=== PATIENT | male | born 1970 | race Caucasian/White ===

== ENCOUNTER 2020-02-25 | Outpatient (REF) | payer OTHER, MEDICAID, SELFPAY ==
[2020-03-02 14:41] LABS: FIT Int Ctl YES; FIT1 NEGATIVE (NEGATIVE); FIT2 NEGATIVE (NEGATIVE)
== END 2020-02-25 00:01 | disposition home or self-care (01) ==
LOC: HO.LNP
PROVIDERS: Visit Provider Internal Medicine Gastroenterology
DX: C18.9 Malignant neoplasm of colon, unspecified (principal)
CPT/HCPCS: 82274

== ENCOUNTER → 2020-06-09 14:16 | Outpatient (BNVA) | payer OTHER, MEDICAID, SELFPAY | PROVIDERS: Visit Provider Internal Medicine Gastroenterology ==

== ENCOUNTER → 2020-08-25 08:46 | Outpatient (BNVA) | payer OTHER, MEDICAID, SELFPAY | PROVIDERS: Visit Provider Internal Medicine Gastroenterology ==

== ENCOUNTER 2020-10-26 11:58 | Outpatient (REF) | payer OTHER, MEDICAID, SELFPAY ==
--- NOTE | ~2020-10-26 | PE_ITS ---
EXAMINATION: Fluorine-18 FDG PET/CT Scan CLINICAL INDICATION: Subsequent treatment management. Colon carcinoma metastatic to multiple sites. Patient states second dose vaccination one month ago left arm. PROCEDURE: 63 minutes following the intravenous administration of 6.4 mCi of fluorine 18 FDG, images from the base of the skull to the mid thighs were obtained using a combined PET/CT scanner with CT scan based attenuation correction. No oral contrast was administered. No intravenous contrast was administered. Transverse, coronal, sagittal, and volume reconstruction projections were obtained. The patient's blood glucose as determined by a finger stick, was 98 mg/dl immediately prior to injection. Total CT exam dose-length product 664.89 mGy-cm * These CT images were obtained using dose optimization techniques as appropriate, variously including the following: Automated exposure control * Adjustment of mA and/or kV according to patient size (this includes techniques or standardized protocols for targeted exams where dose is matched to indication/reason for exam; i.e. extremities or head) * Use of iterative reconstruction technique COMPARISON: The previous PET CT scans dated 07/08/2019 and 03/27/2019 are available for comparison. FINDINGS: (Slice numbers described in this report are numbered superiorly to inferiorly with slice #1 in the head) NECK AND VISUALIZED HEAD: No foci of abnormal FDG activity are noted. The distribution of FDG activity is physiological. There is no cervical lymphadenopathy. THORAX: Multiple FDG avid normal-sized a normal-appearing left axillary lymph nodes are present, the most intense showing SUVmax 7.1, slice 60/267. These are likely vaccination related. No other foci of abnormal FDG activity are present in the chest. Multiple pulmonary nodules are present and almost all of these are subcentimeter in size. The largest is in the superior segment of the right lower lobe, just posterior to the major interlobar fissure measuring 1.1 x 0.8 cm in largest transverse dimensions and showing no abnormal FDG activity, although this is at the lower limits of resolution on the FDG PET images. This nodule is not present on 07/08/2019. While some of the nodules present on the current study were present previously, both appear to have enlarged and multiple new nodules are present bilaterally, and all lung lobes appear to be involved. There is no mediastinal, supraclavicular or right axillary lymphadenopathy. There is no pleural or pericardial fluid, or pneumothorax. A right-sided chest port with internal jugular catheter terminating in the superior vena cava is present. ABDOMEN AND PELVIS: No foci of abnormal FDG activity are present in the abdomen or pelvis. There is some retained FDG activity in the mid and distal right ureter and diffusely increased FDG activity is present in the gastrointestinal tract of varying intensities, but most intense in the rectosigmoid colon and rectum without corresponding CT abnormalities. The suture line in the hepatic flexure is visualized and shows no abnormal FDG activity although mild FDG activity similar or less intense than most of the remainder the gastrointestinal tract is noted. The liver, gallbladder and spleen are unremarkable. The kidneys, adrenal glands, and pancreas are unremarkable. There is no retroperitoneal, mesenteric, pelvic or inguinal lymphadenopathy. A metallic clip or dense calcification suspected to be present in the rectum on the 07/08/2019 PET/CT scan is no longer present and this may have represented ingested material. MUSCULOSKELETAL: No foci of abnormal FDG activity are present in the osseous structures. There are mild degenerative changes in the spine but no suspicious sclerotic or lytic lesions are visualized. VASCULAR: No significant abnormalities are present. PET/PET CT fusion skull to thigh IMPRESSION: 1. Enlarging and multiple new pulmonary nodules, predominantly subcentimeter in size are most consistent with progressive metastatic disease. These nodules show no abnormal FDG activity, but all of them are likely too small to be resolved on these FDG PET images. 2. Multiple FDG avid left axillary lymph nodes are present and these are most consistent with known recent Covid vaccination in the left arm. 3. No additional abnormalities suspicious for other metastatic or malignant lesions are noted.
== END 2020-10-26 11:59 | disposition home or self-care (01) ==
LOC: HO.PET 11:58
PROVIDERS: PCP Internal Medicine; Visit Provider Internal Medicine
DX: Z13.89 Encounter for screening for other disorder (principal)

== ENCOUNTER → 2020-11-09 10:51 | Outpatient (REF) | payer OTHER, MEDICAID, SELFPAY ==
--- NOTE | ~2020-11-09 | NM_ITS ---
EXAMINATION: NM BONE SCAN OF THE WHOLE BODY CLINICAL INFORMATION: Acute left-sided back and hip pain, stage IV colon cancer 2019. On chemotherapy now since April 2019. Also patient states dental work in the last 2 months. COMPARISON: No previous bone scan or recent radiographs are available for comparison. FDG PET CT scan dated 10/26/2020 is available for comparison. TECHNIQUE: Multiple gamma scintillation camera images of the whole body were performed 3 hours following the intravenous administration of 34 mCi Tc-99m MDP. FINDINGS: In the head, there are foci of mildly increased activity present bilaterally in the alveolar ridge regions of the maxilla and the mandible, more prominently in the maxilla and best visualized on the anterior whole body image. In the thoracic cage and upper extremities, there is minimally increased activity in the sternoclavicular joints bilaterally. There is a small focus of residual radiopharmaceutical at the injection site in the right antecubital fossa. In the spine, no significant abnormalities are present. In the pelvis, no significant abnormalities are present. In the lower extremities, there is minimally increased activity in the left medial femoral condyle. No other definite bony abnormalities are noted. The urinary bladder and faint visualization of both kidneys are noted. NM/NM bone scan whole body IMPRESSION: A few mild nonspecific abnormalities are noted as described above and these are all likely arthritic or traumatic in etiology. None of these abnormalities is strongly suspicious for metastatic disease.
== END ==
LOC: HO.NUCMED 10:51
PROVIDERS: PCP Internal Medicine; Visit Provider Internal Medicine
DX: M54.5 Low back pain (principal)
CPT/HCPCS: 78306; A9503

== ENCOUNTER 2021-02-01 06:03 | Outpatient (REF) | payer OTHER, MEDICAID, SELFPAY ==
--- NOTE | ~2021-02-01 | CT_ITS ---
EXAMINATION: CT CHEST WITH CONTRAST CLINICAL INFORMATION: Cancer of the appendix COMPARISON: Previous chest CT most recent February 2019 and PET/CT scan October 2020 TECHNIQUE: Multidetector volumetric CT imaging of the chest was obtained after the administration of 85 mL of Omnipaque 350 intravenous contrast without immediate adverse reactions. Axial MIP volume rendering provided. Sagittal and coronal reformatted images were obtained. This CT examination was performed using dose optimization techniques as appropriate, variously including the following: *Automated exposure control *Adjustment of mA and/or kV according to patient size (this includes techniques or standardized protocols for targeted exams where dose is matched to indication/reason for exam; i.e. extremities or head) *Use of iterative reconstruction technique DLP: 184 mGy-cm FINDINGS: LUNGS: There are innumerable bilateral pulmonary nodules. Largest pulmonary nodules measure 1 cm. These appear increased in size and number compared to previous CT scan from 2018. These do not appear appreciably changed from previous PET/CT scan October 2020. Some nodules appear cavitary for example in the left lower lobe axial image 20 and axial image 24 series 6. MEDIASTINUM: There are small mediastinal lymph nodes. No enlarged mediastinal or hilar lymph nodes are seen. The heart does not appear enlarged. There is no pericardial effusion. The thoracic aorta is normal in caliber. There is a Port-A-Cath with tip projecting over the SVC. PLEURA: There is no pleural effusion. No pleural mass or thickening. AXILLA: There are no enlarged axillary lymph nodes. OSSEOUS STRUCTURES: Unremarkable. CT/CT chest w con IMPRESSION: Innumerable bilateral pulmonary nodules. Some nodules appear cavitary. Infectious, inflammatory and neoplastic processes should be considered.
--- NOTE | ~2021-02-01 | CT_ITS ---
EXAMINATION: CT ABDOMEN AND PELVIS WITH CONTRAST CLINICAL INFORMATION: Appendix cancer. COMPARISON: Previous CT of the abdomen and pelvis February 2019 and PET/CT scan October 2020 TECHNIQUE: Multidetector volumetric images were obtained from the superior aspect of the liver through the pubic symphysis following administration 85 mL of Omnipaque 350 intravenous contrast. Sagittal and coronal reformatted images were obtained on the technologist's workstation. Oral contrast: Yes. This CT examination was performed using dose optimization techniques as appropriate, variously including the following: *Automated exposure control *Adjustment of mA and/or kV according to patient size (this includes techniques or standardized protocols for targeted exams where dose is matched to indication/reason for exam; i.e. extremities or head) *Use of iterative reconstruction technique DLP: 558 mGy-cm FINDINGS: LIVER, GALLBLADDER, AND BILIARY TREE: The liver is normal in size, shape, and attenuation. No focal hepatic lesion or biliary ductal dilatation is present. The gallbladder is unremarkable with no evidence of radiopaque gallstones, gallbladder wall thickening, or obvious pericholecystic inflammatory changes. PANCREAS: Unremarkable. SPLEEN: Unremarkable. ADRENAL GLANDS: Unremarkable. KIDNEYS AND URETERS: The kidneys are normal in size, shape, and attenuation. No hydronephrosis, hydroureter, or calculi seen. No perinephric stranding. BLADDER: Unremarkable. GASTROINTESTINAL TRACT: There are postsurgical changes following right colectomy. There is question of mild wall thickening of the distal left proximal sigmoid colon and prominent vasa recta. Findings are questionable for mild colitis. Small and large bowel is otherwise unremarkable. ABDOMINAL WALL: There is a small umbilical hernia containing fat. LYMPH NODES: Normal. VASCULAR: Unremarkable. PELVIC VISCERA: Unremarkable. OSSEOUS STRUCTURES: Unremarkable. CT/CT abdomen pelvis w con IMPRESSION: Postsurgical changes following right colectomy. Question mild colitis of the distal colon.
[2021-02-01] MEDS: iohexoL 350 MG/ML 100 ML INFUS..BTL IV (09:15)
[2021-02-01] MEDS: Barium Sulfate Oral (Vanilla) 450 ML ORAL.SUSP 900 ML PO (09:16)
== END 2021-02-01 06:04 | disposition home or self-care (01) ==
LOC: HO.CT 06:03
PROVIDERS: PCP Internal Medicine; Visit Provider Internal Medicine
DX: C18.9 Malignant neoplasm of colon, unspecified (principal); Z90.49 Acquired absence of other specified parts of digestive tract
CPT/HCPCS: 71260; 74177; Q9967

== ENCOUNTER → 2021-02-08 15:27 | Outpatient (BNVA) | payer OTHER, MEDICAID, SELFPAY | PROVIDERS: PCP Internal Medicine; Referring Provider Internal Medicine; Visit Provider Internal Medicine Gastroenterology ==

== ENCOUNTER → 2021-04-05 12:06 | Outpatient (BNVA) | payer OTHER, SELFPAY | PROVIDERS: PCP Internal Medicine; Referring Provider Internal Medicine; Visit Provider Internal Medicine Gastroenterology | DX: R19.7 Diarrhea, unspecified (principal); C18.9 Malignant neoplasm of colon, unspecified | CPT/HCPCS: 99212 ==

== ENCOUNTER 2021-05-09 13:03 | Outpatient (REF) | payer OTHER, SELFPAY ==
--- NOTE | ~2021-05-09 | CT_ITS ---
EXAMINATION: CT CHEST, ABDOMEN AND PELVIS WITH CONTRAST CLINICAL INFORMATION: Treatment response COMPARISON: CT chest abdomen pelvis from 02/01/2021 TECHNIQUE: Multidetector volumetric CT imaging of the chest, abdomen, and pelvis was performed after the administration of 100 mL of Omnipaque 300 intravenous contrast without immediate adverse reactions. Axial MIP volume rendering provided. Sagittal and coronal reformatted images were obtained. This CT examination was performed using dose optimization techniques as appropriate, variously including the following: *Automated exposure control *Adjustment of mA and/or kV according to patient size (this includes techniques or standardized protocols for targeted exams where dose is matched to indication/reason for exam; i.e. extremities or head) *Use of iterative reconstruction technique DLP: 669 mGy-cm. FINDINGS: CHEST: LUNGS/PLEURA: Redemonstration of innumerable bilateral pulmonary nodules throughout the bilateral lung lombardi. The largest in the right upper lobe measures 1.5 cm (series 7, image 135) previously measuring 1.4 cm. The largest in the right lower lobe measures up to 2.0 cm (series 7, image 251) previously measuring up to 1.9 cm. The largest in the left upper lobe measures up to 1.4 cm (series 7, image 196) previously measuring 1.0 cm the largest in the left lower lobe is a conglomeration of nodules measuring approximately 3.0 cm (series 7, image 253) previously measuring 2.9 cm. Central airways are patent. No pneumothorax. No large pleural effusion. MEDIASTINUM: The heart is not enlarged. No pericardial effusion. The aorta is nonaneurysmal. The main pulmonary artery is not enlarged. No enlarged lymph nodes per size criteria. Visualized portions of the thyroid are unremarkable. Right single lumen chest port with its distal tip in the mid to distal SVC. AXILLA: No lymphadenopathy. ABDOMEN AND PELVIS: LIVER, GALLBLADDER, AND BILIARY TREE: The liver is normal in size and shape. Decreased hepatic attenuation suggesting hepatic steatosis. No focal hepatic lesion or biliary ductal dilatation is present. The gallbladder is unremarkable with no evidence of radiopaque gallstones, gallbladder wall thickening, or obvious pericholecystic inflammatory changes. PANCREAS: Unremarkable. SPLEEN: Unremarkable. ADRENAL GLANDS: Unremarkable. KIDNEYS AND URETERS: The kidneys are normal in size, shape, and attenuation. No hydronephrosis, hydroureter, or calculi seen. No perinephric stranding. BLADDER: Unremarkable. GASTROINTESTINAL TRACT: Postsurgical changes status post right colectomy. Question of mild mural thickening of the sigmoid colon versus underdistention without pericolonic inflammatory changes. Very slight colonic diverticulosis without acute diverticulitis. The small and large bowel are otherwise unremarkable. ABDOMINAL WALL: Fat filled umbilical hernia. Bilateral small fat filled inguinal hernias, left greater than right. LYMPH NODES: No enlarged lymph nodes per size criteria. VASCULAR: Abdominal aorta is nonaneurysmal. Atherosclerotic calcifications of the abdominal aorta and branches. Pelvic phleboliths are noted. PELVIC VISCERA: Prostate measures up to 4.6 cm in greatest dimension. OSSEOUS STRUCTURES: Stable sclerotic focus at the inferior endplate of T12. Mild multilevel degenerative changes of the thoracolumbar and lumbosacral spine. CT/CT abdomen pelvis w con IMPRESSION: 1. Redemonstration of innumerable bilateral pulmonary nodules some of which demonstrate increase in size. 2. Decreased hepatic attenuation suggesting hepatic steatosis. 3. Postsurgical changes status post right colectomy. 4. Question of mild mural thickening of the sigmoid colon versus underdistention without pericolonic inflammatory changes. 5. Very slight colonic diverticulosis without acute diverticulitis. 6. Prostate measures up to 4.6 cm in greatest dimension. 7. Stable sclerotic focus at the inferior endplate of T12.
[2021-05-09] MEDS: iohexoL 350 MG/ML 100 ML INFUS..BTL IV (15:51)
== END 2021-05-09 13:04 | disposition home or self-care (01) ==
LOC: HO.CT 13:03
PROVIDERS: PCP Internal Medicine; Visit Provider Internal Medicine
DX: C18.9 Malignant neoplasm of colon, unspecified (principal); R91.8 Other nonspecific abnormal finding of lung field
CPT/HCPCS: 71260; 74177; Q9967

== ENCOUNTER → 2021-07-08 10:58 | Outpatient (BNVA) | payer OTHER, SELFPAY | PROVIDERS: PCP Internal Medicine; Referring Provider Internal Medicine; Visit Provider Internal Medicine Gastroenterology | DX: C18.9 Malignant neoplasm of colon, unspecified (principal); R19.7 Diarrhea, unspecified | CPT/HCPCS: 99212 ==

== ENCOUNTER 2021-07-13 09:07 | Outpatient (REF) | payer OTHER, SELFPAY ==
[2021-07-13 10:47] LABS: CDiff Gene PCR NEGATIVE (Negative)
== END 2021-07-13 09:08 | disposition home or self-care (01) ==
LOC: HO.LNP 09:07
PROVIDERS: Visit Provider Internal Medicine Gastroenterology
DX: C18.9 Malignant neoplasm of colon, unspecified (principal); R19.7 Diarrhea, unspecified
CPT/HCPCS: 87493

== ENCOUNTER 2021-08-15 10:37 | Outpatient (REF) | payer OTHER, SELFPAY ==
--- NOTE | ~2021-08-15 | CT_ITS ---
EXAMINATION: CT CHEST WITH CONTRAST CLINICAL INFORMATION: Cancer of the appendix. COMPARISON: Previous chest CT most recent April 2021 TECHNIQUE: Multidetector volumetric CT imaging of the chest was obtained after the administration of 65 mL of Omnipaque 350 intravenous contrast without immediate adverse reactions. Axial MIP volume rendering provided. Sagittal and coronal reformatted images were obtained. This CT examination was performed using dose optimization techniques as appropriate, variously including the following: *Automated exposure control *Adjustment of mA and/or kV according to patient size (this includes techniques or standardized protocols for targeted exams where dose is matched to indication/reason for exam; i.e. extremities or head) *Use of iterative reconstruction technique DLP: 159 mGy-cm FINDINGS: LUNGS: There is interval increase in size and number of bilateral pulmonary nodules. Some nodules appear cavitary. Largest right pulmonary nodule measures 1.5 x 1.8 cm axial image 39 series 3 compared to 1.1 x 1.6 cm April 2021 exam. Largest left pulmonary nodule measures 1.5 x 2.4 cm axial image 37 series 3 compared to 1.2 x 2 cm April 2021 exam. MEDIASTINUM: The mediastinum is normal. PLEURA: There is no pleural effusion. No pleural mass or thickening. AXILLA: No lymphadenopathy. There is a right jugular port with tip projecting over the SVC. UPPER ABDOMEN: The liver is low in attenuation suggestive of fatty infiltration. OSSEOUS STRUCTURES: There are mild degenerative changes of the spine. CT/CT chest w con IMPRESSION: Interval increase in size and number of bilateral pulmonary nodules compared to April 2021 exam. Fleischner guidelines were followed.
== END 2021-08-15 10:38 | disposition home or self-care (01) ==
LOC: HO.CT 10:37
PROVIDERS: PCP Internal Medicine; Visit Provider Internal Medicine
DX: C18.9 Malignant neoplasm of colon, unspecified (principal)
CPT/HCPCS: 71260

== ENCOUNTER 2021-09-01 07:25 | Outpatient (REF) | payer OTHER, SELFPAY ==
--- NOTE | ~2021-09-01 | CT_ITS ---
EXAMINATION: CT ABDOMEN AND PELVIS WITH CONTRAST CLINICAL INFORMATION: Colon cancer. Increasing CEA. COMPARISON: Previous CT of the abdomen and pelvis most recent April 2021 TECHNIQUE: Multidetector volumetric images were obtained from the superior aspect of the liver through the pubic symphysis following administration 85 mL of Omnipaque 350 intravenous contrast. Sagittal and coronal reformatted images were obtained on the technologist's workstation. Oral contrast: Yes This CT examination was performed using dose optimization techniques as appropriate, variously including the following: *Automated exposure control *Adjustment of mA and/or kV according to patient size (this includes techniques or standardized protocols for targeted exams where dose is matched to indication/reason for exam; i.e. extremities or head) *Use of iterative reconstruction technique DLP: 523 mGy-cm FINDINGS: LUNG BASES: There is interval increase in size and number of bilateral pulmonary nodules. LIVER, GALLBLADDER, AND BILIARY TREE: There are several small low-attenuation lesion seen in the lateral segment of the left lobe of the liver for example coronal reconstructed image 33 and 39 series 7. Largest lesion measures 3 x 4 mm and is difficult to characterize. There is a 3 x 4 mm low-attenuation lesion in the right lobe coronal reconstructed image 59 that is difficult to characterize as well. These do not appear appreciably changed compared to older exams and may represent small cysts. The liver is low in attenuation suggestive of fatty infiltration. The gallbladder is normal. There is no biliary duct dilatation. PANCREAS: Unremarkable. SPLEEN: Unremarkable. ADRENAL GLANDS: Unremarkable. KIDNEYS AND URETERS: The kidneys are normal in size, shape, and attenuation. No hydronephrosis, hydroureter, or calculi seen. No perinephric stranding. BLADDER: Unremarkable. GASTROINTESTINAL TRACT: The right colon has been removed. The small and large bowel are otherwise unremarkable. ABDOMINAL WALL: There is an umbilical hernia containing fat. LYMPH NODES: Normal. VASCULAR: Unremarkable. PELVIC VISCERA: Unremarkable. OSSEOUS STRUCTURES: Unremarkable. CT/CT abdomen pelvis w con IMPRESSION: Interval increase in size and number of bilateral pulmonary nodules. Fatty liver. Several small low-attenuation liver lesions that are stable from prior exams and may represent tiny cysts. Fleischner guidelines were followed.
[2021-09-01] MEDS: iohexoL 350 MG/ML 100 ML INFUS..BTL 85 ML IV (10:35)
[2021-09-01] MEDS: Barium Sulfate Oral (Mocha) 450 ML ORAL.SUSP 900 ML PO (10:36)
== END 2021-09-01 07:26 | disposition home or self-care (01) ==
LOC: HO.CT 07:25
PROVIDERS: Visit Provider Internal Medicine
DX: C18.9 Malignant neoplasm of colon, unspecified (principal)
CPT/HCPCS: 74177; Q9967

== ENCOUNTER → 2021-09-26 10:00 | Outpatient (BNVA) | payer OTHER, MEDICARE, SELFPAY | PROVIDERS: PCP Internal Medicine; Visit Provider Internal Medicine Gastroenterology | DX: R19.7 Diarrhea, unspecified (principal) ==

== ENCOUNTER 2022-01-18 10:42 | Outpatient (REF) | payer MEDICARE, SELFPAY ==
--- NOTE | ~2022-01-18 | US_ITS ---
EXAMINATION: US ABDOMEN COMPLETE CLINICAL INFORMATION: Worsening liver function tests. History of colon cancer.. COMPARISON: Previous CT of the abdomen and pelvis most recent August 2021 TECHNIQUE: Real-time imaging of the abdominal viscera. FINDINGS: PANCREAS: Normal. ABDOMINAL AORTA: The proximal, mid, and distal segments are normal in caliber. INFERIOR VENA CAVA: Visualized portions are normal. LIVER: The liver echotexture is increased.. The liver is normal in size. The liver contour is normal. No focal hepatic lesion. There is no intrahepatic biliary duct dilatation seen. GALLBLADDER: Normal. The gallbladder is physiologically distended without evidence of stones, sludge, polyps, wall thickening or pericholecystic fluid. COMMON BILE DUCT: Normal in caliber measuring 0.3 cm in diameter. RIGHT KIDNEY: Normal. No hydronephrosis. No renal calculi or focal parenchymal lesions. The kidney measures 12 cm in maximum dimension. LEFT KIDNEY: Normal. No hydronephrosis. No renal calculi or focal parenchymal lesions. The kidney measures 13 cm in maximum dimension. SPLEEN: Normal. The spleen measures 10 cm in maximum dimension. FREE FLUID: None. US/US abdomen complete IMPRESSION: Echogenic liver probably representing fatty infiltration. No focal liver lesion seen. Normal-appearing gallbladder.
== END 2022-01-18 10:43 | disposition home or self-care (01) ==
LOC: HO.US 10:42
PROVIDERS: Visit Provider Internal Medicine
DX: R94.5 Abnormal results of liver function studies (principal)
CPT/HCPCS: 76700

== ENCOUNTER 2022-02-20 06:27 | Outpatient (REF) | payer MEDICARE, SELFPAY ==
--- NOTE | ~2022-02-20 | CT_ITS ---
EXAMINATION: CT CHEST WITHOUT CONTRAST CLINICAL INFORMATION: Colon cancer. Metastatic disease to the lungs. COMPARISON: Previous chest CT July 2021 TECHNIQUE: Multidetector volumetric CT imaging of the chest was done. Axial MIP volume rendering provided. Sagittal and coronal reformatted images were obtained. This CT examination was performed using dose optimization techniques as appropriate, variously including the following: *Automated exposure control *Adjustment of mA and/or kV according to patient size (this includes techniques or standardized protocols for targeted exams where dose is matched to indication/reason for exam; i.e. extremities or head) *Use of iterative reconstruction technique DLP: 146 mGy-cm FINDINGS: SKIRT CLIPPER: Bilateral pulmonary nodules. LUNGS: There is interval increase in size and number of bilateral pulmonary nodules. Largest right pulmonary nodule measures 3.3 x 2.3 cm in the right lower lobe axial image 33 series 4 compared to 2 cm July 2021. Largest left pulmonary nodule measures 2.1 x 3.3 cm in the left lower lobe axial image 29 series 4 compared to 1.8 x 1.3 cm July 2021. Some pulmonary nodules appear cavitary. MEDIASTINUM: There is interval increase in a right precarinal mediastinal lymph node. This measures 1.1 cm in short axis compared to 3 x 5 mm on prior exam. Heart size is normal. No pericardial effusion. Right jugular port with tip projecting over the SVC. CORONARY ARTERY CALCIFICATION: None visualized on this study. PLEURA: There is no pleural effusion. No pleural mass or thickening. AXILLA: No lymphadenopathy. UPPER ABDOMEN: Unremarkable. OSSEOUS STRUCTURES: Unremarkable. CT/CT chest wo IV con IMPRESSION: Interval increase in size and number of bilateral pulmonary nodules. Interval increase in right mediastinal lymphadenopathy. Fleischner guidelines were followed.
--- NOTE | ~2022-02-20 | CT_ITS ---
EXAMINATION: CT ABDOMEN AND PELVIS WITHOUT CONTRAST CLINICAL INFORMATION: Elevated liver function tests. History of colon cancer. COMPARISON: Previous CT of the abdomen and pelvis most recent August 2021. TECHNIQUE: Multidetector volumetric imaging was performed from the superior aspect of the liver through the pubic symphysis. Sagittal and coronal reformatted images were obtained on the technologist's workstation. This CT examination was performed using dose optimization techniques as appropriate, variously including the following: *Automated exposure control *Adjustment of mA and/or kV according to patient size (this includes techniques or standardized protocols for targeted exams where dose is matched to indication/reason for exam; i.e. extremities or head) *Use of iterative reconstruction technique DLP: 552 mGy-cm FINDINGS: LUNG BASES: See chest CT report from the same day. LIVER, GALLBLADDER, AND BILIARY TREE: The liver is normal in size, shape, and attenuation. No focal hepatic lesion or biliary ductal dilatation is present. The gallbladder is unremarkable with no evidence of radiopaque gallstones, gallbladder wall thickening, or obvious pericholecystic inflammatory changes. PANCREAS: Unremarkable. SPLEEN: There is a small 5 mm low-attenuation lesion in the spleen that is stable. ADRENAL GLANDS: Unremarkable. KIDNEYS AND URETERS: The kidneys are normal in size, shape, and attenuation. No hydronephrosis, hydroureter, or calculi seen. No perinephric stranding. BLADDER: Unremarkable. GASTROINTESTINAL TRACT: Postsurgical changes from right colectomy. Increasing peritoneal disease in the right lower quadrant. New soft tissue mass measures 1.9 x 3.1 cm in transverse and AP dimension axial image 68 series 3 and 3.7 cm in longitudinal dimension coronal reconstructed image 35. There are several smaller new peroneal soft tissue masses in the right pelvis adjacent to the psoas muscle measuring 1.5 cm axial image 73 series 3. ABDOMINAL WALL: Small umbilical and periumbilical hernias containing fat. Likely postoperative atrophy of the right rectus muscle compared to the left. LYMPH NODES: Normal. VASCULAR: Unremarkable. PELVIC VISCERA: Unremarkable. OSSEOUS STRUCTURES: Unremarkable. CT/CT abdomen pelvis wo IV con IMPRESSION: Increasing peritoneal disease. Normal-appearing noncontrast liver exam. Stable postsurgical changes from right colectomy. Fleischner guidelines were followed.
[2022-02-20] MEDS: Barium Sulfate Oral (Berry) 450 ML ORAL.SUSP 900 ML PO (08:46)
== END 2022-02-20 06:28 | disposition home or self-care (01) ==
LOC: HO.CT 06:27
PROVIDERS: Visit Provider Internal Medicine
DX: C18.9 Malignant neoplasm of colon, unspecified (principal)
CPT/HCPCS: 71250; 74176

== ENCOUNTER 2022-05-01 12:03 | Outpatient (REF) | payer MEDICARE, SELFPAY ==
--- NOTE | ~2022-05-01 | CT_ITS ---
EXAMINATION: CT ANGIOGRAM OF THE CHEST WITH AND WITHOUT CONTRAST (CT PULMONARY ANGIOGRAM FOR PE) CLINICAL INFORMATION: Reason for Exam pleuritic chest pain COMPARISON: Previous chest CT most recent February 2022 TECHNIQUE: Prior to contrast administration, noncontrast localization images were obtained. Subsequently, multidetector volumetric imaging was performed from the thoracic inlet to below the diaphragms following the administration of 85 mL Omnipaque 350 intravenous contrast. No contrast reaction reported Sagittal, coronal, and MIP oblique sagittal reformatted images were obtained on the CT workstation, uploaded to PACS, and reviewed. This CT examination was performed using dose optimization techniques as appropriate, variously including the following: *Automated exposure control *Adjustment of mA and/or kV according to patient size (this includes techniques or standardized protocols for targeted exams where dose is matched to indication/reason for exam; i.e. extremities or head) *Use of iterative reconstruction technique Total exam dose-length product 129 mGy-cm FINDINGS: QUALITY OF STUDY/CONTRAST BOLUS: Satisfactory. PULMONARY ARTERIES: No central or segmental pulmonary emboli. THORACIC AORTA: No aneurysm or dissection. LUNG: There are innumerable bilateral pulmonary nodules. There may be slight interval decrease in size in some of the larger pulmonary nodules compared to February 2022 exam. Right upper lobe nodule measuring 2.2 x 2.6 cm axial image 219 series 7 compared to 2.4 x 3.1 cm February 2022 exam and right upper lobe nodule measuring 2.4 x 3 cm axial image 143 series 7 compared to 2.6 x 3.2 cm February 2022. Left pulmonary nodule measuring 2.1 x 4.4 cm in the left lower lobe axial image 269 series 7 compared to 2.2 x 4.7 cm February 2022. No new pulmonary nodules. PLEURA: No pleural effusion or pneumothorax. MEDIASTINUM: Normal heart size. No pericardial effusion. Small mediastinal lymph nodes. No enlarged lymph nodes. Right jugular port with tip projecting over the SVC.. No evidence of septal bowing or right heart strain. CHEST WALL/AXILLA: No axillary or internal mammary lymphadenopathy. OSSEOUS STRUCTURES: Degenerative changes of the spine. No fracture or bone lesion. UPPER ABDOMEN: No reflux of contrast into the hepatic veins to suggest elevated right heart pressures. CT/CT angio chest PE protocol IMPRESSION: No evidence of pulmonary embolism. Innumerable bilateral pulmonary nodules. There may be slight interval decrease in size in some of the larger pulmonary nodules compared to February 2022 exam no evidence of pulmonary embolism. Question slight interval decrease in size in some of the larger pulmonary nodules compared to February 2022 exam. VTE: negative
--- NOTE | ~2022-05-01 | CT_ITS ---
EXAMINATION: CT ABDOMEN AND PELVIS WITH CONTRAST CLINICAL INFORMATION: Right-sided abdominal pain COMPARISON: Previous CT of the abdomen and pelvis February 2022 TECHNIQUE: Multidetector volumetric images were obtained from the superior aspect of the liver through the pubic symphysis following administration 85 mL of Omnipaque 350 intravenous contrast. Sagittal and coronal reformatted images were obtained on the technologist's workstation. Oral contrast: Yes This CT examination was performed using dose optimization techniques as appropriate, variously including the following: *Automated exposure control *Adjustment of mA and/or kV according to patient size (this includes techniques or standardized protocols for targeted exams where dose is matched to indication/reason for exam; i.e. extremities or head) *Use of iterative reconstruction technique DLP: 433 mGy-cm FINDINGS: LIVER, GALLBLADDER, AND BILIARY TREE: The liver is normal in size, shape and attenuation. There are 2 small low-attenuation liver lesions measuring 5 mm in the lateral segment of the left lobe axial image 24 series 3 and 4 mm in the posterior segment of the right lobe axial image 23 series 3. These are difficult to characterize due to small size but appear unchanged. No new liver lesion. The gallbladder is normal. No gallstones are seen by CT. There is no intrahepatic or extrahepatic biliary duct dilatation. PANCREAS: Unremarkable. SPLEEN: Unremarkable. ADRENAL GLANDS: Unremarkable. KIDNEYS AND URETERS: The kidneys are normal in size, shape, and attenuation. No hydronephrosis, hydroureter, or calculi seen. No perinephric stranding. BLADDER: Not optimally distended. GASTROINTESTINAL TRACT: There are postsurgical changes following right colectomy. Small and large bowel is otherwise normal. Peritoneal soft tissue masses in the right lower quadrant appear decreased in size for example measuring 1.3 x 1.8 cm axial image 73 series 3 compared to 1.7 x 3.3 cm February 2022 and 0.8 x 1.5 cm axial image 77 series 3. 2 1.4 cm February 2022. No evidence of new peritoneal disease. No ascites. ABDOMINAL WALL: Small umbilical hernia containing fat. Atrophy and abdominal wall bulge of the right rectus muscle. Left inguinal bulge. LYMPH NODES: Small small bowel mesentery and retroperitoneal lymph nodes. No enlarged lymph nodes. VASCULAR: Unremarkable. PELVIC VISCERA: Unremarkable. OSSEOUS STRUCTURES: Unremarkable. CT/CT abdomen pelvis w IV con IMPRESSION: Interval decrease in peritoneal disease. Stable postsurgical changes following right colectomy. Fleischner guidelines were followed.
[2022-05-01] MEDS: iohexoL 350 MG/ML 100 ML INFUS..BTL IV (13:14)
== END 2022-05-01 12:04 | disposition home or self-care (01) ==
LOC: HO.CT 12:03
PROVIDERS: PCP Internal Medicine; Visit Provider Internal Medicine
DX: C18.9 Malignant neoplasm of colon, unspecified (principal); R07.9 Chest pain, unspecified
CPT/HCPCS: 71275; 74177; Q9967

== ENCOUNTER 2022-06-13 16:07 | Outpatient (REF) | payer MEDICARE, SELFPAY ==
--- NOTE | ~2022-06-13 | XR_ITS ---
EXAMINATION: XR RIBS, BILATERAL CLINICAL INFORMATION: Pleurodynia. COMPARISON: CTA of the chest 05/01/2022 and 02/20/2022. TECHNIQUE: 3 views of the bilateral ribs were obtained. FINDINGS: Again noted innumerable pulmonary nodules and masses, difficult to accurately compare with recent prior studies from 05/01/2022 and 02/20/2022 in view of differences in modality. Largest nodule versus conglomerate of nodules in the right lung measured 4.6 cm and in the left lung 3.5 cm. No significant cardiomediastinal contour abnormality. Right-sided chest port terminates at the level of the cavoatrial junction. No pleural effusion or pneumothorax. No acute osseous abnormalities. XR/XR ribs BI min 4V w CXR1V IMPRESSION: 1. Innumerable pulmonary nodules and masses, difficult to accurately compare with recent prior studies from 05/01/2022 and 02/20/2022 in view of differences in modality, although some of which appear increased in size. Recommend correlation with a chest CT. 2. No evidence of pleural effusion or pneumothorax.
== END 2022-06-13 16:08 | disposition home or self-care (01) ==
LOC: HO.XRAY 16:07
PROVIDERS: PCP Internal Medicine; Visit Provider Internal Medicine
DX: R07.81 Pleurodynia (principal)
CPT/HCPCS: 71111

== ENCOUNTER 2022-06-28 12:33 | Outpatient (REF) | payer MEDICARE, SELFPAY ==
--- NOTE | ~2022-06-28 | CT_ITS ---
EXAMINATION: CT ABDOMEN AND PELVIS WITHOUT CONTRAST CLINICAL INFORMATION: Right flank pain. History of stage IV colon carcinoma. COMPARISON: 05/01/2022 TECHNIQUE: Multidetector volumetric imaging was performed from the superior aspect of the liver through the pubic symphysis. Sagittal and coronal reformatted images were obtained on the technologist's workstation. This CT examination was performed using dose optimization techniques as appropriate, variously including the following: *Automated exposure control *Adjustment of mA and/or kV according to patient size (this includes techniques or standardized protocols for targeted exams where dose is matched to indication/reason for exam; i.e. extremities or head) *Use of iterative reconstruction technique DLP: 560 mGy-cm FINDINGS: LUNG BASES: Again noted are multiple lobulated nodules in the visualized lung bases and some of these have air bronchograms. The nodules have not significantly changed in size since 05/01/2022. For example, a nodule in the lateral left lower lobe that measures 2 cm AP was 1.9 cm on 05/01/2021 (image 1, series 4) and a more inferior left lower lobe nodule that measures 2.1 cm AP was 2.1 cm on the prior exam (image 66, series 4). No pulmonary consolidation or pleural effusion. LIVER: The liver has normal size, shape, and attenuation. No evidence of liver mass on these noncontrast images. GALLBLADDER AND BILIARY TREE: Gallbladder is without radiopaque stones, wall thickening or pericholecystic fluid. No dilated bile ducts. PANCREAS: Normal. No edema, pancreatic ductal dilatation or mass. SPLEEN: Normal. ADRENAL GLANDS: Normal. KIDNEYS AND URETERS: The kidneys have normal size and cortical thickness. No perinephric edema or fluid collection. No urolithiasis or hydroureteronephrosis. BLADDER: Normal. No calculi or wall thickening. BOWEL AND PERITONEUM: No dilated loops of bowel. Prior right hemicolectomy and no evidence of wall thickening at the bowel anastomosis. No abdominal free fluid or free air. There are stable nodular metastatic deposits in the right omentum and in the region of the right paracolic gutter (images 60 and 68, series 3). The irregular lymph node or metastatic deposit anterior to the right psoas muscle in the right lower quadrant measures 1.9 cm transverse and also remains stable compared to 05/01/2022 (image 70, series 3). ABDOMINAL WALL: Chronic protrusion of extraperitoneal fat into each inguinal canal (left more so than right). VASCULATURE: Abdominal aorta is normal in caliber. LYMPH NODES: No retroperitoneal, iliac or inguinal lymphadenopathy. PELVIC VISCERA: Prostate gland is unremarkable. MUSCULOSKELETAL: No suspicious bone lesions. The visualized lower thoracic and lumbar vertebra have normal height and alignment. Mild spondylosis. CT/CT abdomen pelvis wo IV con IMPRESSION: * No acute imaging abnormalities in the abdomen or pelvis compared to 05/01/2022. * No nephrolithiasis or hydronephrosis. No specific source of right flank pain is identified. * The metastatic deposits within the right omentum, right paracolic gutter and mesentery are stable compared to 05/01/2022. * The visualized metastatic nodules in lung bases have not significantly changed in size.
== END 2022-06-28 12:34 | disposition home or self-care (01) ==
LOC: HO.CT 12:33
PROVIDERS: Visit Provider Internal Medicine
DX: C18.9 Malignant neoplasm of colon, unspecified (principal); R10.9 Unspecified abdominal pain
CPT/HCPCS: 74176

== ENCOUNTER 2022-07-28 13:08 | Outpatient (REF) | payer MEDICARE, SELFPAY ==
--- NOTE | ~2022-07-28 | CT_ITS ---
EXAMINATION: CT CHEST WITHOUT CONTRAST CLINICAL INFORMATION: Lung metastasis. COMPARISON: 05/01/2022 and 02/20/2022. TECHNIQUE: Multidetector volumetric CT imaging of the chest was done. Axial MIP volume rendering provided. Sagittal and coronal reformatted images were obtained. This CT examination was performed using dose optimization techniques as appropriate, variously including the following: *Automated exposure control *Adjustment of mA and/or kV according to patient size (this includes techniques or standardized protocols for targeted exams where dose is matched to indication/reason for exam; i.e. extremities or head) *Use of iterative reconstruction technique DLP: 161 mGy-cm FINDINGS: LUNGS: The central airways are patent. There is bronchial wall thickening present leading to numerous soft tissue densities and may represent some degree of lymphatic spread of tumor. No bronchiectasis is appreciated. There is no significant change in size of the diffuse bilateral soft tissue masses consistent with metastatic disease to the chest compared to 05/01/2022. No significant changes of emphysema are appreciated. MEDIASTINUM: The heart is normal size. No pericardial effusion. No thoracic aortic aneurysm. No significant calcified plaque is seen within the thoracic aorta. There is a right internal jugular port catheter seen in place. Visualized thyroid gland unremarkable. There is a 1.2 cm right precarinal lymph node. This was present on study of 05/01/2022. No definite hilar lymphadenopathy is identified however without IV contrast there is limited evaluation for this. CORONARY ARTERY CALCIFICATION: None visualized on this study. PLEURA: There is no pleural effusion. No pleural mass or thickening. AXILLA: No lymphadenopathy. UPPER ABDOMEN: Unremarkable. OSSEOUS STRUCTURES: There is a fracture of the left 7th rib anterolaterally which may be traumatic or pathologic. This was not evident on previous study of 05/01/2022. Clinical correlation suggested. There is also a region of stippled higher density within the lateral aspect of the right 7th rib without definite bony destruction and may represent metastatic disease. CT/CT chest wo IV con IMPRESSION: Numerous diffuse lung lesions consistent with metastatic disease without significant change from study of 05/01/2022. New left 7th rib fracture which may be pathologic in nature. There is a region of stippled increased density within the marrow of the right 7th rib laterally which may be related to metastatic disease. This too was not evident on previous study of 05/01/2022.
== END 2022-07-28 13:09 | disposition home or self-care (01) ==
LOC: HO.CT 13:08
PROVIDERS: PCP Internal Medicine; Visit Provider Internal Medicine
DX: C18.9 Malignant neoplasm of colon, unspecified (principal)
CPT/HCPCS: 71250

== ENCOUNTER → 2022-08-11 10:57 | Outpatient (REF) | payer MEDICARE, SELFPAY ==
--- NOTE | ~2022-08-11 | NM_ITS ---
EXAMINATION: NM BONE SCAN OF THE WHOLE BODY CLINICAL INFORMATION: Malignant neoplasm of colon. COMPARISON: Whole-body bone scan done on 11/09/2020. TECHNIQUE: Multiple gamma scintillation camera images of the whole body were performed 2.25 hours following the intravenous administration of 31 mCi Tc-99m MDP. The radiotracer was injected through left antecubital superficial vein, without complications. FINDINGS: In the head, asymmetric new focal abnormal activity is identified along the superolateral aspect of the right frontal bone/ORBIT. In the thoracic cage and upper extremities, multifocal abnormal increased radiotracer activities are present within the thoracic cage bilaterally including involvement of medial end of the left clavicle near the sternoclavicular joint as well as the sternum. All these findings are new since the prior study. In the spine, focal increased radiotracer activity is present at lower thoracic spine to the right of the midline, new since prior study. In the pelvis, abnormal focal increased radiotracer activity is present to the left posterior pelvis overlying the region of the sacrum, new since prior study. In the lower extremities, subtle focal increased radiotracer activities are present at mid and distal part of the left femur, new since the prior study. No other definite bony abnormalities are noted. The urinary bladder and faint visualization of both kidneys are noted. NM/NM bone scan whole body IMPRESSION: Multifocal new osseous disease throughout the entire visualized skeleton as described above, highly suspicious for metastatic disease, new since the prior study dated 11/09/2020. Given the involvement of the left femur (weightbearing bone), follow-up radiographic correlation is recommended.
== END ==
LOC: HO.NUCMED 10:57
PROVIDERS: PCP Internal Medicine; Visit Provider Internal Medicine
DX: C18.9 Malignant neoplasm of colon, unspecified (principal)
CPT/HCPCS: 78306; A9503

== ENCOUNTER 2022-09-12 12:24 | Outpatient (REF) | payer MEDICARE, SELFPAY ==
--- NOTE | ~2022-09-12 | PE_ITS ---
EXAMINATION: Fluorine-18 FDG PET/CT Scan CLINICAL INDICATION: Subsequent treatment management. Colon cancer, restaging. PROCEDURE: 60 minutes following the intravenous administration of 16.5 mCi of fluorine 18 FDG, images from the base of the skull to the mid thighs were obtained using a combined PET/CT scanner with CT scan based attenuation correction. No oral contrast was administered. No intravenous contrast was administered. Transverse, coronal, sagittal, and volume reconstruction projections were obtained. The patient's blood glucose as determined by a finger stick, was 117 mg/dl immediately prior to injection. Total CT exam dose-length product 619.03 mGy-cm * These CT images were obtained using dose optimization techniques as appropriate, variously including the following: Automated exposure control * Adjustment of mA and/or kV according to patient size (this includes techniques or standardized protocols for targeted exams where dose is matched to indication/reason for exam; i.e. extremities or head) * Use of iterative reconstruction technique COMPARISON: Several prior PET/CT scans are available for comparison, the most recent dated 10/26/2020 and the least recent dated 03/27/2019. CT scans of the chest dated 07/28/2022 and of the abdomen and pelvis dated 06/28/2022 are also available for comparison. FINDINGS: NECK AND VISUALIZED HEAD: No foci of abnormal FDG activity are noted. The distribution of FDG activity is physiological. There is no cervical lymphadenopathy. THORAX: Multiple FDG avid nodular opacities are present throughout all lung lombardi. The most intense of these is in the posterior aspect of the superior segment of the left lower lobe showing SUVmax 6.9, slice 99/311 corresponding to a solid nodule on the CT images that measures 2.7 x 2.0 cm in largest transverse dimensions and approximately 2.8 cm cephalocaudad. In the right lung the most intense focus shows SUVmax 5.9, slice 105/311 and an irregular nodular opacity in the right lower lower lobe. Multiple subcentimeter mediastinal lymph nodes are present, but none of these are enlarged by size criteria. Some of these are FDG avid, such as a right paratracheal lymph node that shows SUVmax 4.0, slice 83/311. Although multiple subcentimeter pulmonary nodules were present on the prior 10/26/2020, these did not show abnormal FDG activity although almost all of them are too small to be resolved on the FDG PET images. The FDG avid mediastinal paratracheal lymph node is new. Multiple FDG avid left axillary lymph nodes present on 10/26/2020 are no longer present, and there is now no axillary or supraclavicular lymphadenopathy. There is no pleural or pericardial fluid or pneumothorax. A right-sided chest port with internal jugular catheter terminating in the superior vena cava is noted. ABDOMEN AND PELVIS: There is mild FDG activity present throughout the gastrointestinal tract without a suspicious focal component. The patient is status post right hemicolectomy and an an anastomotic suture line visualized in the right midabdomen just inferior to the lower pole of the right kidney shows no abnormal FDG activity. There is an FDG avid soft tissue density posterior to the lower pole of the right kidney abutting the peritoneum, SUVmax 4.9, slice 165/311 in this measures approximately 2.3 x 0.[address] images. It abuts the posterolateral aspect of the right 12th rib. Additional soft tissue densities in the right paracolic gutter visualized on the 06/28/[address] scan are again visualized but none of these shows abnormal FDG activity. There is a focus of increased FDG activity in the medial aspect of the left rectus muscle, several centimeters inferior to the umbilicus and just lateral to the midline, with no definite corresponding CT abnormality, showing SUVmax 3.0, slice 207/311. The right rectus muscle is atrophic in this region. No additional foci of abnormal FDG activity are present in the abdomen. The pelvic organs are unremarkable. There is no retroperitoneal, mesenteric, pelvic or inguinal lymphadenopathy. MUSCULOSKELETAL: Multiple FDG avid osseous lesions are present. The most prominent of these are in the mid and lower thoracic spine and upper lumbar spine, the most intense in the L1 vertebral body showing SUVmax 9.2, slice 161/311. Although there is a well-circumscribed FDG avid focus posterior to this in the L1 vertebral body, the previously described most intense focus does not show definite corresponding CT abnormality. There are multiple FDG avid foci in the pelvis, the most prominent in the midline upper sacrum showing SUVmax 9.1, slice 215/311. Additional FDG avid osseous foci are present in the proximal humeri bilaterally and in multiple foci in the proximal left femur and in at least one focus in the proximal right femur. A few FDG avid rib lesions are also present. VASCULAR: No significant abnormalities are present. PET/PET CT fusion skull to thigh IMPRESSION: 1. Multiple FDG avid bilateral pulmonary metastases are present, involving all lung lobes. 2. Several subcentimeter mediastinal lymph nodes are present, and one of these is FDG avid, and the latter is likely a metastasis. 3. Multiple FDG avid osseous metastases are present. Although multiple bones involved, the most prominent abnormalities are in the mid and lower thoracic and upper lumbar spine, and pelvis. 4. A posterior FDG avid soft tissue focus adjacent to the posterior aspect of the left 12th rib likely represents a peritoneal metastasis. 5. An additional FDG avid metastasis is probably present in the medial aspect of the left abdominal rectus muscle. 6. The above findings represent a significant progression in metastatic malignant disease since the prior 10/26/[address] scan. 7. FDG avid left axillary lymphadenopathy present on the 10/26/2020 PET/CT scan has resolved.
== END 2022-09-12 12:25 | disposition home or self-care (01) ==
LOC: HO.PET 12:24
PROVIDERS: PCP Internal Medicine; Visit Provider Internal Medicine
DX: Z13.89 Encounter for screening for other disorder (principal)

== ENCOUNTER 2022-10-11 13:58 | Outpatient (REF) | payer MEDICARE, SELFPAY ==
--- NOTE | ~2022-10-11 | XR_ITS ---
EXAMINATION: XR SHOULDER, LEFT CLINICAL INFORMATION: Question metastatic disease to the bones COMPARISON: None available. TECHNIQUE: AP external rotation, Grashey, scapular Y, and axillary views of the left shoulder. FINDINGS: Bone alignment is normal. No fracture or dislocation. The joint spaces are normal. No bone lesion. Normal soft tissues. Innumerable pulmonary nodules XR/XR shoulder LT min 2V IMPRESSION: Normal left shoulder. Left pulmonary nodules.
== END 2022-10-11 13:59 | disposition home or self-care (01) ==
LOC: HO.XRAY 13:58
PROVIDERS: PCP Internal Medicine; Visit Provider Internal Medicine
DX: M25.512 Pain in left shoulder (principal)
CPT/HCPCS: 73030

== ENCOUNTER 2022-10-20 15:52 | Emergency (ER) | payer MEDICARE, SELFPAY ==
--- NOTE | ~2022-10-20 | CT_ITS ---
EXAMINATION: CT ANGIOGRAM OF THE CHEST WITH AND WITHOUT CONTRAST (CT PULMONARY ANGIOGRAM FOR PE) CLINICAL INFORMATION: Reason for Exam on chemo, SOB, tachycardic COMPARISON: CT chest 07/28/2022. PET/CT study 09/12/2022. Chest x-ray 10/20/2022 TECHNIQUE: Prior to contrast administration, noncontrast localization images were obtained. Subsequently, multidetector volumetric imaging was performed from the thoracic inlet to below the diaphragms following the administration of 65 mL Omnipaque 350 intravenous contrast. No contrast reaction reported Sagittal, coronal, and MIP oblique sagittal reformatted images were obtained on the CT workstation, uploaded to PACS, and reviewed. This CT examination was performed using dose optimization techniques as appropriate, variously including the following: *Automated exposure control *Adjustment of mA and/or kV according to patient size (this includes techniques or standardized protocols for targeted exams where dose is matched to indication/reason for exam; i.e. extremities or head) *Use of iterative reconstruction technique Total exam dose-length product 243 mGy-cm FINDINGS: QUALITY OF STUDY/CONTRAST BOLUS: Satisfactory. PULMONARY ARTERIES: No pulmonary emboli. THORACIC AORTA: No aneurysm. LUNG: Innumerable mass lesions again demonstrated throughout the lungs with metastatic disease. This can impression as prior study. For example a lesion in the posterior left lower lobe previously measuring 3.8 cm in diameter now measures 4.5 cm transverse. PLEURA: No pleural effusion or pneumothorax. MEDIASTINUM: Mediastinal lymphadenopathy. Enlarged lymph node pretracheal retrovascular space level has short axis diameter of 1.3 cm. This remains unchanged since PET/CT study of 09/12/2022. Heart size is normal. No pericardial effusion. No evidence of septal bowing or right heart strain. Central port catheter tip in superior vena cava. CORONARY ARTERY CALCIFICATION: None visualized on this study. CHEST WALL/AXILLA: No axillary or internal mammary lymphadenopathy. OSSEOUS STRUCTURES: No acute or suspicious osseous abnormality. UPPER ABDOMEN: Unremarkable. No reflux of contrast into the hepatic veins to suggest elevated right heart pressures. CT/CT angio chest PE protocol IMPRESSION: 1. No evidence of pulmonary embolism. 2. Redemonstration of innumerable lung masses consistent with metastatic disease. This is similar to prior PET/CT study of 09/12/2022. VTE: negative.
--- NOTE | ~2022-10-20 | XR_ITS ---
EXAMINATION: XR CHEST CLINICAL INFORMATION: Chest pain and shortness of breath COMPARISON: Multiple prior, including most recently the PET/CT from 09/12/2022. TECHNIQUE: 2 views of the chest were obtained. FINDINGS: CT compatible right chest wall port in place. The lungs are well expanded. Numerous nodules and masses are seen throughout the lungs. Comparison across modalities is limited, but there is similar distribution to prior. Cannot accurately assess for progression. No new consolidation seen. No pleural effusion or pneumothorax. The cardiomediastinal silhouette is unchanged. XR/XR chest 2V IMPRESSION: Numerous nodules and masses throughout the lungs. Similar distribution to prior. Cannot accurately assess for progression. No new consolidation.
--- NOTE | 2022-10-20 15:52 | ED_ITS ---
HPI - General Adult General Chief complaint: Chest Pain Stated complaint: chest pain Time Seen by Provider: 10/20/22 20:13 Source: patient Mode of arrival: ambulatory Limitations: no limitations History of Present Illness HPI narrative: Patient comes to emergency room complaining of left-sided chest pain and mild s hortness of breath for about a week. Patient states the pain is sharp on the left side of the chest, and it is a mild constant shortness of breath, states he feels like he cannot get enough oxygen. Patient does not use O2 at home. Patient states that he is currently undergoing chemo and radiation for colon cancer which was diagnosed in 2019. Patient states that he was recently started on a fentanyl patch, since then he has been having the above-mentioned symptoms. Also, patient complaining of feeling nauseous all the time and vomiting for several weeks now. Patient takes Zofran at home but it is not helping much. Also, patient complained of a sore throat. Related Data Home Medications Medication Instructions Recorded Confirmed multivitamin 1 tab PO DAILY 01/10/22 10/11/22 Advil PM 200 mg PO TID 09/15/22 10/11/22 Senna Lax 09/15/22 09/15/22 Previous Rx's Medication Instructions Recorded lidocaine HCl 2 % mucosal jelly 1 appl topical BID PRN Pain #100 mL 03/18/21 ferrous sulfate 325 mg (65 mg 325 mg PO DAILY #90 tabs 03/17/22 iron) tablet albuterol sulfate 90 mcg/actuation 2 puff inhalation Q6H PRN 06/13/22 aerosol inhaler (Ventolin HFA) shortness of breath or wheezing #8.5 grams cyanocobalamin (vitamin B-12) 1,000 mcg PO DAILY #90 tabs 08/15/22 1,000 mcg tablet ondansetron 8 mg disintegrating 8 mg PO Q8H PRN Nausea And 08/22/22 tablet Vomiting #60 tabs loperamide 2 mg capsule 2 mg PO Q4H PRN Diarrhea #60 caps 08/31/22 cyclobenzaprine 10 mg tablet 10 mg PO TID PRN Pain #30 tabs 09/05/22 polyethylene glycol 3350 17 gram 17 g PO DAILY #30 ea 09/15/22 oral powder packet (Miralax) dronabinol 2.5 mg capsule (Marinol) 5 mg PO BID #60 caps 10/05/22 fentanyl 50 mcg/hr transdermal 1 patch transdermal Q72H #6 ea 10/11/22 patch omeprazole 20 mg capsule,delayed 20 mg PO DAILY #30 caps 10/11/22 release regorafenib 40 mg tablet 80 mg PO DAILY #42 tabs 10/11/22 oxycodone 5 mg tablet 10 mg PO Q4H PRN Pain #100 tabs 10/13/22 calcium carbonate 600 mg calcium 600 mg PO BID #90 tabs 10/17/22 (1,500 mg) tablet (Calcium) lorazepam 0.5 mg tablet 0.5 mg PO TID PRN Anxiety #60 tabs 10/17/22 oxycodone 30 mg tablet,crush 30 mg PO TID #10 tabs 10/20/22 resistant,extended release 12 hr (OxyContin) Allergies Allergy/AdvReac Type Severity Reaction Status Date / Time seafood Allergy Severe Angioedema Verified 09/15/22 11:22 shrimp [SHRIMP] Allergy Severe ANGIOEDEMA Verified 09/15/22 11:22 sucralfate [From Carafate] AdvReac Intermediate rectal Verified 09/15/22 11:22 bleeding Review of Systems Review of Systems: Constitutional : No Weight loss, No Fever, No Chills, No Night Sweats, No Fatigue, No Malaise ENT/Mouth : No Hearing loss, No Ear Pain, No Nasal Congestion, No Sinus Pain, No Hoarseness, complaining of sore throat, No Rhinorrhea, No Swallowing Difficulty Eyes: No Eye Pain, No Swelling, No Redness, No Foreign Body, No Discharge, No Vision Changes Cardiovascular : No Chest Pain, No SOB, No Dyspnea on Exertion, No Orthopnea, No Edema, No Palpitations Respiratory : No Cough, No Sputum, No Wheezing, No Smoke Exposure, No Dyspnea Gastrointestinal : No Nausea, No Vomiting, No Diarrhea, No Constipation, No abdominal Pain, No Hematochezia, No Melena Genitourinary : no irregular bleeding, No Dysuria, No Urinary Frequency, No Hematuria, No Urinary Incontinence, No Urgency, No Flank Pain, No Urinary Flow Changes, No Hesitancy Musculoskeletal : No joint pain, No Myalgias, No Joint Swelling Skin : No Skin Lesions, No rash Neuro : No Weakness, No Numbness, No Paresthesias, No Loss of Consciousness, No Dizziness, No Headache Psych : No Anxiety/Panic, No Depression, No SI/HI/AH/VH, No Social Issues, Heme/Lymph: No Bruising, No Bleeding,No Lymphadenopathy Endocrine : No Polyuria, No Polydipsia, No Temperature Intolerance [facility] Past Medical History Medical History Acute appendicitis Asthma Colon adenocarcinoma Diarrhea Hypercholesteremia Surgical History History of lung biopsy Hx of appendectomy Hx of colonoscopy Hx of right hemicolectomy Family History Family History Father History of cancer of unknown primary site Family history of high blood pressure Mother Hx of arteriosclerotic cardiovascular disease Maternal Grandfather Hx of arteriosclerotic cardiovascular disease Aortic aneurysm Brother No problems noted. Sister No problems noted. Brother No problems noted. Brother No problems noted. Brother No problems noted. Sister No problems noted. Social History Social History Household Members: Family Housing: Apartment Alcohol intake: never Patient Tobacco Use Status: Never used Tobacco e-Cigarette/Vaping Use: Never Used Second Hand Smoke Exposure: No Advance Directives: No Advance Directives Information Provided: No service: No Current occupational status: disabled Cognitive needs: No Hearing needs: No Vision needs: No Physical Exam ED Vital Signs: Vital Signs - 24 hr 10/20/22 15:53 10/20/22 21:29 Temperature 98.1 F Pulse Rate 110 H 103 H Respiratory Rate 18 17 Blood Pressure 120/89 113/81 Pulse Oximetry 96 96 Oxygen Delivery Method Room Air Room Air BMI result Body Mass Index 24.7 Const Other: Appearance: Alert. Oriented X3. No acute distress. Eyes: Pupils equal, round and reactive to light. ENT: Pharynx normal. Dry oral mucosa Neck: Normal inspection. Neck supple. No lymph nodes noted. No crepitus CVS: Tachycardic 110 approximately, regular rhythm Pulses normal. Normal S1 and S2 Respiratory: No respiratory distress. Breath sounds normal. No Wheezing. No rales Abdomen: Soft and nontender. No rigidity. No distention. Skin: Skin warm and dry. Normal skin color. Normal skin turgor. Extremities: No lower extremity edema. No Lacerations. No Rash Neuro: Oriented X 3. No motor deficit. No sensory deficit. Moving all extremities. No slurred speech. CN 2 through 12 grossly intact Psych: calm, cooperative, normal affect Course Course Course Narrative: RME performed by Donna Valero PA-C. Patient is a 52 year old assigned male at presenting to the emergency department with chest pain. Labs ordered. Patient placed back in the waiting room pending room availability and results. Medications Administered Discontinued Medications Generic Name Dose Route Start Last Admin Trade Name Freq PRN Reason Stop Dose Admin Sodium Chloride 1,000 mls @ 999 mls/hr 10/20/22 20:34 10/20/22 21:54 Ns IVCONT 10/20/22 21:34 999 mls/hr .Q1H1M ONE Administration Iohexol 100 ml 10/20/22 21:53 10/20/22 21:53 Iohexol 350 Mg/Ml 100 Ml Infus..Btl IV 10/20/22 21:54 65 ml ONCE ONE Administration Prochlorperazine Edisylate 10 mg 10/20/22 20:34 10/20/22 21:54 Prochlorperazine Edisylate 10 Mg/2 Ml Vial IVPUSH 10/20/22 20:35 Not Given ONCE ONE Medical Decision Making Medical Decision Making [facility] Narrative: -patient is at high risk of a pulmonary embolism given his history of cancer in his symptoms. We will go ahead and do a CTA to rule out pulmonary embolism My interpretation of CTA: 1st numerous bilateral pulmonary nodules, no pulmonary embolism seen -CT scan was negative for pulmonary embolism. -patient states that he does not like the fentanyl patch, he prefers to go back to p.o. morphine 30 mg extended release 3 times a day. -after checking the fentanyl dosage with pharmacy, patient instructed to take his fentanyl patch off today, and he may resume taking extended-release morphine in 3 days. In the meantime, patient instructed to take oxycodone p.r.n. every 4 hours. Patient already has a prescription for oxycodone. Lab Data [facility] Lab Attestation statement: I reviewed the patient's lab results. 10/20/22 16:12 10/20/22 16:12 Labs: Lab Results 10/20/22 10/20/22 10/20/22 Range/Units 13:08 16:12 16:12 WBC 8.4 (4.8-10.8) X10*3/uL RBC 3.68 L (4.60-5.80) X10*6/uL Hgb 11.6 L (14.0-18.0) g/dl Hct 35.4 L (42.0-52.0) % MCV 96.2 (80.0-98.0) fL MCH 31.5 (27.0-33.0) pg MCHC 32.8 (31.0-36.0) g/dl RDW 16.4 H (11.0-16.0) % Plt Count 201 (160-400) X10*3/uL MPV 10.4 (9.4-12.4) fL Immature Gran % (Auto) 0.2 (0.0-0.4) % Neut % (Auto) 69.1 (45-73) % Lymph % (Auto) 9.9 L (20-40) % [place] % (Auto) 11.3 H (2-11) % Eos % (Auto) 9.0 H (0-4) % Baso % (Auto) 0.5 (0-2) % Lymph # (Auto) 0.8 L (1.2-4.9) X10*3/uL [place] # (Auto) 0.9 (0.1-1.2) X10*3/uL Eos # (Auto) 0.8 H (0.0-0.4) X10*3/uL Baso # (Auto) 0.0 (0.0-0.2) X10*3/uL Abs Immat Gran (auto) 0.02 (0.00-0.03) X10*3/uL Absolute Neuts (auto) 5.8 (2.0-8.3) x10*3/uL Absolute Nucleated RBC 0.000 (0.0-0.012) X10*3/uL Nucleated RBC % (auto) 0.0 (0.0-0.2) /100WBC PT (10.0-13.1) SEC INR (0.9-1.1) APTT (26.0-36.4) SEC D-Dimer High Sensitivty NG/ML Sodium 135 (135-145) mmol/L Potassium 4.3 (3.3-5.1) mmol/L Chloride 100 (96-108) mmol/L Carbon Dioxide 25 (22-29) mmol/L Anion Gap 14 (12-20) BUN 18 H (9-16) mg/dL Creatinine 1.25 (0.5-1.4) mg/dL Estim Creat Clear Calc 68.3 Estimated GFR > 60 Random Glucose 89 (60-115) mg/dL Calcium 9.9 D (8.4-10.2) mg/dL Magnesium 1.9 (1.6-2.6) mg/dL Total Bilirubin 0.6 (0.0-1.0) mg/dL AST 30 (5-37) U/L ALT 13 (0-40) U/L Alkaline Phosphatase 143 H (39-117) U/L Troponin I High Sens (<3.5-35.0) ng/L Total Protein 7.8 (6.5-8.0) g/dL Albumin 4.0 (3.5-5.0) g/dL COVID-19 (MARSHA) Negative (Negative) COVID-19 Clin Com See Note S. pyogenes GrpA HUNTER (Negative) 10/20/22 10/20/22 10/20/22 Range/Units 16:12 20:35 21:40 WBC (4.8-10.8) X10*3/uL RBC (4.60-5.80) X10*6/uL Hgb (14.0-18.0) g/dl Hct (42.0-52.0) % MCV (80.0-98.0) fL MCH (27.0-33.0) pg MCHC (31.0-36.0) g/dl RDW (11.0-16.0) % Plt Count (160-400) X10*3/uL MPV (9.4-12.4) fL Immature Gran % (Auto) (0.0-0.4) % Neut % (Auto) (45-73) % Lymph % (Auto) (20-40) % [place] % (Auto) (2-11) % Eos % (Auto) (0-4) % Baso % (Auto) (0-2) % Lymph # (Auto) (1.2-4.9) X10*3/uL [place] # (Auto) (0.1-1.2) X10*3/uL Eos # (Auto) (0.0-0.4) X10*3/uL Baso # (Auto) (0.0-0.2) X10*3/uL Abs Immat Gran (auto) (0.00-0.03) X10*3/uL Absolute Neuts (auto) (2.0-8.3) x10*3/uL Absolute Nucleated RBC (0.0-0.012) X10*3/uL Nucleated RBC % (auto) (0.0-0.2) /100WBC PT 13.6 H (10.0-13.1) SEC INR 1.2 H (0.9-1.1) APTT 28.5 (26.0-36.4) SEC D-Dimer High Sensitivty 451 NG/ML Sodium (135-145) mmol/L Potassium (3.3-5.1) mmol/L Chloride (96-108) mmol/L Carbon Dioxide (22-29) mmol/L Anion Gap (12-20) BUN (9-16) mg/dL Creatinine (0.5-1.4) mg/dL Estim Creat Clear Calc Estimated GFR Random Glucose (60-115) mg/dL Calcium (8.4-10.2) mg/dL Magnesium (1.6-2.6) mg/dL Total Bilirubin (0.0-1.0) mg/dL AST (5-37) U/L ALT (0-40) U/L Alkaline Phosphatase (39-117) U/L Troponin I High Sens < 2.7 (<3.5-35.0) ng/L Total Protein (6.5-8.0) g/dL Albumin (3.5-5.0) g/dL COVID-19 (MARSHA) (Negative) COVID-19 Clin Com S. pyogenes GrpA HUNTER Negative (Negative) Radiology Impression Discussion of test interpretation with radiology: I have reviewed the radiologist's reading. Radiologist Impression: FINDINGS: QUALITY OF STUDY/CONTRAST BOLUS: Satisfactory. PULMONARY ARTERIES: No pulmonary emboli.? THORACIC AORTA: No aneurysm. LUNG: Innumerable mass lesions again demonstrated throughout the lungs with metastatic disease. This can impression as prior study. For example a lesion in the posterior left lower lobe previously measuring 3.8 cm in diameter now measures 4.5 cm transverse. PLEURA: No pleural effusion or pneumothorax. MEDIASTINUM: Mediastinal lymphadenopathy. Enlarged lymph node pretracheal retrovascular space level has short axis diameter of 1.3 cm. This remains unchanged since PET/CT study of 09/12/2022. Heart size is normal. No pericardial effusion. No evidence of septal bowing or right heart strain. Central port catheter tip in superior vena cava. CORONARY ARTERY CALCIFICATION: None visualized on this study. CHEST WALL/AXILLA: No axillary or internal mammary lymphadenopathy. OSSEOUS STRUCTURES: No acute or suspicious osseous abnormality.? UPPER ABDOMEN: Unremarkable.? No reflux of contrast into the hepatic veins to suggest elevated right heart pressures. CT/CT angio chest PE protocol IMPRESSION: 1.? No evidence of pulmonary embolism. 2.? Redemonstration of innumerable lung masses consistent with metastatic disease. This is similar to prior PET/CT study of 09/12/2022. ? VTE: negative. ? Discharge Plan Discharge Clinical Impression: Atypical chest pain, Acute dyspnea Patient Disposition: Home, Self-Care Instructions: Chest Pain (ED), Dyspnea (ED) Additional Instructions: Tonight, discontinue using the fentanyl patch. Discontinue taking fentanyl patches altogether. You may use oxycodone 10 mg every 4 hours for next 3 days, then on October 23, you may resume using her previous dose of extended release morphine 30 mg t.i.d. do not mix fentanyl patch with OxyContin as this may cause an accidental overdose. Please follow-up with your primary care physician tomorrow. If you have any worsening or new symptoms, please return to the emergency room or call 911 Prescriptions: New oxycodone [OxyContin] 30 mg tablet,oral only,ext.rel.12 hr 30 mg PO TID Qty: 10 0RF Rx Instructions: Partial Fill upon patient request. Stop using the fentanyl patch today, 10/20/2022. You may start using OxyContin on October 23 No Action lidocaine HCl 2 % Jelly 1 appl TOPICAL BID PRN (Reason: Pain) Qty: 100 0RF multivitamin Tablet 1 tab PO DAILY ferrous sulfate 325 mg (65 mg iron) Tablet 325 mg PO DAILY Qty: 90 4RF cyanocobalamin (vitamin B-12) 1,000 mcg Tablet 1,000 mcg PO DAILY Qty: 90 1RF ondansetron 8 mg Tablet,Disintegrating 8 mg PO Q8H PRN (Reason: Nausea And Vomiting) Qty: 60 5RF loperamide 2 mg capsule 2 mg PO Q4H PRN (Reason: Diarrhea) Qty: 60 0RF cyclobenzaprine 10 mg Tablet 10 mg PO TID PRN (Reason: Pain) Qty: 30 3RF Advil PM 200 mg gel 200 mg PO TID Senna Lax dronabinol [Marinol] 2.5 mg Capsule 5 mg PO BID Qty: 60 0RF Rx Instructions: administer before lunch and evening meal/dinner regorafenib 40 mg Tablet 80 mg PO DAILY Qty: 42 0RF fentanyl 50 mcg/hr Patch 72 Hour 1 patch TRANSDERMAL Q72H Qty: 6 0RF Rx Instructions: Partial Fill upon patient request. omeprazole 20 mg Capsule,Delayed Release(Dr/Ec) 20 mg PO DAILY Qty: 30 3RF oxycodone 5 mg Tablet 10 mg PO Q4H PRN (Reason: Pain) Qty: 100 0RF Rx Instructions: Partial Fill upon patient request. lorazepam 0.5 mg Tablet 0.5 mg PO TID PRN (Reason: Anxiety) Qty: 60 0RF calcium carbonate [Calcium 600] 600 mg calcium (1,500 mg) Tablet 600 mg PO BID Qty: 90 3RF albuterol sulfate [Ventolin HFA] 90 mcg/actuation HFA aerosol inhaler 2 puff inhalation Q6H PRN (Reason: shortness of breath or wheezing) Qty: 8.5 0RF polyethylene glycol 3350 [Miralax] 17 gram powder in packet 17 g PO DAILY Qty: 30 0RF
[2022-10-20 15:53] VITALS: BP 120/89; PULSE 110; RESP 18; TEMP 36.7; O2SAT 96; BMI 24.7
--- NOTE | 2022-10-20 15:53 | ECG_ITS ---
Test Reason : chest pain Blood Pressure : / mmHG Vent. Rate : 112 BPM Atrial Rate : 112 BPM P-R Int : 150 ms QRS Dur : 086 ms QT Int : 318 ms P-R-T Axes : 054 058 002 degrees QTc Int : 434 ms Sinus tachycardia Possible Left atrial enlargement Nonspecific ST and T wave abnormality Abnormal ECG When compared with ECG of 01-DEC-2020 13:58, Inverted T waves have replaced nonspecific T wave abnormality in Inferior leads Nonspecific T wave abnormality now evident in Anterior leads Referred By: Donna Valero Electronically Signed By:VAN SUNSHINE MD
[2022-10-20 16:20] LABS: MANUAL DIFF FLAG NO
--- NOTE | 2022-10-20 16:22 | MHC.EDTECH ---
pt ekg done and was read by provider ,blood drawn and sent to lab .
[2022-10-20 16:26] LABS: Basophils Percent Auto 0.5 % (0-2); Eosinophils Absolute Auto 0.8 X10*3/uL (0.0-0.4); Hematocrit 35.4 % (42.0-52.0); Hemoglobin 11.6 g/dl (14.0-18.0); Imm Gran Abs Auto 0.02 X10*3/uL (0.00-0.03); Imm Gran Pct Auto 0.2 % (0.0-0.4); Lymphocytes Absolute Auto 0.8 X10*3/uL (1.2-4.9); Lymphocytes Percent Auto 9.9 % (20-40); Mean Corpuscular HGB Conc 32.8 g/dl (31.0-36.0); Mean Corpuscular Hemoglobin 31.5 pg (27.0-33.0); Mean Corpuscular Volume 96.2 fL (80.0-98.0); Mean Platelet Volume 10.4 fL (9.4-12.4); Monocytes Absolute Auto 0.9 X10*3/uL (0.1-1.2); Monocytes Percent Auto 11.3 % (2-11); Neutrophils Absolute Auto 5.8 x10*3/uL (2.0-8.3); Neutrophils Percent Auto 69.1 % (45-73); Platelet Count 201 X10*3/uL (160-400); Red Blood Count 3.68 X10*6/uL (4.60-5.80); Red Cell Distribution Width 16.4 % (11.0-16.0); White Blood Count 8.4 X10*3/uL (4.8-10.8)
[2022-10-20 16:36] LABS: COVID-19 Test Negative (Negative); IDNOW Serial# 08D9AD1C
[2022-10-20 16:37] LABS: Alanine Aminotransferase 13 U/L (0-40); Alkaline Phosphatase 143 U/L (39-117); Anion Gap 14 (12-20); Aspartate Amino Transferase 30 U/L (5-37); Bilirubin Total 0.6 mg/dL (0.0-1.0); Blood Urea Nitrogen 18 mg/dL (9-16); Calcium 9.9 mg/dL (8.4-10.2); Carbon Dioxide 25 mmol/L (22-29); Chloride 100 mmol/L (96-108); Creatinine Clr Calc Pharmacy 68.3; Estimated Glomerular Filt Rate > 60; Glucose Random 89 mg/dL (60-115); Magnesium 1.9 mg/dL (1.6-2.6); Potassium 4.3 mmol/L (3.3-5.1); Sodium 135 mmol/L (135-145); Total Protein 7.8 g/dL (6.5-8.0)
[2022-10-20 16:47] LABS: Troponin-I High Sensitivity < 2.7 ng/L (<3.5-35.0)
[2022-10-20 20:49] LABS: INTERNATIONAL NORM RATIO 1.2 (0.9-1.1); Prothrombin Time 13.6 SEC (10.0-13.1)
[2022-10-20 20:51] LABS: D Dimer High Sensitivity 451 NG/ML; Partial Thromboplastin Time 28.5 SEC (26.0-36.4)
[2022-10-20 21:29] VITALS: BP 113/81; PULSE 103; RESP 17; O2SAT 96
[2022-10-20] MEDS: iohexoL 350 MG/ML 100 ML INFUS..BTL IV (21:53)
[2022-10-20] MEDS: 0.9 % Sodium Chloride 1,000 ML 999 ML IVCONT (21:54)
[2022-10-20 22:37] LABS: IDNOW Serial# 08D9AD1C; Strep A Nucleic Acid Negative (Negative)
== END 2022-10-20 23:55 | disposition home or self-care (01) ==
PROVIDERS: Physician Assistant Medical; Emergency Provider Emergency Medicine; PCP Internal Medicine
DX: R07.89 Other chest pain (principal); R06.00 Dyspnea, unspecified; Z20.822 Contact with and (suspected) exposure to COVID-19; R06.02 Shortness of breath; R11.2 Nausea with vomiting, unspecified; J02.9 Acute pharyngitis, unspecified; C18.9 Malignant neoplasm of colon, unspecified; Z92.21 Personal history of antineoplastic chemotherapy; Z92.3 Personal history of irradiation; Z79.899 Other long term (current) drug therapy
CPT/HCPCS: 36415; 71046; 71275; 80053; 83735; 84484; 85025; 85379; 85610; 85730; 87635; 87651; 93005; 99284; J1642; Q9967

== ENCOUNTER 2022-11-03 12:45 | Outpatient (RCR) | payer MEDICAID, OTHER, SELFPAY ==
[2020-03-03 10:05] VITALS: BP 138/93; PULSE 99; RESP 18; TEMP 36.8; O2SAT 96; BMI 27.7
[2020-03-03 10:44] LABS: Glucose Urine UA NEG (NEG); Leukocyte Esterase Urine NEG (NEG); Nitrite Urine NEG (NEG); Urine Blood NEG (NEG); Urine Ketones NEG (NEG); Urine Protein NEG (NEG-TRACE)
[2020-03-03 10:46] LABS: Appearance Urine CLEAR; Color Urine YELLOW
[2020-03-03 10:56] LABS: Basophils Percent Auto 0.6 % (0-2); Eosinophils Absolute Auto 0.1 X10*3/uL (0.0-0.4); Eosinophils Percent Auto 2.3 % (0-4); Hematocrit 35.2 % (42-52); Hemoglobin 12.2 g/dl (14.0-18.0); Imm Gran Abs Auto 0.01 X10*3/uL (0.00-0.03); Imm Gran Pct Auto 0.2 % (0.0-0.4); Lymphocytes Absolute Auto 1.6 X10*3/uL (1.2-4.9); Lymphocytes Percent Auto 33.3 % (20-40); MANUAL DIFF FLAG NO; Mean Corpuscular HGB Conc 34.7 g/dl (31.0-36.0); Mean Corpuscular Hemoglobin 36.4 pg (27.0-33.0); Mean Corpuscular Volume 105.1 fL (80-98); Mean Platelet Volume 9.7 fL (9.4-12.4); Monocytes Absolute Auto 0.7 X10*3/uL (0.1-1.2); Monocytes Percent Auto 13.8 % (2-11); Neutrophils Absolute Auto 2.4 X10*3/uL (2.0-8.3); Neutrophils Percent Auto 49.8 % (45-73); Platelet Count 199 X10*3/uL (160-400); Red Blood Count 3.35 X10*6/uL (4.60-5.80); Red Cell Distribution Width 18.6 % (11.0-16.0); White Blood Count 4.8 X10*3/uL (4.8-10.8)
[2020-03-03 11:32] LABS: Alanine Aminotransferase 22 U/L (0-40); Albumin Level 4.1 g/dL (3.5-5.0); Alkaline Phosphatase 69 U/L (39-117); Anion Gap 13 (12-20); Aspartate Amino Transferase 26 U/L (5-37); Blood Urea Nitrogen 7 mg/dL (9-16); Calcium 8.8 mg/dL (8.4-10.2); Carbon Dioxide 30 mmol/L (22-29); Chloride 100 mmol/L (96-108); Creatinine Clr Calc Pharmacy 99.1; Estimated Glomerular Filt Rate > 60; Glucose Random 124 mg/dL (60-115); Magnesium 1.5 mg/dL (1.6-2.6); Potassium 3.4 mmol/l (3.3-5.1); Sodium 140 mmol/L (135-145); Total Protein 6.6 g/dL (6.5-8.0)
[2020-03-03] MEDS: ondansetron HCL/NS 16 MG/50 ML PIGGYBACK 200 MG IV (12:00)
[2020-03-03] MEDS: dexAMETHasone sod phosphate/NS 12 MG/50 ML PIGGYBACK 100 MG IV (12:33)
[2020-03-03] MEDS: Fosaprepitant Dimeglumine 150 MG in 0.9 % Sodium Chloride 145 ML 300 MG IV (12:58)
--- NOTE | 2020-03-03 14:45 | MHC.HEMONCSW ---
PT REMAINS INDEPENDENT, TREATMENT CONTINUES. VERY GOOD SPIRITS TODAY. RECEIVING [employer] SSDI AND MEDICAL BENEFITS. DISCUSSED EFFECTIVE COPING TECHNIQUES HE USES, I.E...JOZEF, DIET AND EXERCISE. EDUCATION AND SUPPORT PROVIDED. PT IS AWARE OF MY AVAILABILITY.
[2020-03-03] MEDS: Heparin Sodium,Porcine Flush 500 UNIT/5 ML SYRINGE IVFLUSH (16:31)
[2020-03-24 10:14] VITALS: BMI 27.2
[2020-03-24 10:15] VITALS: BP 138/94; PULSE 98; RESP 18; TEMP 36.8; O2SAT 96
[2020-03-24 10:53] LABS: MANUAL DIFF FLAG NO
[2020-03-24 10:59] LABS: Basophils Percent Auto 0.6 % (0-2); Eosinophils Absolute Auto 0.2 X10*3/uL (0.0-0.4); Eosinophils Percent Auto 3.2 % (0-4); Hematocrit 35.8 % (42-52); Hemoglobin 12.3 g/dl (14.0-18.0); Imm Gran Abs Auto 0.02 X10*3/uL (0.00-0.03); Imm Gran Pct Auto 0.4 % (0.0-0.4); Lymphocytes Absolute Auto 1.8 X10*3/uL (1.2-4.9); Lymphocytes Percent Auto 33.3 % (20-40); Mean Corpuscular HGB Conc 34.4 g/dl (31.0-36.0); Mean Corpuscular Hemoglobin 36.6 pg (27.0-33.0); Mean Corpuscular Volume 106.5 fL (80-98); Mean Platelet Volume 9.6 fL (9.4-12.4); Monocytes Percent Auto 17.9 % (2-11); Neutrophils Absolute Auto 2.4 X10*3/uL (2.0-8.3); Neutrophils Percent Auto 44.6 % (45-73); Platelet Count 221 X10*3/uL (160-400); Red Blood Count 3.36 X10*6/uL (4.60-5.80); Red Cell Distribution Width 17.7 % (11.0-16.0); White Blood Count 5.3 X10*3/uL (4.8-10.8)
[2020-03-24 11:30] LABS: Alanine Aminotransferase 24 U/L (0-40); Albumin Level 4.2 g/dL (3.5-5.0); Alkaline Phosphatase 74 U/L (39-117); Anion Gap 13 (12-20); Aspartate Amino Transferase 32 U/L (5-37); Bilirubin Total 1.1 mg/dL (0.0-1.0); Blood Urea Nitrogen 10 mg/dL (9-16); Calcium 8.9 mg/dL (8.4-10.2); Carbon Dioxide 28 mmol/L (22-29); Chloride 99 mmol/L (96-108); Estimated Glomerular Filt Rate > 60; Glucose Random 93 mg/dL (60-115); Magnesium 1.8 mg/dL (1.6-2.6); Potassium 3.7 mmol/l (3.3-5.1); Sodium 136 mmol/L (135-145); Total Protein 6.8 g/dL (6.5-8.0)
[2020-03-24] MEDS: ondansetron HCL/NS 16 MG/50 ML PIGGYBACK 200 MG IV (11:44)
[2020-03-24 11:55] LABS: Glucose Urine UA NEG (NEG); Leukocyte Esterase Urine NEG (NEG); Nitrite Urine NEG (NEG); PH 5.5 (5.0-8.0); Specific Gravity - Urine >= 1.030 (1.005-1.025); Urine Blood NEG (NEG); Urine Ketones NEG (NEG); Urine Protein NEG (NEG-TRACE)
[2020-03-24 11:59] LABS: Appearance Urine HAZY; Color Urine YELLOW
[2020-03-24 12:00] LABS: Creatinine Urine 232.03 mg/dL
--- NOTE | 2020-03-24 12:03 | PM.HEMONCPN ---
Medical Summary - Medical Summary Chief complaint: Worsening skin rash Medical Summary: Diagnosis: Metastatic colon cancer diagnosed February 2019 Presented with worsening abdominal pain, right lower quadrant ongoing for almost a year. CT imaging showed inflamed appendix, periappendiceal inflammation involving cecum and small bowel. Abscess identified in the pelvis which was drained. Appendectomy performed 02/22/2019, invasive adenocarcinoma, moderately differentiated, tumor present at the resection margin. Acute appendicitis and Suzy appendicitis with perforation. IHC showed CK 7-, CK 20 positive and CDX2 positive. MMR proficient. On 03/11/2019 patient underwent colonoscopy which showed adenomatous looking degenerative mass with an ulcerated center in the cecum. Two polyps were also removed. CTA performed 02/21/2019 showed multiple lung nodules bilaterally. Largest in the left lower lobe measuring 1.[address] abdomen performed 02/21/2019 showed dilated and inflamed appendix with surrounding inflammatory changes. Normal liver and spleen. Prominent mesenteric lymph nodes measuring up to 1.4 cm. CEA elevated at 14.6. FNA of the left lower lobe lung nodule performed 03/13/2019 showed adenocarcinoma consistent with known cecal primary. PET scan showed intense uptake around cecum, SUV 14.2, terminal ileum, foci in mesentery in the pelvis and right lower quadrant suspicious for metastatic deposits. No uptake in the lung nodules but malignancy not excluded. Right hemicolectomy performed 04/03/2019, adenocarcinoma moderately differentiated. Tumor invades through visceral peritoneum with macroscopic tumor perforation and direct invasion into adjacent loop of small bowel. Eight of 12 pericolonic lymph nodes positive for adenocarcinoma. Tumor involves mesenteric resection margins. Lymphovascular invasion present. Tumor size 6 x 2.8 cm. Stage [id number]. MMR proficient. BRAF mutation not detected, K-renata mutation detected, NRAS mutation not detected, IHC for verdugo TRK negative. Started chemotherapy modified FOLFOX 6 with Avastin from 04/23/2019. PET scan performed June 2019 showed complete metabolic response. Because of side effects of neuropathy his chemotherapy changed to maintenance treatment with Xeloda 1000 milligram/meter squared b.i.d. day 1-14 along with Avastin Q 3 weeks in June 2019.He has had elevation of CEA, PET-CT performed at [facility] on 11/04/2019 showed increased FDG activity in right lower quadrant of abdomen/pelvis, SUV 6.4, nodular infiltration measuring 1.3 x 0.9 cm. Right upper lobe subpleural nodule with minimal FDG uptake of 2.6, metastatic nodule probable. Interval History Interval history: Patient is here for scheduled treatment but he reports worsening rash of his hands and feet. He has pictures today to show how much peeling and redness as well as dryness of the skin he is experiencing. He is unable to walk because of this. There are no open areas or swelling. He has also nail changes. He does not have any other complaints such as diarrhea, nausea or emesis. He gets occasional right shoulder pain which appears to be muscular. Review of Systems - Cardiovascular Reports no additional cardiovascular complaints - Respiratory Reports no additional respiratory complaints [facility] Medical History: Medical History (Last Updated 03/24/20 @ 12:43 by Nuria Mims MD) Acute appendicitis Asthma Colon adenocarcinoma Hypercholesteremia Smoking status: Never smoker Alcohol intake frequency: does not drink Oncology Screenings - ECOG Performance Status ECOG Performance Status: 1 Home Medications and Allergies Current Medications: Current Medications Generic Name Dose Route Start Last Admin Trade Name Freq PRN Reason Stop Dose Admin Heparin Sodium (Porcine) 500 unit 03/24/20 00:00 Heparin Sodium,Porcine Flush 500 Unit/5 Ml Syringe IVFLUSH 03/24/20 23:59 ONCE LOLLY Ondansetron HCl 16 mg in 50 mls @ 200 mls/hr 03/24/20 00:00 03/24/20 11:44 Zofran IV 03/24/20 23:59 200 mls/hr ONCE LOLLY Administration Dexamethasone Sodium Phosphate 12 mg in 50 mls @ 100 mls/hr 03/24/20 00:00 Decadron IV 03/24/20 23:59 ONCE LOLLY Fosaprepitant 150 mg/ Sodium 150 mls @ 300 mls/hr 03/24/20 00:00 Chloride IV 03/24/20 23:59 ONCE LOLLY Home Medications Medication Instructions Recorded Confirmed Type albuterol sulfate 2 puff INHALATION QID PRN 03/03/20 03/03/20 History capecitabine 2,000 mg PO BID 03/03/20 03/03/20 History cyanocobalamin (vitamin B-12) 1,000 mcg PO DAILY 03/03/20 03/03/20 History dexamethasone 4 mg PO BID 03/03/20 03/05/20 History multivitamin 1 cap PO DAILY 03/03/20 03/03/20 History Allergies Allergy/AdvReac Type Severity Reaction Status Date / Time shrimp [SHRIMP] Allergy Severe ANGIOEDEMA Verified 03/24/20 11:48 milk [MILK] Allergy Mild DIARRHEA Verified 03/24/20 11:48 SEAFOOD Allergy Severe ANGIOEDEMA Uncoded 02/05/20 15:56 Seafood/Shrimp Allergy Unknown angioedema Uncoded 09/29/19 00:00 Exam Vital signs: Vital Signs Temp 98.2 F 03/24/20 10:15 Pulse 98 03/24/20 10:15 Resp 18 03/24/20 10:15 BP 138/94 H 03/24/20 10:15 Pulse Ox 96 03/24/20 10:15 Intake & Output 03/23/20 03/24/20 03/24/20 18:59 06:59 18:59 Other: Weight 87.6 kg 86.2 kg Weight 86.2 kg Body Mass Index 27.2 - Constitutional Present: no acute distress - Routine HEENT Exam Head: Present: normal inspection Eye: Present: EOMI - Routine Neck Exam Present: full ROM. Absent: lymphadenopathy - Routine Chest/Breast/Axilla Exam Chest wall: Absent: tenderness, mass - Routine Respiratory Exam Present: CTAB - Routine Cardiovascular Exam Cardiovascular: Present: RRR, S1, S2 - Routine Skin Exam Present: dry, rash, cracked Data - Labs CBC & Chem 7: 03/24/20 10:40 03/24/20 10:40 Labs: Laboratory Results - last 24 hr 03/24/20 03/24/20 03/24/20 10:40 10:40 11:00 WBC 5.3 RBC 3.36 L Hgb 12.3 L Hct 35.8 L MCV 106.5 H MCH 36.6 H MCHC 34.4 RDW 17.7 H Plt Count 221 MPV 9.6 Immature Gran % (Auto) 0.4 Neut % (Auto) 44.6 L Lymph % (Auto) 33.3 [place] % (Auto) 17.9 H Eos % (Auto) 3.2 Baso % (Auto) 0.6 Lymph # (Auto) 1.8 [place] # (Auto) 1.0 Eos # (Auto) 0.2 Baso # (Auto) 0.0 Abs Immat Gran (auto) 0.02 Absolute Neuts (auto) 2.4 Absolute Nucleated RBC 0.000 Nucleated RBC % (auto) 0.0 Sodium 136 Potassium 3.7 Chloride 99 Carbon Dioxide 28 Anion Gap 13 BUN 10 Creatinine 0.97 Estim Creat Clear Calc 94.0 Estimated GFR > 60 Random Glucose 93 Calcium 8.9 Magnesium 1.8 Total Bilirubin 1.1 H AST 32 ALT 24 Alkaline Phosphatase 74 Total Protein 6.8 Albumin 4.2 Urine Creatinine 232.03 Progress Note: A/P (1) Colon carcinoma metastatic to multiple sites Status: Acute Assessment and plan: 1. This is a 49-year-old man with metastatic colon cancer, arising from cecum. FNA of lung nodule is consistent with adenocarcinoma. Right hemicolectomy performed 04/03/2019, adenocarcinoma moderately differentiated. Stage [id number]. MMR proficient. BRAF mutation not detected, K-renata mutation detected, NRAS mutation not detected, IHC for verdugo TRK negative. HER2 level and tumor mutational burden to be performed. Started chemotherapy modified FOLFOX 6 with Avastin from 04/23/2019. He had a good response based on PET scan in June but because of side effects of neuropathy he was switched to maintenance Xeloda with Avastin. CEA level is gradually coming down. Patient is experiencing significant hand-foot syndrome related to Xeloda. He is very good about using topical moisturizers and taking care of his skin. I have asked him to discontinue Xeloda at this time. He also has developing neuropathy, I would like to switch him to irinotecan plus bevacizumab at this time. 2. Chronic diarrhea. He he was advised to take Imodium as prescribed. 3. Genetic testing. Patient?s genetic test result indicated that he was negative for a hereditary cancer gene mutation. 4. 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 Start vitamin B12 supplementation, folate levels are normal. Follow-up in 2 weeks. - Time Spent With Patient Total time spent is greater than 50% in coordination of care (as documented) at patient's floor/unit and/or counseling patient: 15 - 24 minutes
[2020-03-24 12:20] VITALS: BP 130/84
[2020-03-24] MEDS: dexAMETHasone sod phosphate/NS 12 MG/50 ML PIGGYBACK 200 MG IV (12:21)
[2020-03-24] MEDS: Fosaprepitant Dimeglumine 150 MG in 0.9 % Sodium Chloride 145 ML 300 MG IV (13:30)
[2020-03-24] MEDS: Heparin Sodium,Porcine Flush 500 UNIT/5 ML SYRINGE IVFLUSH (17:00)
--- NOTE | 2020-03-24 17:07 | MHC.HEMONC ---
Pt here for chemo and Avastin. His labs and urine WNL. Dr Mims assessed his c/o skin peeling hands and feet and progressing neuropathy of feet. NO MORE XELODA per Dr Mims. He will be treated today but plan to change per Dr Mims. He will f/u with her in 2 weeks.
[2020-03-24 17:23] LABS: Lactate Dehydrogenase 188 U/L (118-273)
[2020-04-07 11:13] VITALS: BMI 28.5
[2020-04-07 11:15] VITALS: BP 166/93; PULSE 96; RESP 18; TEMP 37.6; O2SAT 100
--- NOTE | 2020-04-07 11:33 | PM.HEMONCPN ---
Medical Summary - Medical Summary Chief complaint: Follow-up Medical Summary: Diagnosis: Metastatic colon cancer diagnosed February 2019 Presented with worsening abdominal pain, right lower quadrant ongoing for almost a year. CT imaging showed inflamed appendix, periappendiceal inflammation involving cecum and small bowel. Abscess identified in the pelvis which was drained. Appendectomy performed 02/22/2019, invasive adenocarcinoma, moderately differentiated, tumor present at the resection margin. Acute appendicitis and Suzy appendicitis with perforation. IHC showed CK 7-, CK 20 positive and CDX2 positive. MMR proficient. On 03/11/2019 patient underwent colonoscopy which showed adenomatous looking degenerative mass with an ulcerated center in the cecum. Two polyps were also removed. CTA performed 02/21/2019 showed multiple lung nodules bilaterally. Largest in the left lower lobe measuring 1.[address] abdomen performed 02/21/2019 showed dilated and inflamed appendix with surrounding inflammatory changes. Normal liver and spleen. Prominent mesenteric lymph nodes measuring up to 1.4 cm. CEA elevated at 14.6. FNA of the left lower lobe lung nodule performed 03/13/2019 showed adenocarcinoma consistent with known cecal primary. PET scan showed intense uptake around cecum, SUV 14.2, terminal ileum, foci in mesentery in the pelvis and right lower quadrant suspicious for metastatic deposits. No uptake in the lung nodules but malignancy not excluded. Right hemicolectomy performed 04/03/2019, adenocarcinoma moderately differentiated. Tumor invades through visceral peritoneum with macroscopic tumor perforation and direct invasion into adjacent loop of small bowel. Eight of 12 pericolonic lymph nodes positive for adenocarcinoma. Tumor involves mesenteric resection margins. Lymphovascular invasion present. Tumor size 6 x 2.8 cm. Stage [id number]. MMR proficient. BRAF mutation not detected, K-renata mutation detected, NRAS mutation not detected, IHC for verdugo TRK negative. Started chemotherapy modified FOLFOX 6 with Avastin from 04/23/2019. PET scan performed June 2019 showed complete metabolic response. Because of side effects of neuropathy his chemotherapy changed to maintenance treatment with Xeloda 1000 milligram/meter squared b.i.d. day 1-14 along with Avastin Q 3 weeks in June 2019.He has had elevation of CEA, PET[facility]CT performed at [facility] on 11/04/2019 showed increased FDG activity in right lower quadrant of abdomen/pelvis, SUV 6.4, nodular infiltration measuring 1.3 x 0.9 cm. Right upper lobe subpleural nodule with minimal FDG uptake of 2.6, metastatic nodule probable. Xeloda discontinued in February 2020 because of worsening hand/foot syndrome. Interval History Interval history: Patient is here for follow-up. He is feeling a lot better now that he has been off Xeloda for several weeks. His skin of hands and feet have improved. He is able to walk better. There is no more drying of skin. He does not have any other complaints such as diarrhea, nausea or emesis. He gets occasional right shoulder pain which appears to be muscular. Review of Systems - Constitutional Reports no additional constitutional complaints - Cardiovascular Reports no additional cardiovascular complaints - Respiratory Reports no additional respiratory complaints [facility] Medical History: Medical History (Last Updated 03/24/20 @ 12:43 by Nuria Mims MD) Acute appendicitis Asthma Colon adenocarcinoma Hypercholesteremia Smoking status: Never smoker Oncology Screenings - ECOG Performance Status ECOG Performance Status: 1 Home Medications and Allergies Home Medications Medication Instructions Recorded Confirmed Type albuterol sulfate 2 puff INHALATION QID PRN 03/03/20 03/03/20 History capecitabine 2,000 mg PO BID 03/03/20 03/03/20 History cyanocobalamin (vitamin B-12) 1,000 mcg PO DAILY 03/03/20 03/03/20 History dexamethasone 4 mg PO BID 03/03/20 03/05/20 History multivitamin 1 cap PO DAILY 03/03/20 03/03/20 History Allergies Allergy/AdvReac Type Severity Reaction Status Date / Time shrimp [SHRIMP] Allergy Severe ANGIOEDEMA Verified 03/24/20 11:48 milk [MILK] Allergy Mild DIARRHEA Verified 03/24/20 11:48 SEAFOOD Allergy Severe ANGIOEDEMA Uncoded 02/05/20 15:56 Seafood/Shrimp Allergy Unknown angioedema Uncoded 09/29/19 00:00 Exam Vital signs: Vital Signs Temp 98.2 F 03/24/20 10:15 Pulse 98 03/24/20 10:15 Resp 18 03/24/20 10:15 BP 138/94 H 03/24/20 10:15 Pulse Ox 96 03/24/20 10:15 Intake & Output 03/23/20 03/24/20 03/24/20 18:59 06:59 18:59 Other: Weight 87.6 kg 86.2 kg Weight 86.2 kg Body Mass Index 27.2 - Constitutional Present: no acute distress - Routine HEENT Exam Head: Present: normal inspection - Routine Neck Exam Present: full ROM. Absent: lymphadenopathy - Routine Chest/Breast/Axilla Exam Chest wall: Absent: tenderness, mass - Routine Respiratory Exam Present: CTAB - Routine Cardiovascular Exam Cardiovascular: Present: RRR, S1, S2 - Routine Skin Exam Present: dry, rash, cracked Data - Labs CBC & Chem 7: 03/24/20 10:40 03/24/20 10:40 Labs: 03/03/20 00:00 Bevacizumab-awwb [Mvasi] 400 mg Bevacizumab-awwb [Mvasi] 250 mg 0.9 % Sodium Chloride [Ns] 74 ml IV ONCE Fosaprepitant Dimeglumine [Emend] 150 mg 0.9 % Sodium Chloride [Ns] 145 ml IV ONCE Heparin Sodium,Porcine Flush 500 unit IVFLUSH ONCE Heparin Sodium,Porcine Flush 500 unit IVFLUSH ONCE Oxaliplatin 270 mg Dextrose 5 % [D5w] 500 ml IV ONCE dexAMETHasone sod phosphate/NS [Decadron] 12 mg in 50 ml IV ONCE dexAMETHasone sod phosphate/NS [Decadron] 12 mg in 50 ml IV ONCE ondansetron HCL/NS [Zofran] 16 mg in 50 ml IV ONCE ondansetron HCL/NS [Zofran] 16 mg in 50 ml IV ONCE 03/03/20 09:49 Comprehensive Met. Panel Routine Magnesium Routine 03/03/20 10:25 UA and rflx microscopic Routine 03/03/20 10:45 Complete Blood Count Auto Diff Routine 03/24/20 00:00 Bevacizumab-awwb [Mvasi] 400 mg Bevacizumab-awwb [Mvasi] 250 mg 0.9 % Sodium Chloride [Ns] 74 ml IV ONCE Fosaprepitant Dimeglumine [Emend] 150 mg 0.9 % Sodium Chloride [Ns] 145 ml IV ONCE Heparin Sodium,Porcine Flush 500 unit IVFLUSH ONCE Oxaliplatin 270 mg Dextrose 5 % [D5w] 500 ml IV ONCE dexAMETHasone sod phosphate/NS [Decadron] 12 mg in 50 ml IV ONCE ondansetron HCL/NS [Zofran] 16 mg in 50 ml IV ONCE 03/24/20 10:40 Carcinoembryonic Antigen Routine Complete Blood Count Auto Diff Routine Comprehensive Met. Panel Routine Lactate Dehydrogenase Routine Magnesium Routine 03/24/20 11:00 Creatinine Urine Routine UA and rflx microscopic Routine 03/24/20 17:13 Add Laboratory Test Routine Laboratory Last Values WBC 5.3 X10*3/uL (4.8-10.8) 03/24/20 10:40 RBC 3.36 X10*6/uL (4.60-5.80) L 03/24/20 10:40 Hgb 12.3 g/dl (14.0-18.0) L 03/24/20 10:40 Hct 35.8 % (42-52) L 03/24/20 10:40 MCV 106.5 fL (80-98) H 03/24/20 10:40 MCH 36.6 pg (27.0-33.0) H 03/24/20 10:40 MCHC 34.4 g/dl (31.0-36.0) 03/24/20 10:40 RDW 17.7 % (11.0-16.0) H 03/24/20 10:40 Plt Count 221 X10*3/uL (160-400) 03/24/20 10:40 MPV 9.6 fL (9.4-12.4) 03/24/20 10:40 Immature Gran % (Auto) 0.4 % (0.0-0.4) 03/24/20 10:40 Neut % (Auto) 44.6 % (45-73) L 03/24/20 10:40 Lymph % (Auto) 33.3 % (20-40) 03/24/20 10:40 [place] % (Auto) 17.9 % (2-11) H 03/24/20 10:40 Eos % (Auto) 3.2 % (0-4) 03/24/20 10:40 Baso % (Auto) 0.6 % (0-2) 03/24/20 10:40 Lymph # (Auto) 1.8 X10*3/uL (1.2-4.9) 03/24/20 10:40 [place] # (Auto) 1.0 X10*3/uL (0.1-1.2) 03/24/20 10:40 Eos # (Auto) 0.2 X10*3/uL (0.0-0.4) 03/24/20 10:40 Baso # (Auto) 0.0 X10*3/uL (0.0-0.2) 03/24/20 10:40 Abs Immat Gran (auto) 0.02 X10*3/uL (0.00-0.03) 03/24/20 10:40 Absolute Neuts (auto) 2.4 X10*3/uL (2.0-8.3) 03/24/20 10:40 Absolute Nucleated RBC 0.000 X10*3/uL (0.0-0.012) 03/24/20 10:40 Nucleated RBC % (auto) 0.0 /100WBC (0.0-0.2) 03/24/20 10:40 Sodium 136 mmol/L (135-145) 03/24/20 10:40 Potassium 3.7 mmol/l (3.3-5.1) 03/24/20 10:40 Chloride 99 mmol/L (96-108) 03/24/20 10:40 Carbon Dioxide 28 mmol/L (22-29) 03/24/20 10:40 Anion Gap 13 (12-20) 03/24/20 10:40 BUN 10 mg/dL (9-16) 03/24/20 10:40 Creatinine 0.97 mg/dL (0.5-1.4) 03/24/20 10:40 Estim Creat Clear Calc 94.0 03/24/20 10:40 Estimated GFR > 60 03/24/20 10:40 Random Glucose 93 mg/dL (60-115) 03/24/20 10:40 Calcium 8.9 mg/dL (8.4-10.2) 03/24/20 10:40 Magnesium 1.8 mg/dL (1.6-2.6) 03/24/20 10:40 Total Bilirubin 1.1 mg/dL (0.0-1.0) H 03/24/20 10:40 AST 32 U/L (5-37) 03/24/20 10:40 ALT 24 U/L (0-40) 03/24/20 10:40 Alkaline Phosphatase 74 U/L (39-117) 03/24/20 10:40 Lactate Dehydrogenase 188 U/L (118-273) 03/24/20 10:40 Total Protein 6.8 g/dL (6.5-8.0) 03/24/20 10:40 Albumin 4.2 g/dL (3.5-5.0) 03/24/20 10:40 Carcinoembryonic Ag 11.30 mg/mL 03/24/20 10:40 Urine Color YELLOW 03/24/20 11:00 Urine Appearance HAZY 03/24/20 11:00 Urine pH 5.5 (5.0-8.0) 03/24/20 11:00 Ur Specific [place] >= 1.030 (1.005-1.025) H 03/24/20 11:00 Urine Protein NEG MG/DL (NEG-TRACE) 03/24/20 11:00 Urine Glucose (UA) NEG MG/DL (NEG) 03/24/20 11:00 Urine Ketones NEG MG/DL (NEG) 03/24/20 11:00 Urine Blood NEG (NEG) 03/24/20 11:00 Urine Nitrite NEG (NEG) 03/24/20 11:00 Ur Leukocyte Esterase NEG (NEG) 03/24/20 11:00 Urine Creatinine 232.03 mg/dL 03/24/20 11:00 Progress Note: A/P (1) Colon carcinoma metastatic to multiple sites Status: Chronic Assessment and plan: 1. This is a 49-year-old man with metastatic colon cancer, arising from cecum. FNA of lung nodule is consistent with adenocarcinoma. Right hemicolectomy performed 04/03/2019, adenocarcinoma moderately differentiated. Stage [id number]. MMR proficient. BRAF mutation not detected, K-renata mutation detected, NRAS mutation not detected, IHC for verdugo TRK negative. HER2 non reactive and tumor mutational burden pending. Started chemotherapy modified FOLFOX 6 with Avastin from 04/23/2019. He had a good response based on PET scan in June but because of side effects of neuropathy he was switched to maintenance Xeloda with Avastin. Patient is experiencing significant hand-foot syndrome related to Xeloda. Xeloda has been discontinued. irinotecan 350 milligram/meter squared plus bevacizumab 7.5mg/kg every 3 weeks will be started. Possible side effects such as diarrhea, cytopenia and GI side effects were discussed. Patient is willing to proceed. 2. Chronic diarrhea. He he was advised to take Imodium as prescribed. 3. Genetic testing. Patient?s genetic test result indicated that he was negative for a hereditary cancer gene mutation. 4. 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 On vitamin B12 supplementation, folate levels are normal. Follow-up in 3 weeks. - Time Spent With Patient Total time spent is greater than 50% in coordination of care (as documented) at patient's floor/unit and/or counseling patient: 15 - 24 minutes
[2020-04-07 11:50] VITALS: BP 120/80; BP 128/82
--- NOTE | 2020-04-07 17:00 | MHC.HEMONC ---
Per Sally - Both Irinotecan (J9206) and bevacizumab(Q5107) were approved. Authorization#[id number] DOS is 04/07/2020-04/07/2021.
[2020-04-13 09:29] LABS: MANUAL DIFF FLAG NO
[2020-04-13 11:08] VITALS: BMI 28.3
[2020-04-13 11:09] VITALS: BP 131/93; PULSE 105; RESP 18; TEMP 36.7; O2SAT 95
[2020-04-13 12:15] LABS: Basophils Percent Auto 0.5 % (0-2); Eosinophils Absolute Auto 0.1 X10*3/uL (0.0-0.4); Eosinophils Percent Auto 2.1 % (0-4); Hematocrit 36.4 % (42-52); Hemoglobin 12.5 g/dl (14.0-18.0); Imm Gran Abs Auto 0.01 X10*3/uL (0.00-0.03); Imm Gran Pct Auto 0.2 % (0.0-0.4); Lymphocytes Absolute Auto 1.6 X10*3/uL (1.2-4.9); Lymphocytes Percent Auto 28.2 % (20-40); Mean Corpuscular HGB Conc 34.3 g/dl (31.0-36.0); Mean Corpuscular Hemoglobin 36.7 pg (27.0-33.0); Mean Corpuscular Volume 106.7 fL (80-98); Mean Platelet Volume 10.1 fL (9.4-12.4); Monocytes Percent Auto 17.6 % (2-11); Neutrophils Absolute Auto 2.9 X10*3/uL (2.0-8.3); Neutrophils Percent Auto 51.4 % (45-73); Platelet Count 221 X10*3/uL (160-400); Red Blood Count 3.41 X10*6/uL (4.60-5.80); Red Cell Distribution Width 16.2 % (11.0-16.0); White Blood Count 5.7 X10*3/uL (4.8-10.8)
[2020-04-13 12:45] LABS: Alanine Aminotransferase 40 U/L (0-40); Alkaline Phosphatase 103 U/L (39-117); Anion Gap 13 (12-20); Aspartate Amino Transferase 36 U/L (5-37); Bilirubin Total 0.5 mg/dL (0.0-1.0); Blood Urea Nitrogen 11 mg/dL (9-16); Calcium 9.1 mg/dL (8.4-10.2); Carbon Dioxide 27 mmol/L (22-29); Chloride 103 mmol/L (96-108); Creatinine Clr Calc Pharmacy 103.6; Estimated Glomerular Filt Rate > 60; Glucose Random 110 mg/dL (60-115); Magnesium 1.9 mg/dL (1.6-2.6); Potassium 3.9 mmol/l (3.3-5.1); Sodium 139 mmol/L (135-145); Total Protein 6.9 g/dL (6.5-8.0)
[2020-04-13 13:11] LABS: Appearance Urine CLEAR; Color Urine YELLOW; Glucose Urine UA NEG (NEG); Leukocyte Esterase Urine NEG (NEG); Nitrite Urine NEG (NEG); PH 5.5 (5.0-8.0); Specific Gravity - Urine >= 1.030 (1.005-1.025); Urine Blood NEG (NEG); Urine Ketones NEG (NEG); Urine Protein NEG (NEG-TRACE)
[2020-04-13 13:37] LABS: Creatinine Urine 147.45 mg/dL
[2020-04-13] MEDS: Acetaminophen 325 MG TABLET 650 MG PO (13:41)
[2020-04-13] MEDS: dexAMETHasone sod phosphate/NS 12 MG/50 ML PIGGYBACK 200 MG IV (13:46)
[2020-04-13] MEDS: ondansetron HCL/NS 16 MG/50 ML PIGGYBACK 200 MG IV (14:23)
[2020-04-13] MEDS: Fosaprepitant Dimeglumine 150 MG in 0.9 % Sodium Chloride 145 ML 300 MG IV (14:24)
[2020-04-13] MEDS: Famotidine 20 MG TABLET PO (14:27)
[2020-04-13] MEDS: Atropine Sulfate 1 MG/ML VIAL 0.5 MG SUBCUT (15:19)
[2020-04-13 17:25] VITALS: BP 118/73
[2020-04-13] MEDS: Heparin Sodium,Porcine Flush 500 UNIT/5 ML SYRINGE IVFLUSH (17:27)
--- NOTE | 2020-04-13 17:35 | MHC.HEMONC ---
Patient tolerated C1 Day 1 Mvasi and Ironetcan. Atropine given per Dr. Mims prior to infusion . No complaints or signs of transfusion reaction. Chemotherapy teaching completed, patient verbalizes understanding. Imodium prescription renewed.
[2020-04-28 10:25] VITALS: BMI 28.2
[2020-04-28 10:26] VITALS: PULSE 108; RESP 20; TEMP 37.3; O2SAT 94
[2020-04-28 10:43] LABS: MANUAL DIFF FLAG NO
[2020-04-28 10:48] LABS: Basophils Percent Auto 0.3 % (0-2); Eosinophils Absolute Auto 0.1 X10*3/uL (0.0-0.4); Eosinophils Percent Auto 1.7 % (0-4); Hematocrit 38.6 % (42-52); Hemoglobin 12.8 g/dl (14.0-18.0); Imm Gran Abs Auto 0.02 X10*3/uL (0.00-0.03); Imm Gran Pct Auto 0.3 % (0.0-0.4); Lymphocytes Absolute Auto 1.8 X10*3/uL (1.2-4.9); Lymphocytes Percent Auto 27.6 % (20-40); Mean Corpuscular HGB Conc 33.2 g/dl (31.0-36.0); Mean Corpuscular Hemoglobin 34.3 pg (27.0-33.0); Mean Corpuscular Volume 103.5 fL (80-98); Mean Platelet Volume 9.5 fL (9.4-12.4); Monocytes Absolute Auto 0.9 X10*3/uL (0.1-1.2); Monocytes Percent Auto 14.2 % (2-11); Neutrophils Absolute Auto 3.7 X10*3/uL (2.0-8.3); Neutrophils Percent Auto 55.9 % (45-73); Platelet Count 227 X10*3/uL (160-400); Red Blood Count 3.73 X10*6/uL (4.60-5.80); Red Cell Distribution Width 15.1 % (11.0-16.0); White Blood Count 6.6 X10*3/uL (4.8-10.8)
[2020-04-28 11:18] LABS: Alanine Aminotransferase 41 U/L (0-40); Albumin Level 4.1 g/dL (3.5-5.0); Alkaline Phosphatase 94 U/L (39-117); Anion Gap 14 (12-20); Aspartate Amino Transferase 37 U/L (5-37); Bilirubin Total 0.5 mg/dL (0.0-1.0); Blood Urea Nitrogen 10 mg/dL (9-16); Calcium 8.7 mg/dL (8.4-10.2); Carbon Dioxide 26 mmol/L (22-29); Chloride 103 mmol/L (96-108); Cholesterol 244 mg/dL; Creatinine Clr Calc Pharmacy 104.5; Estimated Glomerular Filt Rate > 60; Glucose Random 92 mg/dL (60-115); HDL Cholesterol 66 mg/dL; LDL Cholesterol Calculated 129 mg/dl; Magnesium 1.7 mg/dL (1.6-2.6); Potassium 3.7 mmol/l (3.3-5.1); Sodium 139 mmol/L (135-145); Total Protein 6.9 g/dL (6.5-8.0); Triglycerides 246 mg/dL
[2020-04-28] MEDS: Acetaminophen 325 MG TABLET 650 MG PO (11:24)
[2020-04-28] MEDS: ondansetron HCL/NS 16 MG/50 ML PIGGYBACK 200 MG IV (11:25)
[2020-04-28 11:28] LABS: Glucose Urine UA NEG (NEG); Leukocyte Esterase Urine NEG (NEG); Nitrite Urine NEG (NEG); PH 5.5 (5.0-8.0); Specific Gravity - Urine >= 1.030 (1.005-1.025); Urine Blood NEG (NEG); Urine Ketones NEG (NEG); Urine Protein NEG (NEG-TRACE)
[2020-04-28 11:30] LABS: Appearance Urine CLEAR; Color Urine YELLOW
[2020-04-28] MEDS: dexAMETHasone sod phosphate/NS 12 MG/50 ML PIGGYBACK 200 MG IV (11:49)
[2020-04-28] MEDS: Famotidine/PF 20 MG/2 ML VIAL IVPUSH (12:15)
[2020-04-28] MEDS: Fosaprepitant Dimeglumine 150 MG in 0.9 % Sodium Chloride 145 ML 300 MG IV (12:21)
[2020-04-28 12:25] LABS: Creatinine Urine 219.77 mg/dL
[2020-04-28 12:28] LABS: Reflex LDLD? No
--- NOTE | 2020-04-28 13:15 | MHC.HEMONCSW ---
PT RECEIVING CHEMOTHERAPY. REPORTS COPING WELL, STILL WATCHING WHAT HE EATS, LIMITED EXERCISE DUE TO NEUROPATHY AND THE COLD WEATHER. JANELLE LAURIE BY LEANING ON HIS JOZEF AND HIS CLOSE FAMILY. WE DISCUSSED SEVERAL INSURANCE ISSUES HE HAD, ANSWERED ALL QUESTIONS AND ADVISED HE CALL DEENA/FINANCIAL COUNSELOR. EDUCATION AND SUPPORT PROVIDED. PATIENT IS AWARE OF MY AVAILABILITY.
[2020-04-28] MEDS: Atropine Sulfate 1 MG/ML VIAL 0.5 MG SUBCUT (13:34)
[2020-04-28] MEDS: Heparin Sodium,Porcine Flush 500 UNIT/5 ML SYRINGE IVFLUSH (15:51)
--- NOTE | 2020-04-28 16:00 | MHC.HEMONC ---
Pt here for 2nd cycle M-Vasi with Irinotecan. He tolerated 1st cycle very well without c/o diarrhea. He feels stronger. Neuropathy is about the same from previous therapy and his hand foot peeling is improving slowly. Labs WNL. Pt michelle chemo well and is aware of post chemo antiemetic plan.
[2020-05-12 10:40] VITALS: BP 121/89; PULSE 85; RESP 18; TEMP 36.7; O2SAT 95; BMI 28.7
[2020-05-12 11:07] LABS: Basophils Percent Auto 0.5 % (0-2); Eosinophils Absolute Auto 0.1 X10*3/uL (0.0-0.4); Hematocrit 36.2 % (42-52); Hemoglobin 12.3 g/dl (14.0-18.0); Imm Gran Abs Auto 0.01 X10*3/uL (0.00-0.03); Imm Gran Pct Auto 0.2 % (0.0-0.4); Lymphocytes Absolute Auto 1.5 X10*3/uL (1.2-4.9); Lymphocytes Percent Auto 28.1 % (20-40); Mean Corpuscular Hemoglobin 34.6 pg (27.0-33.0); Mean Corpuscular Volume 101.7 fL (80-98); Mean Platelet Volume 9.6 fL (9.4-12.4); Monocytes Absolute Auto 0.8 X10*3/uL (0.1-1.2); Monocytes Percent Auto 14.2 % (2-11); Platelet Count 257 X10*3/uL (160-400); Red Blood Count 3.56 X10*6/uL (4.60-5.80); White Blood Count 5.5 X10*3/uL (4.8-10.8)
[2020-05-12 11:08] LABS: MANUAL DIFF FLAG NO
[2020-05-12] MEDS: Acetaminophen 325 MG TABLET 650 MG PO (11:26)
[2020-05-12] MEDS: Famotidine 20 MG TABLET PO (11:26)
[2020-05-12] MEDS: ondansetron HCL/NS 16 MG/50 ML PIGGYBACK 200 MG IV (11:27)
[2020-05-12 11:38] LABS: Alanine Aminotransferase 43 U/L (0-40); Albumin Level 3.9 g/dL (3.5-5.0); Alkaline Phosphatase 86 U/L (39-117); Anion Gap 10 (12-20); Aspartate Amino Transferase 38 U/L (5-37); Bilirubin Total 0.6 mg/dL (0.0-1.0); Blood Urea Nitrogen 10 mg/dL (9-16); Calcium 8.9 mg/dL (8.4-10.2); Carbon Dioxide 28 mmol/L (22-29); Chloride 104 mmol/L (96-108); Creatinine Clr Calc Pharmacy 103.2; Estimated Glomerular Filt Rate > 60; Glucose Random 94 mg/dL (60-115); Magnesium 1.8 mg/dL (1.6-2.6); Potassium 3.8 mmol/l (3.3-5.1); Sodium 138 mmol/L (135-145); Total Protein 6.5 g/dL (6.5-8.0)
[2020-05-12] MEDS: dexAMETHasone sod phosphate/NS 12 MG/50 ML PIGGYBACK 200 MG IV (11:50)
[2020-05-12] MEDS: Atropine Sulfate 1 MG/ML VIAL 0.5 MG SUBCUT (12:25)
[2020-05-12] MEDS: Heparin Sodium,Porcine Flush 500 UNIT/5 ML SYRINGE IVFLUSH (14:27)
--- NOTE | 2020-05-12 14:36 | PM.HEMONCPN ---
Medical Summary - Medical Summary Date of Service: 05/12/20 Chief complaint: Scheduled follow-up and treatment Medical Summary: Diagnosis: Metastatic colon cancer diagnosed February 2019 Presented with worsening abdominal pain, right lower quadrant ongoing for almost a year. CT imaging showed inflamed appendix, periappendiceal inflammation involving cecum and small bowel. Abscess identified in the pelvis which was drained. Appendectomy performed 02/22/2019, invasive adenocarcinoma, moderately differentiated, tumor present at the resection margin. Acute appendicitis and Suzy appendicitis with perforation. IHC showed CK 7-, CK 20 positive and CDX2 positive. MMR proficient. On 03/11/2019 patient underwent colonoscopy which showed adenomatous looking degenerative mass with an ulcerated center in the cecum. Two polyps were also removed. CTA performed 02/21/2019 showed multiple lung nodules bilaterally. Largest in the left lower lobe measuring 1.[address] abdomen performed 02/21/2019 showed dilated and inflamed appendix with surrounding inflammatory changes. Normal liver and spleen. Prominent mesenteric lymph nodes measuring up to 1.4 cm. CEA elevated at 14.6. FNA of the left lower lobe lung nodule performed 03/13/2019 showed adenocarcinoma consistent with known cecal primary. PET scan showed intense uptake around cecum, SUV 14.2, terminal ileum, foci in mesentery in the pelvis and right lower quadrant suspicious for metastatic deposits. No uptake in the lung nodules but malignancy not excluded. Right hemicolectomy performed 04/03/2019, adenocarcinoma moderately differentiated. Tumor invades through visceral peritoneum with macroscopic tumor perforation and direct invasion into adjacent loop of small bowel. Eight of 12 pericolonic lymph nodes positive for adenocarcinoma. Tumor involves mesenteric resection margins. Lymphovascular invasion present. Tumor size 6 x 2.8 cm. Stage [id number]. MMR proficient. BRAF mutation not detected, K-renata mutation detected, NRAS mutation not detected, IHC for verdugo TRK negative. Genetic testing. Patient?s genetic test result indicated that he was negative for a hereditary cancer gene mutation. Started chemotherapy modified FOLFOX 6 with Avastin from 04/23/2019. PET scan performed June 2019 showed complete metabolic response. Because of side effects of neuropathy his chemotherapy changed to maintenance treatment with Xeloda 1000 milligram/meter squared b.i.d. day 1-14 along with Avastin Q 3 weeks in June 2019.He has had elevation of CEA, PET-CT performed at [facility] on 11/04/2019 showed increased FDG activity in right lower quadrant of abdomen/pelvis, SUV 6.4, nodular infiltration measuring 1.3 x 0.9 cm. Right upper lobe subpleural nodule with minimal FDG uptake of 2.6, metastatic nodule probable. Xeloda discontinued in February 2020 because of worsening hand/foot syndrome. Interval History Interval history: Patient is here in follow-up and scheduled treatment. He is doing a lot better in terms of rashes of his hands and feet. He reports less neuropathy as well. He has dental work coming up, teeth extractions week may. We discussed stopping Avastin briefly until extractions are done. We also discussed getting flu shot on his week off from chemotherapy. He had a lot of questions about his CEA numbers. He denies any physical complaints such as chest pain, shortness of breath, diarrhea, nausea or emesis. No fever or chills. Review of Systems - Constitutional Reports no additional constitutional complaints - Respiratory Reports no additional respiratory complaints - Gastrointestinal Reports no additional gastrointestinal complaints PMFSH Medical History: Medical History (Last Updated 03/24/20 @ 12:43 by Nuria Mims MD) Acute appendicitis Asthma Colon adenocarcinoma Hypercholesteremia Smoking status: Never smoker Oncology Screenings - ECOG Performance Status ECOG Performance Status: 1 Home Medications and Allergies Current Medications: Current Medications Generic Name Dose Route Start Last Admin Trade Name Freq PRN Reason Stop Dose Admin Acetaminophen 650 mg 05/12/20 00:00 05/12/20 11:26 Acetaminophen 325 Mg Tablet PO 05/12/20 23:59 650 mg ONCE LOLLY Administration Atropine Sulfate 0.5 mg 05/12/20 00:00 05/12/20 12:25 Atropine Sulfate 1 Mg/Ml Vial SUBCUT 05/12/20 23:59 0.5 mg ONCE LOLLY Administration Famotidine 20 mg 05/12/20 00:00 05/12/20 11:26 Famotidine 20 Mg Tablet PO 05/12/20 23:59 20 mg ONCE LOLLY Administration Heparin Sodium (Porcine) 500 unit 05/12/20 00:00 05/12/20 14:27 Heparin Sodium,Porcine Flush 500 Unit/5 Ml Syringe IVFLUSH 05/12/20 23:59 500 unit ONCE LOLLY Administration Dexamethasone Sodium Phosphate 12 mg in 50 mls @ 100 mls/hr 05/12/20 00:00 05/12/20 12:05 Decadron IV 05/12/20 23:59 Infused ONCE LOLLY Infusion Irinotecan HCl 300 mg/ 517.5 mls @ 345 mls/hr 05/12/20 00:00 05/12/20 14:25 Irinotecan HCl 50 mg/ Dextrose IV 05/12/20 23:59 Infused ONCE LOLLY Infusion Home Medications Medication Instructions Recorded Confirmed Type albuterol sulfate 2 puff INHALATION QID PRN 03/03/20 03/03/20 History cyanocobalamin (vitamin B-12) 1,000 mcg PO DAILY 03/03/20 03/03/20 History dexamethasone 4 mg PO BID 03/03/20 03/05/20 History multivitamin 1 cap PO DAILY 03/03/20 03/03/20 History Allergies Allergy/AdvReac Type Severity Reaction Status Date / Time shrimp [SHRIMP] Allergy Severe ANGIOEDEMA Verified 03/24/20 11:48 milk [MILK] Allergy Mild DIARRHEA Verified 03/24/20 11:48 SEAFOOD Allergy Severe ANGIOEDEMA Uncoded 02/05/20 15:56 Seafood/Shrimp Allergy Unknown angioedema Uncoded 09/29/19 00:00 Exam Vital signs: Vital Signs Temp 98.1 F 05/12/20 10:40 Pulse 85 05/12/20 10:40 Resp 18 05/12/20 10:40 BP 121/89 05/12/20 10:40 Pulse Ox 95 05/12/20 10:40 Intake & Output 05/11/20 05/12/20 05/12/20 18:59 06:59 18:59 Intake Total 617.5 / 617.5 Balance 617.5 / 617.5 Intake: Intake, IV Amount 617.5 / 617.5 Irinotecan HCl 300 mg 517.5 / 517.5 Irinotecan HCl 50 mg In Dextrose 5 % 500 ml @ 345 mls/ hr IV ONCE LOLLY Rx#:[id number] dexAMETHasone sod phosphate/NS 50 / 50 12 mg In 50 ml @ 100 mls/hr IV ONCE LOLLY Rx#:[id number] ondansetron HCL/NS 16 mg In 50 50 / 50 ml @ 200 mls/hr IV ONCE LOLLY Rx# :[id number] Other: Weight 89.2 kg 90.9 kg Weight 90.9 kg Body Mass Index 28.7 - Constitutional Present: no acute distress - Routine HEENT Exam Head: Present: normal inspection - Routine Neck Exam Present: full ROM. Absent: lymphadenopathy - Routine Chest/Breast/Axilla Exam Chest wall: Absent: tenderness, mass - Routine Respiratory Exam Present: CTAB - Routine Cardiovascular Exam Cardiovascular: Present: RRR, S1, S2 - Routine Skin Exam Present: dry, rash, cracked Data - Labs CBC & Chem 7: 05/12/20 10:50 05/12/20 10:50 Labs: 03/03/20 00:00 Bevacizumab-awwb [Mvasi] 400 mg Bevacizumab-awwb [Mvasi] 250 mg 0.9 % Sodium Chloride [Ns] 74 ml IV ONCE Fosaprepitant Dimeglumine [Emend] 150 mg 0.9 % Sodium Chloride [Ns] 145 ml IV ONCE Heparin Sodium,Porcine Flush 500 unit IVFLUSH ONCE Heparin Sodium,Porcine Flush 500 unit IVFLUSH ONCE Oxaliplatin 270 mg Dextrose 5 % [D5w] 500 ml IV ONCE dexAMETHasone sod phosphate/NS [Decadron] 12 mg in 50 ml IV ONCE dexAMETHasone sod phosphate/NS [Decadron] 12 mg in 50 ml IV ONCE ondansetron HCL/NS [Zofran] 16 mg in 50 ml IV ONCE ondansetron HCL/NS [Zofran] 16 mg in 50 ml IV ONCE 03/03/20 09:49 Comprehensive Met. Panel Routine Magnesium Routine 03/03/20 10:25 UA and rflx microscopic Routine 03/03/20 10:45 Complete Blood Count Auto Diff Routine 03/24/20 00:00 Bevacizumab-awwb [Mvasi] 400 mg Bevacizumab-awwb [Mvasi] 250 mg 0.9 % Sodium Chloride [Ns] 74 ml IV ONCE Fosaprepitant Dimeglumine [Emend] 150 mg 0.9 % Sodium Chloride [Ns] 145 ml IV ONCE Heparin Sodium,Porcine Flush 500 unit IVFLUSH ONCE Oxaliplatin 270 mg Dextrose 5 % [D5w] 500 ml IV ONCE dexAMETHasone sod phosphate/NS [Decadron] 12 mg in 50 ml IV ONCE ondansetron HCL/NS [Zofran] 16 mg in 50 ml IV ONCE 03/24/20 10:40 Carcinoembryonic Antigen Routine Complete Blood Count Auto Diff Routine Comprehensive Met. Panel Routine Lactate Dehydrogenase Routine Magnesium Routine 03/24/20 11:00 Creatinine Urine Routine UA and rflx microscopic Routine 03/24/20 17:13 Add Laboratory Test Routine 04/13/20 00:00 Acetaminophen [Tylenol] 650 mg PO ONCE Acetaminophen [Tylenol] 650 mg PO ONCE Acetaminophen [Tylenol] 650 mg PO ONCE Atropine Sulfate 0.5 mg IVPUSH ONCE Atropine Sulfate 0.5 mg IVPUSH ONCE Atropine Sulfate 0.5 mg SUBCUT ONCE Bevacizumab-awwb [Mvasi] 400 mg Bevacizumab-awwb [Mvasi] 50 mg 0.9 % Sodium Chloride [Ns] 82 ml IV ONCE Famotidine [Pepcid] 20 mg PO ONCE Famotidine [Pepcid] 20 mg PO ONCE Famotidine/PF [Pepcid/PF] 20 mg IVPUSH ONCE Fosaprepitant Dimeglumine [Emend] 150 mg 0.9 % Sodium Chloride [Ns] 145 ml IV ONCE Fosaprepitant Dimeglumine [Emend] 150 mg 0.9 % Sodium Chloride [Ns] 145 ml IV ONCE Fosaprepitant Dimeglumine [Emend] 150 mg 0.9 % Sodium Chloride [Ns] 145 ml IV ONCE Heparin Sodium,Porcine Flush 500 unit IVFLUSH ONCE Irinotecan HCl [Camptosar] 300 mg Irinotecan HCl [Camptosar] 50 mg Dextrose 5 % [D5w] 500 ml IV ONCE Irinotecan HCl [Camptosar] 300 mg Irinotecan HCl [Camptosar] 50 mg Dextrose 5 % [D5w] 500 ml IV ONCE Irinotecan HCl [Camptosar] 300 mg Irinotecan HCl [Camptosar] 50 mg Dextrose 5 % [D5w] 500 ml IV ONCE dexAMETHasone sod phosphate/NS [Decadron] 12 mg in 50 ml IV ONCE dexAMETHasone sod phosphate/NS [Decadron] 12 mg in 50 ml IV ONCE dexAMETHasone sod phosphate/NS [Decadron] 12 mg in 50 ml IV ONCE ondansetron HCL/NS [Zofran] 16 mg in 50 ml IV ONCE ondansetron HCL/NS [Zofran] 16 mg in 50 ml IV ONCE 04/13/20 09:20 Carcinoembryonic Antigen Routine Comprehensive Met. Panel Routine Magnesium Routine 04/13/20 11:40 Complete Blood Count Auto Diff Routine 04/13/20 12:46 Creatinine Urine Routine UA and rflx microscopic Routine 04/13/20 13:45 dexAMETHasone sod phosphate/NS [Decadron] 12 mg in 50 ml IV ONCE ondansetron HCL/NS [Zofran] 16 mg in 50 ml IV ONCE 04/28/20 00:00 Acetaminophen [Tylenol] 650 mg PO ONCE Atropine Sulfate 0.5 mg IVPUSH ONCE Atropine Sulfate 0.5 mg SUBCUT ONCE Bevacizumab-awwb [Mvasi] 400 mg Bevacizumab-awwb [Mvasi] 50 mg 0.9 % Sodium Chloride [Ns] 82 ml IV ONCE Famotidine [Pepcid] 20 mg PO ONCE Fosaprepitant Dimeglumine [Emend] 150 mg 0.9 % Sodium Chloride [Ns] 145 ml IV ONCE Heparin Sodium,Porcine Flush 500 unit IVFLUSH ONCE Irinotecan HCl [Camptosar] 300 mg Irinotecan HCl [Camptosar] 50 mg Dextrose 5 % [D5w] 500 ml IV ONCE dexAMETHasone sod phosphate/NS [Decadron] 12 mg in 50 ml IV ONCE ondansetron HCL/NS [Zofran] 16 mg in 50 ml IV ONCE 04/28/20 10:30 Carcinoembryonic Antigen Routine Complete Blood Count Auto Diff Routine Comprehensive Met. Panel Routine Lipid Panel with Reflex Routine Magnesium Routine 04/28/20 11:10 Creatinine Urine Routine UA and rflx microscopic Routine 04/28/20 11:35 Famotidine/PF [Pepcid/PF] 20 mg IVPUSH ONCE ONE 05/12/20 00:00 ondansetron HCL/NS [Zofran] 16 mg in 50 ml IV ONCE 05/12/20 10:50 Carcinoembryonic Antigen Routine Complete Blood Count Auto Diff Routine Comprehensive Met. Panel Routine Magnesium Routine Laboratory Last Values WBC 5.5 X10*3/uL (4.8-10.8) 05/12/20 10:50 RBC 3.56 X10*6/uL (4.60-5.80) L 05/12/20 10:50 Hgb 12.3 g/dl (14.0-18.0) L 05/12/20 10:50 Hct 36.2 % (42-52) L 05/12/20 10:50 MCV 101.7 fL (80-98) H 05/12/20 10:50 MCH 34.6 pg (27.0-33.0) H 05/12/20 10:50 MCHC 34.0 g/dl (31.0-36.0) 05/12/20 10:50 RDW 15.0 % (11.0-16.0) 05/12/20 10:50 Plt Count 257 X10*3/uL (160-400) 05/12/20 10:50 MPV 9.6 fL (9.4-12.4) 05/12/20 10:50 Immature Gran % (Auto) 0.2 % (0.0-0.4) 05/12/20 10:50 Neut % (Auto) 55.0 % (45-73) 05/12/20 10:50 Lymph % (Auto) 28.1 % (20-40) 05/12/20 10:50 Green % (Auto) 14.2 % (2-11) H 05/12/20 10:50 Eos % (Auto) 2.0 % (0-4) 05/12/20 10:50 Baso % (Auto) 0.5 % (0-2) 05/12/20 10:50 Lymph # (Auto) 1.5 X10*3/uL (1.2-4.9) 05/12/20 10:50 Green # (Auto) 0.8 X10*3/uL (0.1-1.2) 05/12/20 10:50 Eos # (Auto) 0.1 X10*3/uL (0.0-0.4) 05/12/20 10:50 Baso # (Auto) 0.0 X10*3/uL (0.0-0.2) 05/12/20 10:50 Abs Immat Gran (auto) 0.01 X10*3/uL (0.00-0.03) 05/12/20 10:50 Absolute Neuts (auto) 3.0 X10*3/uL (2.0-8.3) 05/12/20 10:50 Absolute Nucleated RBC 0.000 X10*3/uL (0.0-0.012) 05/12/20 10:50 Nucleated RBC % (auto) 0.0 /100WBC (0.0-0.2) 05/12/20 10:50 Sodium 138 mmol/L (135-145) 05/12/20 10:50 Potassium 3.8 mmol/l (3.3-5.1) 05/12/20 10:50 Chloride 104 mmol/L (96-108) 05/12/20 10:50 Carbon Dioxide 28 mmol/L (22-29) 05/12/20 10:50 Anion Gap 10 (12-20) L 05/12/20 10:50 BUN 10 mg/dL (9-16) 05/12/20 10:50 Creatinine 0.97 mg/dL (0.5-1.4) 05/12/20 10:50 Estim Creat Clear Calc 103.2 05/12/20 10:50 Estimated GFR > 60 05/12/20 10:50 Random Glucose 94 mg/dL (60-115) 05/12/20 10:50 Calcium 8.9 mg/dL (8.4-10.2) 05/12/20 10:50 Magnesium 1.8 mg/dL (1.6-2.6) 05/12/20 10:50 Total Bilirubin 0.6 mg/dL (0.0-1.0) 05/12/20 10:50 AST 38 U/L (5-37) H 05/12/20 10:50 ALT 43 U/L (0-40) H 05/12/20 10:50 Alkaline Phosphatase 86 U/L (39-117) 05/12/20 10:50 Lactate Dehydrogenase 188 U/L (118-273) 03/24/20 10:40 Total Protein 6.5 g/dL (6.5-8.0) 05/12/20 10:50 Albumin 3.9 g/dL (3.5-5.0) 05/12/20 10:50 Triglycerides 246 mg/dL 04/28/20 10:30 Cholesterol 244 mg/dL 04/28/20 10:30 LDL Cholesterol, Calc 129 mg/dl 04/28/20 10:30 HDL Cholesterol 66 mg/dL 04/28/20 10:30 Carcinoembryonic Ag 15.40 mg/mL 05/12/20 10:50 Urine Color YELLOW 04/28/20 11:10 Urine Appearance CLEAR 04/28/20 11:10 Urine pH 5.5 (5.0-8.0) 04/28/20 11:10 Ur Specific [place] >= 1.030 (1.005-1.025) H 04/28/20 11:10 Urine Protein NEG MG/DL (NEG-TRACE) 04/28/20 11:10 Urine Glucose (UA) NEG MG/DL (NEG) 04/28/20 11:10 Urine Ketones NEG MG/DL (NEG) 04/28/20 11:10 Urine Blood NEG (NEG) 04/28/20 11:10 Urine Nitrite NEG (NEG) 04/28/20 11:10 Ur Leukocyte Esterase NEG (NEG) 04/28/20 11:10 Urine Creatinine 219.77 mg/dL 04/28/20 11:10 Progress Note: A/P (1) Colon carcinoma metastatic to multiple sites Status: Chronic Assessment and plan: 1. This is a 49-year-old man with metastatic colon cancer, arising from cecum. FNA of lung nodule is consistent with adenocarcinoma. Right hemicolectomy performed 04/03/2019, adenocarcinoma moderately differentiated. Stage [id number]. MMR proficient. BRAF mutation not detected, K-renata mutation detected, NRAS mutation not detected, IHC for verdugo TRK negative. HER2 non reactive and tumor mutational burden pending. Started chemotherapy modified FOLFOX 6 with Avastin from 04/23/2019. He had a good response based on PET scan in June but because of side effects of neuropathy he was switched to maintenance Xeloda with Avastin. Xeloda was discontinued in February 2020 because of hand-foot syndrome. He is now on irinotecan plus bevacizumab every 2 weeks. He is tolerating this well. Bevacizumab is being held this week in anticipation of teeth extraction in the 1st week of May. He was advised to receive influenza vaccination next week. Follow-up in 6 weeks. - Time Spent With Patient Total time spent is greater than 50% in coordination of care (as documented) at patient's floor/unit and/or counseling patient: 15 - 24 minutes
--- NOTE | 2020-05-12 15:54 | MHC.HEMONC ---
Pt here for Irinotecan. Avastin held due to having wisdom tooth out early May. Labs WNL. Seen by Dr Mims. He seems to be michelel this chemo well. Dr Mims seeing how he does without EMEND so I told him he does not need Dexamethasone following chemo.
[2020-05-26 10:11] VITALS: BP 120/87; PULSE 102; RESP 18; TEMP 37.1; O2SAT 96; BMI 29.0
[2020-05-26 10:57] LABS: Basophils Percent Auto 0.5 % (0-2); Eosinophils Absolute Auto 0.2 X10*3/uL (0.0-0.4); Eosinophils Percent Auto 3.1 % (0-4); Hematocrit 38.3 % (42-52); Hemoglobin 12.9 g/dl (14.0-18.0); Imm Gran Abs Auto 0.01 X10*3/uL (0.00-0.03); Imm Gran Pct Auto 0.2 % (0.0-0.4); Lymphocytes Absolute Auto 2.2 X10*3/uL (1.2-4.9); Lymphocytes Percent Auto 40.5 % (20-40); MANUAL DIFF FLAG NO; Mean Corpuscular HGB Conc 33.7 g/dl (31.0-36.0); Mean Corpuscular Hemoglobin 33.4 pg (27.0-33.0); Mean Corpuscular Volume 99.2 fL (80-98); Mean Platelet Volume 9.7 fL (9.4-12.4); Monocytes Absolute Auto 0.8 X10*3/uL (0.1-1.2); Monocytes Percent Auto 14.5 % (2-11); Neutrophils Absolute Auto 2.3 X10*3/uL (2.0-8.3); Neutrophils Percent Auto 41.2 % (45-73); Platelet Count 232 X10*3/uL (160-400); Red Blood Count 3.86 X10*6/uL (4.60-5.80); Red Cell Distribution Width 14.4 % (11.0-16.0); White Blood Count 5.5 X10*3/uL (4.8-10.8)
[2020-05-26 11:23] LABS: Alanine Aminotransferase 19 U/L (0-40); Albumin Level 4.1 g/dL (3.5-5.0); Alkaline Phosphatase 64 U/L (39-117); Anion Gap 15 (12-20); Aspartate Amino Transferase 23 U/L (5-37); Bilirubin Total 0.6 mg/dL (0.0-1.0); Blood Urea Nitrogen 8 mg/dL (9-16); Calcium 8.9 mg/dL (8.4-10.2); Carbon Dioxide 26 mmol/L (22-29); Chloride 104 mmol/L (96-108); Creatinine Clr Calc Pharmacy 96.6; Estimated Glomerular Filt Rate > 60; Glucose Random 114 mg/dL (60-115); Magnesium 1.8 mg/dL (1.6-2.6); Potassium 3.6 mmol/l (3.3-5.1); Sodium 141 mmol/L (135-145); Total Protein 6.7 g/dL (6.5-8.0)
[2020-05-26] MEDS: ondansetron HCL/NS 16 MG/50 ML PIGGYBACK 200 MG IV (12:07)
[2020-05-26] MEDS: Acetaminophen 325 MG TABLET 650 MG PO (12:08)
[2020-05-26] MEDS: Famotidine 20 MG TABLET PO (12:08)
[2020-05-26] MEDS: Atropine Sulfate 1 MG/ML VIAL 0.5 MG SUBCUT (12:10)
[2020-05-26] MEDS: dexAMETHasone sod phosphate/NS 12 MG/50 ML PIGGYBACK 200 MG IV (12:28)
[2020-05-26] MEDS: DEXTROSE 5% IV (13:08)
[2020-05-26] MEDS: IRINOTECAN HCL IV (13:08)
[2020-05-26] MEDS: Heparin Sodium,Porcine Flush 500 UNIT/5 ML SYRINGE IVFLUSH (14:47)
--- NOTE | 2020-05-26 14:51 | HE.ONCSEC ---
MET WITH PATIENT WHILE HE WAS RECEIVING TREATMENT. REMAINS INDEPENDENT, COMPLAINS ON RECENT MUSCLE ACHES WHICH HE WILL DISCUSS WITH MD. SUCCESSFUL MOLAT TOOTH EXTRACTION. CONTINUES TO BE IN TOUCH WITH FINANCIAL COUNSELOR JOSE. REPORTS NO NEED FOR THERAPY, ENJOYS DISCUSSING ISSUES WITH OUR STAFF. DISCUSSED VARIOUS OTHER TOPICS RELATED TO CANCER, REPORTS COPING WELL. DENIES ANY SOCIAL COMPLAINTS AT THIS TIME. HE IS AWARE OF MY AVAILABILITY.
--- NOTE | 2020-05-26 15:03 | MHC.HEMONC ---
Pt here for chemo infusion. Recently had tooth extraction, so he is receiving Irinotecan only today. States he is feeling well since last treatment, just states has diarrhea. Port accessed and labs drawn. Labs reviewed. Chemo infused and pt tolerated well. Pt stated prior to leaving that he has had sore muscles in shoulders, more on left. Also stated that he had 2 nose bleeds in last couple of weeks. Dr Mims aware, and pt instructed to call if he gets another nose bleed. Scheduled for next treatment in 2 weeks.
[2020-06-09 10:01] VITALS: BP 139/87; PULSE 98; RESP 18; TEMP 37.2; O2SAT 95; BMI 29.4
[2020-06-09 10:24] LABS: MANUAL DIFF FLAG NO
[2020-06-09 10:26] LABS: Basophils Percent Auto 0.6 % (0-2); Eosinophils Absolute Auto 0.1 X10*3/uL (0.0-0.4); Eosinophils Percent Auto 2.7 % (0-4); Hematocrit 36.4 % (42-52); Hemoglobin 12.1 g/dl (14.0-18.0); Imm Gran Abs Auto 0.01 X10*3/uL (0.00-0.03); Imm Gran Pct Auto 0.2 % (0.0-0.4); Lymphocytes Absolute Auto 1.9 X10*3/uL (1.2-4.9); Lymphocytes Percent Auto 36.5 % (20-40); Mean Corpuscular HGB Conc 33.2 g/dl (31.0-36.0); Mean Corpuscular Volume 99.2 fL (80-98); Mean Platelet Volume 9.4 fL (9.4-12.4); Monocytes Absolute Auto 0.7 X10*3/uL (0.1-1.2); Monocytes Percent Auto 13.8 % (2-11); Neutrophils Absolute Auto 2.4 X10*3/uL (2.0-8.3); Neutrophils Percent Auto 46.2 % (45-73); Platelet Count 216 X10*3/uL (160-400); Red Blood Count 3.67 X10*6/uL (4.60-5.80); Red Cell Distribution Width 14.1 % (11.0-16.0); White Blood Count 5.2 X10*3/uL (4.8-10.8)
[2020-06-09 10:55] LABS: Alanine Aminotransferase 22 U/L (0-40); Albumin Level 3.9 g/dL (3.5-5.0); Alkaline Phosphatase 53 U/L (39-117); Anion Gap 12 (12-20); Aspartate Amino Transferase 26 U/L (5-37); Bilirubin Total 0.4 mg/dL (0.0-1.0); Blood Urea Nitrogen 8 mg/dL (9-16); Calcium 8.6 mg/dL (8.4-10.2); Carbon Dioxide 28 mmol/L (22-29); Chloride 106 mmol/L (96-108); Creatinine Clr Calc Pharmacy 105.4; Estimated Glomerular Filt Rate > 60; Glucose Random 93 mg/dL (60-115); Magnesium 1.7 mg/dL (1.6-2.6); Potassium 3.5 mmol/l (3.3-5.1); Sodium 142 mmol/L (135-145); Total Protein 6.3 g/dL (6.5-8.0)
[2020-06-09] MEDS: Famotidine 20 MG TABLET PO (11:44)
[2020-06-09] MEDS: Acetaminophen 325 MG TABLET 650 MG PO (11:44)
[2020-06-09] MEDS: ondansetron HCL/NS 16 MG/50 ML PIGGYBACK 200 MG IV (11:44)
[2020-06-09] MEDS: dexAMETHasone sod phosphate/NS 12 MG/50 ML PIGGYBACK 100 MG IV (11:44)
[2020-06-09] MEDS: Heparin Sodium,Porcine Flush 500 UNIT/5 ML SYRINGE IVFLUSH (11:45)
[2020-06-09] MEDS: Atropine Sulfate 1 MG/ML VIAL 0.5 MG SUBCUT (11:45)
[2020-06-09] MEDS: IRINOTECAN HCL IV (12:49)
[2020-06-09] MEDS: DEXTROSE 5% IV (12:49)
[2020-06-22 08:29] LABS: MANUAL DIFF FLAG NO
[2020-06-22 08:32] VITALS: BMI 28.9
[2020-06-22 08:42] LABS: Basophils Percent Auto 0.6 % (0-2); Eosinophils Absolute Auto 0.2 X10*3/uL (0.0-0.4); Hematocrit 39.6 % (42-52); Hemoglobin 13.2 g/dl (14.0-18.0); Imm Gran Abs Auto 0.01 X10*3/uL (0.00-0.03); Imm Gran Pct Auto 0.2 % (0.0-0.4); Lymphocytes Absolute Auto 2.2 X10*3/uL (1.2-4.9); Lymphocytes Percent Auto 42.4 % (20-40); Mean Corpuscular HGB Conc 33.3 g/dl (31.0-36.0); Mean Corpuscular Hemoglobin 32.7 pg (27.0-33.0); Mean Platelet Volume 9.4 fL (9.4-12.4); Monocytes Absolute Auto 0.7 X10*3/uL (0.1-1.2); Monocytes Percent Auto 13.8 % (2-11); Platelet Count 268 X10*3/uL (160-400); Red Blood Count 4.04 X10*6/uL (4.60-5.80); Red Cell Distribution Width 14.6 % (11.0-16.0); White Blood Count 5.2 X10*3/uL (4.8-10.8)
[2020-06-22 08:53] LABS: Glucose Urine UA NEG (NEG); Leukocyte Esterase Urine NEG (NEG); Nitrite Urine NEG (NEG); PH 5.5 (5.0-8.0); Specific Gravity - Urine >= 1.030 (1.005-1.025); Urine Blood NEG (NEG); Urine Ketones NEG (NEG); Urine Protein NEG (NEG-TRACE)
--- NOTE | 2020-06-22 09:00 | MHC.HEMONC ---
Patient here for lab draw. Labs drawn. Patient will return tomorrow for treatment.
[2020-06-22 09:02] LABS: Appearance Urine CLEAR; Color Urine YELLOW
[2020-06-22 09:04] LABS: RBC Urine 0-2 /HPF (0); WBC Urine 0-2 /HPF (0-4)
[2020-06-22 09:09] LABS: Alanine Aminotransferase 37 U/L (0-40); Albumin Level 4.1 g/dL (3.5-5.0); Alkaline Phosphatase 72 U/L (39-117); Anion Gap 15 (12-20); Aspartate Amino Transferase 30 U/L (5-37); Bilirubin Total 0.5 mg/dL (0.0-1.0); Blood Urea Nitrogen 7 mg/dL (9-16); Calcium 8.8 mg/dL (8.4-10.2); Carbon Dioxide 26 mmol/L (22-29); Chloride 104 mmol/L (96-108); Creatinine Clr Calc Pharmacy 92.8; Estimated Glomerular Filt Rate > 60; Glucose Random 100 mg/dL (60-115); Magnesium 1.9 mg/dL (1.6-2.6); Potassium 3.7 mmol/L (3.3-5.1); Sodium 141 mmol/L (135-145); Total Protein 6.8 g/dL (6.5-8.0)
[2020-06-23 10:14] VITALS: BP 137/100; PULSE 101; RESP 18; TEMP 37.2; O2SAT 95; BMI 29.8
[2020-06-23] MEDS: Acetaminophen 325 MG TABLET 650 MG PO (10:47)
[2020-06-23] MEDS: ondansetron HCL/NS 16 MG/50 ML PIGGYBACK 200 MG IV (10:47)
[2020-06-23] MEDS: Famotidine 20 MG TABLET PO (10:47)
[2020-06-23] MEDS: dexAMETHasone sod phosphate/NS 12 MG/50 ML PIGGYBACK 200 MG IV (11:04)
[2020-06-23] MEDS: Atropine Sulfate 1 MG/ML VIAL 0.5 MG SUBCUT (11:49)
[2020-06-23] MEDS: DEXTROSE 5% IV (12:16)
[2020-06-23] MEDS: IRINOTECAN HCL IV (12:16)
--- NOTE | 2020-06-23 13:08 | PM.HEMONCPN ---
Medical Summary - Medical Summary Date of Service: 06/23/20 Chief complaint: None reported Medical Summary: Diagnosis: Metastatic colon cancer diagnosed February 2019 Presented with worsening abdominal pain, right lower quadrant ongoing for almost a year. CT imaging showed inflamed appendix, periappendiceal inflammation involving cecum and small bowel. Abscess identified in the pelvis which was drained. Appendectomy performed 02/22/2019, invasive adenocarcinoma, moderately differentiated, tumor present at the resection margin. Acute appendicitis and Suzy appendicitis with perforation. IHC showed CK 7-, CK 20 positive and CDX2 positive. MMR proficient. On 03/11/2019 patient underwent colonoscopy which showed adenomatous looking degenerative mass with an ulcerated center in the cecum. Two polyps were also removed. CTA performed 02/21/2019 showed multiple lung nodules bilaterally. Largest in the left lower lobe measuring 1.[address] abdomen performed 02/21/2019 showed dilated and inflamed appendix with surrounding inflammatory changes. Normal liver and spleen. Prominent mesenteric lymph nodes measuring up to 1.4 cm. CEA elevated at 14.6. FNA of the left lower lobe lung nodule performed 03/13/2019 showed adenocarcinoma consistent with known cecal primary. PET scan showed intense uptake around cecum, SUV 14.2, terminal ileum, foci in mesentery in the pelvis and right lower quadrant suspicious for metastatic deposits. No uptake in the lung nodules but malignancy not excluded. Right hemicolectomy performed 04/03/2019, adenocarcinoma moderately differentiated. Tumor invades through visceral peritoneum with macroscopic tumor perforation and direct invasion into adjacent loop of small bowel. Eight of 12 pericolonic lymph nodes positive for adenocarcinoma. Tumor involves mesenteric resection margins. Lymphovascular invasion present. Tumor size 6 x 2.8 cm. Stage [id number]. MMR proficient. BRAF mutation not detected, K-renata mutation detected, NRAS mutation not detected, IHC for verdugo TRK negative. Genetic testing. Patient?s genetic test result indicated that he was negative for a hereditary cancer gene mutation. Started chemotherapy modified FOLFOX 6 with Avastin from 04/23/2019. PET scan performed June 2019 showed complete metabolic response. Because of side effects of neuropathy his chemotherapy changed to maintenance treatment with Xeloda 1000 milligram/meter squared b.i.d. day 1-14 along with Avastin Q 3 weeks in June 2019.He has had elevation of CEA, PET-CT performed at [facility] on 11/04/2019 showed increased FDG activity in right lower quadrant of abdomen/pelvis, SUV 6.4, nodular infiltration measuring 1.3 x 0.9 cm. Right upper lobe subpleural nodule with minimal FDG uptake of 2.6, metastatic nodule probable. Xeloda discontinued in February 2020 because of worsening hand/foot syndrome. Interval History Interval history: Patient is here in follow-up and scheduled treatment. He is doing well, underwent dental procedure without any bleeding problems. Just today he noticed a little blood in his sputum. He is not coughing up blood. He gets occasional hematochezia when his stools are hard. He has an appointment with Dr. Street next week. He denies any physical complaints such as chest pain, shortness of breath, diarrhea, nausea or emesis. No fever or chills. Review of Systems - Constitutional Reports as per HPI, Reports no additional constitutional complaints, Denies fever(s), Denies lack of energy, Denies malaise, Denies night sweats - Cardiovascular Reports no additional cardiovascular complaints - Respiratory Reports no additional respiratory complaints [facility] Medical History: Medical History (Last Updated 03/24/20 @ 12:43 by Nuria Mims MD) Acute appendicitis Asthma Colon adenocarcinoma Hypercholesteremia Social History: Social History Alcohol History Details: Alcohol intake frequency: does not drink Tobacco History: Smoking Status: Never smoker Advance Directives: Advance Directives: No Advance Directives Information Provided: No Smoking status: Never smoker Oncology Screenings - ECOG Performance Status ECOG Performance Status: 1 Home Medications and Allergies Current Medications: Current Medications Generic Name Dose Route Start Last Admin Trade Name Freq PRN Reason Stop Dose Admin Acetaminophen 650 mg 06/23/20 00:00 06/23/20 10:47 Acetaminophen 325 Mg Tablet PO 06/23/20 23:59 650 mg ONCE LOLLY Administration Atropine Sulfate 0.5 mg 06/23/20 00:00 06/23/20 11:49 Atropine Sulfate 1 Mg/Ml Vial SUBCUT 06/23/20 23:59 0.5 mg ONCE LOLLY Administration Famotidine 20 mg 06/23/20 00:00 06/23/20 10:47 Famotidine 20 Mg Tablet PO 06/23/20 23:59 20 mg ONCE LOLLY Administration Heparin Sodium (Porcine) 500 unit 06/23/20 00:00 Heparin Sodium,Porcine Flush 500 Unit/5 Ml Syringe IVFLUSH 06/23/20 23:59 ONCE LOLLY Irinotecan HCl 350 mg/ 517.5 mls @ 345 mls/hr 05/26/20 00:00 05/26/20 14:43 Dextrose IV Infused ONCE LOLLY Infusion Irinotecan HCl 350 mg/ 517.5 mls @ 345 mls/hr 06/09/20 00:00 06/09/20 14:18 Dextrose IV Infused ONCE LOLLY Infusion Ondansetron HCl 16 mg in 50 mls @ 200 mls/hr 06/23/20 00:00 06/23/20 11:03 Zofran IV 06/23/20 23:59 Infused ONCE LOLLY Infusion Dexamethasone Sodium Phosphate 12 mg in 50 mls @ 100 mls/hr 06/23/20 00:00 06/23/20 11:28 Decadron IV 06/23/20 23:59 Infused ONCE LOLLY Infusion Bevacizumab-awwb 400 mg/ 100 mls @ 200 mls/hr 06/23/20 00:00 06/23/20 12:06 Bevacizumab-awwb 50 mg/ Sodium IV 06/23/20 23:59 Infused Chloride ONCE LOLLY Infusion Irinotecan HCl 350 mg/ 517.5 mls @ 345 mls/hr 06/23/20 00:00 06/23/20 12:16 Dextrose IV 345 mls/hr ONCE LOLLY Administration Home Medications Medication Instructions Recorded Confirmed Type albuterol sulfate 2 puff INHALATION QID PRN 03/03/20 06/09/20 History cyanocobalamin (vitamin B-12) 1,000 mcg PO DAILY 03/03/20 06/09/20 History multivitamin 1 cap PO DAILY 03/03/20 06/09/20 History Allergies Allergy/AdvReac Type Severity Reaction Status Date / Time shrimp [SHRIMP] Allergy Severe ANGIOEDEMA Verified 03/24/20 11:48 milk [MILK] Allergy Mild DIARRHEA Verified 03/24/20 11:48 SEAFOOD Allergy Severe ANGIOEDEMA Uncoded 02/05/20 15:56 Seafood/Shrimp Allergy Unknown angioedema Uncoded 09/29/19 00:00 Exam Vital signs: Vital Signs Temp 98.9 F 06/23/20 10:14 Pulse 101 H 06/23/20 10:14 Resp 18 06/23/20 10:14 BP 137/100 H 06/23/20 10:14 Pulse Ox 95 06/23/20 10:14 Intake & Output 06/22/20 06/23/2021 18:59 06:59 18:59 Intake Total 200 / 200 Balance 200 / 200 Intake: Intake, IV Amount 200 / 200 Bevacizumab-awwb 400 mg 100 / 100 Bevacizumab-awwb 50 mg In 0.9 % Sodium Chloride 82 ml @ 200 mls/hr IV ONCE LOLLY Rx#: [id number] dexAMETHasone sod phosphate/NS 50 / 50 12 mg In 50 ml @ 100 mls/hr IV ONCE LOLLY Rx#:[id number] ondansetron HCL/NS 16 mg In 50 50 / 50 ml @ 200 mls/hr IV ONCE LOLLY Rx# :[id number] Other: Weight 91.4 kg 94.4 kg Weight 94.4 kg Body Mass Index 29.8 - Constitutional Present: no acute distress - Routine HEENT Exam Head: Present: normal inspection - Routine Neck Exam Present: full ROM. Absent: lymphadenopathy - Routine Chest/Breast/Axilla Exam Chest wall: Absent: tenderness, mass - Routine Respiratory Exam Present: CTAB - Routine Cardiovascular Exam Cardiovascular: Present: RRR, S1, S2 - Routine Skin Exam Present: dry, rash, cracked Data - Labs CBC & Chem 7: 06/22/20 08:28 06/22/20 08:28 Labs: 03/03/20 00:00 Bevacizumab-awwb [Mvasi] 400 mg Bevacizumab-awwb [Mvasi] 250 mg 0.9 % Sodium Chloride [Ns] 74 ml IV ONCE Fosaprepitant Dimeglumine [Emend] 150 mg 0.9 % Sodium Chloride [Ns] 145 ml IV ONCE Heparin Sodium,Porcine Flush 500 unit IVFLUSH ONCE Heparin Sodium,Porcine Flush 500 unit IVFLUSH ONCE Oxaliplatin 270 mg Dextrose 5 % [D5w] 500 ml IV ONCE dexAMETHasone sod phosphate/NS [Decadron] 12 mg in 50 ml IV ONCE dexAMETHasone sod phosphate/NS [Decadron] 12 mg in 50 ml IV ONCE ondansetron HCL/NS [Zofran] 16 mg in 50 ml IV ONCE ondansetron HCL/NS [Zofran] 16 mg in 50 ml IV ONCE 03/03/20 09:49 Comprehensive Met. Panel Routine Magnesium Routine 03/03/20 10:25 UA and rflx microscopic Routine 03/03/20 10:45 Complete Blood Count Auto Diff Routine 03/24/20 00:00 Bevacizumab-awwb [Mvasi] 400 mg Bevacizumab-awwb [Mvasi] 250 mg 0.9 % Sodium Chloride [Ns] 74 ml IV ONCE Fosaprepitant Dimeglumine [Emend] 150 mg 0.9 % Sodium Chloride [Ns] 145 ml IV ONCE Heparin Sodium,Porcine Flush 500 unit IVFLUSH ONCE Oxaliplatin 270 mg Dextrose 5 % [D5w] 500 ml IV ONCE dexAMETHasone sod phosphate/NS [Decadron] 12 mg in 50 ml IV ONCE ondansetron HCL/NS [Zofran] 16 mg in 50 ml IV ONCE 03/24/20 10:40 Carcinoembryonic Antigen Routine Complete Blood Count Auto Diff Routine Comprehensive Met. Panel Routine Lactate Dehydrogenase Routine Magnesium Routine 03/24/20 11:00 Creatinine Urine Routine UA and rflx microscopic Routine 03/24/20 17:13 Add Laboratory Test Routine 04/13/20 00:00 Acetaminophen [Tylenol] 650 mg PO ONCE Acetaminophen [Tylenol] 650 mg PO ONCE Acetaminophen [Tylenol] 650 mg PO ONCE Atropine Sulfate 0.5 mg IVPUSH ONCE Atropine Sulfate 0.5 mg IVPUSH ONCE Atropine Sulfate 0.5 mg SUBCUT ONCE Bevacizumab-awwb [Mvasi] 400 mg Bevacizumab-awwb [Mvasi] 50 mg 0.9 % Sodium Chloride [Ns] 82 ml IV ONCE Famotidine [Pepcid] 20 mg PO ONCE Famotidine [Pepcid] 20 mg PO ONCE Famotidine/PF [Pepcid/PF] 20 mg IVPUSH ONCE Fosaprepitant Dimeglumine [Emend] 150 mg 0.9 % Sodium Chloride [Ns] 145 ml IV ONCE Fosaprepitant Dimeglumine [Emend] 150 mg 0.9 % Sodium Chloride [Ns] 145 ml IV ONCE Fosaprepitant Dimeglumine [Emend] 150 mg 0.9 % Sodium Chloride [Ns] 145 ml IV ONCE Heparin Sodium,Porcine Flush 500 unit IVFLUSH ONCE Irinotecan HCl [Camptosar] 300 mg Irinotecan HCl [Camptosar] 50 mg Dextrose 5 % [D5w] 500 ml IV ONCE Irinotecan HCl [Camptosar] 300 mg Irinotecan HCl [Camptosar] 50 mg Dextrose 5 % [D5w] 500 ml IV ONCE Irinotecan HCl [Camptosar] 300 mg Irinotecan HCl [Camptosar] 50 mg Dextrose 5 % [D5w] 500 ml IV ONCE dexAMETHasone sod phosphate/NS [Decadron] 12 mg in 50 ml IV ONCE dexAMETHasone sod phosphate/NS [Decadron] 12 mg in 50 ml IV ONCE dexAMETHasone sod phosphate/NS [Decadron] 12 mg in 50 ml IV ONCE ondansetron HCL/NS [Zofran] 16 mg in 50 ml IV ONCE ondansetron HCL/NS [Zofran] 16 mg in 50 ml IV ONCE 04/13/20 09:20 Carcinoembryonic Antigen Routine Comprehensive Met. Panel Routine Magnesium Routine 04/13/20 11:40 Complete Blood Count Auto Diff Routine 04/13/20 12:46 Creatinine Urine Routine UA and rflx microscopic Routine 04/13/20 13:45 dexAMETHasone sod phosphate/NS [Decadron] 12 mg in 50 ml IV ONCE ondansetron HCL/NS [Zofran] 16 mg in 50 ml IV ONCE 04/28/20 00:00 Acetaminophen [Tylenol] 650 mg PO ONCE Atropine Sulfate 0.5 mg IVPUSH ONCE Atropine Sulfate 0.5 mg SUBCUT ONCE Bevacizumab-awwb [Mvasi] 400 mg Bevacizumab-awwb [Mvasi] 50 mg 0.9 % Sodium Chloride [Ns] 82 ml IV ONCE Famotidine [Pepcid] 20 mg PO ONCE Fosaprepitant Dimeglumine [Emend] 150 mg 0.9 % Sodium Chloride [Ns] 145 ml IV ONCE Heparin Sodium,Porcine Flush 500 unit IVFLUSH ONCE Irinotecan HCl [Camptosar] 300 mg Irinotecan HCl [Camptosar] 50 mg Dextrose 5 % [D5w] 500 ml IV ONCE dexAMETHasone sod phosphate/NS [Decadron] 12 mg in 50 ml IV ONCE ondansetron HCL/NS [Zofran] 16 mg in 50 ml IV ONCE 04/28/20 10:30 Carcinoembryonic Antigen Routine Complete Blood Count Auto Diff Routine Comprehensive Met. Panel Routine Lipid Panel with Reflex Routine Magnesium Routine 04/28/20 11:10 Creatinine Urine Routine UA and rflx microscopic Routine 04/28/20 11:35 Famotidine/PF [Pepcid/PF] 20 mg IVPUSH ONCE ONE 05/12/20 00:00 Acetaminophen [Tylenol] 650 mg PO ONCE Atropine Sulfate 0.5 mg SUBCUT ONCE Famotidine [Pepcid] 20 mg PO ONCE Heparin Sodium,Porcine Flush 500 unit IVFLUSH ONCE Irinotecan HCl [Camptosar] 300 mg Irinotecan HCl [Camptosar] 50 mg Dextrose 5 % [D5w] 500 ml IV ONCE dexAMETHasone sod phosphate/NS [Decadron] 12 mg in 50 ml IV ONCE ondansetron HCL/NS [Zofran] 16 mg in 50 ml IV ONCE 05/12/20 10:50 Carcinoembryonic Antigen Routine Complete Blood Count Auto Diff Routine Comprehensive Met. Panel Routine Magnesium Routine 05/26/20 00:00 Acetaminophen [Tylenol] 650 mg PO ONCE Atropine Sulfate 0.5 mg SUBCUT ONCE Famotidine [Pepcid] 20 mg PO ONCE Heparin Sodium,Porcine Flush 500 unit IVFLUSH ONCE dexAMETHasone sod phosphate/NS [Decadron] 12 mg in 50 ml IV ONCE dexAMETHasone sod phosphate/NS [Decadron] 12 mg in 50 ml IV ONCE dexAMETHasone sod phosphate/NS [Decadron] 12 mg in 50 ml IV ONCE ondansetron HCL/NS [Zofran] 16 mg in 50 ml IV ONCE 05/26/20 10:45 Carcinoembryonic Antigen Routine Complete Blood Count Auto Diff Routine Comprehensive Met. Panel Routine Magnesium Routine 06/09/20 00:00 Acetaminophen [Tylenol] 650 mg PO ONCE Atropine Sulfate 0.5 mg SUBCUT ONCE Famotidine [Pepcid] 20 mg PO ONCE Heparin Sodium,Porcine Flush 500 unit IVFLUSH ONCE dexAMETHasone sod phosphate/NS [Decadron] 12 mg in 50 ml IV ONCE ondansetron HCL/NS [Zofran] 16 mg in 50 ml IV ONCE 06/09/20 10:17 Carcinoembryonic Antigen Routine Complete Blood Count Auto Diff Routine Comprehensive Met. Panel Routine Magnesium Routine 06/22/20 08:28 Magnesium Routine 06/22/20 08:28 Complete Blood Count Auto Diff Routine Comprehensive Met. Panel Routine 06/22/20 08:40 UA w Microscopic Routine 06/23/20 00:00 Acetaminophen [Tylenol] 650 mg PO ONCE Acetaminophen [Tylenol] 650 mg PO ONCE Atropine Sulfate 0.5 mg SUBCUT ONCE Atropine Sulfate 0.5 mg SUBCUT ONCE Famotidine [Pepcid] 20 mg PO ONCE Famotidine [Pepcid] 20 mg PO ONCE Heparin Sodium,Porcine Flush 500 unit IVFLUSH ONCE Heparin Sodium,Porcine Flush 500 unit IVFLUSH ONCE dexAMETHasone sod phosphate/NS [Decadron] 12 mg in 50 ml IV ONCE dexAMETHasone sod phosphate/NS [Decadron] 12 mg in 50 ml IV ONCE ondansetron HCL/NS [Zofran] 16 mg in 50 ml IV ONCE ondansetron HCL/NS [Zofran] 16 mg in 50 ml IV ONCE Laboratory Last Values WBC 5.2 X10*3/uL (4.8-10.8) 06/22/20 08:28 RBC 4.04 X10*6/uL (4.60-5.80) L 06/22/20 08:28 Hgb 13.2 g/dl (14.0-18.0) L 06/22/20 08:28 Hct 39.6 % (42-52) L 06/22/20 08:28 MCV 98.0 fL (80-98) 06/22/20 08:28 MCH 32.7 pg (27.0-33.0) 06/22/20 08:28 MCHC 33.3 g/dl (31.0-36.0) 06/22/20 08:28 RDW 14.6 % (11.0-16.0) 06/22/20 08:28 Plt Count 268 X10*3/uL (160-400) 06/22/20 08:28 MPV 9.4 fL (9.4-12.4) 06/22/20 08:28 Immature Gran % (Auto) 0.2 % (0.0-0.4) 06/22/20 08:28 Neut % (Auto) 39.0 % (45-73) L 06/22/20 08:28 Lymph % (Auto) 42.4 % (20-40) H 06/22/20 08:28 [place] % (Auto) 13.8 % (2-11) H 06/22/20 08:28 Eos % (Auto) 4.0 % (0-4) 06/22/20 08:28 Baso % (Auto) 0.6 % (0-2) 06/22/20 08:28 Lymph # (Auto) 2.2 X10*3/uL (1.2-4.9) 06/22/20 08:28 [place] # (Auto) 0.7 X10*3/uL (0.1-1.2) 06/22/20 08:28 Eos # (Auto) 0.2 X10*3/uL (0.0-0.4) 06/22/20 08:28 Baso # (Auto) 0.0 X10*3/uL (0.0-0.2) 06/22/20 08:28 Abs Immat Gran (auto) 0.01 X10*3/uL (0.00-0.03) 06/22/20 08:28 Absolute Neuts (auto) 2.0 X10*3/uL (2.0-8.3) 06/22/20 08:28 Absolute Nucleated RBC 0.000 X10*3/uL (0.0-0.012) 06/22/20 08:28 Nucleated RBC % (auto) 0.0 /100WBC (0.0-0.2) 06/22/20 08:28 Sodium 141 mmol/L (135-145) 06/22/20 08:28 Potassium 3.7 mmol/L (3.3-5.1) 06/22/20 08:28 Chloride 104 mmol/L (96-108) 06/22/20 08:28 Carbon Dioxide 26 mmol/L (22-29) 06/22/20 08:28 Anion Gap 15 (12-20) 06/22/20 08:28 BUN 7 mg/dL (9-16) L 06/22/20 08:28 Creatinine 1.07 mg/dL (0.5-1.4) 06/22/20 08:28 Estim Creat Clear Calc 92.8 06/22/20 08:28 Estimated GFR > 60 06/22/20 08:28 Random Glucose 100 mg/dL (60-115) 06/22/20 08:28 Calcium 8.8 mg/dL (8.4-10.2) 06/22/20 08:28 Magnesium 1.9 mg/dL (1.6-2.6) 06/22/20 08:28 Total Bilirubin 0.5 mg/dL (0.0-1.0) 06/22/20 08:28 AST 30 U/L (5-37) 06/22/20 08:28 ALT 37 U/L (0-40) 06/22/20 08:28 Alkaline Phosphatase 72 U/L (39-117) D 06/22/20 08:28 Lactate Dehydrogenase 188 U/L (118-273) 03/24/20 10:40 Total Protein 6.8 g/dL (6.5-8.0) 06/22/20 08:28 Albumin 4.1 g/dL (3.5-5.0) 06/22/20 08:28 Triglycerides 246 mg/dL 04/28/20 10:30 Cholesterol 244 mg/dL 04/28/20 10:30 LDL Cholesterol, Calc 129 mg/dl 04/28/20 10:30 HDL Cholesterol 66 mg/dL 04/28/20 10:30 Carcinoembryonic Ag 10.60 mg/mL 06/09/20 10:17 Urine Color YELLOW 06/22/20 08:40 Urine Appearance CLEAR 06/22/20 08:40 Urine pH 5.5 (5.0-8.0) 06/22/20 08:40 Ur Specific Jber >= 1.030 (1.005-1.025) H 06/22/20 08:40 Urine Protein NEG MG/DL (NEG-TRACE) 06/22/20 08:40 Urine Glucose (UA) NEG MG/DL (NEG) 06/22/20 08:40 Urine Ketones NEG MG/DL (NEG) 06/22/20 08:40 Urine Blood NEG (NEG) 06/22/20 08:40 Urine Nitrite NEG (NEG) 06/22/20 08:40 Ur Leukocyte Esterase NEG (NEG) 06/22/20 08:40 Urine RBC 0-2 /HPF (0) 06/22/20 08:40 Urine WBC 0-2 /HPF (0-4) 06/22/20 08:40 Ur Squamous Epith Cells NONE /LPF 06/22/20 08:40 Urine Bacteria NONE /LPF 06/22/20 08:40 Urine Creatinine 219.77 mg/dL 04/28/20 11:10 Progress Note: A/P (1) Colon carcinoma metastatic to multiple sites Status: Chronic Assessment and plan: 1. This is a 50-year-old man with metastatic colon cancer, arising from cecum. FNA of lung nodule is consistent with adenocarcinoma. Right hemicolectomy performed 04/03/2019, adenocarcinoma moderately differentiated. Stage [id number]. MMR proficient. BRAF mutation not detected, K-renata mutation detected, NRAS mutation not detected, IHC for verdugo TRK negative. HER2 non reactive and tumor mutational burden 4 Muts/Mb. Started chemotherapy modified FOLFOX 6 with Avastin from 04/23/2019. He had a good response based on PET scan in June but because of side effects of neuropathy he was switched to maintenance Xeloda with Avastin. Xeloda was discontinued in February 2020 because of hand-foot syndrome. He is now on irinotecan plus bevacizumab every 2 weeks. He is tolerating this well. He was advised to monitor himself for any signs of recurrent bleeding. - Time Spent With Patient Total time spent is greater than 50% in coordination of care (as documented) at patient's floor/unit and/or counseling patient: 15 - 24 minutes
[2020-06-23] MEDS: Heparin Sodium,Porcine Flush 500 UNIT/5 ML SYRINGE IVFLUSH (13:47)
--- NOTE | 2020-06-23 14:29 | MHC.HEMONC ---
Pt seen by Dr Mims. Labs and urine from yesterday reviewed and WNL. No major c/o today. M-Vasi added back in due to pt recovered from tooth extractions. Appetite is good. Occasional blood in bowel movements. No pain. Discussed with Dr Mims.
--- NOTE | 2020-06-30 10:15 | MHC.HEMONCSW ---
MET WITH PATIENT WHILE HE RECEIVED TREATMENT. DENIES STRESSES OR COMPLAINTS AT THIS TIME. 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 DISCUSSED MANY QUESTIONS HE HAD ABOUT FILING TAXES, I REFERRED HIM TO SPEAK WITH HIS INVESTMENT OFFICER. EDUCATION AND SUPPORT PROVIDED.
[2020-07-06 11:35] LABS: MANUAL DIFF FLAG NO
[2020-07-06 11:39] VITALS: BMI 30.5
[2020-07-06 11:54] LABS: Basophils Percent Auto 0.5 % (0-2); Eosinophils Absolute Auto 0.2 X10*3/uL (0.0-0.4); Eosinophils Percent Auto 2.4 % (0-4); Hematocrit 39.3 % (42-52); Imm Gran Abs Auto 0.02 X10*3/uL (0.00-0.03); Imm Gran Pct Auto 0.3 % (0.0-0.4); Lymphocytes Absolute Auto 2.3 X10*3/uL (1.2-4.9); Lymphocytes Percent Auto 36.8 % (20-40); Mean Corpuscular HGB Conc 33.1 g/dl (31.0-36.0); Mean Corpuscular Hemoglobin 31.9 pg (27.0-33.0); Mean Corpuscular Volume 96.6 fL (80-98); Mean Platelet Volume 9.4 fL (9.4-12.4); Monocytes Absolute Auto 0.9 X10*3/uL (0.1-1.2); Monocytes Percent Auto 14.4 % (2-11); Neutrophils Absolute Auto 2.8 X10*3/uL (2.0-8.3); Neutrophils Percent Auto 45.6 % (45-73); Platelet Count 249 X10*3/uL (160-400); Red Blood Count 4.07 X10*6/uL (4.60-5.80); White Blood Count 6.2 X10*3/uL (4.8-10.8)
[2020-07-06 12:04] LABS: Glucose Urine UA NEG (NEG); Leukocyte Esterase Urine NEG (NEG); Nitrite Urine NEG (NEG); PH 5.5 (5.0-8.0); Specific Gravity - Urine >= 1.030 (1.005-1.025); Urine Blood NEG (NEG); Urine Ketones NEG (NEG); Urine Protein NEG (NEG-TRACE)
[2020-07-06 12:05] LABS: Appearance Urine CLEAR; Color Urine YELLOW
[2020-07-06 12:12] LABS: RBC Urine 0 /HPF (0); WBC Urine 0 /HPF (0-4)
[2020-07-06 12:20] LABS: Alanine Aminotransferase 26 U/L (0-40); Albumin Level 4.2 g/dL (3.5-5.0); Alkaline Phosphatase 66 U/L (39-117); Anion Gap 13 (12-20); Aspartate Amino Transferase 28 U/L (5-37); Bilirubin Total 0.6 mg/dL (0.0-1.0); Blood Urea Nitrogen 9 mg/dL (9-16); Carbon Dioxide 27 mmol/L (22-29); Chloride 105 mmol/L (96-108); Creatinine Clr Calc Pharmacy 100.8; Estimated Glomerular Filt Rate > 60; Glucose Random 100 mg/dL (60-115); Magnesium 1.8 mg/dL (1.6-2.6); Potassium 3.9 mmol/L (3.3-5.1); Sodium 141 mmol/L (135-145); Total Protein 6.7 g/dL (6.5-8.0)
--- NOTE | 2020-07-06 15:29 | MHC.HEMONC ---
pre-chemo labs and urine done for appt tomorrow. All WNL.
[2020-07-07 10:43] VITALS: BP 137/96; PULSE 98; RESP 18; TEMP 36.4; O2SAT 95
[2020-07-07] MEDS: Famotidine 20 MG TABLET PO (11:36)
[2020-07-07] MEDS: ondansetron HCL/NS 16 MG/50 ML PIGGYBACK 200 MG IV (11:36)
[2020-07-07] MEDS: Acetaminophen 325 MG TABLET 650 MG PO (11:36)
[2020-07-07 11:41] VITALS: BP 124/87; PULSE 89; RESP 16
[2020-07-07] MEDS: dexAMETHasone sod phosphate/NS 12 MG/50 ML PIGGYBACK 100 MG IV (12:08)
[2020-07-07] MEDS: Atropine Sulfate 1 MG/ML VIAL 0.5 MG SUBCUT (13:01)
[2020-07-07] MEDS: IRINOTECAN HCL IV (13:41)
[2020-07-07] MEDS: DEXTROSE 5% IV (13:41)
[2020-07-07] MEDS: Heparin Sodium,Porcine Flush 500 UNIT/5 ML SYRINGE IVFLUSH (15:30)
--- NOTE | 2020-07-07 15:54 | MHC.HEMONC ---
Pt here for M-VASI and Irinotecan. He has been doing well and has no new concerns. Labs were drawn yesterday with urine spec and all were WNL.
[2020-07-20 11:28] LABS: MANUAL DIFF FLAG NO
[2020-07-20 11:38] LABS: Basophils Percent Auto 0.5 % (0-2); Eosinophils Absolute Auto 0.2 X10*3/uL (0.0-0.4); Eosinophils Percent Auto 2.8 % (0-4); Hematocrit 38.9 % (42-52); Hemoglobin 12.8 g/dl (14.0-18.0); Imm Gran Abs Auto 0.01 X10*3/uL (0.00-0.03); Imm Gran Pct Auto 0.2 % (0.0-0.4); Lymphocytes Absolute Auto 2.1 X10*3/uL (1.2-4.9); Lymphocytes Percent Auto 36.9 % (20-40); Mean Corpuscular HGB Conc 32.9 g/dl (31.0-36.0); Mean Corpuscular Hemoglobin 31.1 pg (27.0-33.0); Mean Corpuscular Volume 94.4 fL (80-98); Mean Platelet Volume 9.3 fL (9.4-12.4); Monocytes Absolute Auto 0.9 X10*3/uL (0.1-1.2); Monocytes Percent Auto 15.3 % (2-11); Neutrophils Absolute Auto 2.6 X10*3/uL (2.0-8.3); Neutrophils Percent Auto 44.3 % (45-73); Platelet Count 231 X10*3/uL (160-400); Red Blood Count 4.12 X10*6/uL (4.60-5.80); White Blood Count 5.8 X10*3/uL (4.8-10.8)
[2020-07-20 12:04] LABS: Alanine Aminotransferase 25 U/L (0-40); Albumin Level 4.2 g/dL (3.5-5.0); Alkaline Phosphatase 51 U/L (39-117); Anion Gap 11 (12-20); Aspartate Amino Transferase 26 U/L (5-37); Bilirubin Total 0.9 mg/dL (0.0-1.0); Blood Urea Nitrogen 10 mg/dL (9-16); Calcium 8.8 mg/dL (8.4-10.2); Carbon Dioxide 31 mmol/L (22-29); Chloride 103 mmol/L (96-108); Creatinine Clr Calc Pharmacy 92.8; Estimated Glomerular Filt Rate > 60; Glucose Random 105 mg/dL (60-115); Magnesium 2.1 mg/dL (1.6-2.6); Potassium 4.2 mmol/L (3.3-5.1); Sodium 141 mmol/L (135-145); Total Protein 6.5 g/dL (6.5-8.0)
[2020-07-20 13:03] LABS: Glucose Urine UA NEG (NEG); Leukocyte Esterase Urine NEG (NEG); Nitrite Urine NEG (NEG); PH 5.5 (5.0-8.0); Specific Gravity - Urine 1.025 (1.005-1.025); Urine Blood NEG (NEG); Urine Ketones NEG (NEG); Urine Protein NEG (NEG-TRACE)
[2020-07-20 13:04] LABS: Appearance Urine HAZY; Color Urine YELLOW
--- NOTE | 2020-07-20 13:05 | MHC.HEMONC ---
pre-chemo labs and urine WNL. Pt has no new concerns today.
[2020-07-20 13:10] LABS: RBC Urine 0 /HPF (0); Squamous Epithelial Cell Urine TRACE /LPF; WBC Urine 0-2 /HPF (0-4)
[2020-07-21 11:14] VITALS: BP 128/84; PULSE 99; RESP 18; TEMP 36.4; O2SAT 95; BMI 30.7
[2020-07-21] MEDS: Acetaminophen 325 MG TABLET 650 MG PO (11:20)
[2020-07-21] MEDS: ondansetron HCL/NS 16 MG/50 ML PIGGYBACK 200 MG IV (11:21)
[2020-07-21] MEDS: Heparin Sodium,Porcine Flush 500 UNIT/5 ML SYRINGE IVFLUSH (11:21)
[2020-07-21] MEDS: dexAMETHasone sod phosphate/NS 12 MG/50 ML PIGGYBACK 100 MG IV (11:21)
[2020-07-21] MEDS: Famotidine 20 MG TABLET PO (11:21)
[2020-07-21] MEDS: Atropine Sulfate 1 MG/ML VIAL 0.5 MG SUBCUT (12:00)
[2020-07-21] MEDS: DEXTROSE 5% IV (13:02)
[2020-07-21] MEDS: IRINOTECAN HCL IV (13:02)
--- NOTE | 2020-07-21 14:11 | MHC.HEMONCSW ---
HEALTH CARE PROXY COMPLETED AND SCANNED. HE NAMED HIS MOTHER.
--- NOTE | 2020-07-22 10:15 | MHC.HEMONCSW ---
$100.00 DOLLAR CO-PAY FOR PET SCAN. VERIFIED WITH STEWARDS TERRENCE THAT [facility] PAID ALL BUT THAT AMOUNT AND PATIENTS [place] WAS NOT IN EFFECT ON DATE OF SCAN. PHONED AND EXPLAINED THIS TO PATIENT WHO VERBALIZES UNDERSTANDING.
[2020-08-03 10:59] LABS: MANUAL DIFF FLAG NO
[2020-08-03 11:13] LABS: Basophils Percent Auto 0.4 % (0-2); Eosinophils Absolute Auto 0.2 X10*3/uL (0.0-0.4); Eosinophils Percent Auto 2.7 % (0-4); Hematocrit 38.9 % (42-52); Hemoglobin 12.9 g/dl (14.0-18.0); Imm Gran Abs Auto 0.01 X10*3/uL (0.00-0.03); Imm Gran Pct Auto 0.2 % (0.0-0.4); Lymphocytes Absolute Auto 2.2 X10*3/uL (1.2-4.9); Mean Corpuscular HGB Conc 33.2 g/dl (31.0-36.0); Mean Corpuscular Hemoglobin 31.2 pg (27.0-33.0); Mean Platelet Volume 9.2 fL (9.4-12.4); Monocytes Absolute Auto 0.8 X10*3/uL (0.1-1.2); Monocytes Percent Auto 14.5 % (2-11); Neutrophils Absolute Auto 2.4 X10*3/uL (2.0-8.3); Neutrophils Percent Auto 43.2 % (45-73); Platelet Count 237 X10*3/uL (160-400); Red Blood Count 4.14 X10*6/uL (4.60-5.80); Red Cell Distribution Width 15.3 % (11.0-16.0); White Blood Count 5.6 X10*3/uL (4.8-10.8)
[2020-08-03 11:29] LABS: Glucose Urine UA NEG (NEG); Leukocyte Esterase Urine NEG (NEG); Nitrite Urine NEG (NEG); PH 5.5 (5.0-8.0); Specific Gravity - Urine >= 1.030 (1.005-1.025); Urine Blood NEG (NEG); Urine Ketones NEG (NEG); Urine Protein NEG (NEG-TRACE)
[2020-08-03 11:32] LABS: Appearance Urine CLEAR; Color Urine YELLOW
[2020-08-03 11:40] LABS: Alanine Aminotransferase 25 U/L (0-40); Albumin Level 4.2 g/dL (3.5-5.0); Alkaline Phosphatase 53 U/L (39-117); Anion Gap 12 (12-20); Aspartate Amino Transferase 27 U/L (5-37); Bilirubin Total 0.9 mg/dL (0.0-1.0); Blood Urea Nitrogen 9 mg/dL (9-16); Calcium 9.2 mg/dL (8.4-10.2); Carbon Dioxide 28 mmol/L (22-29); Chloride 105 mmol/L (96-108); Creatinine Clr Calc Pharmacy 100.1; Estimated Glomerular Filt Rate > 60; Glucose Random 103 mg/dL (60-115); Sodium 141 mmol/L (135-145); Total Protein 6.7 g/dL (6.5-8.0)
--- NOTE | 2020-08-03 15:48 | MHC.HEMONC ---
pre-chemo labs and urine WNL.
[2020-08-04 10:45] VITALS: BP 151/86; PULSE 103; RESP 18; TEMP 36.2; O2SAT 93; BMI 31.0
[2020-08-04] MEDS: Famotidine 20 MG TABLET PO (11:08)
[2020-08-04] MEDS: Acetaminophen 325 MG TABLET 650 MG PO (11:08)
[2020-08-04] MEDS: ondansetron HCL/NS 16 MG/50 ML PIGGYBACK 200 MG IV (11:11)
[2020-08-04] MEDS: dexAMETHasone sod phosphate/NS 12 MG/50 ML PIGGYBACK 200 MG IV (11:40)
[2020-08-04] MEDS: Atropine Sulfate 1 MG/ML VIAL 0.5 MG SUBCUT (12:04)
--- NOTE | 2020-08-04 12:46 | P.PNHO_ITS ---
Medical Summary - Medical Summary Date of Service: 08/04/20 Chief complaint: Scheduled follow-up and treatment Medical Summary: Diagnosis: Metastatic colon cancer diagnosed February 2019 Presented with worsening abdominal pain, right lower quadrant ongoing for almost a year. CT imaging showed inflamed appendix, periappendiceal inflammation involving cecum and small bowel. Abscess identified in the pelvis which was drained. Appendectomy performed 02/22/2019, invasive adenocarcinoma, moderately differentiated, tumor present at the resection margin. Acute appendicitis and Suzy appendicitis with perforation. IHC showed CK 7-, CK 20 positive and CDX2 positive. MMR proficient. On 03/11/2019 patient underwent colonoscopy which showed adenomatous looking degenerative mass with an ulcerated center in the cecum. Two polyps were also removed. CTA performed 02/21/2019 showed multiple lung nodules bilaterally. Largest in the left lower lobe measuring 1.[address] abdomen performed 02/21/2019 showed dilated and inflamed appendix with surrounding inflammatory changes. Normal liver and spleen. Prominent mesenteric lymph nodes measuring up to 1.4 cm. CEA elevated at 14.6. FNA of the left lower lobe lung nodule performed 03/13/2019 showed adenocarcinoma consistent with known cecal primary. PET scan showed intense uptake around cecum, SUV 14.2, terminal ileum, foci in mesentery in the pelvis and right lower quadrant suspicious for metastatic deposits. No uptake in the lung nodules but malignancy not excluded. Right hemicolectomy performed 04/03/2019, adenocarcinoma moderately differentiated. Tumor invades through visceral peritoneum with macroscopic tumor perforation and direct invasion into adjacent loop of small bowel. Eight of 12 pericolonic lymph nodes positive for adenocarcinoma. Tumor involves mesenteric resection margins. Lymphovascular invasion present. Tumor size 6 x 2.8 cm. Stage [id number]. MMR proficient. BRAF mutation not detected, K-renata mutation detected, NRAS mutation not detected, IHC for verdugo TRK negative. Genetic testing. Patient?s genetic test result indicated that he was negative for a hereditary cancer gene mutation. Started chemotherapy modified FOLFOX 6 with Avastin from 04/23/2019. PET scan performed June 2019 showed complete metabolic response. Because of side effects of neuropathy his chemotherapy changed to maintenance treatment with Xeloda 1000 milligram/meter squared b.i.d. day 1-14 along with Avastin Q 3 weeks in June 2019.He has had elevation of CEA, PET-CT performed at [facility] on 11/04/2019 showed increased FDG activity in right lower quadrant of abdomen/pelvis, SUV 6.4, nodular infiltration measuring 1.3 x 0.9 cm. Right upper lobe subpleural nodule with minimal FDG uptake of 2.6, metastatic nodule probable. Xeloda discontinued in February 2020 because of worsening hand/foot syndrome. Interval History Interval history: Patient is here for scheduled treatment in. He is doing much better, his rash has improved and he no longer has numbness/tingling of his hands and feet. He continues to have occasional hematochezia. He does have frequent stools and occasional diarrhea. Sometimes he may have 4-5 bowel movements a day. He feels he has allergy to milk, he is interested in meeting with a lip of shank cutter. He denies any fever, chills, night sweats or unexplained weight loss. He wants to know if he can get the COVID-19 vaccine. Review of Systems - Constitutional Reports as per HPI, Reports no additional constitutional complaints - Cardiovascular Reports no additional cardiovascular complaints - Respiratory Reports no additional respiratory complaints - Gastrointestinal Reports no additional gastrointestinal complaints [facility] Medical History: Medical History (Last Updated 03/24/20 @ 12:43 by Nuria Mims MD) Acute appendicitis Asthma Colon adenocarcinoma Hypercholesteremia Social History: Social History Alcohol History Details: Alcohol intake frequency: does not drink Tobacco History: Smoking Status: Never smoker Advance Directives: Advance Directives: No Advance Directives Information Provided: No Smoking status: Never smoker Oncology Screenings - ECOG Performance Status ECOG Performance Status: 1 Home Medications and Allergies Current Medications: Current Medications Generic Name Dose Route Start Last Admin Trade Name Alonsoq PRN Reason Stop Dose Admin Acetaminophen 650 mg 08/04/20 00:00 08/04/20 11:08 Acetaminophen 325 Mg Tablet PO 08/04/20 23:59 650 mg ONCE LOLLY Administration Atropine Sulfate 0.5 mg 08/04/20 00:00 08/04/20 12:04 Atropine Sulfate 1 Mg/Ml Vial SUBCUT 08/04/20 23:59 0.5 mg ONCE LOLLY Administration Famotidine 20 mg 08/04/20 00:00 08/04/20 11:08 Famotidine 20 Mg Tablet PO 08/04/20 23:59 20 mg ONCE LOLLY Administration Heparin Sodium (Porcine) 500 unit 08/04/20 00:00 Heparin Sodium,Porcine Flush 500 Unit/5 Ml Syringe IVFLUSH 08/04/20 23:59 ONCE LOLLY Irinotecan HCl 350 mg/ 517.5 mls @ 345 mls/hr 05/26/20 00:00 05/26/20 14:43 Dextrose IV Infused ONCE LOLLY Infusion Irinotecan HCl 350 mg/ 517.5 mls @ 345 mls/hr 06/09/20 00:00 06/09/20 14:18 Dextrose IV Infused ONCE LOLLY Infusion Irinotecan HCl 350 mg/ 517.5 mls @ 345 mls/hr 06/23/20 00:00 06/23/20 13:40 Dextrose IV Infused ONCE LOLLY Infusion Irinotecan HCl 350 mg/ 517.5 mls @ 345 mls/hr 07/07/20 00:00 07/07/20 13:41 Dextrose IV 345 mls/hr ONCE LOLLY Administration Irinotecan HCl 350 mg/ 517.5 mls @ 345 mls/hr 07/21/20 00:00 07/21/20 14:32 Dextrose IV Infused ONCE LOLLY Infusion Ondansetron HCl 16 mg in 50 mls @ 200 mls/hr 08/04/20 00:00 08/04/20 11:31 Zofran IV 08/04/20 23:59 Infused ONCE LOLLY Infusion Dexamethasone Sodium Phosphate 12 mg in 50 mls @ 100 mls/hr 08/04/20 00:00 08/04/20 11:57 Decadron IV 08/04/20 23:59 Infused ONCE LOLLY Infusion Bevacizumab-awwb 400 mg/ 100 mls @ 200 mls/hr 08/04/20 00:00 08/04/20 12:35 Bevacizumab-awwb 90 mg/ Sodium IV 08/04/20 23:59 Infused Chloride ONCE LOLLY Infusion Irinotecan HCl 390 mg/ 519.5 mls @ 346.333 mls/hr 08/04/20 00:00 08/04/20 12:43 Dextrose IV 08/04/20 23:59 346.33 mls/hr ONCE LOLLY Administration Home Medications Medication Instructions Recorded Confirmed Type albuterol sulfate 2 puff INHALATION QID PRN 03/03/20 06/09/20 History multivitamin 1 cap PO DAILY 03/03/20 06/09/20 History Allergies Allergy/AdvReac Type Severity Reaction Status Date / Time shrimp [SHRIMP] Allergy Severe ANGIOEDEMA Verified 03/24/20 11:48 milk [MILK] Allergy Mild DIARRHEA Verified 11/04/20 11:48 SEAFOOD Allergy Severe ANGIOEDEMA Uncoded 02/05/20 15:56 Seafood/Shrimp Allergy Unknown angioedema Uncoded 09/29/19 00:00 Exam Vital signs: Vital Signs Temp 97.1 F 08/04/20 10:45 Pulse 103 H 08/04/20 10:45 Resp 18 08/04/20 10:45 BP 151/86 H 08/04/20 10:45 Pulse Ox 93 08/04/20 10:45 Intake & Output 08/03/20 08/04/20 08/04/20 18:59 06:59 18:59 Intake Total 200 / 200 Balance 200 / 200 Intake: Intake, IV Amount 200 / 200 Bevacizumab-awwb 400 mg 100 / 100 Bevacizumab-awwb 90 mg In 0.9 % Sodium Chloride 80.4 ml @ 200 mls/hr IV ONCE LOLLY Rx#: [id number] dexAMETHasone sod phosphate/NS 50 / 50 12 mg In 50 ml @ 100 mls/hr IV ONCE LOLLY Rx#:[id number] ondansetron HCL/NS 16 mg In 50 50 / 50 ml @ 200 mls/hr IV ONCE LOLLY Rx# :[id number] Other: Weight 98.1 kg Weight in Grams 96253 Weight 98.1 kg Body Mass Index 31.0 - Constitutional Present: no acute distress - Routine HEENT Exam Head: Present: normal inspection - Routine Neck Exam Present: full ROM. Absent: lymphadenopathy - Routine Chest/Breast/Axilla Exam Chest wall: Absent: tenderness, mass - Routine Respiratory Exam Present: CTAB - Routine Cardiovascular Exam Cardiovascular: Present: RRR, S1, S2 - Routine Skin Exam Present: dry, rash, cracked Data - Labs CBC & Chem 7: 08/03/20 10:55 08/03/20 10:55 Labs: 03/03/20 00:00 Bevacizumab-awwb [Mvasi] 400 mg Bevacizumab-awwb [Mvasi] 250 mg 0.9 % Sodium Chloride [Ns] 74 ml IV ONCE Fosaprepitant Dimeglumine [Emend] 150 mg 0.9 % Sodium Chloride [Ns] 145 ml IV ONCE Heparin Sodium,Porcine Flush 500 unit IVFLUSH ONCE Heparin Sodium,Porcine Flush 500 unit IVFLUSH ONCE Oxaliplatin 270 mg Dextrose 5 % [D5w] 500 ml IV ONCE dexAMETHasone sod phosphate/NS [Decadron] 12 mg in 50 ml IV ONCE dexAMETHasone sod phosphate/NS [Decadron] 12 mg in 50 ml IV ONCE ondansetron HCL/NS [Zofran] 16 mg in 50 ml IV ONCE ondansetron HCL/NS [Zofran] 16 mg in 50 ml IV ONCE 03/03/20 09:49 Comprehensive Met. Panel Routine Magnesium Routine 03/03/20 10:25 UA and rflx microscopic Routine 03/03/20 10:45 Complete Blood Count Auto Diff Routine 03/24/20 00:00 Bevacizumab-awwb [Mvasi] 400 mg Bevacizumab-awwb [Mvasi] 250 mg 0.9 % Sodium Chloride [Ns] 74 ml IV ONCE Fosaprepitant Dimeglumine [Emend] 150 mg 0.9 % Sodium Chloride [Ns] 145 ml IV ONCE Heparin Sodium,Porcine Flush 500 unit IVFLUSH ONCE Oxaliplatin 270 mg Dextrose 5 % [D5w] 500 ml IV ONCE dexAMETHasone sod phosphate/NS [Decadron] 12 mg in 50 ml IV ONCE ondansetron HCL/NS [Zofran] 16 mg in 50 ml IV ONCE 03/24/20 10:40 Carcinoembryonic Antigen Routine Complete Blood Count Auto Diff Routine Comprehensive Met. Panel Routine Lactate Dehydrogenase Routine Magnesium Routine 03/24/20 11:00 Creatinine Urine Routine UA and rflx microscopic Routine 03/24/20 17:13 Add Laboratory Test Routine 04/13/20 00:00 Acetaminophen [Tylenol] 650 mg PO ONCE Acetaminophen [Tylenol] 650 mg PO ONCE Acetaminophen [Tylenol] 650 mg PO ONCE Atropine Sulfate 0.5 mg IVPUSH ONCE Atropine Sulfate 0.5 mg IVPUSH ONCE Atropine Sulfate 0.5 mg SUBCUT ONCE Bevacizumab-awwb [Mvasi] 400 mg Bevacizumab-awwb [Mvasi] 50 mg 0.9 % Sodium Chloride [Ns] 82 ml IV ONCE Famotidine [Pepcid] 20 mg PO ONCE Famotidine [Pepcid] 20 mg PO ONCE Famotidine/PF [Pepcid/PF] 20 mg IVPUSH ONCE Fosaprepitant Dimeglumine [Emend] 150 mg 0.9 % Sodium Chloride [Ns] 145 ml IV ONCE Fosaprepitant Dimeglumine [Emend] 150 mg 0.9 % Sodium Chloride [Ns] 145 ml IV ONCE Fosaprepitant Dimeglumine [Emend] 150 mg 0.9 % Sodium Chloride [Ns] 145 ml IV ONCE Heparin Sodium,Porcine Flush 500 unit IVFLUSH ONCE Irinotecan HCl [Camptosar] 300 mg Irinotecan HCl [Camptosar] 50 mg Dextrose 5 % [D5w] 500 ml IV ONCE Irinotecan HCl [Camptosar] 300 mg Irinotecan HCl [Camptosar] 50 mg Dextrose 5 % [D5w] 500 ml IV ONCE Irinotecan HCl [Camptosar] 300 mg Irinotecan HCl [Camptosar] 50 mg Dextrose 5 % [D5w] 500 ml IV ONCE dexAMETHasone sod phosphate/NS [Decadron] 12 mg in 50 ml IV ONCE dexAMETHasone sod phosphate/NS [Decadron] 12 mg in 50 ml IV ONCE dexAMETHasone sod phosphate/NS [Decadron] 12 mg in 50 ml IV ONCE ondansetron HCL/NS [Zofran] 16 mg in 50 ml IV ONCE ondansetron HCL/NS [Zofran] 16 mg in 50 ml IV ONCE 04/13/20 09:20 Carcinoembryonic Antigen Routine Comprehensive Met. Panel Routine Magnesium Routine 04/13/20 11:40 Complete Blood Count Auto Diff Routine 04/13/20 12:46 Creatinine Urine Routine UA and rflx microscopic Routine 04/13/20 13:45 dexAMETHasone sod phosphate/NS [Decadron] 12 mg in 50 ml IV ONCE ondansetron HCL/NS [Zofran] 16 mg in 50 ml IV ONCE 04/28/20 00:00 Acetaminophen [Tylenol] 650 mg PO ONCE Atropine Sulfate 0.5 mg IVPUSH ONCE Atropine Sulfate 0.5 mg SUBCUT ONCE Bevacizumab-awwb [Mvasi] 400 mg Bevacizumab-awwb [Mvasi] 50 mg 0.9 % Sodium Chloride [Ns] 82 ml IV ONCE Famotidine [Pepcid] 20 mg PO ONCE Fosaprepitant Dimeglumine [Emend] 150 mg 0.9 % Sodium Chloride [Ns] 145 ml IV ONCE Heparin Sodium,Porcine Flush 500 unit IVFLUSH ONCE Irinotecan HCl [Camptosar] 300 mg Irinotecan HCl [Camptosar] 50 mg Dextrose 5 % [D5w] 500 ml IV ONCE dexAMETHasone sod phosphate/NS [Decadron] 12 mg in 50 ml IV ONCE ondansetron HCL/NS [Zofran] 16 mg in 50 ml IV ONCE 04/28/20 10:30 Carcinoembryonic Antigen Routine Complete Blood Count Auto Diff Routine Comprehensive Met. Panel Routine Lipid Panel with Reflex Routine Magnesium Routine 04/28/20 11:10 Creatinine Urine Routine UA and rflx microscopic Routine 04/28/20 11:35 Famotidine/PF [Pepcid/PF] 20 mg IVPUSH ONCE ONE 05/12/20 00:00 Acetaminophen [Tylenol] 650 mg PO ONCE Atropine Sulfate 0.5 mg SUBCUT ONCE Famotidine [Pepcid] 20 mg PO ONCE Heparin Sodium,Porcine Flush 500 unit IVFLUSH ONCE Irinotecan HCl [Camptosar] 300 mg Irinotecan HCl [Camptosar] 50 mg Dextrose 5 % [D5w] 500 ml IV ONCE dexAMETHasone sod phosphate/NS [Decadron] 12 mg in 50 ml IV ONCE ondansetron HCL/NS [Zofran] 16 mg in 50 ml IV ONCE 05/12/20 10:50 Carcinoembryonic Antigen Routine Complete Blood Count Auto Diff Routine Comprehensive Met. Panel Routine Magnesium Routine 05/26/20 00:00 Acetaminophen [Tylenol] 650 mg PO ONCE Atropine Sulfate 0.5 mg SUBCUT ONCE Famotidine [Pepcid] 20 mg PO ONCE Heparin Sodium,Porcine Flush 500 unit IVFLUSH ONCE dexAMETHasone sod phosphate/NS [Decadron] 12 mg in 50 ml IV ONCE dexAMETHasone sod phosphate/NS [Decadron] 12 mg in 50 ml IV ONCE dexAMETHasone sod phosphate/NS [Decadron] 12 mg in 50 ml IV ONCE ondansetron HCL/NS [Zofran] 16 mg in 50 ml IV ONCE 05/26/20 10:45 Carcinoembryonic Antigen Routine Complete Blood Count Auto Diff Routine Comprehensive Met. Panel Routine Magnesium Routine 06/09/20 00:00 Acetaminophen [Tylenol] 650 mg PO ONCE Atropine Sulfate 0.5 mg SUBCUT ONCE Famotidine [Pepcid] 20 mg PO ONCE Heparin Sodium,Porcine Flush 500 unit IVFLUSH ONCE dexAMETHasone sod phosphate/NS [Decadron] 12 mg in 50 ml IV ONCE ondansetron HCL/NS [Zofran] 16 mg in 50 ml IV ONCE 06/09/20 10:17 Carcinoembryonic Antigen Routine Complete Blood Count Auto Diff Routine Comprehensive Met. Panel Routine Magnesium Routine 06/22/20 08:28 Magnesium Routine 06/22/20 08:28 Complete Blood Count Auto Diff Routine Comprehensive Met. Panel Routine 06/22/20 08:40 UA w Microscopic Routine 06/23/20 00:00 Acetaminophen [Tylenol] 650 mg PO ONCE Acetaminophen [Tylenol] 650 mg PO ONCE Atropine Sulfate 0.5 mg SUBCUT ONCE Atropine Sulfate 0.5 mg SUBCUT ONCE Famotidine [Pepcid] 20 mg PO ONCE Famotidine [Pepcid] 20 mg PO ONCE Heparin Sodium,Porcine Flush 500 unit IVFLUSH ONCE Heparin Sodium,Porcine Flush 500 unit IVFLUSH ONCE dexAMETHasone sod phosphate/NS [Decadron] 12 mg in 50 ml IV ONCE dexAMETHasone sod phosphate/NS [Decadron] 12 mg in 50 ml IV ONCE ondansetron HCL/NS [Zofran] 16 mg in 50 ml IV ONCE ondansetron HCL/NS [Zofran] 16 mg in 50 ml IV ONCE Laboratory Last Values WBC 5.2 X10*3/uL (4.8-10.8) 06/22/20 08:28 RBC 4.04 X10*6/uL (4.60-5.80) L 06/22/20 08:28 Hgb 13.2 g/dl (14.0-18.0) L 06/22/20 08:28 Hct 39.6 % (42-52) L 06/22/20 08:28 MCV 98.0 fL (80-98) 06/22/20 08:28 MCH 32.7 pg (27.0-33.0) 06/22/20 08:28 MCHC 33.3 g/dl (31.0-36.0) 06/22/20 08:28 RDW 14.6 % (11.0-16.0) 06/22/20 08:28 Plt Count 268 X10*3/uL (160-400) 06/22/20 08:28 MPV 9.4 fL (9.4-12.4) 06/22/20 08:28 Immature Gran % (Auto) 0.2 % (0.0-0.4) 06/22/20 08:28 Neut % (Auto) 39.0 % (45-73) L 06/22/20 08:28 Lymph % (Auto) 42.4 % (20-40) H 06/22/20 08:28 [place] % (Auto) 13.8 % (2-11) H 06/22/20 08:28 Eos % (Auto) 4.0 % (0-4) 06/22/20 08:28 Baso % (Auto) 0.6 % (0-2) 06/22/20 08:28 Lymph # (Auto) 2.2 X10*3/uL (1.2-4.9) 06/22/20 08:28 [place] # (Auto) 0.7 X10*3/uL (0.1-1.2) 06/22/20 08:28 Eos # (Auto) 0.2 X10*3/uL (0.0-0.4) 06/22/20 08:28 Baso # (Auto) 0.0 X10*3/uL (0.0-0.2) 06/22/20 08:28 Abs Immat Gran (auto) 0.01 X10*3/uL (0.00-0.03) 06/22/20 08:28 Absolute Neuts (auto) 2.0 X10*3/uL (2.0-8.3) 06/22/20 08:28 Absolute Nucleated RBC 0.000 X10*3/uL (0.0-0.012) 06/22/20 08:28 Nucleated RBC % (auto) 0.0 /100WBC (0.0-0.2) 06/22/20 08:28 Sodium 141 mmol/L (135-145) 06/22/20 08:28 Potassium 3.7 mmol/L (3.3-5.1) 06/22/20 08:28 Chloride 104 mmol/L (96-108) 06/22/20 08:28 Carbon Dioxide 26 mmol/L (22-29) 06/22/20 08:28 Anion Gap 15 (12-20) 06/22/20 08:28 BUN 7 mg/dL (9-16) L 06/22/20 08:28 Creatinine 1.07 mg/dL (0.5-1.4) 06/22/20 08:28 Estim Creat Clear Calc 92.8 06/22/20 08:28 Estimated GFR > 60 06/22/20 08:28 Random Glucose 100 mg/dL (60-115) 06/22/20 08:28 Calcium 8.8 mg/dL (8.4-10.2) 06/22/20 08:28 Magnesium 1.9 mg/dL (1.6-2.6) 06/22/20 08:28 Total Bilirubin 0.5 mg/dL (0.0-1.0) 06/22/20 08:28 AST 30 U/L (5-37) 06/22/20 08:28 ALT 37 U/L (0-40) 06/22/20 08:28 Alkaline Phosphatase 72 U/L (39-117) D 06/22/20 08:28 Lactate Dehydrogenase 188 U/L (118-273) 03/24/20 10:40 Total Protein 6.8 g/dL (6.5-8.0) 06/22/20 08:28 Albumin 4.1 g/dL (3.5-5.0) 06/22/20 08:28 Triglycerides 246 mg/dL 04/28/20 10:30 Cholesterol 244 mg/dL 04/28/20 10:30 LDL Cholesterol, Calc 129 mg/dl 04/28/20 10:30 HDL Cholesterol 66 mg/dL 04/28/20 10:30 Carcinoembryonic Ag 10.60 mg/mL 06/09/20 10:17 Urine Color YELLOW 06/22/20 08:40 Urine Appearance CLEAR 06/22/20 08:40 Urine pH 5.5 (5.0-8.0) 06/22/20 08:40 Ur Specific [place] >= 1.030 (1.005-1.025) H 06/22/20 08:40 Urine Protein NEG MG/DL (NEG-TRACE) 06/22/20 08:40 Urine Glucose (UA) NEG MG/DL (NEG) 06/22/20 08:40 Urine Ketones NEG MG/DL (NEG) 06/22/20 08:40 Urine Blood NEG (NEG) 06/22/20 08:40 Urine Nitrite NEG (NEG) 06/22/20 08:40 Ur Leukocyte Esterase NEG (NEG) 06/22/20 08:40 Urine RBC 0-2 /HPF (0) 06/22/20 08:40 Urine WBC 0-2 /HPF (0-4) 06/22/20 08:40 Ur Squamous Epith Cells NONE /LPF 06/22/20 08:40 Urine Bacteria NONE /LPF 06/22/20 08:40 Urine Creatinine 219.77 mg/dL 04/28/20 11:10 Progress Note: A/P (1) Colon carcinoma metastatic to multiple sites Status: Chronic Assessment and plan: 1. This is a 50-year-old man with metastatic colon cancer, arising from cecum. FNA of lung nodule is consistent with adenocarcinoma. Right hemicolectomy performed 04/03/2019, adenocarcinoma moderately differentiated. Stage [id number]. MMR proficient. BRAF mutation not detected, K-renata mutation detected, NRAS mutation not detected, IHC for verdugo TRK negative. HER2 non reactive and tumor mutational burden 4 Muts/Mb. Started chemotherapy modified FOLFOX 6 with Avastin from 04/23/2019. He had a good response based on PET scan in June but because of side effects of neuropathy he was switched to maintenance Xeloda with Avastin. Xeloda was discontinued in February 2020 because of hand-foot syndrome. He is now on irinotecan plus bevacizumab every 2 weeks. He is tolerating this well. CEA level around 10. 2. GI symptoms diarrhea, occasional hematochezia. He probably has internal hemorrhoids. Diarrhea is related to chemotherapy. He is taking Imodium as needed. Referral to lip of shank cutter will be made. Follow-up in 6 weeks. - Time Spent With Patient Total time spent is greater than 50% in coordination of care (as documented) at patient's floor/unit and/or counseling patient: 25 - 35 minutes
[2020-08-04] MEDS: Heparin Sodium,Porcine Flush 500 UNIT/5 ML SYRINGE IVFLUSH (14:22)
--- NOTE | 2020-08-04 16:19 | MHC.HEMONC ---
pt here for MVASI and Irinotecan. Labs and urine from yesterday reviewed and WNL. He is tolerating chemo well. Still has loose stools with urgency. Taking Immodium daily. Has telehealth visit with Dr Street next week. We will try to set up Nutrition consult with Provider here at [facility] [place] per Dr Mims to help with his bowels.
--- NOTE | 2020-08-04 16:31 | MHC.HEMONCSW ---
MET WITH PATIENT WHO IS EXPERIENCING SADNESS, ANXIETY AND DEPRESSION. DISCUSSED LIVING WITH TERMINAL ILLNESS, KEEPING THE JOZEF AND DEALING WITH CHANGING EMOTIONS. DISCUSSED/TAUGHT MINDFULNESS ETC. REASSURANCE, GUIDANCE, EDUCATION AND SUPPORT PROVIDED. HE REFUSES COUNSELING REFERRAL
[2020-08-17 11:18] LABS: MANUAL DIFF FLAG NO
[2020-08-17 11:20] LABS: Basophils Percent Auto 0.5 % (0-2); Eosinophils Absolute Auto 0.1 X10*3/uL (0.0-0.4); Eosinophils Percent Auto 1.8 % (0-4); Hemoglobin 12.6 g/dl (14.0-18.0); Imm Gran Abs Auto 0.02 X10*3/uL (0.00-0.03); Imm Gran Pct Auto 0.4 % (0.0-0.4); Lymphocytes Absolute Auto 2.1 X10*3/uL (1.2-4.9); Lymphocytes Percent Auto 38.3 % (20-40); Mean Corpuscular HGB Conc 32.3 g/dl (31.0-36.0); Mean Corpuscular Hemoglobin 30.5 pg (27.0-33.0); Mean Corpuscular Volume 94.4 fL (80-98); Mean Platelet Volume 9.3 fL (9.4-12.4); Monocytes Absolute Auto 0.9 X10*3/uL (0.1-1.2); Monocytes Percent Auto 15.6 % (2-11); Neutrophils Absolute Auto 2.4 X10*3/uL (2.0-8.3); Neutrophils Percent Auto 43.4 % (45-73); Platelet Count 242 X10*3/uL (160-400); Red Blood Count 4.13 X10*6/uL (4.60-5.80); Red Cell Distribution Width 15.7 % (11.0-16.0); White Blood Count 5.5 X10*3/uL (4.8-10.8)
[2020-08-17 11:20] LABS: Glucose Urine UA NEG (NEG); Leukocyte Esterase Urine NEG (NEG); Nitrite Urine NEG (NEG); PH 5.5 (5.0-8.0); Specific Gravity - Urine >= 1.030 (1.005-1.025); Urine Blood NEG (NEG); Urine Ketones NEG (NEG); Urine Protein NEG (NEG-TRACE)
[2020-08-17 11:21] LABS: Appearance Urine CLEAR; Color Urine YELLOW
--- NOTE | 2020-08-17 11:24 | MHC.HEMONC ---
Labs and urine to be reviewed prior to chemo tomorrow. He had no c/o when in office.
[2020-08-17 11:43] LABS: Alanine Aminotransferase 35 U/L (0-40); Albumin Level 4.1 g/dL (3.5-5.0); Alkaline Phosphatase 57 U/L (39-117); Anion Gap 14 (12-20); Aspartate Amino Transferase 30 U/L (5-37); Bilirubin Total 0.6 mg/dL (0.0-1.0); Blood Urea Nitrogen 9 mg/dL (9-16); Calcium 8.9 mg/dL (8.4-10.2); Carbon Dioxide 25 mmol/L (22-29); Chloride 106 mmol/L (96-108); Creatinine Clr Calc Pharmacy 102.6; Estimated Glomerular Filt Rate > 60; Glucose Random 103 mg/dL (60-115); Potassium 4.1 mmol/L (3.3-5.1); Sodium 141 mmol/L (135-145); Total Protein 6.6 g/dL (6.5-8.0)
[2020-08-17 13:49] LABS: Amorphous Sediment Urine 1+ /LPF; RBC Urine 0 /HPF (0); Squamous Epithelial Cell Urine TRACE /LPF; WBC Urine 0 /HPF (0-4)
[2020-08-18 10:44] VITALS: BMI 30.3
[2020-08-18 10:45] VITALS: BP 149/81; PULSE 97; RESP 18; TEMP 36.8; O2SAT 96
[2020-08-18] MEDS: Famotidine 20 MG TABLET PO (11:15)
[2020-08-18] MEDS: Acetaminophen 325 MG TABLET 650 MG PO (11:15)
[2020-08-18] MEDS: ondansetron HCL/NS 16 MG/50 ML PIGGYBACK 200 MG IV (11:15)
[2020-08-18] MEDS: dexAMETHasone sod phosphate/NS 12 MG/50 ML PIGGYBACK 200 MG IV (11:38)
[2020-08-18] MEDS: Atropine Sulfate 1 MG/ML VIAL 0.5 MG SUBCUT (12:08)
[2020-08-18] MEDS: Heparin Sodium,Porcine Flush 500 UNIT/5 ML SYRINGE IVFLUSH (14:25)
--- NOTE | 2020-08-18 14:35 | MHC.HEMONC ---
Chemotherapy with Irinotecan/MVASI well tolerated. Positive blood return with port. No complaints at this time. VSS. Labs and urine wnl. Chemotherapy scheduled in 2 weeks, patient will come in day prior for labs.
[2020-08-31 11:18] LABS: MANUAL DIFF FLAG NO
[2020-08-31 11:30] LABS: Glucose Urine UA NEG (NEG); Leukocyte Esterase Urine NEG (NEG); Nitrite Urine NEG (NEG); Specific Gravity - Urine >= 1.030 (1.005-1.025); Urine Blood NEG (NEG); Urine Ketones NEG (NEG); Urine Protein NEG (NEG-TRACE)
[2020-08-31 11:32] LABS: Appearance Urine CLEAR; Color Urine YELLOW
[2020-08-31 11:39] LABS: Basophils Percent Auto 0.6 % (0-2); Eosinophils Absolute Auto 0.1 X10*3/uL (0.0-0.4); Eosinophils Percent Auto 2.4 % (0-4); Hematocrit 38.7 % (42-52); Hemoglobin 12.9 g/dl (14.0-18.0); Imm Gran Abs Auto 0.01 X10*3/uL (0.00-0.03); Imm Gran Pct Auto 0.2 % (0.0-0.4); Lymphocytes Absolute Auto 2.1 X10*3/uL (1.2-4.9); Lymphocytes Percent Auto 38.7 % (20-40); Mean Corpuscular HGB Conc 33.3 g/dl (31.0-36.0); Mean Corpuscular Hemoglobin 31.3 pg (27.0-33.0); Mean Corpuscular Volume 93.9 fL (80-98); Mean Platelet Volume 9.9 fL (9.4-12.4); Monocytes Absolute Auto 0.8 X10*3/uL (0.1-1.2); Monocytes Percent Auto 14.6 % (2-11); Neutrophils Absolute Auto 2.3 X10*3/uL (2.0-8.3); Neutrophils Percent Auto 43.5 % (45-73); Platelet Count 268 X10*3/uL (160-400); Red Blood Count 4.12 X10*6/uL (4.60-5.80); Red Cell Distribution Width 15.8 % (11.0-16.0); White Blood Count 5.4 X10*3/uL (4.8-10.8)
[2020-08-31 11:50] LABS: Alanine Aminotransferase 25 U/L (0-40); Albumin Level 4.2 g/dL (3.5-5.0); Alkaline Phosphatase 63 U/L (39-117); Anion Gap 12 (12-20); Aspartate Amino Transferase 24 U/L (5-37); Bilirubin Total 0.7 mg/dL (0.0-1.0); Blood Urea Nitrogen 8 mg/dL (9-16); Calcium 9.1 mg/dL (8.4-10.2); Carbon Dioxide 27 mmol/L (22-29); Chloride 106 mmol/L (96-108); Creatinine Clr Calc Pharmacy 96.7; Estimated Glomerular Filt Rate > 60; Glucose Random 117 mg/dL (60-115); Potassium 3.7 mmol/L (3.3-5.1); Sodium 141 mmol/L (135-145); Total Protein 6.8 g/dL (6.5-8.0)
--- NOTE | 2020-08-31 16:25 | MHC.HEMONC ---
Pt here for labs prior to chemo tomorrow.
[2020-08-31 19:40] LABS: Creatinine Urine 354.28 mg/dL
[2020-09-01 10:43] VITALS: BP 141/90; PULSE 102; RESP 18; TEMP 37.1; O2SAT 95; BMI 30.7
[2020-09-01] MEDS: Acetaminophen 325 MG TABLET 650 MG PO (11:23)
[2020-09-01] MEDS: Famotidine 20 MG TABLET PO (11:24)
[2020-09-01] MEDS: ondansetron HCL/NS 16 MG/50 ML PIGGYBACK 200 MG IV (11:26)
[2020-09-01] MEDS: dexAMETHasone sod phosphate/NS 12 MG/50 ML PIGGYBACK 100 MG IV (12:18)
[2020-09-01] MEDS: Atropine Sulfate 1 MG/ML VIAL 0.5 MG SUBCUT (12:38)
--- NOTE | 2020-09-01 14:10 | MHC.HEMONC ---
Pt here for Cycle 11 day 1 Irinotecan/Bevacizumab IV. Port accessed without difficulty, flushed with NS, blood return noted. Labs drawn 08/31/20 reviewed. Pre medicated with 650mg tylenol, decadron 12mg IV, Pepcid 20mg IV, zofran 16mg IV, atropine 0.5mg SC. Bevacizumab and Irinotecan IV given as ordered. Dr Mims into see pt. Pt states his back is sore-states he pulled it this am-states tylenol helped with discomfort. Port flushed with heparin and de accessed. Discharge instructions and post chemo care education given. Follow up appointment made. Discharged home
[2020-09-01] MEDS: Heparin Sodium,Porcine Flush 500 UNIT/5 ML SYRINGE IVFLUSH (15:06)
[2020-09-14 11:38] LABS: MANUAL DIFF FLAG NO
[2020-09-14 11:41] LABS: Glucose Urine UA NEG (NEG); Leukocyte Esterase Urine NEG (NEG); Nitrite Urine NEG (NEG); PH 5.5 (5.0-8.0); Specific Gravity - Urine >= 1.030 (1.005-1.025); Urine Blood NEG (NEG); Urine Ketones NEG (NEG); Urine Protein NEG (NEG-TRACE)
[2020-09-14 11:42] LABS: Appearance Urine CLEAR; Color Urine YELLOW
[2020-09-14 11:48] LABS: Basophils Percent Auto 0.4 % (0-2); Eosinophils Absolute Auto 0.2 X10*3/uL (0.0-0.4); Hematocrit 38.8 % (42-52); Hemoglobin 12.8 g/dl (14.0-18.0); Imm Gran Abs Auto 0.01 X10*3/uL (0.00-0.03); Imm Gran Pct Auto 0.2 % (0.0-0.4); Lymphocytes Absolute Auto 2.2 X10*3/uL (1.2-4.9); Lymphocytes Percent Auto 42.7 % (20-40); Mean Corpuscular Hemoglobin 31.1 pg (27.0-33.0); Mean Corpuscular Volume 94.4 fL (80-98); Mean Platelet Volume 9.4 fL (9.4-12.4); Monocytes Absolute Auto 0.7 X10*3/uL (0.1-1.2); Monocytes Percent Auto 13.7 % (2-11); Platelet Count 247 X10*3/uL (160-400); Red Blood Count 4.11 X10*6/uL (4.60-5.80); Red Cell Distribution Width 15.8 % (11.0-16.0)
[2020-09-14 12:01] LABS: Mucus Urine 2+ /LPF; RBC Urine 0-2 /HPF (0); Squamous Epithelial Cell Urine TRACE /LPF; WBC Urine 0-2 /HPF (0-4)
[2020-09-14 12:11] LABS: Alanine Aminotransferase 47 U/L (0-40); Albumin Level 4.2 g/dL (3.5-5.0); Alkaline Phosphatase 70 U/L (39-117); Anion Gap 14 (12-20); Aspartate Amino Transferase 39 U/L (5-37); Bilirubin Total 0.5 mg/dL (0.0-1.0); Blood Urea Nitrogen 10 mg/dL (9-16); Carbon Dioxide 26 mmol/L (22-29); Chloride 106 mmol/L (96-108); Creatinine Clr Calc Pharmacy 95.5; Estimated Glomerular Filt Rate > 60; Glucose Random 108 mg/dL (60-115); Magnesium 2.1 mg/dL (1.6-2.6); Potassium 3.9 mmol/L (3.3-5.1); Sodium 142 mmol/L (135-145); Total Protein 6.6 g/dL (6.5-8.0)
[2020-09-15 10:48] VITALS: BP 131/94; PULSE 99; RESP 18; TEMP 36.8; O2SAT 98; BMI 30.9
[2020-09-15] MEDS: ondansetron HCL/NS 16 MG/50 ML PIGGYBACK 200 MG IV (11:37)
[2020-09-15] MEDS: Acetaminophen 325 MG TABLET 650 MG PO (11:39)
[2020-09-15] MEDS: Famotidine 20 MG TABLET PO (11:40)
[2020-09-15] MEDS: Atropine Sulfate 1 MG/ML VIAL 0.5 MG SUBCUT (11:44)
[2020-09-15] MEDS: dexAMETHasone sod phosphate/NS 12 MG/50 ML PIGGYBACK 200 MG IV (11:53)
[2020-09-15] MEDS: Heparin Sodium,Porcine Flush 500 UNIT/5 ML SYRINGE IVFLUSH (13:41)
--- NOTE | 2020-09-15 15:28 | MHC.HEMONC ---
Pt here for C12 D1 of treatment. Labs done 09/14 and reviewed. Port accessed, good blood return. States feeling well since last treatment. Premeds given as ordered. Electric Power Superintendent in to see pt at pt request. Treatment done and pt tolerated well. Scheduled to return in 2 weeks for next treatment.
--- NOTE | 2020-09-15 15:45 | MHC.HEMONCSW ---
MET WITH PATIENT WHO WAS HERE FOR CHEMOTHERAPY. REPORTS FEELING AND COPING WELL. DENIES ANY DISTRESS OR CONCERNS.
[2020-09-28 10:21] LABS: MANUAL DIFF FLAG NO
[2020-09-28 10:27] LABS: Basophils Percent Auto 0.5 % (0-2); Eosinophils Absolute Auto 0.2 X10*3/uL (0.0-0.4); Hematocrit 38.2 % (42-52); Hemoglobin 12.6 g/dl (14.0-18.0); Imm Gran Abs Auto 0.02 X10*3/uL (0.00-0.03); Imm Gran Pct Auto 0.3 % (0.0-0.4); Lymphocytes Absolute Auto 1.7 X10*3/uL (1.2-4.9); Lymphocytes Percent Auto 27.4 % (20-40); Mean Corpuscular Hemoglobin 30.8 pg (27.0-33.0); Mean Corpuscular Volume 93.4 fL (80-98); Mean Platelet Volume 9.5 fL (9.4-12.4); Monocytes Absolute Auto 0.9 X10*3/uL (0.1-1.2); Monocytes Percent Auto 14.9 % (2-11); Neutrophils Absolute Auto 3.4 X10*3/uL (2.0-8.3); Neutrophils Percent Auto 53.9 % (45-73); Platelet Count 238 X10*3/uL (160-400); Red Blood Count 4.09 X10*6/uL (4.60-5.80); Red Cell Distribution Width 15.6 % (11.0-16.0); White Blood Count 6.3 X10*3/uL (4.8-10.8)
[2020-09-28 10:59] LABS: Alanine Aminotransferase 47 U/L (0-40); Albumin Level 3.9 g/dL (3.5-5.0); Alkaline Phosphatase 76 U/L (39-117); Anion Gap 14 (12-20); Aspartate Amino Transferase 39 U/L (5-37); Bilirubin Total 0.5 mg/dL (0.0-1.0); Blood Urea Nitrogen 7 mg/dL (9-16); Calcium 9.1 mg/dL (8.4-10.2); Carbon Dioxide 26 mmol/L (22-29); Chloride 105 mmol/L (96-108); Creatinine Clr Calc Pharmacy 99.4; Estimated Glomerular Filt Rate > 60; Glucose Random 110 mg/dL (60-115); Potassium 3.9 mmol/L (3.3-5.1); Sodium 141 mmol/L (135-145); Total Protein 6.7 g/dL (6.5-8.0)
[2020-09-28 11:09] LABS: Glucose Urine UA NEG (NEG); Leukocyte Esterase Urine NEG (NEG); Nitrite Urine NEG (NEG); Specific Gravity - Urine >= 1.030 (1.005-1.025); Urine Blood NEG (NEG); Urine Ketones NEG (NEG); Urine Protein NEG (NEG-TRACE)
[2020-09-28 11:11] LABS: Appearance Urine CLEAR; Color Urine YELLOW
[2020-09-28 11:25] LABS: RBC Urine 0 /HPF (0); WBC Urine 0 /HPF (0-4)
--- NOTE | 2020-09-28 12:47 | MHC.HEMONC ---
pre-chemo labs/urine WNL. Pt had no c/o.
[2020-09-29 10:32] VITALS: BP 126/84; PULSE 106; RESP 18; TEMP 36.7; O2SAT 96; BMI 31.1
[2020-09-29] MEDS: Acetaminophen 325 MG TABLET 650 MG PO (11:26)
[2020-09-29] MEDS: diphenhydrAMINE HCL 50 MG/ML VIAL 12.5 MG IVPUSH (11:27)
[2020-09-29] MEDS: Famotidine/PF 20 MG/2 ML VIAL IVPUSH (11:27)
[2020-09-29] MEDS: ondansetron HCL/NS 16 MG/50 ML PIGGYBACK 200 MG IV (11:59)
[2020-09-29] MEDS: dexAMETHasone sod phosphate/NS 12 MG/50 ML PIGGYBACK 200 MG IV (12:23)
[2020-09-29] MEDS: Atropine Sulfate 1 MG/ML VIAL 0.5 MG SUBCUT (13:06)
--- NOTE | 2020-09-29 14:33 | PM.HEMONCPN ---
Medical Summary - Medical Summary Date of Service: 09/29/20 Chief complaint: Left arm rash after COVID-19 vaccine Medical Summary: Diagnosis: Metastatic colon cancer diagnosed February 2019 Presented with worsening abdominal pain, right lower quadrant ongoing for almost a year. CT imaging showed inflamed appendix, periappendiceal inflammation involving cecum and small bowel. Abscess identified in the pelvis which was drained. Appendectomy performed 02/22/2019, invasive adenocarcinoma, moderately differentiated, tumor present at the resection margin. Acute appendicitis and Suzy appendicitis with perforation. IHC showed CK 7-, CK 20 positive and CDX2 positive. MMR proficient. On 03/11/2019 patient underwent colonoscopy which showed adenomatous looking degenerative mass with an ulcerated center in the cecum. Two polyps were also removed. CTA performed 02/21/2019 showed multiple lung nodules bilaterally. Largest in the left lower lobe measuring 1.[address] abdomen performed 02/21/2019 showed dilated and inflamed appendix with surrounding inflammatory changes. Normal liver and spleen. Prominent mesenteric lymph nodes measuring up to 1.4 cm. CEA elevated at 14.6. FNA of the left lower lobe lung nodule performed 03/13/2019 showed adenocarcinoma consistent with known cecal primary. PET scan showed intense uptake around cecum, SUV 14.2, terminal ileum, foci in mesentery in the pelvis and right lower quadrant suspicious for metastatic deposits. No uptake in the lung nodules but malignancy not excluded. Right hemicolectomy performed 04/03/2019, adenocarcinoma moderately differentiated. Tumor invades through visceral peritoneum with macroscopic tumor perforation and direct invasion into adjacent loop of small bowel. Eight of 12 pericolonic lymph nodes positive for adenocarcinoma. Tumor involves mesenteric resection margins. Lymphovascular invasion present. Tumor size 6 x 2.8 cm. Stage [id number]. MMR proficient. BRAF mutation not detected, K-renata mutation detected, NRAS mutation not detected, IHC for verdugo TRK negative. Genetic testing. Patient?s genetic test result indicated that he was negative for a hereditary cancer gene mutation. Started chemotherapy modified FOLFOX 6 with Avastin from 04/23/2019. PET scan performed June 2019 showed complete metabolic response. Because of side effects of neuropathy his chemotherapy changed to maintenance treatment with Xeloda 1000 milligram/meter squared b.i.d. day 1-14 along with Avastin Q 3 weeks in June 2019.He has had elevation of CEA, PET-CT performed at [facility] on 11/04/2019 showed increased FDG activity in right lower quadrant of abdomen/pelvis, SUV 6.4, nodular infiltration measuring 1.3 x 0.9 cm. Right upper lobe subpleural nodule with minimal FDG uptake of 2.6, metastatic nodule probable. Xeloda discontinued in February 2020 because of worsening hand/foot syndrome. Interval History Interval history: Patient is here for scheduled treatment and follow-up. He has several complaints today. He got 2nd dose of [employer] COVID-19 vaccine a week ago. He developed an itchy erythematous rash at the injection site over his left deltoid. It is not painful or tender to palpation. He has not had any fever or chills. He reports intermittent diarrhea with his chemotherapy and is concerned about hair loss. He also has questions about his CEA level going up slightly. He wants to know when he can switch treatment to maintenance therapy. He wants to be able to work once again. He reports left hip pain. He is trying to exercise and walk more. He does not think he developed a muscle ache. He has not taken any pain medication like Tylenol or Motrin. Pain is not severe. Review of Systems - Constitutional Denies anorexia, Denies weight gain, Denies weight loss - Cardiovascular Denies chest pain - Respiratory Denies cough PMFSH Medical History: Medical History (Last Updated 08/25/20 @ 09:[address] MD) Acute appendicitis Asthma Colon adenocarcinoma Diarrhea Hypercholesteremia Family History: Family History (Last Reviewed 08/25/20 @ 12:[address] MD) Father History of cancer of unknown primary site Family history of high blood pressure Mother No problems noted. Maternal Grandfather Hx of arteriosclerotic cardiovascular disease Brother No problems noted. Sister No problems noted. Surgical History: Surgical History (Last Updated 08/25/20 @ 12:[address] MD) History of lung biopsy Hx of appendectomy Hx of colonoscopy Hx of right hemicolectomy Social History: Social History (Last Reviewed 08/25/20 @ 12:[address] MD) Living Situation History: Household Members: Family Alcohol History: Alcohol intake: current Alcohol History Details: Alcohol intake frequency: does not drink Tobacco History: Smoking Status: Never smoker Advance Directives: Advance Directives: No Advance Directives Information Provided: No Occupation Assessmet: Current occupational status: disabled Smoking status: Never smoker Home Medications and Allergies Current Medications: Current Medications Generic Name Dose Route Start Last Admin Trade Name Frances PRN Reason Stop Dose Admin Ondansetron HCl 16 mg in 50 mls @ 200 mls/hr 09/29/20 11:15 09/29/20 12:14 Zofran IV Infused ONCE LOLLY Infusion Bevacizumab-awwb 400 mg/ 100 mls @ 66.667 mls/hr 09/29/20 00:00 09/29/20 13:19 Bevacizumab-awwb 88 mg/ Sodium IV 09/29/20 23:59 Infused Chloride ONCE LOLLY Infusion Irinotecan HCl 396 mg/ 519.8 mls @ 346.533 mls/hr 09/29/20 00:00 09/29/20 13:29 Dextrose IV 09/29/20 23:59 346.53 mls/hr ONCE LOLLY Administration Home Medications Medication Instructions Recorded Confirmed Type multivitamin 1 cap PO DAILY 03/03/20 09/29/20 History acetaminophen 325 mg tablet 650 mg PO Q6H PRN 08/25/20 09/29/20 History Allergies Allergy/AdvReac Type Severity Reaction Status Date / Time shrimp [SHRIMP] Allergy Severe ANGIOEDEMA Verified 03/24/20 11:48 milk [MILK] Allergy Mild DIARRHEA Verified 03/24/20 11:48 SEAFOOD Allergy Severe ANGIOEDEMA Uncoded 02/05/20 15:56 Seafood/Shrimp Allergy Unknown angioedema Uncoded 09/29/19 00:00 Exam Vital signs: Vital Signs Temp 98.1 F 09/29/20 10:32 Pulse 106 H 09/29/20 10:32 Resp 18 09/29/20 10:32 BP 126/84 09/29/20 10:32 Pulse Ox 96 09/29/20 10:32 Intake & Output 09/28/20 09/29/20 09/29/20 18:59 06:59 18:59 Intake Total 200 / 200 Balance 200 / 200 Intake: Intake, IV Amount 200 / 200 Bevacizumab-awwb 400 mg 100 / 100 Bevacizumab-awwb 88 mg In 0.9 % Sodium Chloride 80.48 ml @ 66. 667 mls/hr IV ONCE LOLLY Rx#: [id number] dexAMETHasone sod phosphate/NS 50 / 50 12 mg In 50 ml @ 200 mls/hr IV ONCE LOLLY Rx#:[id number] ondansetron HCL/NS 16 mg In 50 50 / 50 ml @ 200 mls/hr IV ONCE [facility] Rx# :[id number] Other: Weight 98.4 kg Imperial Weight in Grams 48396 Weight 98.4 kg Body Mass Index 31.1 - Constitutional Present: no acute distress - Routine HEENT Exam Head: Present: normal inspection - Routine Neck Exam Present: full ROM. Absent: lymphadenopathy - Routine Chest/Breast/Axilla Exam Chest wall: Absent: tenderness, mass - Routine Respiratory Exam Present: CTAB - Routine Cardiovascular Exam Cardiovascular: Present: RRR, S1, S2 - Routine Extremities Exam Comments: Left upper extremity, over deltoid area erythematous area, nontender. Swelling noted over deltoid region. - Routine Skin Exam Present: dry, rash, cracked Data - Labs CBC & Chem 7: 09/28/20 10:16 09/28/20 10:16 Labs: 03/03/20 00:00 Bevacizumab-awwb [Mvasi] 400 mg Bevacizumab-awwb [Mvasi] 250 mg 0.9 % Sodium Chloride [Ns] 74 ml IV ONCE Fosaprepitant Dimeglumine [Emend] 150 mg 0.9 % Sodium Chloride [Ns] 145 ml IV ONCE Heparin Sodium,Porcine Flush 500 unit IVFLUSH ONCE Heparin Sodium,Porcine Flush 500 unit IVFLUSH ONCE Oxaliplatin 270 mg Dextrose 5 % [D5w] 500 ml IV ONCE dexAMETHasone sod phosphate/NS [Decadron] 12 mg in 50 ml IV ONCE dexAMETHasone sod phosphate/NS [Decadron] 12 mg in 50 ml IV ONCE ondansetron HCL/NS [Zofran] 16 mg in 50 ml IV ONCE ondansetron HCL/NS [Zofran] 16 mg in 50 ml IV ONCE 03/03/20 09:49 Comprehensive Met. Panel Routine Magnesium Routine 03/03/20 10:25 UA and rflx microscopic Routine 03/03/20 10:45 Complete Blood Count Auto Diff Routine 03/24/20 00:00 Bevacizumab-awwb [Mvasi] 400 mg Bevacizumab-awwb [Mvasi] 250 mg 0.9 % Sodium Chloride [Ns] 74 ml IV ONCE Fosaprepitant Dimeglumine [Emend] 150 mg 0.9 % Sodium Chloride [Ns] 145 ml IV ONCE Heparin Sodium,Porcine Flush 500 unit IVFLUSH ONCE Oxaliplatin 270 mg Dextrose 5 % [D5w] 500 ml IV ONCE dexAMETHasone sod phosphate/NS [Decadron] 12 mg in 50 ml IV ONCE ondansetron HCL/NS [Zofran] 16 mg in 50 ml IV ONCE 03/24/20 10:40 Carcinoembryonic Antigen Routine Complete Blood Count Auto Diff Routine Comprehensive Met. Panel Routine Lactate Dehydrogenase Routine Magnesium Routine 03/24/20 11:00 Creatinine Urine Routine UA and rflx microscopic Routine 03/24/20 17:13 Add Laboratory Test Routine 04/13/20 00:00 Acetaminophen [Tylenol] 650 mg PO ONCE Acetaminophen [Tylenol] 650 mg PO ONCE Acetaminophen [Tylenol] 650 mg PO ONCE Atropine Sulfate 0.5 mg IVPUSH ONCE Atropine Sulfate 0.5 mg IVPUSH ONCE Atropine Sulfate 0.5 mg SUBCUT ONCE Bevacizumab-awwb [Mvasi] 400 mg Bevacizumab-awwb [Mvasi] 50 mg 0.9 % Sodium Chloride [Ns] 82 ml IV ONCE Famotidine [Pepcid] 20 mg PO ONCE Famotidine [Pepcid] 20 mg PO ONCE Famotidine/PF [Pepcid/PF] 20 mg IVPUSH ONCE Fosaprepitant Dimeglumine [Emend] 150 mg 0.9 % Sodium Chloride [Ns] 145 ml IV ONCE Fosaprepitant Dimeglumine [Emend] 150 mg 0.9 % Sodium Chloride [Ns] 145 ml IV ONCE Fosaprepitant Dimeglumine [Emend] 150 mg 0.9 % Sodium Chloride [Ns] 145 ml IV ONCE Heparin Sodium,Porcine Flush 500 unit IVFLUSH ONCE Irinotecan HCl [Camptosar] 300 mg Irinotecan HCl [Camptosar] 50 mg Dextrose 5 % [D5w] 500 ml IV ONCE Irinotecan HCl [Camptosar] 300 mg Irinotecan HCl [Camptosar] 50 mg Dextrose 5 % [D5w] 500 ml IV ONCE Irinotecan HCl [Camptosar] 300 mg Irinotecan HCl [Camptosar] 50 mg Dextrose 5 % [D5w] 500 ml IV ONCE dexAMETHasone sod phosphate/NS [Decadron] 12 mg in 50 ml IV ONCE dexAMETHasone sod phosphate/NS [Decadron] 12 mg in 50 ml IV ONCE dexAMETHasone sod phosphate/NS [Decadron] 12 mg in 50 ml IV ONCE ondansetron HCL/NS [Zofran] 16 mg in 50 ml IV ONCE ondansetron HCL/NS [Zofran] 16 mg in 50 ml IV ONCE 04/13/20 09:20 Carcinoembryonic Antigen Routine Comprehensive Met. Panel Routine Magnesium Routine 04/13/20 11:40 Complete Blood Count Auto Diff Routine 04/13/20 12:46 Creatinine Urine Routine UA and rflx microscopic Routine 04/13/20 13:45 dexAMETHasone sod phosphate/NS [Decadron] 12 mg in 50 ml IV ONCE ondansetron HCL/NS [Zofran] 16 mg in 50 ml IV ONCE 04/28/20 00:00 Acetaminophen [Tylenol] 650 mg PO ONCE Atropine Sulfate 0.5 mg IVPUSH ONCE Atropine Sulfate 0.5 mg SUBCUT ONCE Bevacizumab-awwb [Mvasi] 400 mg Bevacizumab-awwb [Mvasi] 50 mg 0.9 % Sodium Chloride [Ns] 82 ml IV ONCE Famotidine [Pepcid] 20 mg PO ONCE Fosaprepitant Dimeglumine [Emend] 150 mg 0.9 % Sodium Chloride [Ns] 145 ml IV ONCE Heparin Sodium,Porcine Flush 500 unit IVFLUSH ONCE Irinotecan HCl [Camptosar] 300 mg Irinotecan HCl [Camptosar] 50 mg Dextrose 5 % [D5w] 500 ml IV ONCE dexAMETHasone sod phosphate/NS [Decadron] 12 mg in 50 ml IV ONCE ondansetron HCL/NS [Zofran] 16 mg in 50 ml IV ONCE 04/28/20 10:30 Carcinoembryonic Antigen Routine Complete Blood Count Auto Diff Routine Comprehensive Met. Panel Routine Lipid Panel with Reflex Routine Magnesium Routine 04/28/20 11:10 Creatinine Urine Routine UA and rflx microscopic Routine 04/28/20 11:35 Famotidine/PF [Pepcid/PF] 20 mg IVPUSH ONCE ONE 05/12/20 00:00 Acetaminophen [Tylenol] 650 mg PO ONCE Atropine Sulfate 0.5 mg SUBCUT ONCE Famotidine [Pepcid] 20 mg PO ONCE Heparin Sodium,Porcine Flush 500 unit IVFLUSH ONCE Irinotecan HCl [Camptosar] 300 mg Irinotecan HCl [Camptosar] 50 mg Dextrose 5 % [D5w] 500 ml IV ONCE dexAMETHasone sod phosphate/NS [Decadron] 12 mg in 50 ml IV ONCE ondansetron HCL/NS [Zofran] 16 mg in 50 ml IV ONCE 05/12/20 10:50 Carcinoembryonic Antigen Routine Complete Blood Count Auto Diff Routine Comprehensive Met. Panel Routine Magnesium Routine 05/26/20 00:00 Acetaminophen [Tylenol] 650 mg PO ONCE Atropine Sulfate 0.5 mg SUBCUT ONCE Famotidine [Pepcid] 20 mg PO ONCE Heparin Sodium,Porcine Flush 500 unit IVFLUSH ONCE dexAMETHasone sod phosphate/NS [Decadron] 12 mg in 50 ml IV ONCE dexAMETHasone sod phosphate/NS [Decadron] 12 mg in 50 ml IV ONCE dexAMETHasone sod phosphate/NS [Decadron] 12 mg in 50 ml IV ONCE ondansetron HCL/NS [Zofran] 16 mg in 50 ml IV ONCE 05/26/20 10:45 Carcinoembryonic Antigen Routine Complete Blood Count Auto Diff Routine Comprehensive Met. Panel Routine Magnesium Routine 06/09/20 00:00 Acetaminophen [Tylenol] 650 mg PO ONCE Atropine Sulfate 0.5 mg SUBCUT ONCE Famotidine [Pepcid] 20 mg PO ONCE Heparin Sodium,Porcine Flush 500 unit IVFLUSH ONCE dexAMETHasone sod phosphate/NS [Decadron] 12 mg in 50 ml IV ONCE ondansetron HCL/NS [Zofran] 16 mg in 50 ml IV ONCE 06/09/20 10:17 Carcinoembryonic Antigen Routine Complete Blood Count Auto Diff Routine Comprehensive Met. Panel Routine Magnesium Routine 06/22/20 08:28 Magnesium Routine 06/22/20 08:28 Complete Blood Count Auto Diff Routine Comprehensive Met. Panel Routine 06/22/20 08:40 UA w Microscopic Routine 06/23/20 00:00 Acetaminophen [Tylenol] 650 mg PO ONCE Acetaminophen [Tylenol] 650 mg PO ONCE Atropine Sulfate 0.5 mg SUBCUT ONCE Atropine Sulfate 0.5 mg SUBCUT ONCE Famotidine [Pepcid] 20 mg PO ONCE Famotidine [Pepcid] 20 mg PO ONCE Heparin Sodium,Porcine Flush 500 unit IVFLUSH ONCE Heparin Sodium,Porcine Flush 500 unit IVFLUSH ONCE dexAMETHasone sod phosphate/NS [Decadron] 12 mg in 50 ml IV ONCE dexAMETHasone sod phosphate/NS [Decadron] 12 mg in 50 ml IV ONCE ondansetron HCL/NS [Zofran] 16 mg in 50 ml IV ONCE ondansetron HCL/NS [Zofran] 16 mg in 50 ml IV ONCE Laboratory Last Values WBC 5.2 X10*3/uL (4.8-10.8) 06/22/20 08: RBC 4.04 X10*6/uL (4.60-5.80) L 06/22/20 08:28 Hgb 13.2 g/dl (14.0-18.0) L 06/22/20 08:28 Hct 39.6 % (42-52) L 06/22/20 08: MCV 98.0 fL (80-98) 06/22/20 08:28 MCH 32.7 pg (27.0-33.0) 06/22/20 08: MCHC 33.3 g/dl (31.0-36.0) 06/22/20 08: RDW 14.6 % (11.0-16.0) 06/22/20 08: Plt Count 268 X10*3/uL (160-400) 06/22/20 08:28 MPV 9.4 fL (9.4-12.4) 06/22/20 08:28 Immature Gran % (Auto) 0.2 % (0.0-0.4) 06/22/20 08: Neut % (Auto) 39.0 % (45-73) L 06/22/20 08: Lymph % (Auto) 42.4 % (20-40) H 06/22/20 08:28 Young % (Auto) 13.8 % (2-11) H 06/22/20 08:28 Eos % (Auto) 4.0 % (0-4) 06/22/20 08: Baso % (Auto) 0.6 % (0-2) 06/22/20 08:28 Lymph # (Auto) 2.2 X10*3/uL (1.2-4.9) 06/22/20 08:28 Young # (Auto) 0.7 X10*3/uL (0.1-1.2) 06/22/20 08: Eos # (Auto) 0.2 X10*3/uL (0.0-0.4) 06/22/20 08:28 Baso # (Auto) 0.0 X10*3/uL (0.0-0.2) 06/22/20 08:28 Abs Immat Gran (auto) 0.01 X10*3/uL (0.00-0.03) 06/22/20 08:28 Absolute Neuts (auto) 2.0 X10*3/uL (2.0-8.3) 06/22/20 08:28 Absolute Nucleated RBC 0.000 X10*3/uL (0.0-0.012) 06/22/20 08:28 Nucleated RBC % (auto) 0.0 /100WBC (0.0-0.2) 06/22/20 08:28 Sodium 141 mmol/L (135-145) 06/22/20 08:28 Potassium 3.7 mmol/L (3.3-5.1) 06/22/20 08:28 Chloride 104 mmol/L (96-108) 06/22/20 08:28 Carbon Dioxide 26 mmol/L (22-29) 06/22/20 08:28 Anion Gap 15 (12-20) 06/22/20 08:28 BUN 7 mg/dL (9-16) L 06/22/20 08:28 Creatinine 1.07 mg/dL (0.5-1.4) 06/22/20 08:28 Estim Creat Clear Calc 92.8 06/22/20 08:28 Estimated GFR > 60 06/22/20 08:28 Random Glucose 100 mg/dL (60-115) 06/22/20 08:28 Calcium 8.8 mg/dL (8.4-10.2) 06/22/20 08:28 Magnesium 1.9 mg/dL (1.6-2.6) 06/22/20 08:28 Total Bilirubin 0.5 mg/dL (0.0-1.0) 06/22/20 08:28 AST 30 U/L (5-37) 06/22/20 08:28 ALT 37 U/L (0-40) 06/22/20 08:28 Alkaline Phosphatase 72 U/L (39-117) D 06/22/20 08:28 Lactate Dehydrogenase 188 U/L (118-273) 03/24/20 10:40 Total Protein 6.8 g/dL (6.5-8.0) 06/22/20 08:28 Albumin 4.1 g/dL (3.5-5.0) 06/22/20 08:28 Triglycerides 246 mg/dL 12/09/20 10:30 Cholesterol 244 mg/dL 04/28/20 10:30 LDL Cholesterol, Calc 129 mg/dl 04/28/20 10:30 HDL Cholesterol 66 mg/dL 04/28/20 10:30 Carcinoembryonic Ag 10.60 mg/mL 06/09/20 10:17 Urine Color YELLOW 06/22/20 08:40 Urine Appearance CLEAR 06/22/20 08:40 Urine pH 5.5 (5.0-8.0) 06/22/20 08:40 Ur Specific [place] >= 1.030 (1.005-1.025) H 06/22/20 08:40 Urine Protein NEG MG/DL (NEG-TRACE) 06/22/20 08:40 Urine Glucose (UA) NEG MG/DL (NEG) 06/22/20 08:40 Urine Ketones NEG MG/DL (NEG) 06/22/20 08:40 Urine Blood NEG (NEG) 06/22/20 08:40 Urine Nitrite NEG (NEG) 06/22/20 08:40 Ur Leukocyte Esterase NEG (NEG) 06/22/20 08:40 Urine RBC 0-2 /HPF (0) 06/22/20 08:40 Urine WBC 0-2 /HPF (0-4) 06/22/20 08:40 Ur Squamous Epith Cells NONE /LPF 06/22/20 08:40 Urine Bacteria NONE /LPF 06/22/20 08:40 Urine Creatinine 219.77 mg/dL 04/28/20 11:10 Progress Note: A/P (1) Colon carcinoma metastatic to multiple sites Status: Chronic Assessment and plan: 1. This is a 50-year-old man with metastatic colon cancer, arising from cecum. FNA of lung nodule is consistent with adenocarcinoma. Right hemicolectomy performed 04/03/2019, adenocarcinoma moderately differentiated. Stage [id number]. MMR proficient. BRAF mutation not detected, K-renata mutation detected, NRAS mutation not detected, IHC for verdugo TRK negative. HER2 non reactive and tumor mutational burden 4 Muts/Mb. Started chemotherapy modified FOLFOX 6 with Avastin from 04/23/2019. He had a good response based on PET scan in June but because of side effects of neuropathy he was switched to maintenance Xeloda with Avastin. Xeloda was discontinued in February 2020 because of hand-foot syndrome. He is now on irinotecan plus bevacizumab every 2 weeks. He is tolerating this well. CEA level around 10. His last PET-CT was in October 2019 at [facility]. There was disease progression on that scan. Repeat PET-CT will be ordered now. 2. GI symptoms diarrhea, occasional hematochezia. He probably has internal hemorrhoids. Diarrhea is related to chemotherapy. He is taking Imodium as needed. Referral to electrician third will be made. 3. Allergic rash on left deltoid after COVID-19 vaccination. He received IV Benadryl and dexamethasone with chemotherapy which decreased the redness. Patient was reassured. Follow-up in 6 weeks. - Time Spent With Patient Total time spent is greater than 50% in coordination of care (as documented) at patient's floor/unit and/or counseling patient: 25 - 35 minutes
--- NOTE | 2020-09-29 15:51 | MHC.HEMONC ---
CYCLE 13: MVASI/IRINOTECAN well tolerated. VSS. Labs obtained day prior and reviewed. Port accessed with positive blood return. Patient complaining of redness/swelling/tightness to left upper arm where second COVID vaccine was administered [address] Mims aware, and in to assess patient. MD recommends cool compresses and Benadryl as needed. Ok to continue treatment. Patient pre-medicated with zofran/benadryl/pepcid/dex and tylenol. Patient tolerated treatment and states left arm pain and itch has subsided. Port de-accessed. Patient to return in 2 weeks for chemotherapy.
[2020-10-12 10:53] LABS: Glucose Urine UA NEG (NEG); Leukocyte Esterase Urine NEG (NEG); Nitrite Urine NEG (NEG); Specific Gravity - Urine >= 1.030 (1.005-1.025); Urine Blood NEG (NEG); Urine Ketones NEG (NEG); Urine Protein NEG (NEG-TRACE)
[2020-10-12 10:53] LABS: MANUAL DIFF FLAG NO
[2020-10-12 10:54] LABS: Appearance Urine CLEAR; Color Urine YELLOW
[2020-10-12 11:10] LABS: Basophils Percent Auto 0.6 % (0-2); Eosinophils Absolute Auto 0.2 X10*3/uL (0.0-0.4); Eosinophils Percent Auto 3.7 % (0-4); Hematocrit 38.6 % (42-52); Hemoglobin 12.5 g/dl (14.0-18.0); Imm Gran Abs Auto 0.01 X10*3/uL (0.00-0.03); Imm Gran Pct Auto 0.2 % (0.0-0.4); Lymphocytes Absolute Auto 1.9 X10*3/uL (1.2-4.9); Lymphocytes Percent Auto 37.7 % (20-40); Mean Corpuscular HGB Conc 32.4 g/dl (31.0-36.0); Mean Corpuscular Hemoglobin 30.1 pg (27.0-33.0); Mean Platelet Volume 9.5 fL (9.4-12.4); Monocytes Absolute Auto 0.6 X10*3/uL (0.1-1.2); Monocytes Percent Auto 11.4 % (2-11); Neutrophils Absolute Auto 2.3 X10*3/uL (2.0-8.3); Neutrophils Percent Auto 46.4 % (45-73); Platelet Count 271 X10*3/uL (160-400); Red Blood Count 4.15 X10*6/uL (4.60-5.80); Red Cell Distribution Width 15.3 % (11.0-16.0); White Blood Count 4.9 X10*3/uL (4.8-10.8)
[2020-10-12 11:15] LABS: RBC Urine 0 /HPF (0); Squamous Epithelial Cell Urine TRACE /LPF; WBC Urine 0-2 /HPF (0-4)
[2020-10-12 11:22] LABS: Alanine Aminotransferase 24 U/L (0-40); Albumin Level 4.1 g/dL (3.5-5.0); Alkaline Phosphatase 67 U/L (39-117); Anion Gap 13 (12-20); Aspartate Amino Transferase 26 U/L (5-37); Bilirubin Total 0.8 mg/dL (0.0-1.0); Blood Urea Nitrogen 8 mg/dL (9-16); Calcium 9.3 mg/dL (8.4-10.2); Carbon Dioxide 26 mmol/L (22-29); Chloride 105 mmol/L (96-108); Creatinine Clr Calc Pharmacy 104.8; Estimated Glomerular Filt Rate > 60; Glucose Random 100 mg/dL (60-115); Magnesium 2.1 mg/dL (1.6-2.6); Potassium 3.7 mmol/L (3.3-5.1); Sodium 140 mmol/L (135-145); Total Protein 6.7 g/dL (6.5-8.0)
--- NOTE | 2020-10-12 11:31 | MHC.HEMONC ---
Pt here for labs. Labs drawn. Pt has follow-up.
[2020-10-13 10:49] VITALS: BP 133/84; PULSE 94; RESP 18; TEMP 36.8; O2SAT 97; BMI 31.4
[2020-10-13] MEDS: ondansetron HCL/NS 16 MG/50 ML PIGGYBACK 200 MG IV (11:42)
[2020-10-13] MEDS: dexAMETHasone sod phosphate/NS 12 MG/50 ML PIGGYBACK 100 MG IV (11:42)
[2020-10-13] MEDS: Acetaminophen 325 MG TABLET 650 MG PO (11:43)
[2020-10-13] MEDS: Famotidine 20 MG TABLET PO (11:43)
[2020-10-13] MEDS: Atropine Sulfate 1 MG/ML VIAL 0.5 MG SUBCUT (11:43)
[2020-10-13] MEDS: Heparin Sodium,Porcine Flush 500 UNIT/5 ML SYRINGE IVFLUSH (11:44)
--- NOTE | 2020-10-19 12:11 | MHC.HEMONC ---
pt informed that MVASI must be heldprior to his tooth extraction. Next week we will hold it so he can make appt with dentist.
--- NOTE | 2020-10-22 16:56 | HO.HEMONCPA ---
NEGAR REQUEST FOR PET SCAN APPROVED. APPROVAL #[id number]. EFF: 10/19/20 to 12/03/20
[2020-10-26 11:00] LABS: MANUAL DIFF FLAG NO
[2020-10-26 11:05] LABS: Basophils Percent Auto 0.5 % (0-2); Eosinophils Absolute Auto 0.1 X10*3/uL (0.0-0.4); Eosinophils Percent Auto 1.6 % (0-4); Hematocrit 39.4 % (42-52); Hemoglobin 12.6 g/dl (14.0-18.0); Imm Gran Abs Auto 0.01 X10*3/uL (0.00-0.03); Imm Gran Pct Auto 0.2 % (0.0-0.4); Lymphocytes Absolute Auto 2.2 X10*3/uL (1.2-4.9); Lymphocytes Percent Auto 35.5 % (20-40); Mean Corpuscular Hemoglobin 29.6 pg (27.0-33.0); Mean Corpuscular Volume 92.7 fL (80-98); Mean Platelet Volume 10.1 fL (9.4-12.4); Monocytes Absolute Auto 0.8 X10*3/uL (0.1-1.2); Monocytes Percent Auto 11.9 % (2-11); Neutrophils Absolute Auto 3.2 X10*3/uL (2.0-8.3); Neutrophils Percent Auto 50.3 % (45-73); Platelet Count 238 X10*3/uL (160-400); Red Blood Count 4.25 X10*6/uL (4.60-5.80); White Blood Count 6.3 X10*3/uL (4.8-10.8)
--- NOTE | 2020-10-26 11:40 | MHC.HEMONC ---
Labs WNL for chemo tomorrow. Holding MVASI due to need for tooth extraction and implant. Pt having PET today.
[2020-10-26 11:44] LABS: Alanine Aminotransferase 34 U/L (0-40); Albumin Level 4.2 g/dL (3.5-5.0); Alkaline Phosphatase 67 U/L (39-117); Anion Gap 13 (12-20); Aspartate Amino Transferase 30 U/L (5-37); Blood Urea Nitrogen 7 mg/dL (9-16); Calcium 9.1 mg/dL (8.4-10.2); Carbon Dioxide 26 mmol/L (22-29); Chloride 106 mmol/L (96-108); Creatinine Clr Calc Pharmacy 96.4; Estimated Glomerular Filt Rate > 60; Glucose Random 93 mg/dL (60-115); Potassium 3.6 mmol/L (3.3-5.1); Sodium 141 mmol/L (135-145); Total Protein 6.7 g/dL (6.5-8.0)
[2020-10-27 10:01] VITALS: BP 136/86; PULSE 94; RESP 18; TEMP 36.6; O2SAT 96; BMI 31.2
[2020-10-27] MEDS: ondansetron HCL/NS 16 MG/50 ML PIGGYBACK 200 MG IV (10:13)
[2020-10-27] MEDS: Atropine Sulfate 1 MG/ML VIAL 0.5 MG SUBCUT (10:14)
[2020-10-27] MEDS: dexAMETHasone sod phosphate/NS 12 MG/50 ML PIGGYBACK 100 MG IV (10:14)
[2020-10-27] MEDS: Acetaminophen 325 MG TABLET 650 MG PO (10:14)
[2020-10-27] MEDS: Famotidine 20 MG TABLET PO (10:15)
[2020-10-27] MEDS: Heparin Sodium,Porcine Flush 500 UNIT/5 ML SYRINGE IVFLUSH (10:15)
--- NOTE | 2020-10-27 11:06 | MHC.HEMONC ---
no avastin today or til pt has dental work done which should be any time after november 22. note faxed to [facility] ([phone]) per Dr Mims pt can restart avastin 2 weeks after extraction.
[2020-11-09 10:38] LABS: MANUAL DIFF FLAG NO
[2020-11-09 10:47] LABS: Basophils Percent Auto 0.6 % (0-2); Eosinophils Absolute Auto 0.2 X10*3/uL (0.0-0.4); Hematocrit 36.6 % (42-52); Imm Gran Abs Auto 0.01 X10*3/uL (0.00-0.03); Imm Gran Pct Auto 0.2 % (0.0-0.4); Mean Corpuscular HGB Conc 32.8 g/dl (31.0-36.0); Mean Corpuscular Hemoglobin 30.2 pg (27.0-33.0); Mean Platelet Volume 9.8 fL (9.4-12.4); Monocytes Absolute Auto 0.9 X10*3/uL (0.1-1.2); Monocytes Percent Auto 16.9 % (2-11); Neutrophils Absolute Auto 1.9 X10*3/uL (2.0-8.3); Neutrophils Percent Auto 38.3 % (45-73); Platelet Count 241 X10*3/uL (160-400); Red Blood Count 3.98 X10*6/uL (4.60-5.80); Red Cell Distribution Width 16.2 % (11.0-16.0)
[2020-11-09 11:21] LABS: Alanine Aminotransferase 38 U/L (0-40); Albumin Level 4.1 g/dL (3.5-5.0); Alkaline Phosphatase 64 U/L (39-117); Anion Gap 13 (12-20); Aspartate Amino Transferase 38 U/L (5-37); Bilirubin Total 0.6 mg/dL (0.0-1.0); Blood Urea Nitrogen 9 mg/dL (9-16); Calcium 9.1 mg/dL (8.4-10.2); Carbon Dioxide 26 mmol/L (22-29); Chloride 106 mmol/L (96-108); Creatinine Clr Calc Pharmacy 97.2; Estimated Glomerular Filt Rate > 60; Glucose Random 106 mg/dL (60-115); Potassium 4.2 mmol/L (3.3-5.1); Sodium 141 mmol/L (135-145); Total Protein 6.7 g/dL (6.5-8.0)
[2020-11-10 10:46] VITALS: BP 132/93; PULSE 102; RESP 18; TEMP 36.9; O2SAT 97; BMI 31.1
--- NOTE | 2020-11-10 10:54 | P.PNHO_ITS ---
Medical Summary - Medical Summary Date of Service: 11/10/20 Chief complaint: Follow-up and scheduled treatment Medical Summary: Diagnosis: Metastatic colon cancer diagnosed February 2019 Presented with worsening abdominal pain, right lower quadrant ongoing for almost a year. CT imaging showed inflamed appendix, periappendiceal inflammation involving cecum and small bowel. Abscess identified in the pelvis which was drained. Appendectomy performed 02/22/2019, invasive adenocarcinoma, moderately differentiated, tumor present at the resection margin. Acute appendicitis and Suzy appendicitis with perforation. IHC showed CK 7-, CK 20 positive and CDX2 positive. MMR proficient. On 03/11/2019 patient underwent colonoscopy which showed adenomatous looking degenerative mass with an ulcerated center in the cecum. Two polyps were also removed. CTA performed 02/21/2019 showed multiple lung nodules bilaterally. Largest in the left lower lobe measuring 1.[address] abdomen performed 02/21/2019 showed dilated and inflamed appendix with surrounding inflammatory changes. Normal liver and spleen. Prominent mesenteric lymph nodes measuring up to 1.4 cm. CEA elevated at 14.6. FNA of the left lower lobe lung nodule performed 03/13/2019 showed adenocarcinoma consistent with known cecal primary. PET scan showed intense uptake around cecum, SUV 14.2, terminal ileum, foci in mesentery in the pelvis and right lower quadrant suspicious for metastatic deposits. No uptake in the lung nodules but malignancy not excluded. Right hemicolectomy performed 04/03/2019, adenocarcinoma moderately differentiated. Tumor invades through visceral peritoneum with macroscopic tumor perforation and direct invasion into adjacent loop of small bowel. Eight of 12 pericolonic lymph nodes positive for adenocarcinoma. Tumor involves mesenteric resection margins. Lymphovascular invasion present. Tumor size 6 x 2.8 cm. Stage [id number]. MMR proficient. BRAF mutation not detected, K-renata mutation detected, NRAS mutation not detected, IHC for verdugo TRK negative. Genetic testing. Patient?s genetic test result indicated that he was negative for a hereditary cancer gene mutation. Started chemotherapy modified FOLFOX 6 with Avastin from 04/23/2019. PET scan performed June 2019 showed complete metabolic response. Because of side effects of neuropathy his chemotherapy changed to maintenance treatment with Xeloda 1000 milligram/meter squared b.i.d. day 1-14 along with Avastin Q 3 weeks in June 2019.He has had elevation of CEA, PET-CT performed at [facility] on 11/04/2019 showed increased FDG activity in right lower quadrant of abdomen/pelvis, SUV 6.4, nodular infiltration measuring 1.3 x 0.9 cm. Right upper lobe subpleural nodule with minimal FDG uptake of 2.6, metastatic nodule probable. Xeloda discontinued in February 2020 because of worsening hand/foot syndrome. Interval History Interval history: patient is here to discuss results of recent imaging with PET-CT. He has several questions pertaining to this. He has persistent left hip pain. He had a bone scan, this was ordered by his PCP. As expected it did not show any activity worrisome for recurrent malignancy. His recent PET CT was also negative for bone metastasis. He needs additional dental work. He has another extraction of his tooth scheduled for next week. He has not received Avastin in the last treatment and is not scheduled to receive it this week either. Review of Systems - Constitutional Reports as per HPI, Reports no additional constitutional complaints [facility] Medical History: Medical History (Last Updated 08/25/20 @ 09:[address] MD) Acute appendicitis Asthma Colon adenocarcinoma Diarrhea Hypercholesteremia Family History: Family History (Last Reviewed 08/25/20 @ 12:[address] MD) Father History of cancer of unknown primary site Family history of high blood pressure Mother No problems noted. Maternal Grandfather Hx of arteriosclerotic cardiovascular disease Brother No problems noted. Sister No problems noted. Surgical History: Surgical History (Last Updated 08/25/20 @ 12:[address] MD) History of lung biopsy Hx of appendectomy Hx of colonoscopy Hx of right hemicolectomy Social History: Social History (Last Reviewed 08/25/20 @ 12:[address] MD) Living Situation History: Household Members: Family Alcohol History: Alcohol intake: current Alcohol History Details: Alcohol intake frequency: does not drink Advance Directives: Advance Directives: No Advance Directives Information Provided: No Occupation Assessmet: Current occupational status: disabled Home Medications and Allergies Current Medications: Current Medications Generic Name Dose Route Start Last Admin Trade Name Freq PRN Reason Stop Dose Admin Acetaminophen 650 mg 11/10/20 00:00 Acetaminophen 325 Mg Tablet PO 11/10/20 23:59 ONCE LOLLY Atropine Sulfate 0.5 mg 11/10/20 00:00 Atropine Sulfate 1 Mg/Ml Vial SUBCUT 11/10/20 23:59 ONCE LOLLY Famotidine 20 mg 11/10/20 00:00 Famotidine 20 Mg Tablet PO 11/10/20 23:59 ONCE [facility] Heparin Sodium (Porcine) 500 unit 11/10/20 00:00 Heparin Sodium,Porcine Flush 500 Unit/5 Ml Syringe IVFLUSH 11/10/20 23:59 ONCE LOLLY Ondansetron HCl 16 mg in 50 mls @ 200 mls/hr 09/29/20 11:15 09/29/20 12:14 Zofran IV Infused ONCE LOLLY Infusion Ondansetron HCl 16 mg in 50 mls @ 200 mls/hr 11/10/20 00:00 Zofran IV 11/10/20 23:59 ONCE [facility] Dexamethasone Sodium Phosphate 12 mg in 50 mls @ 100 mls/hr 11/10/20 00:00 Decadron IV 11/10/20 23:59 ONCE [facility] Home Medications Medication Instructions Recorded Confirmed Type multivitamin 1 cap PO DAILY 03/03/20 10/27/20 History acetaminophen 325 mg tablet 650 mg PO Q6H PRN 08/25/20 10/27/20 History Allergies Allergy/AdvReac Type Severity Reaction Status Date / Time shrimp [SHRIMP] Allergy Severe ANGIOEDEMA Verified 03/24/20 11:48 milk [MILK] Allergy Mild DIARRHEA Verified 03/24/20 11:48 SEAFOOD Allergy Severe ANGIOEDEMA Uncoded 02/05/20 15:56 Seafood/Shrimp Allergy Unknown angioedema Uncoded 09/29/19 00:00 Exam Vital signs: Vital Signs Temp 98.5 F 11/10/20 10:46 Pulse 102 H 11/10/20 10:46 Resp 18 11/10/20 10:46 BP 132/93 H 11/10/20 10:46 Pulse Ox 97 11/10/20 10:46 Intake & Output 11/09/20 11/10/20 11/10/20 18:59 06:59 18:59 Other: Weight 98.3 kg Weight in Grams [id number] Weight 98.3 kg Body Mass Index 31.1 - Constitutional Present: no acute distress - Routine HEENT Exam Head: Present: normal inspection - Routine Neck Exam Present: full ROM. Absent: lymphadenopathy - Routine Chest/Breast/Axilla Exam Chest wall: Absent: tenderness, mass - Routine Respiratory Exam Present: CTAB - Routine Cardiovascular Exam Cardiovascular: Present: RRR, S1, S2 - Routine Skin Exam Present: dry, rash, cracked Data - Labs CBC & Chem 7: 11/09/20 10:35 11/09/20 10:35 Labs: 03/03/20 00:00 Bevacizumab-awwb [Mvasi] 400 mg Bevacizumab-awwb [Mvasi] 250 mg 0.9 % Sodium Chloride [Ns] 74 ml IV ONCE Fosaprepitant Dimeglumine [Emend] 150 mg 0.9 % Sodium Chloride [Ns] 145 ml IV ONCE Heparin Sodium,Porcine Flush 500 unit IVFLUSH ONCE Heparin Sodium,Porcine Flush 500 unit IVFLUSH ONCE Oxaliplatin 270 mg Dextrose 5 % [D5w] 500 ml IV ONCE dexAMETHasone sod phosphate/NS [Decadron] 12 mg in 50 ml IV ONCE dexAMETHasone sod phosphate/NS [Decadron] 12 mg in 50 ml IV ONCE ondansetron HCL/NS [Zofran] 16 mg in 50 ml IV ONCE ondansetron HCL/NS [Zofran] 16 mg in 50 ml IV ONCE 03/03/20 09:49 Comprehensive Met. Panel Routine Magnesium Routine 03/03/20 10:25 UA and rflx microscopic Routine 03/03/20 10:45 Complete Blood Count Auto Diff Routine 03/24/20 00:00 Bevacizumab-awwb [Mvasi] 400 mg Bevacizumab-awwb [Mvasi] 250 mg 0.9 % Sodium Chloride [Ns] 74 ml IV ONCE Fosaprepitant Dimeglumine [Emend] 150 mg 0.9 % Sodium Chloride [Ns] 145 ml IV ONCE Heparin Sodium,Porcine Flush 500 unit IVFLUSH ONCE Oxaliplatin 270 mg Dextrose 5 % [D5w] 500 ml IV ONCE dexAMETHasone sod phosphate/NS [Decadron] 12 mg in 50 ml IV ONCE ondansetron HCL/NS [Zofran] 16 mg in 50 ml IV ONCE 03/24/20 10:40 Carcinoembryonic Antigen Routine Complete Blood Count Auto Diff Routine Comprehensive Met. Panel Routine Lactate Dehydrogenase Routine Magnesium Routine 03/24/20 11:00 Creatinine Urine Routine UA and rflx microscopic Routine 03/24/20 17:13 Add Laboratory Test Routine 04/13/20 00:00 Acetaminophen [Tylenol] 650 mg PO ONCE Acetaminophen [Tylenol] 650 mg PO ONCE Acetaminophen [Tylenol] 650 mg PO ONCE Atropine Sulfate 0.5 mg IVPUSH ONCE Atropine Sulfate 0.5 mg IVPUSH ONCE Atropine Sulfate 0.5 mg SUBCUT ONCE Bevacizumab-awwb [Mvasi] 400 mg Bevacizumab-awwb [Mvasi] 50 mg 0.9 % Sodium Chloride [Ns] 82 ml IV ONCE Famotidine [Pepcid] 20 mg PO ONCE Famotidine [Pepcid] 20 mg PO ONCE Famotidine/PF [Pepcid/PF] 20 mg IVPUSH ONCE Fosaprepitant Dimeglumine [Emend] 150 mg 0.9 % Sodium Chloride [Ns] 145 ml IV ONCE Fosaprepitant Dimeglumine [Emend] 150 mg 0.9 % Sodium Chloride [Ns] 145 ml IV ONCE Fosaprepitant Dimeglumine [Emend] 150 mg 0.9 % Sodium Chloride [Ns] 145 ml IV ONCE Heparin Sodium,Porcine Flush 500 unit IVFLUSH ONCE Irinotecan HCl [Camptosar] 300 mg Irinotecan HCl [Camptosar] 50 mg Dextrose 5 % [D5w] 500 ml IV ONCE Irinotecan HCl [Camptosar] 300 mg Irinotecan HCl [Camptosar] 50 mg Dextrose 5 % [D5w] 500 ml IV ONCE Irinotecan HCl [Camptosar] 300 mg Irinotecan HCl [Camptosar] 50 mg Dextrose 5 % [D5w] 500 ml IV ONCE dexAMETHasone sod phosphate/NS [Decadron] 12 mg in 50 ml IV ONCE dexAMETHasone sod phosphate/NS [Decadron] 12 mg in 50 ml IV ONCE dexAMETHasone sod phosphate/NS [Decadron] 12 mg in 50 ml IV ONCE ondansetron HCL/NS [Zofran] 16 mg in 50 ml IV ONCE ondansetron HCL/NS [Zofran] 16 mg in 50 ml IV ONCE 04/13/20 09:20 Carcinoembryonic Antigen Routine Comprehensive Met. Panel Routine Magnesium Routine 04/13/20 11:40 Complete Blood Count Auto Diff Routine 04/13/20 12:46 Creatinine Urine Routine UA and rflx microscopic Routine 04/13/20 13:45 dexAMETHasone sod phosphate/NS [Decadron] 12 mg in 50 ml IV ONCE ondansetron HCL/NS [Zofran] 16 mg in 50 ml IV ONCE 04/28/20 00:00 Acetaminophen [Tylenol] 650 mg PO ONCE Atropine Sulfate 0.5 mg IVPUSH ONCE Atropine Sulfate 0.5 mg SUBCUT ONCE Bevacizumab-awwb [Mvasi] 400 mg Bevacizumab-awwb [Mvasi] 50 mg 0.9 % Sodium Chloride [Ns] 82 ml IV ONCE Famotidine [Pepcid] 20 mg PO ONCE Fosaprepitant Dimeglumine [Emend] 150 mg 0.9 % Sodium Chloride [Ns] 145 ml IV ONCE Heparin Sodium,Porcine Flush 500 unit IVFLUSH ONCE Irinotecan HCl [Camptosar] 300 mg Irinotecan HCl [Camptosar] 50 mg Dextrose 5 % [D5w] 500 ml IV ONCE dexAMETHasone sod phosphate/NS [Decadron] 12 mg in 50 ml IV ONCE ondansetron HCL/NS [Zofran] 16 mg in 50 ml IV ONCE 04/28/20 10:30 Carcinoembryonic Antigen Routine Complete Blood Count Auto Diff Routine Comprehensive Met. Panel Routine Lipid Panel with Reflex Routine Magnesium Routine 04/28/20 11:10 Creatinine Urine Routine UA and rflx microscopic Routine 04/28/20 11:35 Famotidine/PF [Pepcid/PF] 20 mg IVPUSH ONCE ONE 05/12/20 00:00 Acetaminophen [Tylenol] 650 mg PO ONCE Atropine Sulfate 0.5 mg SUBCUT ONCE Famotidine [Pepcid] 20 mg PO ONCE Heparin Sodium,Porcine Flush 500 unit IVFLUSH ONCE Irinotecan HCl [Camptosar] 300 mg Irinotecan HCl [Camptosar] 50 mg Dextrose 5 % [D5w] 500 ml IV ONCE dexAMETHasone sod phosphate/NS [Decadron] 12 mg in 50 ml IV ONCE ondansetron HCL/NS [Zofran] 16 mg in 50 ml IV ONCE 05/12/20 10:50 Carcinoembryonic Antigen Routine Complete Blood Count Auto Diff Routine Comprehensive Met. Panel Routine Magnesium Routine 05/26/20 00:00 Acetaminophen [Tylenol] 650 mg PO ONCE Atropine Sulfate 0.5 mg SUBCUT ONCE Famotidine [Pepcid] 20 mg PO ONCE Heparin Sodium,Porcine Flush 500 unit IVFLUSH ONCE dexAMETHasone sod phosphate/NS [Decadron] 12 mg in 50 ml IV ONCE dexAMETHasone sod phosphate/NS [Decadron] 12 mg in 50 ml IV ONCE dexAMETHasone sod phosphate/NS [Decadron] 12 mg in 50 ml IV ONCE ondansetron HCL/NS [Zofran] 16 mg in 50 ml IV ONCE 05/26/20 10:45 Carcinoembryonic Antigen Routine Complete Blood Count Auto Diff Routine Comprehensive Met. Panel Routine Magnesium Routine 06/09/20 00:00 Acetaminophen [Tylenol] 650 mg PO ONCE Atropine Sulfate 0.5 mg SUBCUT ONCE Famotidine [Pepcid] 20 mg PO ONCE Heparin Sodium,Porcine Flush 500 unit IVFLUSH ONCE dexAMETHasone sod phosphate/NS [Decadron] 12 mg in 50 ml IV ONCE ondansetron HCL/NS [Zofran] 16 mg in 50 ml IV ONCE 06/09/20 10:17 Carcinoembryonic Antigen Routine Complete Blood Count Auto Diff Routine Comprehensive Met. Panel Routine Magnesium Routine 06/22/20 08:28 Magnesium Routine 06/22/20 08:28 Complete Blood Count Auto Diff Routine Comprehensive Met. Panel Routine 06/22/20 08:40 UA w Microscopic Routine 06/23/20 00:00 Acetaminophen [Tylenol] 650 mg PO ONCE Acetaminophen [Tylenol] 650 mg PO ONCE Atropine Sulfate 0.5 mg SUBCUT ONCE Atropine Sulfate 0.5 mg SUBCUT ONCE Famotidine [Pepcid] 20 mg PO ONCE Famotidine [Pepcid] 20 mg PO ONCE Heparin Sodium,Porcine Flush 500 unit IVFLUSH ONCE Heparin Sodium,Porcine Flush 500 unit IVFLUSH ONCE dexAMETHasone sod phosphate/NS [Decadron] 12 mg in 50 ml IV ONCE dexAMETHasone sod phosphate/NS [Decadron] 12 mg in 50 ml IV ONCE ondansetron HCL/NS [Zofran] 16 mg in 50 ml IV ONCE ondansetron HCL/NS [Zofran] 16 mg in 50 ml IV ONCE Laboratory Last Values WBC 5.2 X10*3/uL (4.8-10.8) 06/22/20 08:28 RBC 4.04 X10*6/uL (4.60-5.80) L 06/22/20 08:28 Hgb 13.2 g/dl (14.0-18.0) L 06/22/20 08:28 Hct 39.6 % (42-52) L 06/22/20 08:28 MCV 98.0 fL (80-98) 06/22/20 08:28 MCH 32.7 pg (27.0-33.0) 06/22/20 08:28 MCHC 33.3 g/dl (31.0-36.0) 06/22/20 08: RDW 14.6 % (11.0-16.0) 06/22/20 08: Plt Count 268 X10*3/uL (160-400) 06/22/20 08: MPV 9.4 fL (9.4-12.4) 06/22/20 08: Immature Gran % (Auto) 0.2 % (0.0-0.4) 06/22/20 08: Neut % (Auto) 39.0 % (45-73) L 06/22/20 08: Lymph % (Auto) 42.4 % (20-40) H 06/22/20 08: [place] % (Auto) 13.8 % (2-11) H 06/22/20 08: Eos % (Auto) 4.0 % (0-4) 06/22/20 08: Baso % (Auto) 0.6 % (0-2) 06/22/20 08: Lymph # (Auto) 2.2 X10*3/uL (1.2-4.9) 06/22/20 08: [place] # (Auto) 0.7 X10*3/uL (0.1-1.2) 06/22/20 08: Eos # (Auto) 0.2 X10*3/uL (0.0-0.4) 06/22/20 08: Baso # (Auto) 0.0 X10*3/uL (0.0-0.2) 06/22/20 08:28 Abs Immat Gran (auto) 0.01 X10*3/uL (0.00-0.03) 06/22/20 08: Absolute Neuts (auto) 2.0 X10*3/uL (2.0-8.3) 06/22/20 08: Absolute Nucleated RBC 0.000 X10*3/uL (0.0-0.012) 06/22/20 08: Nucleated RBC % (auto) 0.0 /100WBC (0.0-0.2) 06/22/20 08: Sodium 141 mmol/L (135-145) 06/22/20 08:28 Potassium 3.7 mmol/L (3.3-5.1) 06/22/20 08:28 Chloride 104 mmol/L (96-108) 06/22/20 08:28 Carbon Dioxide 26 mmol/L (22-29) 06/22/20 08:28 Anion Gap 15 (12-20) 06/22/20 08:28 BUN 7 mg/dL (9-16) L 06/22/20 08:28 Creatinine 1.07 mg/dL (0.5-1.4) 06/22/20 08:28 Estim Creat Clear Calc 92.8 06/22/20 08:28 Estimated GFR > 60 06/22/20 08:28 Random Glucose 100 mg/dL (60-115) 06/22/20 08:28 Calcium 8.8 mg/dL (8.4-10.2) 06/22/20 08:28 Magnesium 1.9 mg/dL (1.6-2.6) 06/22/20 08:28 Total Bilirubin 0.5 mg/dL (0.0-1.0) 06/22/20 08:28 AST 30 U/L (5-37) 06/22/20 08:28 ALT 37 U/L (0-40) 06/22/20 08:28 Alkaline Phosphatase 72 U/L (39-117) D 06/22/20 08:28 Lactate Dehydrogenase 188 U/L (118-273) 03/24/20 10:40 Total Protein 6.8 g/dL (6.5-8.0) 06/22/20 08:28 Albumin 4.1 g/dL (3.5-5.0) 06/22/20 08:28 Triglycerides 246 mg/dL 04/28/20 10:30 Cholesterol 244 mg/dL 04/28/20 10:30 LDL Cholesterol, Calc 129 mg/dl 04/28/20 10:30 HDL Cholesterol 66 mg/dL 04/28/20 10:30 Carcinoembryonic Ag 10.60 mg/mL 06/09/20 10:17 Urine Color YELLOW 06/22/20 08:40 Urine Appearance CLEAR 06/22/20 08:40 Urine pH 5.5 (5.0-8.0) 06/22/20 08:40 Ur Specific [place] >= 1.030 (1.005-1.025) H 06/22/20 08:40 Urine Protein NEG MG/DL (NEG-TRACE) 06/22/20 08:40 Urine Glucose (UA) NEG MG/DL (NEG) 06/22/20 08:40 Urine Ketones NEG MG/DL (NEG) 06/22/20 08:40 Urine Blood NEG (NEG) 06/22/20 08:40 Urine Nitrite NEG (NEG) 06/22/20 08:40 Ur Leukocyte Esterase NEG (NEG) 06/22/20 08:40 Urine RBC 0-2 /HPF (0) 06/22/20 08:40 Urine WBC 0-2 /HPF (0-4) 06/22/20 08:40 Ur Squamous Epith Cells NONE /LPF 06/22/20 08:40 Urine Bacteria NONE /LPF 06/22/20 08:40 Urine Creatinine 219.77 mg/dL 04/28/20 11:10 Progress Note: A/P (1) Colon carcinoma metastatic to multiple sites Status: Chronic Assessment and plan: 1. This is a 50-year-old man with metastatic colon cancer, arising from cecum. FNA of lung nodule is consistent with adenocarcinoma. Right hemicolectomy performed 04/03/2019, adenocarcinoma moderately differentiated. Stage [id number]. MMR proficient. BRAF mutation not detected, K-renata mutation detected, NRAS mutation not detected, IHC for verdugo TRK negative. HER2 non reactive and tumor mutational burden 4 Muts/Mb. Started chemotherapy modified FOLFOX 6 with Avastin from 04/23/2019. He had a good response based on PET scan in June but because of side effects of neuropathy he was switched to maintenance Xeloda with Avastin. Xeloda was discontinued in February 2020 because of hand-foot syndrome. He is now on irinotecan plus bevacizumab every 2 weeks. He is tolerating this well. CEA level around 10. His last PET-CT was in October 2019 at [facility]. There was disease progression on that scan. Repeat PET-CT at [facility] in October 2020 showed multiple subcentimeter pulmonary nodules none of which had FDG avidity. No other sites of metastatic disease. Because of ongoing dental work, Avastin is being held on this treatment cycle as well. 2. left hip pain. Probable osteoarthritis. Bone scan is not a useful test as his recent PET-CT was also negative for bone metastasis and this is not the cause of his pain. Proceed with treatment as scheduled today. Follow-up in 6 weeks. - Time Spent With Patient 25 - 35 minutes
[2020-11-10] MEDS: Alteplase Cath Clear 2 MG VIAL INTRACATH (12:42)
[2020-11-10] MEDS: ondansetron HCL/NS 16 MG/50 ML PIGGYBACK 200 MG IV (13:22)
[2020-11-10] MEDS: Famotidine 20 MG TABLET PO (13:23)
[2020-11-10] MEDS: Acetaminophen 325 MG TABLET 650 MG PO (13:23)
[2020-11-10] MEDS: dexAMETHasone sod phosphate/NS 12 MG/50 ML PIGGYBACK 200 MG IV (13:41)
[2020-11-10] MEDS: Heparin Sodium,Porcine Flush 500 UNIT/5 ML SYRINGE IVFLUSH (15:45)
--- NOTE | 2020-11-10 16:17 | MHC.HEMONC ---
Pt here for C16 D1 of treatment. Labs done 11/09 reviewed. Port accessed, no blood return noted. Dr Mims notified, cathflo ordered. Good blood return 30 minutes after cathflo. Treatment done and pt tolerated well. Dr Mims in to see pt in follow up. Next treatment scheduled in 2 weeks
[2020-11-23 11:26] LABS: MANUAL DIFF FLAG NO
[2020-11-23 11:34] LABS: Basophils Percent Auto 0.6 % (0-2); Eosinophils Absolute Auto 0.2 X10*3/uL (0.0-0.4); Eosinophils Percent Auto 2.8 % (0-4); Hematocrit 39.3 % (42-52); Lymphocytes Absolute Auto 2.4 X10*3/uL (1.2-4.9); Lymphocytes Percent Auto 44.5 % (20-40); Mean Corpuscular HGB Conc 33.1 g/dl (31.0-36.0); Mean Corpuscular Hemoglobin 30.4 pg (27.0-33.0); Mean Corpuscular Volume 91.8 fL (80-98); Mean Platelet Volume 9.7 fL (9.4-12.4); Monocytes Absolute Auto 0.8 X10*3/uL (0.1-1.2); Monocytes Percent Auto 14.4 % (2-11); Neutrophils Percent Auto 37.7 % (45-73); Platelet Count 281 X10*3/uL (160-400); Red Blood Count 4.28 X10*6/uL (4.60-5.80); Red Cell Distribution Width 16.2 % (11.0-16.0); White Blood Count 5.4 X10*3/uL (4.8-10.8)
[2020-11-23 12:14] LABS: Alanine Aminotransferase 22 U/L (0-40); Albumin Level 4.3 g/dL (3.5-5.0); Alkaline Phosphatase 63 U/L (39-117); Anion Gap 13 (12-20); Aspartate Amino Transferase 24 U/L (5-37); Bilirubin Total 0.5 mg/dL (0.0-1.0); Blood Urea Nitrogen 8 mg/dL (9-16); Calcium 9.5 mg/dL (8.4-10.2); Carbon Dioxide 27 mmol/L (22-29); Chloride 106 mmol/L (96-108); Creatinine Clr Calc Pharmacy 96.9; Estimated Glomerular Filt Rate > 60; Glucose Random 103 mg/dL (60-115); Potassium 3.8 mmol/L (3.3-5.1); Sodium 142 mmol/L (135-145)
--- NOTE | 2020-11-23 16:30 | MHC.HEMONC ---
Note faxed to [facility] requested by dental office. Patient does not require antibiotics prior to dental procedure.
--- NOTE | 2020-11-24 09:05 | MHC.HEMONC ---
dental work to be done tomorrow, per dr aguirre reschedule todays chemo for next week.pharm aware. pt will come in the day before for labs, no avastin. This maybe restarted 12/15.
[2020-11-30 10:30] LABS: MANUAL DIFF FLAG NO
[2020-11-30 10:44] LABS: Basophils Percent Auto 0.6 % (0-2); Eosinophils Absolute Auto 0.2 X10*3/uL (0.0-0.4); Eosinophils Percent Auto 3.5 % (0-4); Hematocrit 39.3 % (42-52); Hemoglobin 12.9 g/dl (14.0-18.0); Imm Gran Abs Auto 0.01 X10*3/uL (0.00-0.03); Imm Gran Pct Auto 0.2 % (0.0-0.4); Lymphocytes Percent Auto 39.5 % (20-40); Mean Corpuscular HGB Conc 32.8 g/dl (31.0-36.0); Mean Corpuscular Hemoglobin 30.3 pg (27.0-33.0); Mean Corpuscular Volume 92.3 fL (80-98); Mean Platelet Volume 9.7 fL (9.4-12.4); Monocytes Absolute Auto 0.9 X10*3/uL (0.1-1.2); Monocytes Percent Auto 17.2 % (2-11); Platelet Count 273 X10*3/uL (160-400); Red Blood Count 4.26 X10*6/uL (4.60-5.80); Red Cell Distribution Width 16.7 % (11.0-16.0); White Blood Count 5.1 X10*3/uL (4.8-10.8)
[2020-11-30 11:17] LABS: Alanine Aminotransferase 30 U/L (0-40); Albumin Level 4.3 g/dL (3.5-5.0); Alkaline Phosphatase 69 U/L (39-117); Anion Gap 14 (12-20); Aspartate Amino Transferase 32 U/L (5-37); Bilirubin Total 0.4 mg/dL (0.0-1.0); Blood Urea Nitrogen 7 mg/dL (9-16); Calcium 9.6 mg/dL (8.4-10.2); Carbon Dioxide 26 mmol/L (22-29); Chloride 106 mmol/L (96-108); Creatinine Clr Calc Pharmacy 103.7; Estimated Glomerular Filt Rate > 60; Glucose Random 106 mg/dL (60-115); Potassium 3.9 mmol/L (3.3-5.1); Sodium 142 mmol/L (135-145); Total Protein 6.9 g/dL (6.5-8.0)
--- NOTE | 2020-12-01 | ECG_ITS ---
Test Reason : chest pain Blood Pressure : / mmHG Vent. Rate : 081 BPM Atrial Rate : 081 BPM P-R Int : 156 ms QRS Dur : 096 ms QT Int : 366 ms P-R-T Axes : 061 070 057 degrees QTc Int : 425 ms Normal sinus rhythm Normal ECG When compared with ECG of 21-FEB-2019 19:51, No significant change was found Referred By: Nuria Mims Electronically Signed By:Stuart Interiano
[2020-12-01 10:22] VITALS: BP 134/87; PULSE 94; RESP 18; TEMP 36.9; O2SAT 96; BMI 31.2
[2020-12-01] MEDS: ondansetron HCL/NS 16 MG/50 ML PIGGYBACK 200 MG IV (10:52)
[2020-12-01] MEDS: Acetaminophen 325 MG TABLET 650 MG PO (10:53)
[2020-12-01] MEDS: Famotidine 20 MG TABLET PO (10:55)
[2020-12-01] MEDS: dexAMETHasone sod phosphate/NS 12 MG/50 ML PIGGYBACK 200 MG IV (11:19)
[2020-12-01] MEDS: Heparin Sodium,Porcine Flush 500 UNIT/5 ML SYRINGE IVFLUSH (13:41)
--- NOTE | 2020-12-01 16:10 | MHC.HEMONC ---
Pt here for C17 D1 of treatment. Labs done 11/30 reviewed. Port accessed, good blood return noted. States feels good after last treatment. Does c/o dull pain in left side of chest. Denies SOB, sharp pain, radiating pain. EKG done prior to discharge. Premeds given as ordered. Pt refuses atropine sc. Treatment done and tolerated well. Scheduled to return for next treatment in 2 weeks.
[2020-12-15 10:08] VITALS: BP 147/116; PULSE 100; RESP 18; TEMP 36.3; O2SAT 95; BMI 31.1
[2020-12-15 10:34] LABS: MANUAL DIFF FLAG NO
[2020-12-15 10:36] LABS: Basophils Percent Auto 0.3 % (0-2); Eosinophils Absolute Auto 0.2 X10*3/uL (0.0-0.4); Eosinophils Percent Auto 2.6 % (0-4); Hematocrit 38.4 % (42-52); Hemoglobin 12.5 g/dl (14.0-18.0); Imm Gran Abs Auto 0.01 X10*3/uL (0.00-0.03); Imm Gran Pct Auto 0.2 % (0.0-0.4); Lymphocytes Absolute Auto 2.1 X10*3/uL (1.2-4.9); Mean Corpuscular HGB Conc 32.6 g/dl (31.0-36.0); Mean Corpuscular Hemoglobin 30.2 pg (27.0-33.0); Mean Corpuscular Volume 92.8 fL (80-98); Mean Platelet Volume 9.8 fL (9.4-12.4); Monocytes Absolute Auto 0.7 X10*3/uL (0.1-1.2); Monocytes Percent Auto 12.5 % (2-11); Neutrophils Absolute Auto 2.7 X10*3/uL (2.0-8.3); Neutrophils Percent Auto 47.4 % (45-73); Platelet Count 280 X10*3/uL (160-400); Red Blood Count 4.14 X10*6/uL (4.60-5.80); Red Cell Distribution Width 17.1 % (11.0-16.0); White Blood Count 5.8 X10*3/uL (4.8-10.8)
[2020-12-15 10:37] LABS: Appearance Urine CLEAR; Color Urine YELLOW; Glucose Urine UA NEG (NEG); Leukocyte Esterase Urine NEG (NEG); Nitrite Urine NEG (NEG); Specific Gravity - Urine >= 1.030 (1.005-1.025); Urine Blood NEG (NEG); Urine Ketones NEG (NEG); Urine Protein TRACE MG/DL (NEG-TRACE)
[2020-12-15 11:01] LABS: Alanine Aminotransferase 63 U/L (0-40); Albumin Level 4.1 g/dL (3.5-5.0); Alkaline Phosphatase 84 U/L (39-117); Anion Gap 12 (12-20); Aspartate Amino Transferase 45 U/L (5-37); Bilirubin Total 0.7 mg/dL (0.0-1.0); Blood Urea Nitrogen 9 mg/dL (9-16); Calcium 8.8 mg/dL (8.4-10.2); Carbon Dioxide 24 mmol/L (22-29); Chloride 104 mmol/L (96-108); Creatinine Clr Calc Pharmacy 104.9; Estimated Glomerular Filt Rate > 60; Glucose Random 102 mg/dL (60-115); Magnesium 1.9 mg/dL (1.6-2.6); Potassium 3.8 mmol/L (3.3-5.1); Sodium 136 mmol/L (135-145); Total Protein 6.7 g/dL (6.5-8.0)
[2020-12-15] MEDS: dexAMETHasone sod phosphate/NS 12 MG/50 ML PIGGYBACK 100 MG IV (11:13)
[2020-12-15] MEDS: Acetaminophen 325 MG TABLET 650 MG PO (11:13)
[2020-12-15] MEDS: Famotidine 20 MG TABLET PO (11:14)
[2020-12-15] MEDS: Heparin Sodium,Porcine Flush 500 UNIT/5 ML SYRINGE IVFLUSH (11:14)
[2020-12-15 17:26] LABS: Creatinine Urine 401.15 mg/dL
[2020-12-28 10:32] LABS: MANUAL DIFF FLAG NO
[2020-12-28 10:36] LABS: Basophils Percent Auto 0.3 % (0-2); Eosinophils Absolute Auto 0.2 X10*3/uL (0.0-0.4); Eosinophils Percent Auto 3.2 % (0-4); Glucose Urine UA NEG (NEG); Hematocrit 40.7 % (42-52); Hemoglobin 12.9 g/dl (14.0-18.0); Imm Gran Abs Auto 0.01 X10*3/uL (0.00-0.03); Imm Gran Pct Auto 0.2 % (0.0-0.4); Leukocyte Esterase Urine NEG (NEG); Lymphocytes Absolute Auto 2.4 X10*3/uL (1.2-4.9); Lymphocytes Percent Auto 40.8 % (20-40); Mean Corpuscular HGB Conc 31.7 g/dl (31.0-36.0); Mean Corpuscular Hemoglobin 29.5 pg (27.0-33.0); Mean Corpuscular Volume 92.9 fL (80-98); Mean Platelet Volume 10.1 fL (9.4-12.4); Monocytes Absolute Auto 0.8 X10*3/uL (0.1-1.2); Monocytes Percent Auto 12.8 % (2-11); Neutrophils Absolute Auto 2.5 X10*3/uL (2.0-8.3); Neutrophils Percent Auto 42.7 % (45-73); Nitrite Urine NEG (NEG); Platelet Count 261 X10*3/uL (160-400); Red Blood Count 4.38 X10*6/uL (4.60-5.80); Red Cell Distribution Width 17.2 % (11.0-16.0); Specific Gravity - Urine >= 1.030 (1.005-1.025); Urine Blood NEG (NEG); Urine Ketones NEG (NEG); Urine Protein NEG (NEG-TRACE); White Blood Count 5.9 X10*3/uL (4.8-10.8)
[2020-12-28 10:37] LABS: Appearance Urine CLEAR; Color Urine YELLOW
--- NOTE | 2020-12-28 10:54 | MHC.HEMONC ---
labs/urine WNL for treatment tomorrow
[2020-12-28 11:12] LABS: Alanine Aminotransferase 57 U/L (0-40); Albumin Level 4.2 g/dL (3.5-5.0); Alkaline Phosphatase 77 U/L (39-117); Anion Gap 14 (12-20); Aspartate Amino Transferase 55 U/L (5-37); Bilirubin Total 0.3 mg/dL (0.0-1.0); Blood Urea Nitrogen 11 mg/dL (9-16); Calcium 9.1 mg/dL (8.4-10.2); Carbon Dioxide 25 mmol/L (22-29); Chloride 106 mmol/L (96-108); Creatinine Clr Calc Pharmacy 95.2; Estimated Glomerular Filt Rate > 60; Glucose Random 102 mg/dL (60-115); Magnesium 2.1 mg/dL (1.6-2.6); Potassium 4.9 mmol/L (3.3-5.1); Sodium 140 mmol/L (135-145); Total Protein 7.1 g/dL (6.5-8.0)
[2020-12-29 10:25] VITALS: BP 136/97; PULSE 97; RESP 18; TEMP 36.8; O2SAT 95; BMI 31.6
[2020-12-29] MEDS: Acetaminophen 325 MG TABLET 650 MG PO (11:45)
[2020-12-29] MEDS: Famotidine 20 MG TABLET PO (11:46)
[2020-12-29] MEDS: dexAMETHasone sod phosphate/NS 12 MG/50 ML PIGGYBACK 200 MG IV (12:11)
[2020-12-29] MEDS: Heparin Sodium,Porcine Flush 500 UNIT/5 ML SYRINGE IVFLUSH (15:07)
--- NOTE | 2020-12-29 15:52 | MHC.HEMONC ---
Pt here for C19 D1 of Mvasi/Irenotecan. Labs done 12/28 reviewed. Port accessed, good blood return noted. Premeds given as ordered. Pt declines Atropine sc. Treatment done and tolerated well. Heparin flush done, port deaccessed. Scheduled to return in 2 weeks for next treatment.
[2021-01-11 10:23] LABS: MANUAL DIFF FLAG NO
[2021-01-11 10:30] LABS: Basophils Percent Auto 0.4 % (0-2); Eosinophils Absolute Auto 0.1 X10*3/uL (0.0-0.4); Hematocrit 38.3 % (42-52); Hemoglobin 12.6 g/dl (14.0-18.0); Imm Gran Abs Auto 0.01 X10*3/uL (0.00-0.03); Imm Gran Pct Auto 0.2 % (0.0-0.4); Lymphocytes Absolute Auto 2.2 X10*3/uL (1.2-4.9); Lymphocytes Percent Auto 46.4 % (20-40); Mean Corpuscular HGB Conc 32.9 g/dl (31.0-36.0); Mean Corpuscular Volume 91.2 fL (80-98); Mean Platelet Volume 10.2 fL (9.4-12.4); Monocytes Absolute Auto 0.6 X10*3/uL (0.1-1.2); Neutrophils Absolute Auto 1.7 X10*3/uL (2.0-8.3); Platelet Count 270 X10*3/uL (160-400); Red Cell Distribution Width 17.1 % (11.0-16.0); White Blood Count 4.7 X10*3/uL (4.8-10.8)
[2021-01-11 11:01] LABS: Alanine Aminotransferase 36 U/L (0-40); Alkaline Phosphatase 67 U/L (39-117); Anion Gap 14 (12-20); Aspartate Amino Transferase 28 U/L (5-37); Bilirubin Total 0.5 mg/dL (0.0-1.0); Blood Urea Nitrogen 9 mg/dL (9-16); Calcium 9.2 mg/dL (8.4-10.2); Carbon Dioxide 22 mmol/L (22-29); Chloride 106 mmol/L (96-108); Creatinine Clr Calc Pharmacy 102.6; Estimated Glomerular Filt Rate > 60; Glucose Random 105 mg/dL (60-115); Magnesium 2.4 mg/dL (1.6-2.6); Potassium 4.1 mmol/L (3.3-5.1); Sodium 138 mmol/L (135-145); Total Protein 6.7 g/dL (6.5-8.0)
[2021-01-11 11:01] LABS: Creatinine Urine 218.91 mg/dL
[2021-01-11 14:46] LABS: Glucose Urine UA NEG (NEG); Leukocyte Esterase Urine NEG (NEG); Nitrite Urine NEG (NEG); Urine Blood NEG (NEG); Urine Ketones NEG (NEG); Urine Protein NEG (NEG-TRACE)
[2021-01-11 14:47] LABS: Appearance Urine CLEAR; Color Urine YELLOW
--- NOTE | 2021-01-12 10:17 | P.PNHO_ITS ---
Medical Summary - Medical Summary Date of Service: 01/12/21 Chief complaint: Follow-up and scheduled treatment Medical Summary: Diagnosis: Metastatic colon cancer diagnosed February 2019 Presented with worsening abdominal pain, right lower quadrant ongoing for almost a year. CT imaging showed inflamed appendix, periappendiceal inflammation involving cecum and small bowel. Abscess identified in the pelvis which was drained. Appendectomy performed 02/22/2019, invasive adenocarcinoma, moderately differentiated, tumor present at the resection margin. Acute appendicitis and Suzy appendicitis with perforation. IHC showed CK 7-, CK 20 positive and CDX2 positive. MMR proficient. On 03/11/2019 patient underwent colonoscopy which showed adenomatous looking degenerative mass with an ulcerated center in the cecum. Two polyps were also removed. CTA performed 02/21/2019 showed multiple lung nodules bilaterally. Largest in the left lower lobe measuring 1.[address] abdomen performed 02/21/2019 showed dilated and inflamed appendix with surrounding inflammatory changes. Normal liver and spleen. Prominent mesenteric lymph nodes measuring up to 1.4 cm. CEA elevated at 14.6. FNA of the left lower lobe lung nodule performed 03/13/2019 showed adenocarcinoma consistent with known cecal primary. PET scan showed intense uptake around cecum, SUV 14.2, terminal ileum, foci in mesentery in the pelvis and right lower quadrant suspicious for metastatic deposits. No uptake in the lung nodules but malignancy not excluded. Right hemicolectomy performed 04/03/2019, adenocarcinoma moderately differentiated. Tumor invades through visceral peritoneum with macroscopic tumor perforation and direct invasion into adjacent loop of small bowel. Eight of 12 pericolonic lymph nodes positive for adenocarcinoma. Tumor involves mesenteric resection margins. Lymphovascular invasion present. Tumor size 6 x 2.8 cm. Stage [id number]. MMR proficient. BRAF mutation not detected, K-renata mutation detected, NRAS mutation not detected, IHC for verdugo TRK negative. Genetic testing. Patient?s genetic test result indicated that he was negative for a hereditary cancer gene mutation. Started chemotherapy modified FOLFOX 6 with Avastin from 04/23/2019. PET scan performed June 2019 showed complete metabolic response. Because of side effects of neuropathy his chemotherapy changed to maintenance treatment with Xeloda 1000 milligram/meter squared b.i.d. day 1-14 along with Avastin Q 3 weeks in June 2019.He has had elevation of CEA, PET-CT performed at [facility] on 11/04/2019 showed increased FDG activity in right lower quadrant of abdomen/pelvis, SUV 6.4, nodular infiltration measuring 1.3 x 0.9 cm. Right upper lobe subpleural nodule with minimal FDG uptake of 2.6, metastatic nodule probable. Xeloda discontinued in February 2020 because of worsening hand/foot syndrome. [place] [facility] [place] 2020 showed multiple subcentimeter pulmonary nodules none of which had FDG avidity. No other sites of metastatic disease. Left hip osteoarthritis diagnosed on x-ray. Bone scan was negative. Interval History Interval history: Patient is here for scheduled treatment. He is doing okay, he thinks he gained some weight because of protein shakes. His hair is growing back. He has no significant complaints such as nausea, abdominal discomfort or change in bowel habits. So far he has been tolerating treatment well. [facility] Medical History: Medical History (Last Updated 08/25/20 @ 09:[address] MD) Acute appendicitis Asthma Colon adenocarcinoma Diarrhea Hypercholesteremia Family History: Family History (Last Reviewed 08/25/20 @ 12:[address] MD) Father History of cancer of unknown primary site Family history of high blood pressure Mother No problems noted. Maternal Grandfather Hx of arteriosclerotic cardiovascular disease Brother No problems noted. Sister No problems noted. Surgical History: Surgical History (Last Updated 08/25/20 @ 12:[address] MD) History of lung biopsy Hx of appendectomy Hx of colonoscopy Hx of right hemicolectomy Social History: Social History (Last Reviewed 08/25/20 @ 12:[address] MD) Living Situation History: Household Members: Family Alcohol History: Alcohol intake: current Alcohol History Details: Alcohol intake frequency: does not drink Advance Directives: Advance Directives: No Advance Directives Information Provided: No Occupation Assessmet: Current occupational status: disabled Home Medications and Allergies Home Medications Medication Instructions Recorded Confirmed Type multivitamin 1 cap PO DAILY 03/03/20 10/27/20 History acetaminophen 325 mg tablet 650 mg PO Q6H PRN 08/25/20 10/27/20 History Allergies Allergy/AdvReac Type Severity Reaction Status Date / Time seafood Allergy Severe Angioedema Verified 12/27/20 15:55 shrimp [SHRIMP] Allergy Severe ANGIOEDEMA Verified 03/24/20 11:48 milk [MILK] Allergy Mild DIARRHEA Verified 03/24/20 11:48 Exam Vital signs: Vital Signs Temp 98.2 F 12/29/20 10:25 Pulse 97 12/29/20 10:25 Resp 18 12/29/20 10:25 BP 136/97 H 12/29/20 10:25 Pulse Ox 95 12/29/20 10:25 Weight 100.1 kg Body Mass Index 31.6 - Constitutional Present: no acute distress - Routine HEENT Exam Head: Present: normal inspection - Routine Neck Exam Present: full ROM. Absent: lymphadenopathy - Routine Chest/Breast/Axilla Exam Chest wall: Absent: tenderness, mass - Routine Respiratory Exam Present: CTAB - Routine Cardiovascular Exam Cardiovascular: Present: RRR, S1, S2 - Routine Skin Exam Present: dry, rash, cracked Data - Labs CBC & Chem 7: 01/11/21 10:12 01/11/21 10:12 Labs: 03/03/20 00:00 Bevacizumab-awwb [Mvasi] 400 mg Bevacizumab-awwb [Mvasi] 250 mg 0.9 % Sodium Chloride [Ns] 74 ml IV ONCE Fosaprepitant Dimeglumine [Emend] 150 mg 0.9 % Sodium Chloride [Ns] 145 ml IV ONCE Heparin Sodium,Porcine Flush 500 unit IVFLUSH ONCE Heparin Sodium,Porcine Flush 500 unit IVFLUSH ONCE Oxaliplatin 270 mg Dextrose 5 % [D5w] 500 ml IV ONCE dexAMETHasone sod phosphate/NS [Decadron] 12 mg in 50 ml IV ONCE dexAMETHasone sod phosphate/NS [Decadron] 12 mg in 50 ml IV ONCE ondansetron HCL/NS [Zofran] 16 mg in 50 ml IV ONCE ondansetron HCL/NS [Zofran] 16 mg in 50 ml IV ONCE 03/03/20 09:49 Comprehensive Met. Panel Routine Magnesium Routine 03/03/20 10:25 UA and rflx microscopic Routine 03/03/20 10:45 Complete Blood Count Auto Diff Routine 03/24/20 00:00 Bevacizumab-awwb [Mvasi] 400 mg Bevacizumab-awwb [Mvasi] 250 mg 0.9 % Sodium Chloride [Ns] 74 ml IV ONCE Fosaprepitant Dimeglumine [Emend] 150 mg 0.9 % Sodium Chloride [Ns] 145 ml IV ONCE Heparin Sodium,Porcine Flush 500 unit IVFLUSH ONCE Oxaliplatin 270 mg Dextrose 5 % [D5w] 500 ml IV ONCE dexAMETHasone sod phosphate/NS [Decadron] 12 mg in 50 ml IV ONCE ondansetron HCL/NS [Zofran] 16 mg in 50 ml IV ONCE 03/24/20 10:40 Carcinoembryonic Antigen Routine Complete Blood Count Auto Diff Routine Comprehensive Met. Panel Routine Lactate Dehydrogenase Routine Magnesium Routine 03/24/20 11:00 Creatinine Urine Routine UA and rflx microscopic Routine 03/24/20 17:13 Add Laboratory Test Routine 04/13/20 00:00 Acetaminophen [Tylenol] 650 mg PO ONCE Acetaminophen [Tylenol] 650 mg PO ONCE Acetaminophen [Tylenol] 650 mg PO ONCE Atropine Sulfate 0.5 mg IVPUSH ONCE Atropine Sulfate 0.5 mg IVPUSH ONCE Atropine Sulfate 0.5 mg SUBCUT ONCE Bevacizumab-awwb [Mvasi] 400 mg Bevacizumab-awwb [Mvasi] 50 mg 0.9 % Sodium Chloride [Ns] 82 ml IV ONCE Famotidine [Pepcid] 20 mg PO ONCE Famotidine [Pepcid] 20 mg PO ONCE Famotidine/PF [Pepcid/PF] 20 mg IVPUSH ONCE Fosaprepitant Dimeglumine [Emend] 150 mg 0.9 % Sodium Chloride [Ns] 145 ml IV ONCE Fosaprepitant Dimeglumine [Emend] 150 mg 0.9 % Sodium Chloride [Ns] 145 ml IV ONCE Fosaprepitant Dimeglumine [Emend] 150 mg 0.9 % Sodium Chloride [Ns] 145 ml IV ONCE Heparin Sodium,Porcine Flush 500 unit IVFLUSH ONCE Irinotecan HCl [Camptosar] 300 mg Irinotecan HCl [Camptosar] 50 mg Dextrose 5 % [D5w] 500 ml IV ONCE Irinotecan HCl [Camptosar] 300 mg Irinotecan HCl [Camptosar] 50 mg Dextrose 5 % [D5w] 500 ml IV ONCE Irinotecan HCl [Camptosar] 300 mg Irinotecan HCl [Camptosar] 50 mg Dextrose 5 % [D5w] 500 ml IV ONCE dexAMETHasone sod phosphate/NS [Decadron] 12 mg in 50 ml IV ONCE dexAMETHasone sod phosphate/NS [Decadron] 12 mg in 50 ml IV ONCE dexAMETHasone sod phosphate/NS [Decadron] 12 mg in 50 ml IV ONCE ondansetron HCL/NS [Zofran] 16 mg in 50 ml IV ONCE ondansetron HCL/NS [Zofran] 16 mg in 50 ml IV ONCE 04/13/20 09:20 Carcinoembryonic Antigen Routine Comprehensive Met. Panel Routine Magnesium Routine 04/13/20 11:40 Complete Blood Count Auto Diff Routine 04/13/20 12:46 Creatinine Urine Routine UA and rflx microscopic Routine 04/13/20 13:45 dexAMETHasone sod phosphate/NS [Decadron] 12 mg in 50 ml IV ONCE ondansetron HCL/NS [Zofran] 16 mg in 50 ml IV ONCE 04/28/20 00:00 Acetaminophen [Tylenol] 650 mg PO ONCE Atropine Sulfate 0.5 mg IVPUSH ONCE Atropine Sulfate 0.5 mg SUBCUT ONCE Bevacizumab-awwb [Mvasi] 400 mg Bevacizumab-awwb [Mvasi] 50 mg 0.9 % Sodium Chloride [Ns] 82 ml IV ONCE Famotidine [Pepcid] 20 mg PO ONCE Fosaprepitant Dimeglumine [Emend] 150 mg 0.9 % Sodium Chloride [Ns] 145 ml IV ONCE Heparin Sodium,Porcine Flush 500 unit IVFLUSH ONCE Irinotecan HCl [Camptosar] 300 mg Irinotecan HCl [Camptosar] 50 mg Dextrose 5 % [D5w] 500 ml IV ONCE dexAMETHasone sod phosphate/NS [Decadron] 12 mg in 50 ml IV ONCE ondansetron HCL/NS [Zofran] 16 mg in 50 ml IV ONCE 04/28/20 10:30 Carcinoembryonic Antigen Routine Complete Blood Count Auto Diff Routine Comprehensive Met. Panel Routine Lipid Panel with Reflex Routine Magnesium Routine 04/28/20 11:10 Creatinine Urine Routine UA and rflx microscopic Routine 04/28/20 11:35 Famotidine/PF [Pepcid/PF] 20 mg IVPUSH ONCE ONE 05/12/20 00:00 Acetaminophen [Tylenol] 650 mg PO ONCE Atropine Sulfate 0.5 mg SUBCUT ONCE Famotidine [Pepcid] 20 mg PO ONCE Heparin Sodium,Porcine Flush 500 unit IVFLUSH ONCE Irinotecan HCl [Camptosar] 300 mg Irinotecan HCl [Camptosar] 50 mg Dextrose 5 % [D5w] 500 ml IV ONCE dexAMETHasone sod phosphate/NS [Decadron] 12 mg in 50 ml IV ONCE ondansetron HCL/NS [Zofran] 16 mg in 50 ml IV ONCE 05/12/20 10:50 Carcinoembryonic Antigen Routine Complete Blood Count Auto Diff Routine Comprehensive Met. Panel Routine Magnesium Routine 05/26/20 00:00 Acetaminophen [Tylenol] 650 mg PO ONCE Atropine Sulfate 0.5 mg SUBCUT ONCE Famotidine [Pepcid] 20 mg PO ONCE Heparin Sodium,Porcine Flush 500 unit IVFLUSH ONCE dexAMETHasone sod phosphate/NS [Decadron] 12 mg in 50 ml IV ONCE dexAMETHasone sod phosphate/NS [Decadron] 12 mg in 50 ml IV ONCE dexAMETHasone sod phosphate/NS [Decadron] 12 mg in 50 ml IV ONCE ondansetron HCL/NS [Zofran] 16 mg in 50 ml IV ONCE 05/26/20 10:45 Carcinoembryonic Antigen Routine Complete Blood Count Auto Diff Routine Comprehensive Met. Panel Routine Magnesium Routine 06/09/20 00:00 Acetaminophen [Tylenol] 650 mg PO ONCE Atropine Sulfate 0.5 mg SUBCUT ONCE Famotidine [Pepcid] 20 mg PO ONCE Heparin Sodium,Porcine Flush 500 unit IVFLUSH ONCE dexAMETHasone sod phosphate/NS [Decadron] 12 mg in 50 ml IV ONCE ondansetron HCL/NS [Zofran] 16 mg in 50 ml IV ONCE 06/09/20 10:17 Carcinoembryonic Antigen Routine Complete Blood Count Auto Diff Routine Comprehensive Met. Panel Routine Magnesium Routine 06/22/20 08:28 Magnesium Routine 06/22/20 08:28 Complete Blood Count Auto Diff Routine Comprehensive Met. Panel Routine 06/22/20 08:40 UA w Microscopic Routine 06/23/20 00:00 Acetaminophen [Tylenol] 650 mg PO ONCE Acetaminophen [Tylenol] 650 mg PO ONCE Atropine Sulfate 0.5 mg SUBCUT ONCE Atropine Sulfate 0.5 mg SUBCUT ONCE Famotidine [Pepcid] 20 mg PO ONCE Famotidine [Pepcid] 20 mg PO ONCE Heparin Sodium,Porcine Flush 500 unit IVFLUSH ONCE Heparin Sodium,Porcine Flush 500 unit IVFLUSH ONCE dexAMETHasone sod phosphate/NS [Decadron] 12 mg in 50 ml IV ONCE dexAMETHasone sod phosphate/NS [Decadron] 12 mg in 50 ml IV ONCE ondansetron HCL/NS [Zofran] 16 mg in 50 ml IV ONCE ondansetron HCL/NS [Zofran] 16 mg in 50 ml IV ONCE Laboratory Last Values WBC 5.2 X10*3/uL (4.8-10.8) 06/22/20 08:28 RBC 4.04 X10*6/uL (4.60-5.80) L 06/22/20 08:28 Hgb 13.2 g/dl (14.0-18.0) L 06/22/20 08:28 Hct 39.6 % (42-52) L 06/22/20 08: MCV 98.0 fL (80-98) 06/22/20 08: MCH 32.7 pg (27.0-33.0) 06/22/20 08: MCHC 33.3 g/dl (31.0-36.0) 06/22/20 08: RDW 14.6 % (11.0-16.0) 06/22/20 08:28 Plt Count 268 X10*3/uL (160-400) 06/22/20 08: MPV 9.4 fL (9.4-12.4) 06/22/20 08:28 Immature Gran % (Auto) 0.2 % (0.0-0.4) 06/22/20 08: Neut % (Auto) 39.0 % (45-73) L 06/22/20 08: Lymph % (Auto) 42.4 % (20-40) H 06/22/20 08:28 [place] % (Auto) 13.8 % (2-11) H 06/22/20 08: Eos % (Auto) 4.0 % (0-4) 06/22/20 08: Baso % (Auto) 0.6 % (0-2) 06/22/20 08:28 Lymph # (Auto) 2.2 X10*3/uL (1.2-4.9) 06/22/20 08:28 [place] # (Auto) 0.7 X10*3/uL (0.1-1.2) 06/22/20 08:28 Eos # (Auto) 0.2 X10*3/uL (0.0-0.4) 06/22/20 08:28 Baso # (Auto) 0.0 X10*3/uL (0.0-0.2) 06/22/20 08:28 Abs Immat Gran (auto) 0.01 X10*3/uL (0.00-0.03) 06/22/20 08:28 Absolute Neuts (auto) 2.0 X10*3/uL (2.0-8.3) 06/22/20 08:28 Absolute Nucleated RBC 0.000 X10*3/uL (0.0-0.012) 06/22/20 08:28 Nucleated RBC % (auto) 0.0 /100WBC (0.0-0.2) 06/22/20 08:28 Sodium 141 mmol/L (135-145) 06/22/20 08:28 Potassium 3.7 mmol/L (3.3-5.1) 06/22/20 08:28 Chloride 104 mmol/L (96-108) 06/22/20 08:28 Carbon Dioxide 26 mmol/L (22-29) 06/22/20 08:28 Anion Gap 15 (12-20) 06/22/20 08:28 BUN 7 mg/dL (9-16) L 06/22/20 08:28 Creatinine 1.07 mg/dL (0.5-1.4) 06/22/20 08:28 Estim Creat Clear Calc 92.8 06/22/20 08:28 Estimated GFR > 60 06/22/20 08:28 Random Glucose 100 mg/dL (60-115) 06/22/20 08:28 Calcium 8.8 mg/dL (8.4-10.2) 06/22/20 08:28 Magnesium 1.9 mg/dL (1.6-2.6) 06/22/20 08:28 Total Bilirubin 0.5 mg/dL (0.0-1.0) 06/22/20 08:28 AST 30 U/L (5-37) 06/22/20 08:28 ALT 37 U/L (0-40) 06/22/20 08:28 Alkaline Phosphatase 72 U/L (39-117) D 06/22/20 08:28 Lactate Dehydrogenase 188 U/L (118-273) 03/24/20 10:40 Total Protein 6.8 g/dL (6.5-8.0) 06/22/20 08:28 Albumin 4.1 g/dL (3.5-5.0) 06/22/20 08:28 Triglycerides 246 mg/dL 04/28/20 10:30 Cholesterol 244 mg/dL 04/28/20 10:30 LDL Cholesterol, Calc 129 mg/dl 04/28/20 10:30 HDL Cholesterol 66 mg/dL 04/28/20 10:30 Carcinoembryonic Ag 10.60 mg/mL 06/09/20 10:17 Urine Color YELLOW 06/22/20 08:40 Urine Appearance CLEAR 06/22/20 08:40 Urine pH 5.5 (5.0-8.0) 06/22/20 08:40 Ur Specific Bogart >= 1.030 (1.005-1.025) H 06/22/20 08:40 Urine Protein NEG MG/DL (NEG-TRACE) 06/22/20 08:40 Urine Glucose (UA) NEG MG/DL (NEG) 06/22/20 08:40 Urine Ketones NEG MG/DL (NEG) 06/22/20 08:40 Urine Blood NEG (NEG) 06/22/20 08:40 Urine Nitrite NEG (NEG) 06/22/20 08:40 Ur Leukocyte Esterase NEG (NEG) 06/22/20 08:40 Urine RBC 0-2 /HPF (0) 06/22/20 08:40 Urine WBC 0-2 /HPF (0-4) 06/22/20 08:40 Ur Squamous Epith Cells NONE /LPF 06/22/20 08:40 Urine Bacteria NONE /LPF 06/22/20 08:40 Urine Creatinine 219.77 mg/dL 04/28/20 11:10 Assessment and Plan Patient Active problem list reviewed?: Yes (1) Colon carcinoma metastatic to multiple sites Status: Chronic Assessment and plan: 1. This is a 50-year-old man with metastatic colon cancer, arising from cecum. FNA of lung nodule is consistent with adenocarcinoma. Right hemicolectomy performed 04/03/2019, adenocarcinoma moderately differentiated. Stage [id number]. MMR proficient. BRAF mutation not detected, K-renata mutation detected, NRAS mutation not detected, IHC for verdugo TRK negative. HER2 non reactive and tumor mutational burden 4 Muts/Mb. Started chemotherapy modified FOLFOX 6 with Avastin from 04/23/2019. He had a good response based on PET scan in June but because of side effects of neuropathy he was switched to maintenance Xeloda with Avastin. Xeloda was discontinued in February 2020 because of hand-foot syndrome. He is now on irinotecan plus bevacizumab every 2 weeks. He is tolerating this well. CEA is rising. Restaging chest/abdomen and pelvis scans have been ordered. If there is disease progression compared to his PET-CT in October, he will be started on FOLFIRI/Avastin. Proceed with treatment as scheduled today. Follow-up in 6 weeks. - Time Spent With Patient Time Spent with Patient (in minutes): 20
[2021-01-12 10:24] VITALS: BP 134/84; PULSE 104; RESP 16; TEMP 36.6; O2SAT 94; BMI 31.6
[2021-01-12 10:25] LABS: Glucose Urine UA NEG (NEG); Leukocyte Esterase Urine NEG (NEG); Nitrite Urine NEG (NEG); Specific Gravity - Urine >= 1.030 (1.005-1.025); Urine Blood NEG (NEG); Urine Ketones NEG (NEG); Urine Protein TRACE MG/DL (NEG-TRACE)
[2021-01-12 10:26] LABS: Appearance Urine HAZY; Color Urine YELLOW
[2021-01-12 10:35] LABS: Mucus Urine TRACE /LPF; RBC Urine 0-2 /HPF (0); WBC Urine 0 /HPF (0-4)
[2021-01-12] MEDS: Famotidine 20 MG TABLET PO (10:58)
[2021-01-12] MEDS: Acetaminophen 325 MG TABLET 650 MG PO (10:59)
[2021-01-12] MEDS: dexAMETHasone sod phosphate/NS 12 MG/50 ML PIGGYBACK 200 MG IV (11:30)
[2021-01-12] MEDS: Heparin Sodium,Porcine Flush 500 UNIT/5 ML SYRINGE IVFLUSH (14:11)
--- NOTE | 2021-01-12 15:10 | MHC.HEMONC ---
pt labs and urine WNL. CEA continues to go up gradually. Pt has minimal c/o, is tolerating treatments well. Dr Mims met with him and plan is to move along to Avastin (MVASI) and FOLFIRI. Pt is aware of these drugs and is in agreement. Plan to return in 2 weeks.
--- NOTE | 2021-01-18 16:18 | HO.HEMONCPA ---
PA FOR J0640(LEUCOVORIN),[id number](FLUOROURACIL), J9206(IRINOTECAN),Q5107(MVASI) & J1453 (FOSAPREPITANT) APPROVED. DOS 01/18/2021-01/18/2022. AUTH#[id number]. PER MITCHELL Cotto ON 01/18/21 at 2:59PM DRUGS APPROVED FOR BUY&BILL REQUEST
--- NOTE | 2021-01-25 10:52 | MHC.HEMONCMA ---
CT called today regarding patient's CT of chest today, states that he has an allergy to sea food/shellfish and was not aware if the patient was premedicated. I spoke with the patient to see what type of reaction he has when he ingests either of those things and he states that he swells, but not every time. I called CT and cancelled the CT for today, and let them know we will reschedule when the CT of abdomen/pelvis is authorized to so that both can be done the same day. Dr Mims ordered the pre-medications so the patient can take them the scheduled time before the scans. Patient is aware of this plan and agrees with it. I will be calling him back with the date and time for both scans.
--- NOTE | 2021-01-26 11:47 | HO.HEMONCPA ---
PA WAS APPROVED FOR HOSPITAL BUY & BILL . REFRENCE# JOSE Cotto ON 01/26/21 .
--- NOTE | 2021-01-28 10:19 | HO.HEMONCPA ---
PA FOR CT HAS BEEN APPROVED . REFERENCE #[id number] CASE #[id number] AUTH#[id number] . DOS 01/27/21 TO 03/13/21.
--- NOTE | 2021-01-28 11:52 | MHC.HEMONCMA ---
Patient called checking in on his CT scans. I let him know that we are still waiting on auth for his abdomen/pelvis. I asked Pastora and Rimma if they could obtain auth. Rimma was able to, so I called centralized scheduling to schedule both chest and abdomen/pelvis CT. Patient has been booked for 02/01/2021 at 0800. Patient is aware that he needs to get the medications prednisone and benadryl from his pharmacy to premedicate before the tests due to his allergy for shell fish. Patient is also aware that he needs to arrive 2 hours before to take the oral contrast. Patient also states that he would like to come down after his CT's for lab work for chemo, I let him know that he certainly can do that and that I placed him on the schedule for that.
--- NOTE | 2021-01-28 13:05 | MHC.HEMONC ---
pt called with directions to take pre-meds for his CT. he will take 50mg Prednisone at 6 pm evening before, then again at 12 a.m day of exam then at 7 a.m with Benadryl 50mg. Pt repeated this back.
[2021-02-01 09:11] LABS: MANUAL DIFF FLAG NO
[2021-02-01 09:16] LABS: Basophils Percent Auto 0.2 % (0-2); Hematocrit 43.5 % (42-52); Hemoglobin 14.4 g/dl (14.0-18.0); Imm Gran Abs Auto 0.02 X10*3/uL (0.00-0.03); Imm Gran Pct Auto 0.3 % (0.0-0.4); Lymphocytes Absolute Auto 1.2 X10*3/uL (1.2-4.9); Lymphocytes Percent Auto 20.8 % (20-40); Mean Corpuscular HGB Conc 33.1 g/dl (31.0-36.0); Mean Corpuscular Volume 90.6 fL (80-98); Mean Platelet Volume 9.8 fL (9.4-12.4); Monocytes Absolute Auto 0.4 X10*3/uL (0.1-1.2); Monocytes Percent Auto 6.8 % (2-11); Neutrophils Absolute Auto 4.2 X10*3/uL (2.0-8.3); Neutrophils Percent Auto 71.9 % (45-73); Platelet Count 313 X10*3/uL (160-400); White Blood Count 5.8 X10*3/uL (4.8-10.8)
[2021-02-01 09:22] LABS: Appearance Urine CLEAR; Color Urine YELLOW; Glucose Urine UA NEG (NEG); Leukocyte Esterase Urine NEG (NEG); Nitrite Urine NEG (NEG); Urine Blood NEG (NEG); Urine Ketones NEG (NEG); Urine Protein NEG (NEG-TRACE)
[2021-02-01 09:35] LABS: Alanine Aminotransferase 26 U/L (0-40); Albumin Level 4.6 g/dL (3.5-5.0); Alkaline Phosphatase 64 U/L (39-117); Anion Gap 14 (12-20); Aspartate Amino Transferase 25 U/L (5-37); Bilirubin Total 0.6 mg/dL (0.0-1.0); Blood Urea Nitrogen 10 mg/dL (9-16); Calcium 10.1 mg/dL (8.4-10.2); Carbon Dioxide 26 mmol/L (22-29); Chloride 103 mmol/L (96-108); Creatinine Clr Calc Pharmacy 91.5; Estimated Glomerular Filt Rate > 60; Glucose Random 135 mg/dL (60-115); Potassium 4.9 mmol/L (3.3-5.1); Sodium 138 mmol/L (135-145); Total Protein 7.3 g/dL (6.5-8.0)
[2021-02-02 09:34] VITALS: BP 141/93; PULSE 90; RESP 18; TEMP 36.7; O2SAT 94; BMI 31.5
[2021-02-02] MEDS: dexAMETHasone sod phosphate/NS 12 MG/50 ML PIGGYBACK 200 MG IV (11:00)
[2021-02-02] MEDS: Famotidine 20 MG TABLET PO (11:00)
[2021-02-02] MEDS: diphenhydrAMINE HCL 25 MG TABLET PO (11:01)
[2021-02-02] MEDS: Acetaminophen 325 MG TABLET 650 MG PO (11:01)
[2021-02-02] MEDS: Fosaprepitant Dimeglumine 150 MG in 0.9 % Sodium Chloride 145 ML 300 MG IV (11:28)
--- NOTE | 2021-02-02 16:44 | MHC.HEMONC ---
Pt here for C1 D1 Folfiri/Avastin. Port accessed, good blood return. Labs done 02/01 reviewed. States feeling ok today. Premeds given as ordered. Treatment done and tolerated well. Home with infusion pump. Pt declined Atropine today.
[2021-02-04] MEDS: Heparin Sodium,Porcine Flush 500 UNIT/5 ML SYRINGE IVFLUSH (13:47)
--- NOTE | 2021-02-04 15:14 | MHC.HEMONC ---
Here for pump take down. Tolerated treatment well.
[2021-02-16 09:21] VITALS: BP 137/99; PULSE 92; RESP 18; TEMP 36.7; O2SAT 96; BMI 31.8
[2021-02-16 09:41] LABS: MANUAL DIFF FLAG NO
[2021-02-16 09:43] LABS: Basophils Percent Auto 0.4 % (0-2); Eosinophils Absolute Auto 0.1 X10*3/uL (0.0-0.4); Eosinophils Percent Auto 2.9 % (0-4); Hematocrit 38.5 % (42-52); Hemoglobin 12.7 g/dl (14.0-18.0); Lymphocytes Absolute Auto 1.9 X10*3/uL (1.2-4.9); Lymphocytes Percent Auto 38.8 % (20-40); Mean Corpuscular Hemoglobin 30.3 pg (27.0-33.0); Mean Corpuscular Volume 91.9 fL (80-98); Mean Platelet Volume 9.8 fL (9.4-12.4); Monocytes Absolute Auto 0.8 X10*3/uL (0.1-1.2); Neutrophils Percent Auto 41.9 % (45-73); Platelet Count 179 X10*3/uL (160-400); Red Blood Count 4.19 X10*6/uL (4.60-5.80); Red Cell Distribution Width 16.8 % (11.0-16.0); White Blood Count 4.8 X10*3/uL (4.8-10.8)
[2021-02-16 09:48] LABS: Appearance Urine CLEAR; Color Urine YELLOW; Glucose Urine UA NEG (NEG); Leukocyte Esterase Urine NEG (NEG); Nitrite Urine NEG (NEG); Specific Gravity - Urine >= 1.030 (1.005-1.025); Urine Blood NEG (NEG); Urine Ketones NEG (NEG); Urine Protein NEG (NEG-TRACE)
[2021-02-16] MEDS: Famotidine 20 MG TABLET PO (10:16)
[2021-02-16] MEDS: diphenhydrAMINE HCL 25 MG TABLET PO (10:16)
[2021-02-16] MEDS: Acetaminophen 325 MG TABLET 650 MG PO (10:16)
[2021-02-16 10:18] LABS: Alanine Aminotransferase 57 U/L (0-40); Albumin Level 4.1 g/dL (3.5-5.0); Alkaline Phosphatase 71 U/L (39-117); Anion Gap 12 (12-20); Aspartate Amino Transferase 43 U/L (5-37); Bilirubin Total 0.4 mg/dL (0.0-1.0); Blood Urea Nitrogen 12 mg/dL (9-16); Carbon Dioxide 24 mmol/L (22-29); Chloride 107 mmol/L (96-108); Creatinine Clr Calc Pharmacy 81.2; Estimated Glomerular Filt Rate 59; Glucose Random 103 mg/dL (60-115); Magnesium 2.1 mg/dL (1.6-2.6); Potassium 4.2 mmol/L (3.3-5.1); Sodium 139 mmol/L (135-145); Total Protein 6.5 g/dL (6.5-8.0)
[2021-02-16] MEDS: dexAMETHasone sod phosphate/NS 12 MG/50 ML PIGGYBACK 200 MG IV (10:34)
[2021-02-16] MEDS: Fosaprepitant Dimeglumine 150 MG in 0.9 % Sodium Chloride 145 ML 300 MG IV (10:56)
--- NOTE | 2021-02-16 16:17 | MHC.HEMONC ---
Pt here for C2 D1 Folfiri/mvasi. States feeling tired after last treatment, otherwise feeling ok. Port accessed with blood return noted. Labs drawn and reviewed. Premeds given as ordered. Pt declined atropine injection. Treatment done and tolerated well. Home with infusion pump. Will return in 2 days for pump take down.
[2021-02-18] MEDS: Heparin Sodium,Porcine Flush 500 UNIT/5 ML SYRINGE IVFLUSH (13:04)
[2021-03-02 09:38] VITALS: BP 153/89; PULSE 96; RESP 18; TEMP 36.4; O2SAT 96; BMI 31.6
[2021-03-02 09:52] LABS: Appearance Urine CLEAR; Color Urine YELLOW; Glucose Urine UA NEG (NEG); Leukocyte Esterase Urine NEG (NEG); Nitrite Urine NEG (NEG); Urine Blood NEG (NEG); Urine Ketones NEG (NEG); Urine Protein NEG (NEG-TRACE)
[2021-03-02 09:55] LABS: MANUAL DIFF FLAG NO
[2021-03-02 09:59] LABS: Basophils Percent Auto 0.6 % (0-2); Eosinophils Absolute Auto 0.1 X10*3/uL (0.0-0.4); Eosinophils Percent Auto 2.3 % (0-4); Hematocrit 38.8 % (42-52); Hemoglobin 12.8 g/dl (14.0-18.0); Imm Gran Abs Auto 0.01 X10*3/uL (0.00-0.03); Imm Gran Pct Auto 0.2 % (0.0-0.4); Lymphocytes Absolute Auto 1.8 X10*3/uL (1.2-4.9); Lymphocytes Percent Auto 36.8 % (20-40); Mean Corpuscular Hemoglobin 30.1 pg (27.0-33.0); Mean Corpuscular Volume 91.3 fL (80-98); Monocytes Absolute Auto 0.8 X10*3/uL (0.1-1.2); Monocytes Percent Auto 16.5 % (2-11); Neutrophils Absolute Auto 2.1 X10*3/uL (2.0-8.3); Neutrophils Percent Auto 43.6 % (45-73); Platelet Count 192 X10*3/uL (160-400); Red Blood Count 4.25 X10*6/uL (4.60-5.80); Red Cell Distribution Width 16.8 % (11.0-16.0); White Blood Count 4.9 X10*3/uL (4.8-10.8)
[2021-03-02 10:16] LABS: Alanine Aminotransferase 91 U/L (0-40); Albumin Level 4.1 g/dL (3.5-5.0); Alkaline Phosphatase 79 U/L (39-117); Anion Gap 10 (12-20); Aspartate Amino Transferase 53 U/L (5-37); Bilirubin Total 0.4 mg/dL (0.0-1.0); Blood Urea Nitrogen 12 mg/dL (9-16); Carbon Dioxide 25 mmol/L (22-29); Chloride 106 mmol/L (96-108); Creatinine Clr Calc Pharmacy 96.7; Estimated Glomerular Filt Rate > 60; Glucose Random 102 mg/dL (60-115); Potassium 3.9 mmol/L (3.3-5.1); Sodium 137 mmol/L (135-145); Total Protein 6.5 g/dL (6.5-8.0)
[2021-03-02] MEDS: Acetaminophen 325 MG TABLET 650 MG PO (10:41)
[2021-03-02] MEDS: diphenhydrAMINE HCL 25 MG TABLET PO (10:42)
[2021-03-02] MEDS: Famotidine 20 MG TABLET PO (10:43)
[2021-03-02] MEDS: dexAMETHasone sod phosphate/NS 12 MG/50 ML PIGGYBACK 200 MG IV (11:10)
[2021-03-02] MEDS: Fosaprepitant Dimeglumine 150 MG in 0.9 % Sodium Chloride 145 ML 300 MG IV (11:31)
--- NOTE | 2021-03-02 16:51 | MHC.HEMONC ---
Pt here for C3 D1 Folfiri. Port accessed with good blood return noted. Labs drawn and reviewed. Tolerated last treatment well. Premeds given as ordered. Declined Atropine. Treatment done and tolerated well. Home with infusion pump. Scheduled for take down in 2 days.
[2021-03-04 13:46] VITALS: BP 150/92; PULSE 104; RESP 16; O2SAT 96
[2021-03-04] MEDS: Heparin Sodium,Porcine Flush 500 UNIT/5 ML SYRINGE IVFLUSH (13:51)
--- NOTE | 2021-03-04 15:10 | MHC.HEMONC ---
Patient present for CADD Pump takedown. Infusion completed, positive blood return in R chest port. Port de-accessed, patient tolerated it well. Patient aware of upcoming appointments. He departed the unit.
[2021-03-16 09:30] VITALS: BP 136/76; PULSE 103; RESP 18; TEMP 37; O2SAT 96; BMI 31.2
[2021-03-16 09:39] LABS: MANUAL DIFF FLAG NO
[2021-03-16 09:44] LABS: Appearance Urine CLEAR; Basophils Percent Auto 0.9 % (0-2); Color Urine YELLOW; Eosinophils Absolute Auto 0.1 X10*3/uL (0.0-0.4); Eosinophils Percent Auto 2.3 % (0-4); Glucose Urine UA NEG (NEG); Hematocrit 38.2 % (42-52); Hemoglobin 12.7 g/dl (14.0-18.0); Imm Gran Abs Auto 0.01 X10*3/uL (0.00-0.03); Imm Gran Pct Auto 0.2 % (0.0-0.4); Leukocyte Esterase Urine NEG (NEG); Lymphocytes Percent Auto 44.9 % (20-40); Mean Corpuscular HGB Conc 33.2 g/dl (31.0-36.0); Mean Corpuscular Hemoglobin 30.1 pg (27.0-33.0); Mean Corpuscular Volume 90.5 fL (80-98); Mean Platelet Volume 10.2 fL (9.4-12.4); Monocytes Absolute Auto 0.7 X10*3/uL (0.1-1.2); Monocytes Percent Auto 15.3 % (2-11); Neutrophils Absolute Auto 1.6 X10*3/uL (2.0-8.3); Neutrophils Percent Auto 36.4 % (45-73); Nitrite Urine NEG (NEG); Platelet Count 185 X10*3/uL (160-400); Red Blood Count 4.22 X10*6/uL (4.60-5.80); Specific Gravity - Urine >= 1.030 (1.005-1.025); Urine Blood NEG (NEG); Urine Ketones NEG (NEG); Urine Protein TRACE MG/DL (NEG-TRACE); White Blood Count 4.4 X10*3/uL (4.8-10.8)
[2021-03-16 09:56] LABS: Alanine Aminotransferase 53 U/L (0-40); Albumin Level 4.1 g/dL (3.5-5.0); Alkaline Phosphatase 82 U/L (39-117); Anion Gap 14 (12-20); Aspartate Amino Transferase 48 U/L (5-37); Bilirubin Total 0.5 mg/dL (0.0-1.0); Blood Urea Nitrogen 12 mg/dL (9-16); Calcium 9.1 mg/dL (8.4-10.2); Carbon Dioxide 21 mmol/L (22-29); Chloride 106 mmol/L (96-108); Creatinine Clr Calc Pharmacy 86.2; Estimated Glomerular Filt Rate > 60; Glucose Random 106 mg/dL (60-115); Magnesium 1.9 mg/dL (1.6-2.6); Potassium 3.8 mmol/L (3.3-5.1); Sodium 137 mmol/L (135-145); Total Protein 6.7 g/dL (6.5-8.0)
[2021-03-16] MEDS: Acetaminophen 325 MG TABLET 650 MG PO (10:16)
[2021-03-16] MEDS: diphenhydrAMINE HCL 25 MG TABLET PO (10:17)
[2021-03-16] MEDS: Famotidine 20 MG TABLET PO (10:17)
[2021-03-16] MEDS: dexAMETHasone sod phosphate/NS 12 MG/50 ML PIGGYBACK 200 MG IV (10:41)
--- NOTE | 2021-03-16 10:49 | PM.HEMONCPN ---
Medical Summary - Medical Summary Date of Service: 03/16/21 Chief complaint: Follow-up Medical Summary: Diagnosis: Metastatic colon cancer diagnosed February 2019 Presented with worsening abdominal pain, right lower quadrant ongoing for almost a year. CT imaging showed inflamed appendix, periappendiceal inflammation involving cecum and small bowel. Abscess identified in the pelvis which was drained. Appendectomy performed 02/22/2019, invasive adenocarcinoma, moderately differentiated, tumor present at the resection margin. Acute appendicitis and Suzy appendicitis with perforation. IHC showed CK 7-, CK 20 positive and CDX2 positive. MMR proficient. On 03/11/2019 patient underwent colonoscopy which showed adenomatous looking degenerative mass with an ulcerated center in the cecum. Two polyps were also removed. CTA performed 02/21/2019 showed multiple lung nodules bilaterally. Largest in the left lower lobe measuring 1.[address] abdomen performed 02/21/2019 showed dilated and inflamed appendix with surrounding inflammatory changes. Normal liver and spleen. Prominent mesenteric lymph nodes measuring up to 1.4 cm. CEA elevated at 14.6. FNA of the left lower lobe lung nodule performed 03/13/2019 showed adenocarcinoma consistent with known cecal primary. PET scan showed intense uptake around cecum, SUV 14.2, terminal ileum, foci in mesentery in the pelvis and right lower quadrant suspicious for metastatic deposits. No uptake in the lung nodules but malignancy not excluded. Right hemicolectomy performed 04/03/2019, adenocarcinoma moderately differentiated. Tumor invades through visceral peritoneum with macroscopic tumor perforation and direct invasion into adjacent loop of small bowel. Eight of 12 pericolonic lymph nodes positive for adenocarcinoma. Tumor involves mesenteric resection margins. Lymphovascular invasion present. Tumor size 6 x 2.8 cm. Stage [id number]. MMR proficient. BRAF mutation not detected, K-renata mutation detected, NRAS mutation not detected, IHC for verdugo TRK negative. Genetic testing. Patient?s genetic test result indicated that he was negative for a hereditary cancer gene mutation. Started chemotherapy modified FOLFOX 6 with Avastin from 04/23/2019. PET scan performed June 2019 showed complete metabolic response. Because of side effects of neuropathy his chemotherapy changed to maintenance treatment with Xeloda 1000 milligram/meter squared b.i.d. day 1-14 along with Avastin Q 3 weeks in June 2019.He has had elevation of CEA, PET-CT performed at [facility] on 11/04/2019 showed increased FDG activity in right lower quadrant of abdomen/pelvis, SUV 6.4, nodular infiltration measuring 1.3 x 0.9 cm. Right upper lobe subpleural nodule with minimal FDG uptake of 2.6, metastatic nodule probable. Xeloda discontinued in February 2020 because of worsening hand/foot syndrome. Repeat PET-CT at [facility] in October 2020 showed multiple subcentimeter pulmonary nodules none of which had FDG avidity. No other sites of metastatic disease. On irinotecan plus bevacizumab every 2 weeks until January 2021. Interval History Interval history: Patient is here for scheduled treatment. He is doing quite well overall. He was recently treated for an intestinal infection. His hematochezia has resolved since he has been on antibiotics. He denies any abdominal pain, fever or chills. He continues to have sternal, mid chest achiness that is constant. It does not change with exertion and not associated with any other symptoms such as dizziness, diaphoresis or palpitations. Denies any cough or sore throat. He is waiting to get booster dose of COVID-19 vaccination. His neuropathy is stable and has not worsened with oxaliplatin. Review of Systems - Constitutional Reports as per HPI, Reports no additional constitutional complaints - Cardiovascular Reports no additional cardiovascular complaints - Respiratory Reports no additional respiratory complaints - Gastrointestinal Reports no additional gastrointestinal complaints [facility] Medical History: Medical History (Last Reviewed 02/08/21 @ 15:38 by THAIS Irving) Acute appendicitis Asthma Colon adenocarcinoma Diarrhea Hypercholesteremia Family History: Family History (Last Reviewed 02/08/21 @ 15:38 by THAIS Irving) Father History of cancer of unknown primary site Family history of high blood pressure Mother No problems noted. Maternal Grandfather Hx of arteriosclerotic cardiovascular disease Brother No problems noted. Sister No problems noted. Surgical History: Surgical History (Last Reviewed 02/08/21 @ 15:38 by THAIS Irving) History of lung biopsy Hx of appendectomy Hx of colonoscopy Hx of right hemicolectomy Social History: Social History (Last Reviewed 02/08/21 @ 15:38 by THAIS Irving) Living Situation History: Household Members: Family Alcohol History: Alcohol intake: current Alcohol History Details: Alcohol intake frequency: does not drink Advance Directives: Advance Directives: No Advance Directives Information Provided: No Occupation Assessmet: Current occupational status: disabled Oncology Screenings - ECOG Performance Status ECOG Performance Status: 1 Home Medications and Allergies Current Medications: Current Medications Acetaminophen (Acetaminophen 325 Mg Tablet) 650 mg PO ONCE LOLLY Stop: 03/16/21 23:59 Last Admin: 03/16/21 10:16 Dose: 650 mg Documented by: Atropine Sulfate (Atropine Sulfate 1 Mg/Ml Vial) 0.5 mg SUBCUT ONCE LOLLY Stop: 03/16/21 23:59 Diphenhydramine HCl (Diphenhydramine Hcl 25 Mg Tablet) 25 mg PO ONCE LOLLY Stop: 03/16/21 23:59 Last Admin: 03/16/21 10:17 Dose: 25 mg Documented by: Famotidine (Famotidine 20 Mg Tablet) 20 mg PO ONCE LOLLY Stop: 03/16/21 23:59 Last Admin: 03/16/21 10:17 Dose: 20 mg Documented by: Dexamethasone Sodium Phosphate (Decadron) 12 mg in 50 mls @ 200 mls/hr IV ONCE LOLLY Stop: 03/16/21 23:59 Last Admin: 03/16/21 10:41 Dose: 200 mls/hr Documented by: Ondansetron HCl (Zofran) 16 mg in 50 mls @ 200 mls/hr IV ONCE LOLLY Stop: 03/16/21 23:59 Last Infusion: 03/16/21 10:30 Dose: Infused Documented by: Fosaprepitant 150 mg/ Sodium (Chloride) 150 mls @ 300 mls/hr IV ONCE LOLLY Stop: 03/16/21 23:59 Bevacizumab-awwb 400 mg/Bevacizumab-awwb 100 mg/Sodium Chloride 100 mls @ 200 mls/hr IV ONCE LOLLY Stop: 03/16/21 23:59 Fluorouracil 5,000 mg/Fluorouracil 325 mg/ Sodium Chloride 115 mls @ 2.5 mls/hr IV ONCE LOLLY Stop: 03/16/21 23:59 Fluorouracil 900 mg/ IV (Miscellaneous Supplies) 18 mls @ 216 mls/hr IVPUSH ONCE LOLLY Stop: 03/16/21 23:59 Irinotecan HCl 400 mg/ (Dextrose) 520 mls @ 346.667 mls/hr IV ONCE LOLLY Stop: 03/16/21 23:59 Leucovorin Calcium 800 mg/Leucovorin Calcium 90 mg/Dextrose 339 mls @ 147.25 mls/hr IV ONCE [facility] Home Medications Medication Instructions Recorded Confirmed Type multivitamin 1 cap PO DAILY 03/03/20 10/27/20 History acetaminophen 325 mg tablet 650 mg PO Q6H PRN 08/25/20 10/27/20 History albuterol sulfate 90 mcg/actuation 0 mcg INHALATION 02/08/21 History aerosol inhaler Probiotic 02/16/21 02/16/21 History Allergies Allergy/AdvReac Type Severity Reaction Status Date / Time seafood Allergy Severe Angioedema Verified 02/08/21 15:36 shrimp [SHRIMP] Allergy Severe ANGIOEDEMA Verified 02/08/21 15:36 milk [MILK] Allergy Mild DIARRHEA Verified 02/08/21 15:36 Exam Vital signs: Vital Signs Temp 97.6 F 03/02/21 09:38 Pulse 104 H 03/04/21 13:46 Resp 16 03/04/21 13:46 BP 150/92 H 03/04/21 13:46 Pulse Ox 96 03/04/21 13:46 Intake & Output 03/15/21 03/16/21 03/16/21 18:59 06:59 18:59 Intake Total 50 / 50 Balance 50 / 50 Intake: Intake, IV Amount 50 / 50 Ondansetron HCL/NS 16 mg In 50 50 / 50 ml @ 200 mls/hr IV ONCE [facility] Rx# :[id number] Other: Weight 98.7 kg Weight in Grams [id number] Weight 98.7 kg Body Mass Index 31.2 - Constitutional Present: no acute distress - Routine HEENT Exam Head: Present: normal inspection - Routine Neck Exam Present: full ROM. Absent: lymphadenopathy - Routine Chest/Breast/Axilla Exam Chest wall: Absent: tenderness, mass - Routine Respiratory Exam Present: CTAB - Routine Cardiovascular Exam Cardiovascular: Present: RRR, S1, S2 - Routine Skin Exam Present: dry, rash, cracked Data - Labs CBC & Chem 7: 03/16/21 09:30 03/16/21 09:30 Labs: 03/03/20 00:00 Bevacizumab-awwb [Mvasi] 400 mg Bevacizumab-awwb [Mvasi] 250 mg 0.9 % Sodium Chloride [Ns] 74 ml IV ONCE Fosaprepitant Dimeglumine [Emend] 150 mg 0.9 % Sodium Chloride [Ns] 145 ml IV ONCE Heparin Sodium,Porcine Flush 500 unit IVFLUSH ONCE Heparin Sodium,Porcine Flush 500 unit IVFLUSH ONCE Oxaliplatin 270 mg Dextrose 5 % [D5w] 500 ml IV ONCE dexAMETHasone sod phosphate/NS [Decadron] 12 mg in 50 ml IV ONCE dexAMETHasone sod phosphate/NS [Decadron] 12 mg in 50 ml IV ONCE ondansetron HCL/NS [Zofran] 16 mg in 50 ml IV ONCE ondansetron HCL/NS [Zofran] 16 mg in 50 ml IV ONCE 03/03/20 09:49 Comprehensive Met. Panel Routine Magnesium Routine 03/03/20 10:25 UA and rflx microscopic Routine 03/03/20 10:45 Complete Blood Count Auto Diff Routine 03/24/20 00:00 Bevacizumab-awwb [Mvasi] 400 mg Bevacizumab-awwb [Mvasi] 250 mg 0.9 % Sodium Chloride [Ns] 74 ml IV ONCE Fosaprepitant Dimeglumine [Emend] 150 mg 0.9 % Sodium Chloride [Ns] 145 ml IV ONCE Heparin Sodium,Porcine Flush 500 unit IVFLUSH ONCE Oxaliplatin 270 mg Dextrose 5 % [D5w] 500 ml IV ONCE dexAMETHasone sod phosphate/NS [Decadron] 12 mg in 50 ml IV ONCE ondansetron HCL/NS [Zofran] 16 mg in 50 ml IV ONCE 03/24/20 10:40 Carcinoembryonic Antigen Routine Complete Blood Count Auto Diff Routine Comprehensive Met. Panel Routine Lactate Dehydrogenase Routine Magnesium Routine 03/24/20 11:00 Creatinine Urine Routine UA and rflx microscopic Routine 03/24/20 17:13 Add Laboratory Test Routine 04/13/20 00:00 Acetaminophen [Tylenol] 650 mg PO ONCE Acetaminophen [Tylenol] 650 mg PO ONCE Acetaminophen [Tylenol] 650 mg PO ONCE Atropine Sulfate 0.5 mg IVPUSH ONCE Atropine Sulfate 0.5 mg IVPUSH ONCE Atropine Sulfate 0.5 mg SUBCUT ONCE Bevacizumab-awwb [Mvasi] 400 mg Bevacizumab-awwb [Mvasi] 50 mg 0.9 % Sodium Chloride [Ns] 82 ml IV ONCE Famotidine [Pepcid] 20 mg PO ONCE Famotidine [Pepcid] 20 mg PO ONCE Famotidine/PF [Pepcid/PF] 20 mg IVPUSH ONCE Fosaprepitant Dimeglumine [Emend] 150 mg 0.9 % Sodium Chloride [Ns] 145 ml IV ONCE Fosaprepitant Dimeglumine [Emend] 150 mg 0.9 % Sodium Chloride [Ns] 145 ml IV ONCE Fosaprepitant Dimeglumine [Emend] 150 mg 0.9 % Sodium Chloride [Ns] 145 ml IV ONCE Heparin Sodium,Porcine Flush 500 unit IVFLUSH ONCE Irinotecan HCl [Camptosar] 300 mg Irinotecan HCl [Camptosar] 50 mg Dextrose 5 % [D5w] 500 ml IV ONCE Irinotecan HCl [Camptosar] 300 mg Irinotecan HCl [Camptosar] 50 mg Dextrose 5 % [D5w] 500 ml IV ONCE Irinotecan HCl [Camptosar] 300 mg Irinotecan HCl [Camptosar] 50 mg Dextrose 5 % [D5w] 500 ml IV ONCE dexAMETHasone sod phosphate/NS [Decadron] 12 mg in 50 ml IV ONCE dexAMETHasone sod phosphate/NS [Decadron] 12 mg in 50 ml IV ONCE dexAMETHasone sod phosphate/NS [Decadron] 12 mg in 50 ml IV ONCE ondansetron HCL/NS [Zofran] 16 mg in 50 ml IV ONCE ondansetron HCL/NS [Zofran] 16 mg in 50 ml IV ONCE 04/13/20 09:20 Carcinoembryonic Antigen Routine Comprehensive Met. Panel Routine Magnesium Routine 04/13/20 11:40 Complete Blood Count Auto Diff Routine 04/13/20 12:46 Creatinine Urine Routine UA and rflx microscopic Routine 04/13/20 13:45 dexAMETHasone sod phosphate/NS [Decadron] 12 mg in 50 ml IV ONCE ondansetron HCL/NS [Zofran] 16 mg in 50 ml IV ONCE 04/28/20 00:00 Acetaminophen [Tylenol] 650 mg PO ONCE Atropine Sulfate 0.5 mg IVPUSH ONCE Atropine Sulfate 0.5 mg SUBCUT ONCE Bevacizumab-awwb [Mvasi] 400 mg Bevacizumab-awwb [Mvasi] 50 mg 0.9 % Sodium Chloride [Ns] 82 ml IV ONCE Famotidine [Pepcid] 20 mg PO ONCE Fosaprepitant Dimeglumine [Emend] 150 mg 0.9 % Sodium Chloride [Ns] 145 ml IV ONCE Heparin Sodium,Porcine Flush 500 unit IVFLUSH ONCE Irinotecan HCl [Camptosar] 300 mg Irinotecan HCl [Camptosar] 50 mg Dextrose 5 % [D5w] 500 ml IV ONCE dexAMETHasone sod phosphate/NS [Decadron] 12 mg in 50 ml IV ONCE ondansetron HCL/NS [Zofran] 16 mg in 50 ml IV ONCE 04/28/20 10:30 Carcinoembryonic Antigen Routine Complete Blood Count Auto Diff Routine Comprehensive Met. Panel Routine Lipid Panel with Reflex Routine Magnesium Routine 04/28/20 11:10 Creatinine Urine Routine UA and rflx microscopic Routine 04/28/20 11:35 Famotidine/PF [Pepcid/PF] 20 mg IVPUSH ONCE ONE 05/12/20 00:00 Acetaminophen [Tylenol] 650 mg PO ONCE Atropine Sulfate 0.5 mg SUBCUT ONCE Famotidine [Pepcid] 20 mg PO ONCE Heparin Sodium,Porcine Flush 500 unit IVFLUSH ONCE Irinotecan HCl [Camptosar] 300 mg Irinotecan HCl [Camptosar] 50 mg Dextrose 5 % [D5w] 500 ml IV ONCE dexAMETHasone sod phosphate/NS [Decadron] 12 mg in 50 ml IV ONCE ondansetron HCL/NS [Zofran] 16 mg in 50 ml IV ONCE 05/12/20 10:50 Carcinoembryonic Antigen Routine Complete Blood Count Auto Diff Routine Comprehensive Met. Panel Routine Magnesium Routine 05/26/20 00:00 Acetaminophen [Tylenol] 650 mg PO ONCE Atropine Sulfate 0.5 mg SUBCUT ONCE Famotidine [Pepcid] 20 mg PO ONCE Heparin Sodium,Porcine Flush 500 unit IVFLUSH ONCE dexAMETHasone sod phosphate/NS [Decadron] 12 mg in 50 ml IV ONCE dexAMETHasone sod phosphate/NS [Decadron] 12 mg in 50 ml IV ONCE dexAMETHasone sod phosphate/NS [Decadron] 12 mg in 50 ml IV ONCE ondansetron HCL/NS [Zofran] 16 mg in 50 ml IV ONCE 05/26/20 10:45 Carcinoembryonic Antigen Routine Complete Blood Count Auto Diff Routine Comprehensive Met. Panel Routine Magnesium Routine 06/09/20 00:00 Acetaminophen [Tylenol] 650 mg PO ONCE Atropine Sulfate 0.5 mg SUBCUT ONCE Famotidine [Pepcid] 20 mg PO ONCE Heparin Sodium,Porcine Flush 500 unit IVFLUSH ONCE dexAMETHasone sod phosphate/NS [Decadron] 12 mg in 50 ml IV ONCE ondansetron HCL/NS [Zofran] 16 mg in 50 ml IV ONCE 06/09/20 10:17 Carcinoembryonic Antigen Routine Complete Blood Count Auto Diff Routine Comprehensive Met. Panel Routine Magnesium Routine 06/22/20 08:28 Magnesium Routine 06/22/20 08:28 Complete Blood Count Auto Diff Routine Comprehensive Met. Panel Routine 06/22/20 08:40 UA w Microscopic Routine 06/23/20 00:00 Acetaminophen [Tylenol] 650 mg PO ONCE Acetaminophen [Tylenol] 650 mg PO ONCE Atropine Sulfate 0.5 mg SUBCUT ONCE Atropine Sulfate 0.5 mg SUBCUT ONCE Famotidine [Pepcid] 20 mg PO ONCE Famotidine [Pepcid] 20 mg PO ONCE Heparin Sodium,Porcine Flush 500 unit IVFLUSH ONCE Heparin Sodium,Porcine Flush 500 unit IVFLUSH ONCE dexAMETHasone sod phosphate/NS [Decadron] 12 mg in 50 ml IV ONCE dexAMETHasone sod phosphate/NS [Decadron] 12 mg in 50 ml IV ONCE ondansetron HCL/NS [Zofran] 16 mg in 50 ml IV ONCE ondansetron HCL/NS [Zofran] 16 mg in 50 ml IV ONCE Laboratory Last Values WBC 5.2 X10*3/uL (4.8-10.8) 06/22/20 08:28 RBC 4.04 X10*6/uL (4.60-5.80) L 06/22/20 08:28 Hgb 13.2 g/dl (14.0-18.0) L 06/22/20 08:28 Hct 39.6 % (42-52) L 06/22/20 08:28 MCV 98.0 fL (80-98) 06/22/20 08:28 MCH 32.7 pg (27.0-33.0) 06/22/20 08:28 MCHC 33.3 g/dl (31.0-36.0) 06/22/20 08:28 RDW 14.6 % (11.0-16.0) 06/22/20 08:28 Plt Count 268 X10*3/uL (160-400) 06/22/20 08:28 MPV 9.4 fL (9.4-12.4) 06/22/20 08:28 Immature Gran % (Auto) 0.2 % (0.0-0.4) 06/22/20 08:28 Neut % (Auto) 39.0 % (45-73) L 06/22/20 08:28 Lymph % (Auto) 42.4 % (20-40) H 06/22/20 08:28 [place] % (Auto) 13.8 % (2-11) H 06/22/20 08:28 Eos % (Auto) 4.0 % (0-4) 06/22/20 08:28 Baso % (Auto) 0.6 % (0-2) 06/22/20 08:28 Lymph # (Auto) 2.2 X10*3/uL (1.2-4.9) 06/22/20 08:28 [place] # (Auto) 0.7 X10*3/uL (0.1-1.2) 06/22/20 08:28 Eos # (Auto) 0.2 X10*3/uL (0.0-0.4) 06/22/20 08:28 Baso # (Auto) 0.0 X10*3/uL (0.0-0.2) 06/22/20 08:28 Abs Immat Gran (auto) 0.01 X10*3/uL (0.00-0.03) 06/22/20 08:28 Absolute Neuts (auto) 2.0 X10*3/uL (2.0-8.3) 06/22/20 08:28 Absolute Nucleated RBC 0.000 X10*3/uL (0.0-0.012) 06/22/20 08:28 Nucleated RBC % (auto) 0.0 /100WBC (0.0-0.2) 06/22/20 08:28 Sodium 141 mmol/L (135-145) 06/22/20 08:28 Potassium 3.7 mmol/L (3.3-5.1) 06/22/20 08:28 Chloride 104 mmol/L (96-108) 06/22/20 08:28 Carbon Dioxide 26 mmol/L (22-29) 06/22/20 08:28 Anion Gap 15 (12-20) 06/22/20 08:28 BUN 7 mg/dL (9-16) L 06/22/20 08:28 Creatinine 1.07 mg/dL (0.5-1.4) 06/22/20 08:28 Estim Creat Clear Calc 92.8 06/22/20 08:28 Estimated GFR > 60 06/22/20 08:28 Random Glucose 100 mg/dL (60-115) 06/22/20 08:28 Calcium 8.8 mg/dL (8.4-10.2) 06/22/20 08:28 Magnesium 1.9 mg/dL (1.6-2.6) 06/22/20 08:28 Total Bilirubin 0.5 mg/dL (0.0-1.0) 06/22/20 08:28 AST 30 U/L (5-37) 06/22/20 08:28 ALT 37 U/L (0-40) 06/22/20 08:28 Alkaline Phosphatase 72 U/L (39-117) D 06/22/20 08:28 Lactate Dehydrogenase 188 U/L (118-273) 03/24/20 10:40 Total Protein 6.8 g/dL (6.5-8.0) 06/22/20 08:28 Albumin 4.1 g/dL (3.5-5.0) 06/22/20 08:28 Triglycerides 246 mg/dL 04/28/20 10:30 Cholesterol 244 mg/dL 04/28/20 10:30 LDL Cholesterol, Calc 129 mg/dl 04/28/20 10:30 HDL Cholesterol 66 mg/dL 04/28/20 10:30 Carcinoembryonic Ag 10.60 mg/mL 06/09/20 10:17 Urine Color YELLOW 06/22/20 08:40 Urine Appearance CLEAR 06/22/20 08:40 Urine pH 5.5 (5.0-8.0) 06/22/20 08:40 Ur Specific [place] >= 1.030 (1.005-1.025) H 06/22/20 08:40 Urine Protein NEG MG/DL (NEG-TRACE) 06/22/20 08:40 Urine Glucose (UA) NEG MG/DL (NEG) 06/22/20 08:40 Urine Ketones NEG MG/DL (NEG) 06/22/20 08:40 Urine Blood NEG (NEG) 06/22/20 08:40 Urine Nitrite NEG (NEG) 06/22/20 08:40 Ur Leukocyte Esterase NEG (NEG) 06/22/20 08:40 Urine RBC 0-2 /HPF (0) 06/22/20 08:40 Urine WBC 0-2 /HPF (0-4) 06/22/20 08:40 Ur Squamous Epith Cells NONE /LPF 06/22/20 08:40 Urine Bacteria NONE /LPF 06/22/20 08:40 Urine Creatinine 219.77 mg/dL 04/28/20 11:10 Assessment and Plan Patient Active problem list reviewed?: Yes (1) Colon carcinoma metastatic to multiple sites Status: Chronic Assessment and plan: 1. This is a 50-year-old man with metastatic colon cancer, arising from cecum. FNA of lung nodule is consistent with adenocarcinoma. Right hemicolectomy performed 04/03/2019, adenocarcinoma moderately differentiated. Stage [id number]. MMR proficient. BRAF mutation not detected, K-renata mutation detected, NRAS mutation not detected, IHC for verdugo TRK negative. HER2 non reactive and tumor mutational burden 4 Muts/Mb. Started chemotherapy modified FOLFOX 6 with Avastin from 04/23/2019. He had a good response based on PET scan in June but because of side effects of neuropathy he was switched to maintenance Xeloda with Avastin. Restaging chest/abdomen and pelvis scans on 02/01/2021 showed progressive disease with innumerable lung nodules. He started FOLFOX regimen from 02/02/2021. Avastin has been discontinued because of recurrent hematochezia. He was recently treated for colitis and his hematochezia has resolved. Proceed with cycle 4 today. Repeat imaging study after cycle 6. Follow-up in 6 weeks. - Time Spent With Patient Time Spent with Patient (in minutes): 20
[2021-03-16] MEDS: Fosaprepitant Dimeglumine 150 MG in 0.9 % Sodium Chloride 145 ML 300 MG IV (11:02)
--- NOTE | 2021-03-16 16:22 | MHC.HEMONC ---
Pt here for C4 D1 Fofiri. Port accessed with good blood return noted. Labs obtained and reviewed. Pt states tolerated last treatment well. Premeds given as ordered. Treatment done and tolerated well. Dr Mims in to see pt in follow up. Home with infusion pump. Scheduled to return for take down in 2 days.
[2021-03-18] MEDS: Heparin Sodium,Porcine Flush 500 UNIT/5 ML SYRINGE IVFLUSH (13:30)
--- NOTE | 2021-03-18 16:13 | MHC.HEMONC ---
Pump take down done. Tolerated treatment well
[2021-03-30 09:47] LABS: MANUAL DIFF FLAG NO
[2021-03-30 09:49] LABS: Appearance Urine CLEAR; Color Urine YELLOW; Glucose Urine UA NEG (NEG); Leukocyte Esterase Urine NEG (NEG); Nitrite Urine NEG (NEG); Specific Gravity - Urine >= 1.030 (1.005-1.025); Urine Blood NEG (NEG); Urine Ketones NEG (NEG); Urine Protein 1+ MG/DL (NEG-TRACE)
[2021-03-30 09:49] LABS: Basophils Percent Auto 0.9 % (0-2); Eosinophils Absolute Auto 0.1 X10*3/uL (0.0-0.4); Eosinophils Percent Auto 1.6 % (0-4); Hematocrit 39.5 % (42.0-52.0); Hemoglobin 13.1 g/dl (14.0-18.0); Imm Gran Abs Auto 0.01 X10*3/uL (0.00-0.03); Imm Gran Pct Auto 0.2 % (0.0-0.4); Lymphocytes Percent Auto 46.1 % (20-40); Mean Corpuscular HGB Conc 33.2 g/dl (31.0-36.0); Mean Corpuscular Hemoglobin 30.4 pg (27.0-33.0); Mean Corpuscular Volume 91.6 fL (80.0-98.0); Mean Platelet Volume 9.7 fL (9.4-12.4); Monocytes Absolute Auto 0.7 X10*3/uL (0.1-1.2); Monocytes Percent Auto 16.9 % (2-11); Neutrophils Absolute Auto 1.5 x10*3/uL (2.0-8.3); Neutrophils Percent Auto 34.3 % (45-73); Platelet Count 168 X10*3/uL (160-400); Red Blood Count 4.31 X10*6/uL (4.60-5.80); White Blood Count 4.3 X10*3/uL (4.8-10.8)
[2021-03-30 09:59] LABS: Mucus Urine 2+ /LPF; RBC Urine 0-2 /HPF (0); WBC Urine 0 /HPF (0-4)
[2021-03-30 10:07] VITALS: BMI 30.7
[2021-03-30 10:10] VITALS: BP 118/81; PULSE 102; RESP 20; TEMP 36.6; O2SAT 97
[2021-03-30 10:15] LABS: Alanine Aminotransferase 100 U/L (0-40); Albumin Level 4.2 g/dL (3.5-5.0); Alkaline Phosphatase 78 U/L (39-117); Anion Gap 13 (12-20); Aspartate Amino Transferase 53 U/L (5-37); Bilirubin Total 0.5 mg/dL (0.0-1.0); Blood Urea Nitrogen 9 mg/dL (9-16); Calcium 9.1 mg/dL (8.4-10.2); Carbon Dioxide 22 mmol/L (22-29); Chloride 107 mmol/L (96-108); Estimated Glomerular Filt Rate > 60; Glucose Random 105 mg/dL (60-115); Magnesium 1.9 mg/dL (1.6-2.6); Potassium 3.7 mmol/L (3.3-5.1); Sodium 138 mmol/L (135-145); Total Protein 6.7 g/dL (6.5-8.0)
[2021-03-30] MEDS: Acetaminophen 325 MG TABLET 650 MG PO (10:40)
[2021-03-30] MEDS: Famotidine 20 MG TABLET PO (10:41)
[2021-03-30] MEDS: diphenhydrAMINE HCL 25 MG TABLET PO (10:41)
--- NOTE | 2021-03-30 10:55 | MHC.HEMONC ---
emla CREAM ORDERED FOR PT FOR PORT ACCESS.
[2021-03-30] MEDS: dexAMETHasone sod phosphate/NS 12 MG/50 ML PIGGYBACK 200 MG IV (11:00)
[2021-03-30] MEDS: Fosaprepitant Dimeglumine 150 MG in 0.9 % Sodium Chloride 145 ML 300 MG IV (11:27)
--- NOTE | 2021-03-30 15:09 | MHC.HEMONC ---
Addendum entered by Massiel Redmond RN 03/30/21 15:43: Plan is to have a scan after next treatment. Scheduled for next treatment 04/20 Original Note: Pt here for C5D1 Folfiri/MVasi. States feels well after last treatment. He stated while he was writing something one morning, he lost vision in his right eye. He states he saw light that was rainbow color like a fishing lure. When asked how long it lasted, he stated he doesn't know because it happened when he was writing. Dr Mims notified, and pt to follow up with his eye doctor. Eating and drinking well, no vomiting. Port accessed with good blood return noted. Labs drawn and reviewed. Urine spec sent to lab and reviewed. Premeds given as ordered. Treatment done and tolerated well. Pt did state that he had a slight amount of blood in his stool in the BR after his treatment. Dr Mims notified.
[2021-04-01] MEDS: Heparin Sodium,Porcine Flush 500 UNIT/5 ML SYRINGE IVFLUSH (13:43)
--- NOTE | 2021-04-01 15:22 | MHC.HEMONC ---
Here for pump take down. Tolerated treatment well.
[2021-04-20 10:08] VITALS: BP 132/82; PULSE 101; RESP 18; TEMP 36.2; O2SAT 96; BMI 30.7
[2021-04-20 10:21] LABS: Appearance Urine CLEAR; Color Urine YELLOW; Glucose Urine UA NEG (NEG); Leukocyte Esterase Urine NEG (NEG); Nitrite Urine NEG (NEG); Specific Gravity - Urine >= 1.030 (1.005-1.025); Urine Blood NEG (NEG); Urine Ketones NEG (NEG); Urine Protein 1+ MG/DL (NEG-TRACE)
[2021-04-20 10:21] LABS: Basophils Percent Auto 0.7 % (0-2); Eosinophils Absolute Auto 0.1 X10*3/uL (0.0-0.4); Eosinophils Percent Auto 3.2 % (0-4); Hematocrit 38.4 % (42.0-52.0); Hemoglobin 12.5 g/dl (14.0-18.0); Imm Gran Abs Auto 0.04 X10*3/uL (0.00-0.03); Imm Gran Pct Auto 0.9 % (0.0-0.4); Lymphocytes Absolute Auto 1.8 X10*3/uL (1.2-4.9); Lymphocytes Percent Auto 40.1 % (20-40); MANUAL DIFF FLAG SCAN; Mean Corpuscular HGB Conc 32.6 g/dl (31.0-36.0); Mean Corpuscular Hemoglobin 30.6 pg (27.0-33.0); Mean Corpuscular Volume 94.1 fL (80.0-98.0); Mean Platelet Volume 9.9 fL (9.4-12.4); Monocytes Absolute Auto 0.9 X10*3/uL (0.1-1.2); NRBC Pct Auto 0.5 /100WBC (0.0-0.2); Neutrophils Absolute Auto 1.5 x10*3/uL (2.0-8.3); Neutrophils Percent Auto 34.1 % (45-73); Platelet Count 268 X10*3/uL (160-400); Red Blood Count 4.08 X10*6/uL (4.60-5.80); Red Cell Distribution Width 19.2 % (11.0-16.0); SCAN SMEAR FLAG 1; White Blood Count 4.4 X10*3/uL (4.8-10.8)
[2021-04-20 10:43] LABS: SLIDE REVIEW VERIFIED
[2021-04-20 10:48] LABS: Alanine Aminotransferase 38 U/L (0-40); Albumin Level 4.2 g/dL (3.5-5.0); Alkaline Phosphatase 71 U/L (39-117); Anion Gap 15 (12-20); Aspartate Amino Transferase 31 U/L (5-37); Bilirubin Total 0.5 mg/dL (0.0-1.0); Blood Urea Nitrogen 10 mg/dL (9-16); Calcium 9.3 mg/dL (8.4-10.2); Carbon Dioxide 23 mmol/L (22-29); Chloride 106 mmol/L (96-108); Creatinine Clr Calc Pharmacy 83.8; Estimated Glomerular Filt Rate > 60; Glucose Random 122 mg/dL (60-115); Magnesium 1.9 mg/dL (1.6-2.6); Potassium 3.8 mmol/L (3.3-5.1); Sodium 140 mmol/L (135-145); Total Protein 6.8 g/dL (6.5-8.0)
[2021-04-20 11:20] LABS: RBC Urine 0-2 /HPF (0); WBC Urine 0-2 /HPF (0-4)
[2021-04-20 11:21] LABS: Bacteria Urine TRACE /LPF; Mucus Urine 1+ /LPF; Squamous Epithelial Cell Urine TRACE /LPF
[2021-04-20] MEDS: Acetaminophen 325 MG TABLET 650 MG PO (11:25)
[2021-04-20] MEDS: diphenhydrAMINE HCL 25 MG TABLET PO (11:26)
[2021-04-20] MEDS: Famotidine 20 MG TABLET PO (11:26)
[2021-04-20] MEDS: dexAMETHasone sod phosphate/NS 12 MG/50 ML PIGGYBACK 200 MG IV (11:45)
[2021-04-20] MEDS: Fosaprepitant Dimeglumine 150 MG in 0.9 % Sodium Chloride 145 ML 300 MG IV (12:07)
--- NOTE | 2021-04-20 14:56 | P.PNHO_ITS ---
Medical Summary - Medical Summary Date of Service: 04/20/21 Chief complaint: Follow-up Medical Summary: Diagnosis: Metastatic colon cancer diagnosed February 2019 Presented with worsening abdominal pain, right lower quadrant ongoing for almost a year. CT imaging showed inflamed appendix, periappendiceal inflammation involving cecum and small bowel. Abscess identified in the pelvis which was drained. Appendectomy performed 02/22/2019, invasive adenocarcinoma, moderately differentiated, tumor present at the resection margin. Acute appendicitis and Suzy appendicitis with perforation. IHC showed CK 7-, CK 20 positive and CDX2 positive. MMR proficient. On 03/11/2019 patient underwent colonoscopy which showed adenomatous looking degenerative mass with an ulcerated center in the cecum. Two polyps were also removed. CTA performed 02/21/2019 showed multiple lung nodules bilaterally. Largest in the left lower lobe measuring 1.[address] abdomen performed 02/21/2019 showed dilated and inflamed appendix with surrounding inflammatory changes. Normal liver and spleen. Prominent mesenteric lymph nodes measuring up to 1.4 cm. CEA elevated at 14.6. FNA of the left lower lobe lung nodule performed 03/13/2019 showed adenocarcinoma consistent with known cecal primary. PET scan showed intense uptake around cecum, SUV 14.2, terminal ileum, foci in mesentery in the pelvis and right lower quadrant suspicious for metastatic deposits. No uptake in the lung nodules but malignancy not excluded. Right hemicolectomy performed 04/03/2019, adenocarcinoma moderately differentiated. Tumor invades through visceral peritoneum with macroscopic tumor perforation and direct invasion into adjacent loop of small bowel. Eight of 12 pericolonic lymph nodes positive for adenocarcinoma. Tumor involves mesenteric resection margins. Lymphovascular invasion present. Tumor size 6 x 2.8 cm. Stage [id number]. MMR proficient. BRAF mutation not detected, K-renata mutation detected, NRAS mutation not detected, IHC for verdugo TRK negative. Genetic testing. Patient?s genetic test result indicated that he was negative for a hereditary cancer gene mutation. Started chemotherapy modified FOLFOX 6 with Avastin from 04/23/2019. PET scan performed June 2019 showed complete metabolic response. Because of side effects of neuropathy his chemotherapy changed to maintenance tr eatment with Xeloda 1000 milligram/meter squared b.i.d. day 1-14 along with Avastin Q 3 weeks in June 2019.He has had elevation of CEA, PET-CT performed at [facility] on 11/04/2019 showed increased FDG activity in right lower quadrant of abdomen/pelvis, SUV 6.4, nodular infiltration measuring 1.3 x 0.9 cm. Right upper lobe subpleural nodule with minimal FDG uptake of 2.6, metastatic nodule probable. Xeloda discontinued in February 2020 because of worsening hand/foot syndrome. [place] [facility] [place] showed multiple subcentimeter pulmonary nodules none of which had FDG avidity. No other sites of metastatic disease. On irinotecan plus bevacizumab every 2 weeks until January 2021. Interval History Interval history: Patient is here for scheduled treatment. He is doing quite well overall. He has no complaints today such is nausea, abdominal discomfort, excess fatigue or weight loss. He has had mild intermittent hematochezia. He is being treated with cephalexin for possible intestinal infection. His neuropathy is stable and has not worsened with oxaliplatin. Review of Systems - Constitutional Reports as per HPI, Reports no additional constitutional complaints - Cardiovascular Reports no additional cardiovascular complaints - Respiratory Reports no additional respiratory complaints - Gastrointestinal Reports no additional gastrointestinal complaints [facility] Medical History: Medical History (Last Reviewed 02/08/21 @ 15:38 by THAIS Irving) Acute appendicitis Asthma Colon adenocarcinoma Diarrhea Hypercholesteremia Family History: Family History (Last Reviewed 04/05/21 @ 12:12 by Mattie Wilde) Father History of cancer of unknown primary site Family history of high blood pressure Mother No problems noted. Maternal Grandfather Hx of arteriosclerotic cardiovascular disease Brother No problems noted. Sister No problems noted. Surgical History: Surgical History (Last Reviewed 04/05/21 @ 12:12 by Mattie Wilde) History of lung biopsy Hx of appendectomy Hx of colonoscopy Hx of right hemicolectomy Social History: Social History (Last Reviewed 04/05/21 @ 12:12 by Mattie Wilde) Living Situation History: Household Members: Family Alcohol History: Alcohol intake: current Alcohol History Details: Alcohol intake frequency: does not drink Advance Directives: Advance Directives: No Advance Directives Information Provided: No Occupation Assessmet: Current occupational status: disabled Oncology Screenings - ECOG Performance Status ECOG Performance Status: 0 Home Medications and Allergies Current Medications: Current Medications Acetaminophen (Acetaminophen 325 Mg Tablet) 650 mg PO ONCE LOLLY Stop: 04/20/21 23:59 Last Admin: 04/20/21 11:25 Dose: 650 mg Documented by: Atropine Sulfate (Atropine Sulfate 1 Mg/Ml Vial) 0.5 mg SUBCUT ONCE LOLLY Stop: 04/20/21 23:59 Diphenhydramine HCl (Diphenhydramine Hcl 25 Mg Tablet) 25 mg PO ONCE LOLLY Stop: 04/20/21 23:59 Last Admin: 04/20/21 11:26 Dose: 25 mg Documented by: Famotidine (Famotidine 20 Mg Tablet) 20 mg PO ONCE LOLLY Stop: 04/20/21 23:59 Last Admin: 04/20/21 11:26 Dose: 20 mg Documented by: Leucovorin Calcium 800 mg/Leucovorin Calcium 90 mg/Dextrose 339 mls @ 147.25 mls/hr IV ONCE LOLLY Last Infusion: 03/16/21 14:02 Dose: Infused Documented by: Dexamethasone Sodium Phosphate (Decadron) 12 mg in 50 mls @ 200 mls/hr IV ONCE LOLLY Stop: 04/20/21 23:59 Last Infusion: 04/20/21 12:00 Dose: Infused Documented by: Ondansetron HCl (Zofran) 16 mg in 50 mls @ 200 mls/hr IV ONCE LOLLY Stop: 04/20/21 23:59 Last Infusion: 04/20/21 11:40 Dose: Infused Documented by: Fosaprepitant 150 mg/ Sodium (Chloride) 150 mls @ 300 mls/hr IV ONCE LOLLY Stop: 04/20/21 23:59 Last Infusion: 04/20/21 12:37 Dose: Infused Documented by: Bevacizumab-awwb 400 mg/Bevacizumab-awwb 75 mg/ Sodium Chloride 100 mls @ 200 mls/hr IV ONCE LOLLY Stop: 04/20/21 23:59 Last Admin: 04/20/21 12:57 Dose: 200 mls/hr Documented by: Fluorouracil 5,000 mg/Fluorouracil 225 mg/ Sodium Chloride 115 mls @ 2.5 mls/hr IV ONCE LOLLY Stop: 04/20/21 23:59 Fluorouracil 800 mg/ IV (Miscellaneous Supplies) 16 mls @ 192 mls/hr IVPUSH ONCE LOLLY Stop: 04/20/21 23:59 Irinotecan HCl 390 mg/ (Dextrose) 519.5 mls @ 346.333 mls/hr IV ONCE LOLLY Stop: 04/20/21 23:59 Last Admin: 04/20/21 13:45 Dose: 346.33 mls/hr Documented by: Leucovorin Calcium 800 mg/ (Dextrose) 330 mls @ 145 mls/hr IV ONCE LOLLY Stop: 04/20/21 23:00 Last Admin: 04/20/21 13:44 Dose: 220 mls/hr Documented by: Home Medications Medication Instructions Recorded Confirmed Type multivitamin 1 cap PO DAILY 03/03/20 10/27/20 History acetaminophen 325 mg tablet 650 mg PO Q6H PRN 08/25/20 10/27/20 History albuterol sulfate 90 mcg/actuation 0 mcg INHALATION 02/08/21 History aerosol inhaler Probiotic 02/16/21 02/16/21 History Allergies Allergy/AdvReac Type Severity Reaction Status Date / Time seafood Allergy Severe Angioedema Verified 04/05/21 12:11 shrimp [SHRIMP] Allergy Severe ANGIOEDEMA Verified 04/05/21 12:11 milk [MILK] Allergy Mild DIARRHEA Verified 04/05/21 12:11 Exam Vital signs: Vital Signs Temp 97.2 F 04/20/21 10:08 Pulse 101 H 04/20/21 10:08 Resp 18 04/20/21 10:08 BP 132/82 04/20/21 10:08 Pulse Ox 96 04/20/21 10:08 Intake & Output 04/19/21 04/20/21 04/20/21 18:59 06:59 18:59 Intake Total 250 / 250 Balance 250 / 250 Intake: Intake, IV Amount 250 / 250 Fosaprepitant Dimeglumine 150 150 / 150 mg In 0.9 % Sodium Chloride 145 ml @ 300 mls/hr IV ONCE LOLLY Rx #:[id number] Ondansetron HCL/NS 16 mg In 50 50 / 50 ml @ 200 mls/hr IV ONCE LOLLY Rx# :[id number] dexAMETHasone sod phosphate/NS 50 / 50 12 mg In 50 ml @ 200 mls/hr IV ONCE LOLLY Rx#:[id number] Other: Weight 97.3 kg [place] Weight in Grams 41339 Weight 97.3 kg BMI result Body Mass Index 30.7 - Constitutional Present: no acute distress - Routine HEENT Exam Head: Present: normal inspection - Routine Neck Exam Present: full ROM. Absent: lymphadenopathy - Routine Chest/Breast/Axilla Exam Chest wall: Absent: tenderness, mass - Routine Respiratory Exam Present: CTAB - Routine Cardiovascular Exam Cardiovascular: Present: RRR, S1, S2 - Routine Skin Exam Present: dry, rash, cracked Data - Labs CBC & Chem 7: 04/20/21 09:55 04/20/21 09:55 Assessment and Plan Patient Active problem list reviewed?: Yes (1) Colon carcinoma metastatic to multiple sites Status: Chronic Assessment and plan: 1. This is a 50-year-old man with metastatic colon cancer, arising from cecum. FNA of lung nodule is consistent with adenocarcinoma. Right hemicolectomy performed 04/03/2019, adenocarcinoma moderately differentiated. Stage [id number]. MMR proficient. BRAF mutation not detected, K-renata mutation detected, NRAS mutation not detected, IHC for verdugo TRK negative. HER2 non reactive and tumor mutational burden 4 Muts/Mb. Started chemotherapy modified FOLFOX 6 with Avastin from 04/23/2019. He had a good response based on PET scan in June but because of side effects of neuropathy he was switched to maintenance Xeloda with Avastin. Restaging chest/abdomen and pelvis scans on 02/01/2021 showed progressive disease with innumerable lung nodules. He started FOLFOX regimen from 02/02/2021. Avastin was held for 2 cycles because of recurrent hematochezia. He is now back on it. He is being treated for colitis and his hematochezia has resolved. Unfortunately, CEA level is continuing to rise. It is over 65. Repeat imaging with CT chest/abdomen and pelvis with contrast. If there is progressive disease, he will be switched to regorafenib. I have [facility] discussed sending him to [place] for 2nd opinion and clinical trial evaluation. Follow-up in 6 weeks. - Time Spent With Patient Time Spent with Patient (in minutes): 15
--- NOTE | 2021-04-20 16:11 | MHC.HEMONC ---
Addendum entered by Massiel Redmond RN 04/20/21 16:16: Dr Mims in to see pt in follow up. CT scans ordered Original Note: Here for C6D1 Folfiri/Mvasi. Port accessed with good blood return noted. Labs obtained and reviewed. Has some peeling to his hands, otherwise feels good after last treatment. Pre-meds given as ordered. Treatment done and tolerated well. Scheduled for pump take down Sunday at 1400
[2021-04-22 14:12] VITALS: BP 117/72; PULSE 78; RESP 17; TEMP 36.4; O2SAT 96; BMI 29.8
[2021-04-22] MEDS: Heparin Sodium,Porcine Flush 500 UNIT/5 ML SYRINGE IVFLUSH (14:40)
--- NOTE | 2021-04-22 16:10 | MHC.HEMONC ---
here for pump disconnect. looking and feeling well. port flushed with heparin and deaccessed. pt aware of next appt.
[2021-05-04 09:22] LABS: MANUAL DIFF FLAG NO
[2021-05-04 09:24] LABS: Appearance Urine CLEAR; Color Urine YELLOW; Glucose Urine UA NEG (NEG); Leukocyte Esterase Urine NEG (NEG); Nitrite Urine NEG (NEG); Specific Gravity - Urine >= 1.030 (1.005-1.025); Urine Blood NEG (NEG); Urine Ketones NEG (NEG); Urine Protein TRACE MG/DL (NEG-TRACE)
[2021-05-04 09:27] VITALS: BP 146/91; PULSE 97; RESP 16; TEMP 36.8; O2SAT 95; BMI 31.4
[2021-05-04 09:28] LABS: Basophils Percent Auto 0.7 % (0-2); Eosinophils Absolute Auto 0.1 X10*3/uL (0.0-0.4); Eosinophils Percent Auto 2.2 % (0-4); Hematocrit 37.9 % (42.0-52.0); Hemoglobin 12.4 g/dl (14.0-18.0); Imm Gran Abs Auto 0.01 X10*3/uL (0.00-0.03); Imm Gran Pct Auto 0.2 % (0.0-0.4); Lymphocytes Absolute Auto 2.1 X10*3/uL (1.2-4.9); Lymphocytes Percent Auto 39.2 % (20-40); Mean Corpuscular HGB Conc 32.7 g/dl (31.0-36.0); Mean Corpuscular Hemoglobin 30.9 pg (27.0-33.0); Mean Corpuscular Volume 94.5 fL (80.0-98.0); Mean Platelet Volume 10.2 fL (9.4-12.4); Monocytes Absolute Auto 0.8 X10*3/uL (0.1-1.2); Monocytes Percent Auto 14.5 % (2-11); Neutrophils Absolute Auto 2.4 x10*3/uL (2.0-8.3); Neutrophils Percent Auto 43.2 % (45-73); Platelet Count 199 X10*3/uL (160-400); Red Blood Count 4.01 X10*6/uL (4.60-5.80); Red Cell Distribution Width 18.4 % (11.0-16.0); White Blood Count 5.4 X10*3/uL (4.8-10.8)
[2021-05-04 09:40] LABS: Alanine Aminotransferase 55 U/L (0-40); Albumin Level 3.9 g/dL (3.5-5.0); Alkaline Phosphatase 63 U/L (39-117); Anion Gap 12 (12-20); Aspartate Amino Transferase 36 U/L (5-37); Bilirubin Total 0.5 mg/dL (0.0-1.0); Blood Urea Nitrogen 9 mg/dL (9-16); Carbon Dioxide 24 mmol/L (22-29); Chloride 107 mmol/L (96-108); Creatinine Clr Calc Pharmacy 113.5; Estimated Glomerular Filt Rate > 60; Glucose Random 104 mg/dL (60-115); Magnesium 1.7 mg/dL (1.6-2.6); Potassium 3.6 mmol/L (3.3-5.1); Sodium 139 mmol/L (135-145); Total Protein 6.4 g/dL (6.5-8.0)
[2021-05-04] MEDS: Famotidine 20 MG TABLET PO (09:55)
[2021-05-04] MEDS: diphenhydrAMINE HCL 25 MG TABLET PO (09:55)
[2021-05-04] MEDS: Acetaminophen 325 MG TABLET 650 MG PO (09:55)
[2021-05-04] MEDS: dexAMETHasone sod phosphate/NS 12 MG/50 ML PIGGYBACK 200 MG IV (10:21)
[2021-05-04] MEDS: Fosaprepitant Dimeglumine 150 MG in 0.9 % Sodium Chloride 145 ML 300 MG IV (10:37)
--- NOTE | 2021-05-04 16:01 | MHC.HEMONC ---
Here for C7D1 Folfiri. Port accessed with good blood return noted. Labs drawn and reviewed. States feels good since last treatment. Premeds given as ordered. Declines Atropine. Treatment done and tolerated well. Home with infusion pump. Scheduled to return in 2 days for take down.
[2021-05-06] MEDS: Heparin Sodium,Porcine Flush 500 UNIT/5 ML SYRINGE IVFLUSH (12:30)
--- NOTE | 2021-05-06 16:03 | MHC.HEMONC ---
Here for pump take down. Tolerated treatment well. Port flushed with heparin and de-accessed.
[2021-05-17 09:05] VITALS: BP 137/90; PULSE 100; RESP 20; TEMP 36.8; O2SAT 97; BMI 31.9
[2021-05-17 09:36] LABS: MANUAL DIFF FLAG NO
[2021-05-17 09:38] LABS: Basophils Percent Auto 0.6 % (0-2); Eosinophils Absolute Auto 0.1 X10*3/uL (0.0-0.4); Hematocrit 38.3 % (42.0-52.0); Hemoglobin 12.5 g/dl (14.0-18.0); Imm Gran Abs Auto 0.02 X10*3/uL (0.00-0.03); Imm Gran Pct Auto 0.4 % (0.0-0.4); Lymphocytes Percent Auto 42.1 % (20-40); Mean Corpuscular HGB Conc 32.6 g/dl (31.0-36.0); Mean Corpuscular Hemoglobin 31.3 pg (27.0-33.0); Mean Platelet Volume 9.7 fL (9.4-12.4); Monocytes Absolute Auto 0.8 X10*3/uL (0.1-1.2); Monocytes Percent Auto 16.9 % (2-11); Neutrophils Absolute Auto 1.7 x10*3/uL (2.0-8.3); Platelet Count 152 X10*3/uL (160-400); Red Blood Count 3.99 X10*6/uL (4.60-5.80); Red Cell Distribution Width 18.1 % (11.0-16.0); White Blood Count 4.7 X10*3/uL (4.8-10.8)
[2021-05-17 09:42] LABS: Appearance Urine CLEAR; Color Urine YELLOW; Glucose Urine UA NEG (NEG); Leukocyte Esterase Urine NEG (NEG); Nitrite Urine NEG (NEG); Specific Gravity - Urine >= 1.030 (1.005-1.025); Urine Blood NEG (NEG); Urine Ketones NEG (NEG); Urine Protein TRACE MG/DL (NEG-TRACE)
[2021-05-17 09:47] LABS: Mucus Urine 3+ /LPF
[2021-05-17 10:01] LABS: Alanine Aminotransferase 93 U/L (0-40); Alkaline Phosphatase 61 U/L (39-117); Anion Gap 12 (12-20); Aspartate Amino Transferase 64 U/L (5-37); Bilirubin Total 0.6 mg/dL (0.0-1.0); Blood Urea Nitrogen 10 mg/dL (9-16); Calcium 9.3 mg/dL (8.4-10.2); Carbon Dioxide 26 mmol/L (22-29); Chloride 106 mmol/L (96-108); Creatinine Clr Calc Pharmacy 98.3; Estimated Glomerular Filt Rate > 60; Glucose Random 107 mg/dL (60-115); Sodium 140 mmol/L (135-145); Total Protein 6.5 g/dL (6.5-8.0)
[2021-05-17] MEDS: diphenhydrAMINE HCL 25 MG TABLET PO (10:05)
[2021-05-17] MEDS: Acetaminophen 325 MG TABLET 650 MG PO (10:05)
[2021-05-17] MEDS: Famotidine 20 MG TABLET PO (10:06)
[2021-05-17] MEDS: dexAMETHasone sod phosphate/NS 12 MG/50 ML PIGGYBACK 200 MG IV (10:24)
[2021-05-17] MEDS: Fosaprepitant Dimeglumine 150 MG in 0.9 % Sodium Chloride 145 ML 300 MG IV (10:45)
--- NOTE | 2021-05-17 14:01 | PM.HEMONCPN ---
Medical Summary - Medical Summary Date of Service: 05/17/21 Chief complaint: follow-up and scheduled treatment Medical Summary: Diagnosis: Metastatic colon cancer diagnosed February 2019 Presented with worsening abdominal pain, right lower quadrant ongoing for almost a year. CT imaging showed inflamed appendix, periappendiceal inflammation involving cecum and small bowel. Abscess identified in the pelvis which was drained. Appendectomy performed 02/22/2019, invasive adenocarcinoma, moderately differentiated, tumor present at the resection margin. Acute appendicitis and Suzy appendicitis with perforation. IHC showed CK 7-, CK 20 positive and CDX2 positive. MMR proficient. On 03/11/2019 patient underwent colonoscopy which showed adenomatous looking degenerative mass with an ulcerated center in the cecum. Two polyps were also removed. CTA performed 02/21/2019 showed multiple lung nodules bilaterally. Largest in the left lower lobe measuring 1.[address] abdomen performed 02/21/2019 showed dilated and inflamed appendix with surrounding inflammatory changes. Normal liver and spleen. Prominent mesenteric lymph nodes measuring up to 1.4 cm. CEA elevated at 14.6. FNA of the left lower lobe lung nodule performed 03/13/2019 showed adenocarcinoma consistent with known cecal primary. PET scan showed intense uptake around cecum, SUV 14.2, terminal ileum, foci in mesentery in the pelvis and right lower quadrant suspicious for metastatic deposits. No uptake in the lung nodules but malignancy not excluded. Right hemicolectomy performed 04/03/2019, adenocarcinoma moderately differentiated. Tumor invades through visceral peritoneum with macroscopic tumor perforation and direct invasion into adjacent loop of small bowel. Eight of 12 pericolonic lymph nodes positive for adenocarcinoma. Tumor involves mesenteric resection margins. Lymphovascular invasion present. Tumor size 6 x 2.8 cm. Stage [id number]. MMR proficient. BRAF mutation not detected, K-renata mutation detected, NRAS mutation not detected, IHC for verdugo TRK negative. Genetic testing. Patient?s genetic test result indicated that he was negative for a hereditary cancer gene mutation. Started chemotherapy modified FOLFOX 6 with Avastin from 04/23/2019. PET scan performed June 2019 showed complete metabolic response. Because of side effects of neuropathy his chemotherapy changed to maintenance treatment with Xeloda 1000 milligram/meter squared b.i.d. day 1-14 along with Avastin Q 3 weeks in June 2019.He has had elevation of CEA, PET-CT performed at [facility] on 11/04/2019 showed increased FDG activity in right lower quadrant of abdomen/pelvis, SUV 6.4, nodular infiltration measuring 1.3 x 0.9 cm. Right upper lobe subpleural nodule with minimal FDG uptake of 2.6, metastatic nodule probable. Xeloda discontinued in February 2020 because of worsening hand/foot syndrome. [place] [facility] [place] showed multiple subcentimeter pulmonary nodules none of which had FDG avidity. No other sites of metastatic disease. On irinotecan plus bevacizumab every 2 weeks until January 2021. Interval History Interval history: Patient is here for scheduled treatment. He is doing quite well overall. He has no complaints today such is nausea, abdominal discomfort, excess fatigue or weight loss. He wants to be able to walk more in order to lose weight. He wants to discuss results of imaging study. Review of Systems - Constitutional Reports as per HPI, Reports no additional constitutional complaints [facility] Medical History: Medical History (Last Reviewed 04/22/21 @ 14:14 by Mague Montes) Acute appendicitis Asthma Colon adenocarcinoma Diarrhea Hypercholesteremia Family History: Family History (Last Reviewed 04/22/21 @ 14:14 by Mague Montes) Father History of cancer of unknown primary site Family history of high blood pressure Mother No problems noted. Maternal Grandfather Hx of arteriosclerotic cardiovascular disease Brother No problems noted. Sister No problems noted. Surgical History: Surgical History (Last Reviewed 04/22/21 @ 14:14 by Mague Montes) History of lung biopsy Hx of appendectomy Hx of colonoscopy Hx of right hemicolectomy Social History: Social History (Last Reviewed 04/22/21 @ 14:14 by Mague Montes) Living Situation History: Household Members: Family Alcohol History: Alcohol intake: current Alcohol History Details: Alcohol intake frequency: does not drink Advance Directives: Advance Directives: No Advance Directives Information Provided: No Occupation Assessmet: Current occupational status: disabled Home Medications and Allergies Current Medications: Current Medications Acetaminophen (Acetaminophen 325 Mg Tablet) 650 mg PO ONCE LOLYL Stop: 05/17/21 23:59 Last Admin: 05/17/21 10:05 Dose: 650 mg Documented by: Atropine Sulfate (Atropine Sulfate 1 Mg/Ml Vial) 0.5 mg SUBCUT ONCE LOLLY Stop: 05/17/21 23:59 Diphenhydramine HCl (Diphenhydramine Hcl 25 Mg Tablet) 25 mg PO ONCE LOLLY Stop: 05/17/21 23:59 Last Admin: 05/17/21 10:05 Dose: 25 mg Documented by: Famotidine (Famotidine 20 Mg Tablet) 20 mg PO ONCE LOLLY Stop: 05/17/21 23:59 Last Admin: 05/17/21 10:06 Dose: 20 mg Documented by: Dexamethasone Sodium Phosphate (Decadron) 12 mg in 50 mls @ 200 mls/hr IV ONCE LOLLY Stop: 05/17/21 23:59 Last Infusion: 05/17/21 10:39 Dose: Infused Documented by: Ondansetron HCl (Zofran) 16 mg in 50 mls @ 200 mls/hr IV ONCE LOLLY Stop: 05/17/21 23:59 Last Infusion: 05/17/21 10:20 Dose: Infused Documented by: Fosaprepitant 150 mg/ Sodium (Chloride) 150 mls @ 300 mls/hr IV ONCE LOLLY Stop: 05/17/21 23:59 Last Infusion: 05/17/21 11:15 Dose: Infused Documented by: Bevacizumab-awwb 400 mg/Bevacizumab-awwb 100 mg/Sodium Chloride 100 mls @ 200 mls/hr IV ONCE LOLLY Stop: 05/17/21 23:59 Last Infusion: 05/17/21 12:05 Dose: Infused Documented by: Fluorouracil 5,000 mg/Fluorouracil 325 mg/ Sodium Chloride 115 mls @ 2.5 mls/hr IV ONCE LOLLY Stop: 05/17/21 23:59 Fluorouracil 800 mg/ IV (Miscellaneous Supplies) 16 mls @ 192 mls/hr IVPUSH ONCE LOLLY Stop: 05/17/21 23:59 Irinotecan HCl 400 mg/ (Dextrose) 520 mls @ 346.667 mls/hr IV ONCE LOLLY Stop: 05/17/21 23:59 Last Admin: 05/17/21 12:20 Dose: 346.67 mls/hr Documented by: Leucovorin Calcium 800 mg/ (Dextrose) 330 mls @ 145 mls/hr IV ONCE LOLLY Last Admin: 05/17/21 12:20 Dose: 220 mls/hr Documented by: Home Medications Medication Instructions Recorded Confirmed Type multivitamin 1 cap PO DAILY 03/03/20 05/04/21 History acetaminophen 325 mg tablet 650 mg PO Q6H PRN 08/25/20 05/04/21 History albuterol sulfate 90 mcg/actuation 1 puff INHALATION QID PRN 02/08/21 05/04/21 History aerosol inhaler Probiotic 1 cap DAILY 02/16/21 05/04/21 History Allergies Allergy/AdvReac Type Severity Reaction Status Date / Time seafood Allergy Severe Angioedema Verified 04/22/21 14:14 shrimp [SHRIMP] Allergy Severe ANGIOEDEMA Verified 04/22/21 14:14 milk [MILK] Allergy Mild DIARRHEA Verified 04/22/21 14:14 Exam Vital signs: Vital Signs Temp 98.2 F 05/04/21 09:27 Pulse 97 05/04/21 09:27 Resp 16 05/04/21 09:27 BP 146/91 H 05/04/21 09:27 Pulse Ox 95 05/04/21 09:27 Intake & Output 05/16/21 05/17/21 05/17/21 18:59 06:59 18:59 Intake Total 350 / 350 Balance 350 / 350 Intake: Intake, IV Amount 350 / 350 Bevacizumab-awwb 400 mg 100 / 100 Bevacizumab-awwb 100 mg In 0.9 % Sodium Chloride 80 ml @ 200 mls/hr IV ONCE LOLLY Rx#: [id number] Fosaprepitant Dimeglumine 150 150 / 150 mg In 0.9 % Sodium Chloride 145 ml @ 300 mls/hr IV ONCE LOLLY Rx #:[id number] Ondansetron HCL/NS 16 mg In 50 50 / 50 ml @ 200 mls/hr IV ONCE LOLLY Rx# :[id number] dexAMETHasone sod phosphate/NS 50 / 50 12 mg In 50 ml @ 200 mls/hr IV ONCE LOLLY Rx#:[id number] Weight 99.4 kg BMI result Body Mass Index 31.4 - Constitutional Present: no acute distress - Routine HEENT Exam Head: Present: normal inspection - Routine Neck Exam Present: full ROM. Absent: lymphadenopathy - Routine Chest/Breast/Axilla Exam Chest wall: Absent: tenderness, mass - Routine Respiratory Exam Present: CTAB - Routine Cardiovascular Exam Cardiovascular: Present: RRR, S1, S2 - Routine Skin Exam Present: dry, rash, cracked Data - Labs CBC & Chem 7: 05/17/21 09:20 05/17/21 09:20 Assessment and Plan Patient Active problem list reviewed?: Yes (1) Colon carcinoma metastatic to multiple sites Status: Chronic Assessment and plan: 1. This is a 50-year-old man with metastatic colon cancer, arising from cecum diagnosed in 2018. FNA of lung nodule is consistent with adenocarcinoma. Right hemicolectomy performed 04/03/2019, adenocarcinoma moderately differentiated. Stage [id number]. MMR proficient. BRAF mutation not detected, K-renata mutation detected, NRAS mutation not detected, IHC for verdugo TRK negative. HER2 non reactive and tumor mutational burden 4 Muts/Mb. Started chemotherapy modified FOLFOX 6 with Avastin from 04/23/2019. He had a good response based on PET scan in June but because of side effects of neuropathy he was switched to maintenance Xeloda with Avastin. Restaging chest/abdomen and pelvis scans on 02/01/2021 showed progressive disease with innumerable lung nodules. He started FOLFOX regimen from 02/02/2021. Avastin was held for 2 cycles because of recurrent hematochezia. He is now back on it. He is being treated for colitis and his hematochezia has resolved. Unfortunately, CEA level is continuing to rise. It is over 65. Repeat imaging with CT chest/abdomen and pelvis with contrast in April revealed slight progression of lung nodules. He would like to be sent to [place] for evaluation of clinical trial and 2nd opinion. Proceed with chemotherapy today as scheduled. Follow-up in 6 weeks. - Time Spent With Patient Time Spent with Patient (in minutes): 15
--- NOTE | 2021-05-17 16:06 | MHC.HEMONC ---
Here for C8D1 Folfiri/Mvasi. Port accessed with good blood return noted. Labs drawn and reviewed. States feels good after last treatment. Premeds given as ordered. Treatment done and tolerated well. Home with infusion pump. Scheduled to return in 2 days for pump take down.
--- NOTE | 2021-05-19 13:44 | MHC.HEMONC ---
Appt made with Frances at [facility] for Consultation. Appt is booked for Jun 13, 2021 at 3:30 p.m. Check in at 2:45. Dr Alec Melton will be seeing him at [address] [place] [address]. He will be able to bring one healthy interior block wirer.. Pt will need to bring CDs of imaging and he will have to check with his insurance re: an outside pathology review being done. Phone number for Frances is [phone]. .
[2021-05-19] MEDS: Heparin Sodium,Porcine Flush 500 UNIT/5 ML SYRINGE IVFLUSH (14:15)
--- NOTE | 2021-05-19 16:07 | MHC.HEMONC ---
Patient arrived for pump takedown today. Right chest port flushed with Heparin and de-accessed. Patient tolerated it well. Next infusion is 06/01/21.
--- NOTE | 2021-05-24 10:26 | MHC.HEMONC ---
Pt record faxed to [facility] for for appt 06/13/21.
--- NOTE | 2021-05-25 15:15 | MHC.HEMONC ---
Spoke to Amara at [facility] radiology for them to expedite mailing of PET CD to me in Oncology for pt to bring to [facility].
[2021-06-01 09:28] LABS: MANUAL DIFF FLAG NO
[2021-06-01 09:29] VITALS: BP 125/83; PULSE 102; TEMP 36.2; O2SAT 97; BMI 31.8
[2021-06-01 09:29] LABS: Basophils Absolute Auto 0.1 X10*3/uL (0.0-0.2); Basophils Percent Auto 1.2 % (0-2); Eosinophils Absolute Auto 0.2 X10*3/uL (0.0-0.4); Eosinophils Percent Auto 3.8 % (0-4); Hematocrit 38.2 % (42.0-52.0); Hemoglobin 12.7 g/dl (14.0-18.0); Imm Gran Abs Auto 0.01 X10*3/uL (0.00-0.03); Imm Gran Pct Auto 0.2 % (0.0-0.4); Lymphocytes Absolute Auto 2.1 X10*3/uL (1.2-4.9); Lymphocytes Percent Auto 48.9 % (20-40); Mean Corpuscular HGB Conc 33.2 g/dl (31.0-36.0); Mean Corpuscular Volume 96.2 fL (80.0-98.0); Mean Platelet Volume 9.5 fL (9.4-12.4); Monocytes Absolute Auto 0.7 X10*3/uL (0.1-1.2); Monocytes Percent Auto 16.5 % (2-11); Neutrophils Absolute Auto 1.3 x10*3/uL (2.0-8.3); Neutrophils Percent Auto 29.4 % (45-73); Platelet Count 194 X10*3/uL (160-400); Red Blood Count 3.97 X10*6/uL (4.60-5.80); Red Cell Distribution Width 17.6 % (11.0-16.0); White Blood Count 4.3 X10*3/uL (4.8-10.8)
[2021-06-01 09:32] LABS: Appearance Urine HAZY; Color Urine YELLOW; Glucose Urine UA NEG (NEG); Leukocyte Esterase Urine NEG (NEG); Nitrite Urine NEG (NEG); Specific Gravity - Urine >= 1.030 (1.005-1.025); Urine Blood NEG (NEG); Urine Ketones NEG (NEG); Urine Protein TRACE MG/DL (NEG-TRACE)
[2021-06-01 09:46] LABS: Alanine Aminotransferase 41 U/L (0-40); Alkaline Phosphatase 63 U/L (39-117); Anion Gap 12 (12-20); Aspartate Amino Transferase 27 U/L (5-37); Bilirubin Total 0.5 mg/dL (0.0-1.0); Blood Urea Nitrogen 10 mg/dL (9-16); Calcium 9.1 mg/dL (8.4-10.2); Carbon Dioxide 24 mmol/L (22-29); Chloride 108 mmol/L (96-108); Creatinine Clr Calc Pharmacy 88.8; Estimated Glomerular Filt Rate > 60; Glucose Random 105 mg/dL (60-115); Magnesium 2.1 mg/dL (1.6-2.6); Sodium 140 mmol/L (135-145); Total Protein 6.9 g/dL (6.5-8.0)
[2021-06-01] MEDS: diphenhydrAMINE HCL 25 MG TABLET PO (10:28)
[2021-06-01] MEDS: Acetaminophen 325 MG TABLET 650 MG PO (10:29)
[2021-06-01] MEDS: Famotidine 20 MG TABLET PO (10:29)
[2021-06-01] MEDS: dexAMETHasone sod phosphate/NS 12 MG/50 ML PIGGYBACK 200 MG IV (10:30)
[2021-06-01] MEDS: Fosaprepitant Dimeglumine 150 MG in 0.9 % Sodium Chloride 145 ML 300 MG IV (11:31)
[2021-06-01] MEDS: Irinotecan HCl 300 MG, Irinotecan HCl 20 MG in Dextrose 5 % 500 ML 344 MG IV (13:01)
[2021-06-01] MEDS: Leucovorin Calcium 700 MG in Dextrose 5 % 250 ML 142.5 MG IV (13:01)
--- NOTE | 2021-06-01 13:42 | MHC.HEMONC ---
Here for c9 bevacizumab/folfiri. Labs reviewed by , chemo reduced to 80%, bevacizumab full dose. Looking and feeling well, reports ongoing diarrhea. refused atropine today. Tolerated well. pt aware of next appt.
[2021-06-01] MEDS: fluorouraciL 700 MG in Syringe, Disposable 0 ML 168 MG IVPUSH (15:48)
[2021-06-03] MEDS: Heparin Sodium,Porcine Flush 500 UNIT/5 ML SYRINGE IVFLUSH (14:21)
[2021-06-15 09:28] LABS: MANUAL DIFF FLAG NO
[2021-06-15 09:30] LABS: Basophils Percent Auto 0.9 % (0-2); Eosinophils Absolute Auto 0.1 X10*3/uL (0.0-0.4); Eosinophils Percent Auto 1.9 % (0-4); Hematocrit 38.8 % (42.0-52.0); Hemoglobin 12.7 g/dl (14.0-18.0); Imm Gran Abs Auto 0.01 X10*3/uL (0.00-0.03); Imm Gran Pct Auto 0.2 % (0.0-0.4); Lymphocytes Absolute Auto 1.9 X10*3/uL (1.2-4.9); Mean Corpuscular HGB Conc 32.7 g/dl (31.0-36.0); Mean Corpuscular Hemoglobin 31.8 pg (27.0-33.0); Mean Platelet Volume 9.4 fL (9.4-12.4); Monocytes Absolute Auto 0.8 X10*3/uL (0.1-1.2); Monocytes Percent Auto 17.9 % (2-11); Neutrophils Absolute Auto 1.8 x10*3/uL (2.0-8.3); Neutrophils Percent Auto 39.1 % (45-73); Platelet Count 160 X10*3/uL (160-400); Red Cell Distribution Width 16.9 % (11.0-16.0); White Blood Count 4.7 X10*3/uL (4.8-10.8)
[2021-06-15 09:32] LABS: Appearance Urine CLEAR; Color Urine YELLOW; Glucose Urine UA NEG (NEG); Leukocyte Esterase Urine NEG (NEG); Nitrite Urine NEG (NEG); Specific Gravity - Urine >= 1.030 (1.005-1.025); Urine Blood NEG (NEG); Urine Ketones NEG (NEG); Urine Protein TRACE MG/DL (NEG-TRACE)
[2021-06-15 09:45] VITALS: BP 136/91; PULSE 96; RESP 20; TEMP 37.2; O2SAT 98
[2021-06-15 09:56] LABS: Alanine Aminotransferase 41 U/L (0-40); Albumin Level 3.9 g/dL (3.5-5.0); Alkaline Phosphatase 58 U/L (39-117); Anion Gap 13 (12-20); Aspartate Amino Transferase 28 U/L (5-37); Bilirubin Total 0.4 mg/dL (0.0-1.0); Blood Urea Nitrogen 8 mg/dL (9-16); Calcium 9.3 mg/dL (8.4-10.2); Carbon Dioxide 26 mmol/L (22-29); Chloride 106 mmol/L (96-108); Creatinine Clr Calc Pharmacy 90.9; Estimated Glomerular Filt Rate > 60; Glucose Random 101 mg/dL (60-115); Magnesium 2.1 mg/dL (1.6-2.6); Potassium 3.7 mmol/L (3.3-5.1); Sodium 141 mmol/L (135-145); Total Protein 6.5 g/dL (6.5-8.0)
[2021-06-15 10:08] VITALS: BMI 32.1
[2021-06-15] MEDS: diphenhydrAMINE HCL 25 MG TABLET PO (10:30)
[2021-06-15] MEDS: Famotidine 20 MG TABLET PO (10:30)
[2021-06-15] MEDS: Acetaminophen 325 MG TABLET 650 MG PO (10:30)
[2021-06-15] MEDS: dexAMETHasone sod phosphate/NS 12 MG/50 ML PIGGYBACK 200 MG IV (10:52)
[2021-06-15] MEDS: Fosaprepitant Dimeglumine 150 MG in 0.9 % Sodium Chloride 145 ML 300 MG IV (11:14)
[2021-06-15] MEDS: Leucovorin Calcium 700 MG in Dextrose 5 % 250 ML 213.3 MG IV (12:48)
[2021-06-15] MEDS: fluorouraciL 700 MG in Syringe, Disposable 0 ML 168 MG IVPUSH (14:44)
--- NOTE | 2021-06-15 16:04 | MHC.HEMONC ---
Here for C10 D1 folfiri/mvasi. Port accessed with good blood return noted. Labs drawn, results reviewed. Pt states feeling well. Had consult in [place], and states appointment went well. Dr Mims in to talk with pt regarding his appointment. Premeds given as ordered. Treatment done and tolerated well. Home with infusion pump. Scheduled to return in 2 days for pump take down.
[2021-06-17] MEDS: Heparin Sodium,Porcine Flush 500 UNIT/5 ML SYRINGE IVFLUSH (12:37)
--- NOTE | 2021-06-17 14:26 | MHC.HEMONC ---
Pump take down done. Tolerated treatment well. Next treatment scheduled in 2 weeks.
[2021-06-29 09:01] VITALS: BP 144/79; PULSE 109; RESP 18; TEMP 36.3; O2SAT 97; BMI 32.8
[2021-06-29 09:54] LABS: MANUAL DIFF FLAG NO
[2021-06-29 09:56] LABS: Basophils Percent Auto 0.8 % (0-2); Eosinophils Absolute Auto 0.1 X10*3/uL (0.0-0.4); Eosinophils Percent Auto 2.7 % (0-4); Hematocrit 38.2 % (42.0-52.0); Hemoglobin 12.3 g/dl (14.0-18.0); Imm Gran Abs Auto 0.02 X10*3/uL (0.00-0.03); Imm Gran Pct Auto 0.4 % (0.0-0.4); Lymphocytes Percent Auto 39.8 % (20-40); Mean Corpuscular HGB Conc 32.2 g/dl (31.0-36.0); Mean Corpuscular Hemoglobin 31.3 pg (27.0-33.0); Mean Corpuscular Volume 97.2 fL (80.0-98.0); Mean Platelet Volume 9.8 fL (9.4-12.4); Monocytes Percent Auto 19.6 % (2-11); Neutrophils Absolute Auto 1.8 x10*3/uL (2.0-8.3); Neutrophils Percent Auto 36.7 % (45-73); Platelet Count 171 X10*3/uL (160-400); Red Blood Count 3.93 X10*6/uL (4.60-5.80); Red Cell Distribution Width 16.3 % (11.0-16.0); White Blood Count 4.9 X10*3/uL (4.8-10.8)
[2021-06-29 09:58] LABS: Appearance Urine CLEAR; Color Urine YELLOW; Glucose Urine UA NEG (NEG); Leukocyte Esterase Urine NEG (NEG); Nitrite Urine NEG (NEG); PH 5.5 (5.0-8.0); Specific Gravity - Urine >= 1.030 (1.005-1.025); Urine Blood NEG (NEG); Urine Ketones NEG (NEG); Urine Protein NEG (NEG-TRACE)
--- NOTE | 2021-06-29 10:13 | P.PNHO_ITS ---
Medical Summary - Medical Summary Date of Service: 06/29/21 Chief complaint: Follow-up Medical Summary: Diagnosis: Metastatic colon cancer diagnosed February 2019 Presented with worsening abdominal pain, right lower quadrant ongoing for almost a year. CT imaging showed inflamed appendix, periappendiceal inflammation involving cecum and small bowel. Abscess identified in the pelvis which was drained. Appendectomy performed 02/22/2019, invasive adenocarcinoma, moderately differentiated, tumor present at the resection margin. Acute appendicitis and Suzy appendicitis with perforation. IHC showed CK 7-, CK 20 positive and CDX2 positive. MMR proficient. On 03/11/2019 patient underwent colonoscopy which showed adenomatous looking degenerative mass with an ulcerated center in the cecum. Two polyps were also removed. CTA performed 02/21/2019 showed multiple lung nodules bilaterally. Largest in the left lower lobe measuring 1.[address] abdomen performed 02/21/2019 showed dilated and inflamed appendix with surrounding inflammatory changes. Normal liver and spleen. Prominent mesenteric lymph nodes measuring up to 1.4 cm. CEA elevated at 14.6. FNA of the left lower lobe lung nodule performed 03/13/2019 showed adenocarcinoma consistent with known cecal primary. PET scan showed intense uptake around cecum, SUV 14.2, terminal ileum, foci in mesentery in the pelvis and right lower quadrant suspicious for metastatic deposits. No uptake in the lung nodules but malignancy not excluded. Right hemicolectomy performed 04/03/2019, adenocarcinoma moderately differentiated. Tumor invades through visceral peritoneum with macroscopic tumor perforation and direct invasion into adjacent loop of small bowel. Eight of 12 pericolonic lymph nodes positive for adenocarcinoma. Tumor involves mesenteric resection margins. Lymphovascular invasion present. Tumor size 6 x 2.8 cm. Stage [id number]. MMR proficient. BRAF mutation not detected, K-renata mutation detected, NRAS mutation not detected, IHC for verdugo TRK negative. Genetic testing. Patient?s genetic test result indicated that he was negative for a hereditary cancer gene mutation. Started chemotherapy modified FOLFOX 6 with Avastin from 04/23/2019. PET scan performed June 2019 showed complete metabolic response. Because of side effects of neuropathy his chemotherapy changed to maintenance treatment with Xeloda 1000 milligram/meter squared b.i.d. day 1-14 along with Avastin Q 3 weeks in June 2019.He has had elevation of CEA, PET[facility]CT performed at [facility] on 11/04/2019 showed increased FDG activity in right lower quadrant of abdomen/pelvis, SUV 6.4, nodular infiltration measuring 1.3 x 0.9 cm. Right upper lobe subpleural nodule with minimal FDG uptake of 2.6, metastatic nodule probable. Xeloda discontinued in February 2020 because of worsening hand/foot syndrome. R epeat PET-CT at [facility] in October 2020 showed multiple subcentimeter pulmonary nodules none of which had FDG avidity. No other sites of metastatic disease. On irinotecan plus bevacizumab every 2 weeks until January 2021. He started FOLFOX regimen from 02/02/2021. Interval History Interval history: Patient is here for scheduled treatment. He is doing quite well overall. He has no complaints today such is nausea, abdominal discomfort, excess fatigue or weight loss. He wants to be able to walk more in order to lose weight. He Has been to [facility] for a 2nd opinion. He is very pleased with the outcome. He has been told to continue with the same regimen for now. Review of Systems - Constitutional Reports as per HPI, Reports no additional constitutional complaints PMF[facility] Medical History: Medical History (Last Reviewed 04/22/21 @ 14:14 by Mague Montes) Acute appendicitis Asthma Colon adenocarcinoma Diarrhea Hypercholesteremia Family History: Family History (Last Reviewed 04/22/21 @ 14:14 by Mague Montes) Father History of cancer of unknown primary site Family history of high blood pressure Mother No problems noted. Maternal Grandfather Hx of arteriosclerotic cardiovascular disease Brother No problems noted. Sister No problems noted. Surgical History: Surgical History (Last Reviewed 04/22/21 @ 14:14 by Mague Montes) History of lung biopsy Hx of appendectomy Hx of colonoscopy Hx of right hemicolectomy Social History: Social History (Last Reviewed 04/22/21 @ 14:14 by Mague Montes) Living Situation History: Household Members: Family Advance Directives: Advance Directives: No Advance Directives Information Provided: No Occupation Assessmet: Current occupational status: disabled Home Medications and Allergies Current Medications: Current Medications Acetaminophen (Acetaminophen 325 Mg Tablet) 650 mg PO ONCE LOLLY Stop: 06/29/21 23:59 Atropine Sulfate (Atropine Sulfate 1 Mg/Ml Vial) 0.5 mg SUBCUT ONCE LOLLY Stop: 06/29/21 23:59 Diphenhydramine HCl (Diphenhydramine Hcl 25 Mg Tablet) 25 mg PO ONCE LOLLY Stop: 06/29/21 23:59 Famotidine (Famotidine 20 Mg Tablet) 20 mg PO ONCE LOLLY Stop: 06/29/21 23:59 Dexamethasone Sodium Phosphate (Decadron) 12 mg in 50 mls @ 200 mls/hr IV ONCE LOLLY Stop: 06/29/21 23:59 Ondansetron HCl (Zofran) 16 mg in 50 mls @ 200 mls/hr IV ONCE LOLLY Stop: 06/29/21 23:59 Fosaprepitant 150 mg/ Sodium (Chloride) 150 mls @ 300 mls/hr IV ONCE LOLLY Stop: 06/29/21 23:59 Home Medications Medication Instructions Recorded Confirmed Type multivitamin 1 cap PO DAILY 03/03/20 05/04/21 History acetaminophen 325 mg tablet 650 mg PO Q6H PRN 08/25/20 05/04/21 History albuterol sulfate 90 mcg/actuation 1 puff INHALATION QID PRN 02/08/21 05/04/21 History aerosol inhaler Probiotic 1 cap DAILY 02/16/21 05/04/21 History Allergies Allergy/AdvReac Type Severity Reaction Status Date / Time seafood Allergy Severe Angioedema Verified 04/22/21 14:14 shrimp [SHRIMP] Allergy Severe ANGIOEDEMA Verified 04/22/21 14:14 milk [MILK] Allergy Mild DIARRHEA Verified 04/22/21 14:14 Exam Vital signs: Vital Signs Temp 97.3 F 06/29/21 09:01 Pulse 109 H 06/29/21 09:01 Resp 18 06/29/21 09:01 BP 144/79 H 06/29/21 09:01 Pulse Ox 97 06/29/21 09:01 Intake & Output 06/28/21 06/29/21 06/29/21 18:59 06:59 18:59 Other: Weight 100.9 kg Weight in Grams 549007 Weight 100.9 kg BMI result Body Mass Index 32.8 - Constitutional Present: no acute distress - Routine HEENT Exam Head: Present: normal inspection - Routine Neck Exam Present: full ROM. Absent: lymphadenopathy - Routine Chest/Breast/Axilla Exam Chest wall: Absent: tenderness, mass - Routine Respiratory Exam Present: CTAB - Routine Cardiovascular Exam Cardiovascular: Present: RRR, S1, S2 - Routine Skin Exam Present: dry, rash, cracked Data - Labs CBC & Chem 7: 06/29/21 09:35 06/29/21 09:35 Assessment and Plan Patient Active problem list reviewed?: Yes (1) Colon carcinoma metastatic to multiple sites Status: Chronic Assessment and plan: 1. This is a 50-year-old man with metastatic colon cancer, arising from cecum diagnosed in 2018. FNA of lung nodule is consistent with adenocarcinoma. Right hemicolectomy performed 04/03/2019, adenocarcinoma moderately differentiated. Stage [id number]. MMR proficient. BRAF mutation not detected, K-renata mutation detected, NRAS mutation not detected, IHC for verdugo TRK negative. HER2 non reactive and tumor mutational burden 4 Muts/Mb. Started chemotherapy modified FOLFOX 6 with Avastin from 04/23/2019. He had a good response based on PET scan in June but because of side effects of neur opathy he was switched to maintenance Xeloda with Avastin. Currently receiving FOLFOX regimen from 02/02/2021. Repeat imaging with CT chest/abdomen and pelvis with contrast in April revealed slight progression of lung nodules. He has been seen in [place], plan is to continue with current regimen and repeat scans in July. If there is progressive disease, he will be switched to [facility] with Avastin. Proceed with chemotherapy today as scheduled. Follow-up in 6 weeks. - Time Spent With Patient Time Spent with Patient (in minutes): 15
[2021-06-29 10:15] LABS: Alanine Aminotransferase 42 U/L (0-40); Alkaline Phosphatase 58 U/L (39-117); Anion Gap 12 (12-20); Aspartate Amino Transferase 35 U/L (5-37); Bilirubin Total 0.5 mg/dL (0.0-1.0); Blood Urea Nitrogen 6 mg/dL (9-16); Calcium 9.3 mg/dL (8.4-10.2); Carbon Dioxide 27 mmol/L (22-29); Chloride 103 mmol/L (96-108); Creatinine Clr Calc Pharmacy 90.3; Estimated Glomerular Filt Rate > 60; Glucose Random 106 mg/dL (60-115); Magnesium 1.9 mg/dL (1.6-2.6); Potassium 4.2 mmol/L (3.3-5.1); Sodium 138 mmol/L (135-145); Total Protein 6.4 g/dL (6.5-8.0)
[2021-06-29] MEDS: diphenhydrAMINE HCL 25 MG TABLET PO (10:34)
[2021-06-29] MEDS: Famotidine 20 MG TABLET PO (10:35)
[2021-06-29] MEDS: Acetaminophen 325 MG TABLET 650 MG PO (10:35)
[2021-06-29] MEDS: dexAMETHasone sod phosphate/NS 12 MG/50 ML PIGGYBACK 200 MG IV (10:54)
[2021-06-29] MEDS: Fosaprepitant Dimeglumine 150 MG in 0.9 % Sodium Chloride 145 ML 300 MG IV (11:17)
[2021-06-29] MEDS: Leucovorin Calcium 700 MG in Dextrose 5 % 250 ML 190 MG IV (12:46)
[2021-06-29] MEDS: fluorouraciL 700 MG in Syringe, Disposable 0 ML 168 MG IVPUSH (14:29)
--- NOTE | 2021-06-29 15:53 | MHC.HEMONC ---
Here for C11 D1 Mvasi/Folfiri. Port accessed with good blood return noted. Labs drawn and results reviewed. States has been very tired after his last treatment, but otherwise feels good. Premeds given as ordered. Treatment done and tolerated well. Home with infusion pump. Scheduled to return in 2 days for take down and [address] treatment[address] Mims also in to see pt in follow up.
[2021-07-01 12:42] VITALS: BP 134/91; PULSE 104; RESP 18; TEMP 36.7; O2SAT 96; BMI 32.8
[2021-07-01] MEDS: Heparin Sodium,Porcine Flush 500 UNIT/5 ML SYRINGE IVFLUSH (12:42)
--- NOTE | 2021-07-01 13:03 | MHC.HEMONC ---
Here for pump take down. Tolerated treatment well, just states is unable to sleep when he has his home pump. Port flushed with heparin and de-accessed. Scheduled for next treatment in 2 weeks.
[2021-07-13 09:05] VITALS: BMI 33.0
[2021-07-13 09:06] VITALS: BP 145/92; PULSE 103; RESP 20; TEMP 36.7; O2SAT 96
[2021-07-13 09:30] VITALS: BP 123/89
[2021-07-13 09:36] LABS: MANUAL DIFF FLAG NO
[2021-07-13 09:38] LABS: Basophils Percent Auto 0.5 % (0-2); Eosinophils Absolute Auto 0.2 X10*3/uL (0.0-0.4); Eosinophils Percent Auto 2.9 % (0-4); Hematocrit 38.6 % (42.0-52.0); Hemoglobin 12.5 g/dl (14.0-18.0); Imm Gran Abs Auto 0.02 X10*3/uL (0.00-0.03); Imm Gran Pct Auto 0.4 % (0.0-0.4); Lymphocytes Absolute Auto 2.1 X10*3/uL (1.2-4.9); Lymphocytes Percent Auto 37.7 % (20-40); Mean Corpuscular HGB Conc 32.4 g/dl (31.0-36.0); Mean Corpuscular Hemoglobin 31.6 pg (27.0-33.0); Mean Corpuscular Volume 97.7 fL (80.0-98.0); Mean Platelet Volume 10.2 fL (9.4-12.4); Monocytes Absolute Auto 0.9 X10*3/uL (0.1-1.2); Monocytes Percent Auto 15.6 % (2-11); Neutrophils Absolute Auto 2.4 x10*3/uL (2.0-8.3); Neutrophils Percent Auto 42.9 % (45-73); Platelet Count 174 X10*3/uL (160-400); Red Blood Count 3.95 X10*6/uL (4.60-5.80); Red Cell Distribution Width 16.3 % (11.0-16.0); White Blood Count 5.6 X10*3/uL (4.8-10.8)
[2021-07-13 09:42] LABS: Appearance Urine CLEAR; Color Urine YELLOW; Glucose Urine UA NEG (NEG); Leukocyte Esterase Urine NEG (NEG); Nitrite Urine NEG (NEG); PH 5.5 (5.0-8.0); Urine Blood NEG (NEG); Urine Ketones NEG (NEG); Urine Protein NEG (NEG-TRACE)
[2021-07-13 09:54] LABS: Alanine Aminotransferase 45 U/L (0-40); Alkaline Phosphatase 65 U/L (39-117); Anion Gap 13 (12-20); Aspartate Amino Transferase 34 U/L (5-37); Bilirubin Total 0.5 mg/dL (0.0-1.0); Blood Urea Nitrogen 6 mg/dL (9-16); Calcium 9.3 mg/dL (8.4-10.2); Carbon Dioxide 25 mmol/L (22-29); Chloride 106 mmol/L (96-108); Creatinine Clr Calc Pharmacy 101.5; Estimated Glomerular Filt Rate > 60; Glucose Random 98 mg/dL (60-115); Magnesium 1.9 mg/dL (1.6-2.6); Potassium 4.5 mmol/L (3.3-5.1); Sodium 139 mmol/L (135-145); Total Protein 6.4 g/dL (6.5-8.0)
[2021-07-13] MEDS: diphenhydrAMINE HCL 25 MG TABLET PO (10:10)
[2021-07-13] MEDS: Acetaminophen 325 MG TABLET 650 MG PO (10:10)
[2021-07-13] MEDS: Famotidine 20 MG TABLET PO (10:10)
[2021-07-13] MEDS: dexAMETHasone sod phosphate/NS 12 MG/50 ML PIGGYBACK 200 MG IV (10:13)
[2021-07-13] MEDS: Fosaprepitant Dimeglumine 150 MG in 0.9 % Sodium Chloride 145 ML 300 MG IV (10:13)
[2021-07-13] MEDS: Leucovorin Calcium 700 MG in Dextrose 5 % 250 ML 190 MG IV (12:35)
[2021-07-13] MEDS: fluorouraciL 700 MG in Syringe, Disposable 0 ML 168 MG IVPUSH (14:12)
--- NOTE | 2021-07-13 14:46 | MHC.HEMONC ---
Here for C12 D1 Folfiri/Mvasi. Port accessed with good blood return noted. Labs obtained, results reviewed. Pt states feels well, tolerated last treatment well. Bp slightly elevated at 145/92, with repeat 123/89. Dr Mims aware. Premeds given as ordered. Treatment done and tolerated well. Home with infusion pump. Scheduled to return Sunday for pump take down.
[2021-07-15] MEDS: Heparin Sodium,Porcine Flush 500 UNIT/5 ML SYRINGE IVFLUSH (13:25)
[2021-07-27 09:32] LABS: MANUAL DIFF FLAG NO
[2021-07-27 09:36] LABS: Basophils Percent Auto 0.4 % (0-2); Eosinophils Absolute Auto 0.1 X10*3/uL (0.0-0.4); Hematocrit 39.9 % (42.0-52.0); Imm Gran Abs Auto 0.01 X10*3/uL (0.00-0.03); Imm Gran Pct Auto 0.2 % (0.0-0.4); Lymphocytes Absolute Auto 1.9 X10*3/uL (1.2-4.9); Lymphocytes Percent Auto 38.7 % (20-40); Mean Corpuscular HGB Conc 32.6 g/dl (31.0-36.0); Mean Corpuscular Hemoglobin 31.4 pg (27.0-33.0); Mean Corpuscular Volume 96.4 fL (80.0-98.0); Mean Platelet Volume 9.6 fL (9.4-12.4); Monocytes Absolute Auto 0.6 X10*3/uL (0.1-1.2); Monocytes Percent Auto 12.6 % (2-11); Neutrophils Absolute Auto 2.3 x10*3/uL (2.0-8.3); Neutrophils Percent Auto 46.1 % (45-73); Platelet Count 165 X10*3/uL (160-400); Red Blood Count 4.14 X10*6/uL (4.60-5.80); Red Cell Distribution Width 16.4 % (11.0-16.0)
[2021-07-27 09:40] LABS: Appearance Urine HAZY; Color Urine YELLOW; Glucose Urine UA NEG (NEG); Leukocyte Esterase Urine NEG (NEG); Nitrite Urine NEG (NEG); Specific Gravity - Urine >= 1.030 (1.005-1.025); Urine Blood NEG (NEG); Urine Ketones NEG (NEG); Urine Protein NEG (NEG-TRACE)
[2021-07-27 09:56] VITALS: BP 118/81; PULSE 108; RESP 20; TEMP 36.8; O2SAT 98; BMI 32.3
[2021-07-27 10:02] LABS: Alanine Aminotransferase 39 U/L (0-40); Albumin Level 4.1 g/dL (3.5-5.0); Alkaline Phosphatase 63 U/L (39-117); Anion Gap 13 (12-20); Aspartate Amino Transferase 30 U/L (5-37); Bilirubin Total 0.5 mg/dL (0.0-1.0); Blood Urea Nitrogen 10 mg/dL (9-16); Calcium 9.3 mg/dL (8.4-10.2); Carbon Dioxide 27 mmol/L (22-29); Chloride 102 mmol/L (96-108); Creatinine Clr Calc Pharmacy 79.6; Estimated Glomerular Filt Rate > 60; Glucose Random 129 mg/dL (60-115); Potassium 4.2 mmol/L (3.3-5.1); Sodium 138 mmol/L (135-145); Total Protein 6.5 g/dL (6.5-8.0)
--- NOTE | 2021-07-27 10:20 | PM.HEMONCPN ---
Medical Summary - Medical Summary Date of Service: 07/27/21 Chief complaint: scheduled treatment Medical Summary: Diagnosis: Metastatic colon cancer diagnosed February 2019 Presented with worsening abdominal pain, right lower quadrant ongoing for almost a year. CT imaging showed inflamed appendix, periappendiceal inflammation involving cecum and small bowel. Abscess identified in the pelvis which was drained. Appendectomy performed 02/22/2019, invasive adenocarcinoma, moderately differentiated, tumor present at the resection margin. Acute appendicitis and Suzy appendicitis with perforation. IHC showed CK 7-, CK 20 positive and CDX2 positive. MMR proficient. On 03/11/2019 patient underwent colonoscopy which showed adenomatous looking degenerative mass with an ulcerated center in the cecum. Two polyps were also removed. CTA performed 02/21/2019 showed multiple lung nodules bilaterally. Largest in the left lower lobe measuring 1.[address] abdomen performed 02/21/2019 showed dilated and inflamed appendix with surrounding inflammatory changes. Normal liver and spleen. Prominent mesenteric lymph nodes measuring up to 1.4 cm. CEA elevated at 14.6. FNA of the left lower lobe lung nodule performed 03/13/2019 showed adenocarcinoma consistent with known cecal primary. PET scan showed intense uptake around cecum, SUV 14.2, terminal ileum, foci in mesentery in the pelvis and right lower quadrant suspicious for metastatic deposits. No uptake in the lung nodules but malignancy not excluded. Right hemicolectomy performed 04/03/2019, adenocarcinoma moderately differentiated. Tumor invades through visceral peritoneum with macroscopic tumor perforation and direct invasion into adjacent loop of small bowel. Eight of 12 pericolonic lymph nodes positive for adenocarcinoma. Tumor involves mesenteric resection margins. Lymphovascular invasion present. Tumor size 6 x 2.8 cm. Stage [id number]. MMR proficient. BRAF mutation not detected, K-renata mutation detected, NRAS mutation not detected, IHC for verdugo TRK negative. Genetic testing. Patient?s genetic test result indicated that he was negative for a hereditary cancer gene mutation. Started chemotherapy modified FOLFOX 6 with Avastin from 04/23/2019. PET scan performed June 2019 showed complete metabolic response. Because of side effects of neuropathy his chemotherapy changed to maintenance treatment with Xeloda 1000 milligram/meter squared b.i.d. day 1-14 along with Avastin Q 3 weeks in June 2019.He has had elevation of CEA, PET-CT performed at [facility] on 11/04/2019 showed increased FDG activity in right lower quadrant of abdomen/pelvis, SUV 6.4, nodular infiltration measuring 1.3 x 0.9 cm. Right upper lobe subpleural nodule with minimal FDG uptake of 2.6, metastatic nodule probable. Xeloda discontinued in February 2020 because of worsening hand/foot syndrome. Repeat PET-CT at [facility] [place] in October 2020 showed multiple subcentimeter pulmonary nodules none of which had FDG avidity. No other sites of metastatic disease. On irinotecan plus bevacizumab every 2 weeks until January 2021. He started FOLFOX regimen from 02/02/2021. Interval History Interval history: Patient is here for scheduled treatment. He is doing quite well overall. He has no complaints today such is nausea, abdominal discomfort, excess fatigue or weight loss. He is unable to exercise much because of the cold weather. [facility] Medical History: Medical History (Last Reviewed 04/22/21 @ 14:14 by Mague Montes) Acute appendicitis Asthma Colon adenocarcinoma Diarrhea Hypercholesteremia Family History: Family History (Last Updated 07/08/21 @ 14:21 by Toshia Dominique MD) Father History of cancer of unknown primary site Family history of high blood pressure Mother Hx of arteriosclerotic cardiovascular disease Maternal Grandfather Hx of arteriosclerotic cardiovascular disease Aortic aneurysm Brother No problems noted. Sister No problems noted. Brother No problems noted. Brother No problems noted. Brother No problems noted. Sister No problems noted. Surgical History: Surgical History (Last Reviewed 04/22/21 @ 14:14 by Mague Montes) History of lung biopsy Hx of appendectomy Hx of colonoscopy Hx of right hemicolectomy Social History: Social History (Last Updated 07/08/21 @ 14:21 by Toshia Dominique MD) Living Situation History: Household Members: Family Housing: Apartment Tobacco History: Patient Tobacco Use Status: Never used Tobacco e-Cigarette/Vaping Use: Never Used Second Hand Smoke Exposure: No Advance Directives: Advance Directives: No Advance Directives Information Provided: No Occupation Assessmet: Current occupational status: disabled Oncology Screenings - ECOG Performance Status ECOG Performance Status: 1 Home Medications and Allergies Current Medications: Current Medications Acetaminophen (Acetaminophen 325 Mg Tablet) 650 mg PO ONCE LOLLY Stop: 07/27/21 23:59 Atropine Sulfate (Atropine Sulfate 1 Mg/Ml Vial) 0.5 mg SUBCUT ONCE LOLLY Stop: 07/27/21 23:59 Diphenhydramine HCl (Diphenhydramine Hcl 25 Mg Tablet) 25 mg PO ONCE LOLLY Stop: 07/27/21 23:59 Famotidine (Famotidine 20 Mg Tablet) 20 mg PO ONCE LOLLY Stop: 07/27/21 23:59 Dexamethasone Sodium Phosphate (Decadron) 12 mg in 50 mls @ 200 mls/hr IV ONCE LOLLY Stop: 07/27/21 23:59 Ondansetron HCl (Zofran) 16 mg in 50 mls @ 200 mls/hr IV ONCE LOLLY Stop: 07/27/21 23:59 Fosaprepitant 150 mg/ Sodium (Chloride) 150 mls @ 300 mls/hr IV ONCE LOLLY Stop: 07/27/21 23:59 Home Medications Medication Instructions Recorded Confirmed Type multivitamin 1 cap PO DAILY 03/03/20 07/08/21 History acetaminophen 325 mg tablet 650 mg PO Q6H PRN 08/25/20 07/08/21 History albuterol sulfate 90 mcg/actuation 1 puff INHALATION QID PRN 02/08/21 07/08/21 History aerosol inhaler Probiotic 1 cap DAILY 02/16/21 07/08/21 History Allergies Allergy/AdvReac Type Severity Reaction Status Date / Time seafood Allergy Severe Angioedema Verified 07/08/21 13:56 shrimp [SHRIMP] Allergy Severe ANGIOEDEMA Verified 07/08/21 13:56 milk [MILK] Allergy Mild DIARRHEA Verified 07/08/21 13:56 sucralfate [From Carafate] AdvReac Intermediate rectal Verified 07/08/21 14:19 bleeding Exam Vital signs: Vital Signs Temp 98.2 F 07/27/21 09:56 Pulse 108 H 07/27/21 09:56 Resp 20 07/27/21 09:56 BP 118/81 07/27/21 09:56 Pulse Ox 98 07/27/21 09:56 Intake & Output 07/26/21 07/27/21 07/27/21 18:59 06:59 18:59 Other: Weight 99.3 kg [place] Weight in Grams 84415 Weight 99.3 kg BMI result Body Mass Index 32.3 - Constitutional Present: no acute distress - Routine HEENT Exam Head: Present: normal inspection - Routine Neck Exam Present: full ROM. Absent: lymphadenopathy - Routine Chest/Breast/Axilla Exam Chest wall: Absent: tenderness, mass - Routine Respiratory Exam Present: CTAB - Routine Cardiovascular Exam Cardiovascular: Present: RRR, S1, S2 - Routine Skin Exam Present: dry, rash, cracked Data - Labs CBC & Chem 7: 07/27/21 09:20 07/27/21 09:20 Assessment and Plan Patient Active problem list reviewed?: Yes (1) Colon carcinoma metastatic to multiple sites Problem details: February 2019 appendectomy invasive adenocarcinoma moderately differentiated cecal mass, left lower lung field lung nodule FNA adeno carcinoma Status: Chronic Assessment and plan: 1. This is a 50-year-old man with metastatic colon cancer, arising from cecum diagnosed in 2018. FNA of lung nodule is consistent with adenocarcinoma. Right hemicolectomy performed 04/03/2019, adenocarcinoma moderately differentiated. Stage [id number]. MMR proficient. BRAF mutation not detected, K-renata mutation detected, NRAS mutation not detected, IHC for verdugo TRK negative. HER2 non reactive and tumor mutational burden 4 Muts/Mb. Started chemotherapy modified FOLFOX 6 with Avastin from 04/23/2019. He had a good response based on PET scan in June but because of side effects of neuropathy he was switched to maintenance Xeloda with Avastin. Currently receiving FOLFOX regimen from 02/02/2021. Repeat imaging with CT chest/abdomen and pelvis with contrast in April revealed slight progression of lung nodules. He has been seen in [place], plan is to continue with current regimen and repeat scans in July. If there is progressive disease, he will be switched to Lonsurf with Avastin. Proceed with chemotherapy today as scheduled. CEA level has been steadily rising. CT chest with contrast has been ordered for July 2021. Follow-up in 6 weeks. - Time Spent With Patient Time Spent with Patient (in minutes): 10
[2021-07-27] MEDS: diphenhydrAMINE HCL 25 MG TABLET PO (10:21)
[2021-07-27] MEDS: Acetaminophen 325 MG TABLET 650 MG PO (10:21)
[2021-07-27] MEDS: Famotidine 20 MG TABLET PO (10:22)
[2021-07-27] MEDS: dexAMETHasone sod phosphate/NS 12 MG/50 ML PIGGYBACK 200 MG IV (10:46)
[2021-07-27] MEDS: Fosaprepitant Dimeglumine 150 MG in 0.9 % Sodium Chloride 145 ML 300 MG IV (11:28)
[2021-07-27] MEDS: Leucovorin Calcium 700 MG in Dextrose 5 % 250 ML 190 MG IV (13:28)
[2021-07-27] MEDS: fluorouraciL 700 MG in Syringe, Disposable 0 ML 168 MG IVPUSH (15:27)
--- NOTE | 2021-07-27 15:51 | MHC.HEMONC ---
Here for C13 D1 Folfiri/Mvasi. Port accessed with good blood return noted. Labs drawn and results reviewed. States feeling well after last treatment. He does state he has had some tingling in his left arm when he sleeps, and also some tingling in his feet, which goes away when he moves his feet. Premedicated as ordered. Treatment done and tolerated well. Home with infusion pump. Scheduled to return Saturday 07/[address] Mims in to see pt in follow up.
[2021-07-29] MEDS: Heparin Sodium,Porcine Flush 500 UNIT/5 ML SYRINGE IVFLUSH (13:25)
--- NOTE | 2021-07-29 15:04 | MHC.HEMONCSW ---
MET WITH PT WHO IS KNOWN TO ME FROM PREVIOUS ENCOUNTERS. HE IS ALERT, INDEPENDENT AND REMAINS OPTIMISTIC. DIAGNOSIS IS METASTATIC COLON CANCER, HAD RECENT SECOND OPINION IN [facility] AND REPORTS DR. JACOBO TREATMENT IS ACCURATE. CONTINUES BOTH HIS LTD AND SSDI. CONTINUES FAVORITE HOBBY OF SELLING THINGS ON [employer] AND PLANS ON RESUMING WALKING VERY SOON. PREVIOUS HCP WAS SCANNED. DISCUSSED VARIETY OF ISSUES. HE IS AWARE OF THE ROLE OF SW AND MY AVAILABILITY.
[2021-08-10 09:01] VITALS: BP 145/86; PULSE 75; RESP 20; TEMP 36.9; O2SAT 96; BMI 32.7
[2021-08-10 09:37] LABS: MANUAL DIFF FLAG NO
[2021-08-10 09:41] LABS: Basophils Percent Auto 0.4 % (0-2); Eosinophils Absolute Auto 0.1 X10*3/uL (0.0-0.4); Hematocrit 39.2 % (42.0-52.0); Hemoglobin 12.7 g/dl (14.0-18.0); Imm Gran Abs Auto 0.01 X10*3/uL (0.00-0.03); Imm Gran Pct Auto 0.2 % (0.0-0.4); Lymphocytes Absolute Auto 1.8 X10*3/uL (1.2-4.9); Lymphocytes Percent Auto 40.9 % (20-40); Mean Corpuscular HGB Conc 32.4 g/dl (31.0-36.0); Mean Corpuscular Hemoglobin 31.2 pg (27.0-33.0); Mean Corpuscular Volume 96.3 fL (80.0-98.0); Mean Platelet Volume 9.6 fL (9.4-12.4); Monocytes Absolute Auto 0.8 X10*3/uL (0.1-1.2); Monocytes Percent Auto 17.5 % (2-11); Neutrophils Absolute Auto 1.7 x10*3/uL (2.0-8.3); Platelet Count 167 X10*3/uL (160-400); Red Blood Count 4.07 X10*6/uL (4.60-5.80); Red Cell Distribution Width 16.3 % (11.0-16.0); White Blood Count 4.5 X10*3/uL (4.8-10.8)
[2021-08-10 09:50] LABS: Appearance Urine CLEAR; Color Urine YELLOW; Glucose Urine UA NEG (NEG); Leukocyte Esterase Urine NEG (NEG); Nitrite Urine NEG (NEG); Specific Gravity - Urine 1.025 (1.005-1.025); Urine Blood NEG (NEG); Urine Ketones NEG (NEG); Urine Protein NEG (NEG-TRACE)
[2021-08-10 10:01] LABS: Alanine Aminotransferase 43 U/L (0-40); Alkaline Phosphatase 65 U/L (39-117); Anion Gap 12 (12-20); Aspartate Amino Transferase 28 U/L (5-37); Bilirubin Total 0.6 mg/dL (0.0-1.0); Blood Urea Nitrogen 7 mg/dL (9-16); Calcium 9.4 mg/dL (8.4-10.2); Carbon Dioxide 26 mmol/L (22-29); Chloride 104 mmol/L (96-108); Estimated Glomerular Filt Rate > 60; Glucose Random 104 mg/dL (60-115); Potassium 4.1 mmol/L (3.3-5.1); Sodium 138 mmol/L (135-145); Total Protein 6.3 g/dL (6.5-8.0)
[2021-08-10] MEDS: Famotidine 20 MG TABLET PO (10:16)
[2021-08-10] MEDS: diphenhydrAMINE HCL 25 MG TABLET PO (10:16)
[2021-08-10] MEDS: Acetaminophen 325 MG TABLET 650 MG PO (10:16)
[2021-08-10] MEDS: dexAMETHasone sod phosphate/NS 12 MG/50 ML PIGGYBACK 200 MG IV (10:38)
[2021-08-10] MEDS: Fosaprepitant Dimeglumine 150 MG in 0.9 % Sodium Chloride 145 ML 300 MG IV (10:59)
[2021-08-10] MEDS: Leucovorin Calcium 700 MG in Dextrose 5 % 250 ML 190 MG IV (12:32)
[2021-08-10] MEDS: Irinotecan HCl 300 MG, Irinotecan HCl 20 MG in Dextrose 5 % 500 ML 344 MG IV (12:33)
[2021-08-10] MEDS: fluorouraciL 700 MG in Syringe, Disposable 0 ML 168 MG IVPUSH (14:11)
--- NOTE | 2021-08-10 15:57 | MHC.HEMONC ---
Here for C14 D1 Folfiri/Mvasi. Port accessed with good blood return noted. Labs obtained and results reviewed. States feeling good since last treatment. Premeds given as ordered. Treatment done. States that he feels slight wheezing after Irinotecan infusion. Lungs clear throughout, denies SOB, no cough. States he has inhaler at home, but does not feel that he needs to use it. Scheduled for pump take down in 2 days, and next treatment in 2 weeks.
[2021-08-12] MEDS: Heparin Sodium,Porcine Flush 500 UNIT/5 ML SYRINGE IVFLUSH (12:21)
--- NOTE | 2021-08-12 14:56 | MHC.HEMONC ---
Pt here for chemo pump take down. Port flushed with heparin and de accessed. Discharged home.
[2021-08-24 09:44] VITALS: BMI 31.7
[2021-08-24 09:45] LABS: MANUAL DIFF FLAG NO
[2021-08-24 09:49] LABS: Basophils Percent Auto 0.9 % (0-2); Eosinophils Absolute Auto 0.1 X10*3/uL (0.0-0.4); Eosinophils Percent Auto 2.2 % (0-4); Hematocrit 38.4 % (42.0-52.0); Hemoglobin 12.5 g/dl (14.0-18.0); Imm Gran Abs Auto 0.01 X10*3/uL (0.00-0.03); Imm Gran Pct Auto 0.2 % (0.0-0.4); Mean Corpuscular HGB Conc 32.6 g/dl (31.0-36.0); Mean Corpuscular Hemoglobin 31.6 pg (27.0-33.0); Mean Corpuscular Volume 97.2 fL (80.0-98.0); Mean Platelet Volume 10.1 fL (9.4-12.4); Monocytes Absolute Auto 0.7 X10*3/uL (0.1-1.2); Monocytes Percent Auto 15.5 % (2-11); Neutrophils Absolute Auto 1.7 x10*3/uL (2.0-8.3); Neutrophils Percent Auto 38.2 % (45-73); Platelet Count 183 X10*3/uL (160-400); Red Blood Count 3.95 X10*6/uL (4.60-5.80); Red Cell Distribution Width 16.9 % (11.0-16.0); White Blood Count 4.5 X10*3/uL (4.8-10.8)
[2021-08-24 09:51] VITALS: BP 131/82; PULSE 100; RESP 20; TEMP 36.7; O2SAT 95
[2021-08-24 09:52] LABS: Appearance Urine HAZY; Color Urine YELLOW; Glucose Urine UA NEG (NEG); Leukocyte Esterase Urine NEG (NEG); Nitrite Urine NEG (NEG); PH 5.5 (5.0-8.0); Specific Gravity - Urine >= 1.030 (1.005-1.025); Urine Blood NEG (NEG); Urine Ketones NEG (NEG); Urine Protein TRACE MG/DL (NEG-TRACE)
[2021-08-24 10:17] LABS: Alanine Aminotransferase 48 U/L (0-40); Alkaline Phosphatase 65 U/L (39-117); Anion Gap 13 (12-20); Aspartate Amino Transferase 36 U/L (5-37); Bilirubin Total 0.6 mg/dL (0.0-1.0); Blood Urea Nitrogen 9 mg/dL (9-16); Carbon Dioxide 24 mmol/L (22-29); Chloride 104 mmol/L (96-108); Creatinine Clr Calc Pharmacy 92.1; Estimated Glomerular Filt Rate > 60; Glucose Random 102 mg/dL (60-115); Potassium 4.1 mmol/L (3.3-5.1); Sodium 137 mmol/L (135-145); Total Protein 6.4 g/dL (6.5-8.0)
[2021-08-24] MEDS: Acetaminophen 325 MG TABLET 650 MG PO (10:31)
[2021-08-24] MEDS: Famotidine 20 MG TABLET PO (10:31)
[2021-08-24] MEDS: diphenhydrAMINE HCL 25 MG TABLET PO (10:31)
[2021-08-24] MEDS: dexAMETHasone sod phosphate/NS 12 MG/50 ML PIGGYBACK 200 MG IV (10:56)
[2021-08-24] MEDS: Fosaprepitant Dimeglumine 150 MG in 0.9 % Sodium Chloride 145 ML 300 MG IV (11:19)
[2021-08-24] MEDS: Leucovorin Calcium 700 MG in Dextrose 5 % 250 ML 190 MG IV (12:49)
[2021-08-24] MEDS: Irinotecan HCl 300 MG, Irinotecan HCl 20 MG in Dextrose 5 % 500 ML 344 MG IV (12:50)
[2021-08-24] MEDS: fluorouraciL 700 MG in Syringe, Disposable 0 ML 168 MG IVPUSH (14:28)
--- NOTE | 2021-08-24 14:50 | PM.HEMONCPN ---
Medical Summary - Medical Summary Date of Service: 08/24/21 Chief complaint: follow-up Medical Summary: Diagnosis: Metastatic colon cancer diagnosed February 2019 Presented with worsening abdominal pain, right lower quadrant ongoing for almost a year. CT imaging showed inflamed appendix, periappendiceal inflammation involving cecum and small bowel. Abscess identified in the pelvis which was drained. Appendectomy performed 02/22/2019, invasive adenocarcinoma, moderately differentiated, tumor present at the resection margin. Acute appendicitis and Suzy appendicitis with perforation. IHC showed CK 7-, CK 20 positive and CDX2 positive. MMR proficient. On 03/11/2019 patient underwent colonoscopy which showed adenomatous looking degenerative mass with an ulcerated center in the cecum. Two polyps were also removed. CTA performed 02/21/2019 showed multiple lung nodules bilaterally. Largest in the left lower lobe measuring 1.[address] abdomen performed 02/21/2019 showed dilated and inflamed appendix with surrounding inflammatory changes. Normal liver and spleen. Prominent mesenteric lymph nodes measuring up to 1.4 cm. CEA elevated at 14.6. FNA of the left lower lobe lung nodule performed 03/13/2019 showed adenocarcinoma consistent with known cecal primary. PET scan showed intense uptake around cecum, SUV 14.2, terminal ileum, foci in mesentery in the pelvis and right lower quadrant suspicious for metastatic deposits. No uptake in the lung nodules but malignancy not excluded. Right hemicolectomy performed 04/03/2019, adenocarcinoma moderately differentiated. Tumor invades through visceral peritoneum with macroscopic tumor perforation and direct invasion into adjacent loop of small bowel. Eight of 12 pericolonic lymph nodes positive for adenocarcinoma. Tumor involves mesenteric resection margins. Lymphovascular invasion present. Tumor size 6 x 2.8 cm. Stage [id number]. MMR proficient. BRAF mutation not detected, K-renata mutation detected, NRAS mutation not detected, IHC for verdugo TRK negative. Genetic testing. Patient?s genetic test result indicated that he was negative for a hereditary cancer gene mutation. Started chemotherapy modified FOLFOX 6 with Avastin from 04/23/2019. PET scan performed June 2019 showed complete metabolic response. Because of side effects of neuropathy his chemotherapy changed to maintenance treatment with Xeloda 1000 milligram/meter squared b.i.d. day 1-14 along with Avastin Q 3 weeks in June 2019.He has had elevation of CEA, PET[facility]CT performed at [facility] on 11/04/2019 showed increased FDG activity in right lower quadrant of abdomen/pelvis, SUV 6.4, nodular infiltration measuring 1.3 x 0.9 cm. Right upper lobe subpleural nodule with minimal FDG uptake of 2.6, metastatic nodule probable. Xeloda discontinued in February 2020 because of worsening hand/foot syndrome. Repeat PET-CT at [facility] [place] in October 2020 showed multiple subcentimeter pulmonary nodules none of which had FDG avidity. No other sites of metastatic disease. On irinotecan plus bevacizumab every 2 weeks until January 2021. He started FOLFOX regimen from 02/02/2021. Interval History Interval history: Patient is here for scheduled treatment. He is doing quite well overall. He has no complaints today such is nausea, abdominal discomfort, excess fatigue or weight loss. He is unable to exercise much because of the cold weather. [facility] Medical History: Medical History (Last Reviewed 04/22/21 @ 14:14 by Mague Montes) Acute appendicitis Asthma Colon adenocarcinoma Diarrhea Hypercholesteremia Family History: Family History (Last Updated 07/08/21 @ 14:21 by Toshia Dominique MD) Father History of cancer of unknown primary site Family history of high blood pressure Mother Hx of arteriosclerotic cardiovascular disease Maternal Grandfather Hx of arteriosclerotic cardiovascular disease Aortic aneurysm Brother No problems noted. Sister No problems noted. Brother No problems noted. Brother No problems noted. Brother No problems noted. Sister No problems noted. Surgical History: Surgical History (Last Reviewed 04/22/21 @ 14:14 by Mague Montes) History of lung biopsy Hx of appendectomy Hx of colonoscopy Hx of right hemicolectomy Social History: Social History (Last Updated 07/08/21 @ 14:21 by Toshia Dominique MD) Living Situation History: Household Members: Family Housing: Apartment Tobacco History: Patient Tobacco Use Status: Never used Tobacco e-Cigarette/Vaping Use: Never Used Second Hand Smoke Exposure: No Advance Directives: Advance Directives: No Advance Directives Information Provided: No Occupation Assessmet: Current occupational status: disabled Home Medications and Allergies Current Medications: Current Medications Acetaminophen (Acetaminophen 325 Mg Tablet) 650 mg PO ONCE LOLLY Stop: 08/24/21 23:59 Last Admin: 08/24/21 10:31 Dose: 650 mg Documented by: Atropine Sulfate (Atropine Sulfate 1 Mg/Ml Vial) 0.5 mg SUBCUT ONCE LOLLY Stop: 08/24/21 23:59 Diphenhydramine HCl (Diphenhydramine Hcl 25 Mg Tablet) 25 mg PO ONCE LOLLY Stop: 08/24/21 23:59 Last Admin: 08/24/21 10:31 Dose: 25 mg Documented by: Famotidine (Famotidine 20 Mg Tablet) 20 mg PO ONCE LOLLY Stop: 08/24/21 23:59 Last Admin: 08/24/21 10:31 Dose: 20 mg Documented by: Dexamethasone Sodium Phosphate (Decadron) 12 mg in 50 mls @ 200 mls/hr IV ONCE LOLLY Stop: 08/24/21 23:59 Last Infusion: 08/24/21 11:11 Dose: Infused Documented by: Ondansetron HCl (Zofran) 16 mg in 50 mls @ 200 mls/hr IV ONCE LOLLY Stop: 08/24/21 23:59 Last Infusion: 08/24/21 10:50 Dose: Infused Documented by: Fosaprepitant 150 mg/ Sodium (Chloride) 150 mls @ 300 mls/hr IV ONCE LOLLY Stop: 08/24/21 23:59 Last Infusion: 08/24/21 11:49 Dose: Infused Documented by: Bevacizumab-awwb 400 mg/Bevacizumab-awwb 100 mg/Sodium Chloride 100 mls @ 200 mls/hr IV ONCE LOLLY Stop: 08/24/21 23:59 Last Infusion: 08/24/21 12:31 Dose: Infused Documented by: Fluorouracil 4,275 mg/ Sodium (Chloride) 92 mls @ 2 mls/hr IV ONCE LOLLY Stop: 08/24/21 23:59 Last Admin: 08/24/21 14:29 Dose: 2 mls/hr Documented by: Fluorouracil 700 mg/ IV (Miscellaneous Supplies) 14 mls @ 168 mls/hr IVPUSH ONCE LOLLY Stop: 08/24/21 23:59 Last Admin: 08/24/21 14:28 Dose: 168 mls/hr Documented by: Irinotecan HCl 300 mg/ (Irinotecan HCl 20 mg/ Dextrose) 516 mls @ 344 mls/hr IV ONCE LOLLY Stop: 08/24/21 23:59 Last Infusion: 08/24/21 14:31 Dose: Infused Documented by: Leucovorin Calcium 700 mg/ (Dextrose) 285 mls @ 142.5 mls/hr IV ONCE LOLLY Stop: 08/24/21 23:59 Last Infusion: 08/24/21 14:30 Dose: Infused Documented by: Home Medications Medication Instructions Recorded Confirmed Type multivitamin 1 cap PO DAILY 03/03/20 07/08/21 History acetaminophen 325 mg tablet 650 mg PO Q6H PRN 08/25/20 07/08/21 History albuterol sulfate 90 mcg/actuation 1 puff INHALATION QID PRN 02/08/21 07/08/21 History aerosol inhaler Probiotic 1 cap DAILY 02/16/21 07/08/21 History Allergies Allergy/AdvReac Type Severity Reaction Status Date / Time seafood Allergy Severe Angioedema Verified 07/08/21 13:56 shrimp [SHRIMP] Allergy Severe ANGIOEDEMA Verified 07/08/21 13:56 milk [MILK] Allergy Mild DIARRHEA Verified 07/08/21 13:56 sucralfate [From Carafate] AdvReac Intermediate rectal Verified 07/08/21 14:19 bleeding Exam Vital signs: Vital Signs Temp 98.1 F 08/24/21 09:51 Pulse 100 08/24/21 09:51 Resp 20 08/24/21 09:51 BP 131/82 08/24/21 09:51 Pulse Ox 95 08/24/21 09:51 Intake & Output 08/23/21 08/24/21 08/24/21 18:59 06:59 18:59 Intake Total 1151 / 1151 Balance 1151 / 1151 Intake: Intake, IV Amount 1151 / 1151 Bevacizumab-awwb 400 mg 100 / 100 Bevacizumab-awwb 100 mg In 0.9 % Sodium Chloride 80 ml @ 200 mls/hr IV ONCE LOLLY Rx#: [id number] Fosaprepitant Dimeglumine 150 150 / 150 mg In 0.9 % Sodium Chloride 145 ml @ 300 mls/hr IV ONCE LOLLY Rx #:[id number] Irinotecan HCl 300 mg 516 / 516 Irinotecan HCl 20 mg In Dextrose 5 % 500 ml @ 344 mls/ hr IV ONCE LOLLY Rx#:[id number] Leucovorin Calcium 700 mg In 285 / 285 Dextrose 5 % 250 ml @ 142.5 mls /hr IV ONCE LOLLY Rx#:[id number] Ondansetron HCL/NS 16 mg In 50 50 / 50 ml @ 200 mls/hr IV ONCE LOLLY Rx# :[id number] dexAMETHasone sod phosphate/NS 50 / 50 12 mg In 50 ml @ 200 mls/hr IV ONCE LOLLY Rx#:[id number] Other: Weight 97.5 kg Weight in Grams 86432 Weight 97.5 kg BMI result Body Mass Index 31.7 - Constitutional Present: no acute distress - Routine HEENT Exam Head: Present: normal inspection - Routine Neck Exam Present: full ROM. Absent: lymphadenopathy - Routine Chest/Breast/Axilla Exam Chest wall: Absent: tenderness, mass - Routine Respiratory Exam Present: CTAB - Routine Cardiovascular Exam Cardiovascular: Present: RRR, S1, S2 - Routine Skin Exam Present: dry, rash, cracked Data - Labs CBC & Chem 7: 08/24/21 09:30 08/24/21 09:30 Assessment and Plan Patient Active problem list reviewed?: Yes (1) Colon carcinoma metastatic to multiple sites Problem details: February 2019 appendectomy invasive adenocarcinoma moderately differentiated cecal mass, left lower lung field lung nodule FNA adeno carcinoma Status: Chronic Assessment and plan: 1. This is a 51-year-old man with metastatic colon cancer, arising from cecum diagnosed in 2018. FNA of lung nodule is consistent with adenocarcinoma. Right hemicolectomy performed 04/03/2019, adenocarcinoma moderately differentiated. Stage [id number]. MMR proficient. BRAF mutation not detected, K-renata mutation detected, NRAS mutation not detected, IHC for verdugo TRK negative. HER2 non reactive and tumor mutational burden 4 Muts/Mb. Started chemotherapy modified FOLFOX 6 with Avastin from 04/23/2019. He had a good response based on PET scan in June but because of side effects of neuropathy he was switched to maintenance Xeloda with Avastin. Currently receiving FOLFOX regimen from 02/02/2021. Repeat imaging with CT chest with contrast performed July 2021 shows further progression in his lung nodules. CEA over 120 NG/mL CT abdomen/pelvis with contrast has also been added. As there is now further progression of his cancer, he will be switched to Lonsurf with Avastin, dose 35 milligram/meter sq day 1-5 and day 8-12 every 28 days along with Avastin Q 14 days. Possible side effects such as risk of cytopenias, infection, fatigue and GI toxicity was discussed. Proceed with chemotherapy today as scheduled. Follow-up in 6 weeks. - Time Spent With Patient Time Spent with Patient (in minutes): 20
--- NOTE | 2021-08-24 15:56 | HO.HEMONCSCH ---
CT scan sent to [facility].
--- NOTE | 2021-08-24 16:07 | HO.HEMONCPA ---
NO PA REQUIRED FOR AVASTIN. DRUG COVERED UNDER MEDICARE PART B BENEFITS.
--- NOTE | 2021-08-24 16:09 | MHC.HEMONC ---
Here for C15 D1 Folfiri/MVasi. States feeling good since last treatment. Port accessed with good blood return noted. Labs drawn and urine obtained. Results reviewed, and ok for treatment. Premeds given as ordered. Treatment done and tolerated well. Dr Mims in to see pt and review results of CT scan done 08/15. Plan is to change treatment to Avastin q2 weeks, and start Lonsurf po days 1-5 and days 8-12 every 28 days. Pt aware and agreeable, and pharmacy also made aware. Departed unit with home infusion pump. Will return Saturday 08/26 for pump take down.
--- NOTE | 2021-08-26 09:10 | MHC.HEMONC ---
Pt starts new regimen 09/07. Capecitabine to be ordered for delivery next week per Manisha.
--- NOTE | 2021-08-26 15:50 | MHC.HEMONC ---
Here for pump take down. Tolerated treatment well. Port flushed with heparin and de-accessed. Scheduled for next treatment in 1 month
--- NOTE | 2021-08-29 10:31 | MHC.HEMONC ---
Pt scheduled for CT on at 9:30. NPO he will arrive for 7:30 to have oral contrast. Pt is aware of this.
[2021-09-07 09:48] LABS: MANUAL DIFF FLAG NO
[2021-09-07 09:51] LABS: Basophils Percent Auto 0.7 % (0-2); Eosinophils Absolute Auto 0.1 X10*3/uL (0.0-0.4); Eosinophils Percent Auto 3.2 % (0-4); Hematocrit 37.4 % (42.0-52.0); Hemoglobin 12.3 g/dl (14.0-18.0); Imm Gran Abs Auto 0.01 X10*3/uL (0.00-0.03); Imm Gran Pct Auto 0.2 % (0.0-0.4); Lymphocytes Absolute Auto 1.6 X10*3/uL (1.2-4.9); Lymphocytes Percent Auto 39.1 % (20-40); Mean Corpuscular HGB Conc 32.9 g/dl (31.0-36.0); Mean Corpuscular Hemoglobin 31.5 pg (27.0-33.0); Mean Corpuscular Volume 95.7 fL (80.0-98.0); Monocytes Absolute Auto 0.7 X10*3/uL (0.1-1.2); Monocytes Percent Auto 17.7 % (2-11); Neutrophils Absolute Auto 1.6 x10*3/uL (2.0-8.3); Neutrophils Percent Auto 39.1 % (45-73); Platelet Count 168 X10*3/uL (160-400); Red Blood Count 3.91 X10*6/uL (4.60-5.80); Red Cell Distribution Width 16.8 % (11.0-16.0); White Blood Count 4.1 X10*3/uL (4.8-10.8)
[2021-09-07 09:52] LABS: Appearance Urine CLEAR; Color Urine YELLOW; Glucose Urine UA NEG (NEG); Leukocyte Esterase Urine NEG (NEG); Nitrite Urine NEG (NEG); Urine Blood NEG (NEG); Urine Ketones NEG (NEG); Urine Protein NEG (NEG-TRACE)
[2021-09-07 09:53] VITALS: BP 126/82; PULSE 98; RESP 20; TEMP 36.9; BMI 31.8
[2021-09-07 10:08] LABS: Alanine Aminotransferase 45 U/L (0-40); Albumin Level 3.9 g/dL (3.5-5.0); Alkaline Phosphatase 59 U/L (39-117); Anion Gap 13 (12-20); Aspartate Amino Transferase 35 U/L (5-37); Bilirubin Total 0.5 mg/dL (0.0-1.0); Blood Urea Nitrogen 6 mg/dL (9-16); Calcium 9.7 mg/dL (8.4-10.2); Carbon Dioxide 26 mmol/L (22-29); Chloride 104 mmol/L (96-108); Creatinine Clr Calc Pharmacy 90.6; Estimated Glomerular Filt Rate > 60; Glucose Random 106 mg/dL (60-115); Potassium 4.1 mmol/L (3.3-5.1); Sodium 139 mmol/L (135-145); Total Protein 6.3 g/dL (6.5-8.0)
[2021-09-07] MEDS: Acetaminophen 325 MG TABLET 650 MG PO (10:27)
[2021-09-07] MEDS: Ondansetron ODT 8 MG TAB.RAPDIS TRANSLINGU (10:27)
[2021-09-07] MEDS: BEVACIZUMAB IV (10:48)
[2021-09-07] MEDS: SODIUM CHLORIDE 0.9% IV (10:48)
[2021-09-07] MEDS: Heparin Sodium,Porcine Flush 500 UNIT/5 ML SYRINGE IVFLUSH (10:50)
--- NOTE | 2021-09-07 11:46 | MHC.HEMONC ---
Here for C1 D1 Lonsurf/Avastin. Port accessed with good blood return noted. Lab draw done and results reviewed. States feeling well, tolerated last treatment well. Did bring his lonsurf in to start today. Nadine Jonas RN in to discuss new med. Premedicated with tylenol and zofran po. Avastin done and tolerated well. First dose of Lonsurf taken at 1130. Port flushed with heparin and de-accessed. Next treatment scheduled for 2 weeks.
--- NOTE | 2021-09-20 15:39 | MHC.HEMONC ---
Pt has decided (with Dr Mims's input) to accept offer to ener into Clinical Trial at [facility] where he had Consultation several months ago. Chemo to be held here as he has appt there next Tuesday 09/26 and they hope to start soon after that. Pt will let us know exact plan once he returns from Informational there.
[2021-10-10 15:17] VITALS: BMI 31.4
[2021-10-10 15:18] VITALS: BP 120/89; PULSE 111; RESP 18; TEMP 36.6; O2SAT 95
--- NOTE | 2021-10-10 15:21 | P.PNHO_ITS ---
Medical Summary - Medical Summary Date of Service: 10/10/21 Chief complaint: Follow-up Medical Summary: Diagnosis: Metastatic colon cancer diagnosed February 2019 Presented with worsening abdominal pain, right lower quadrant ongoing for almost a year. CT imaging showed inflamed appendix, periappendiceal inflammation involving cecum and small bowel. Abscess identified in the pelvis which was drained. Appendectomy performed 02/22/2019, invasive adenocarcinoma, moderately differentiated, tumor present at the resection margin. Acute appendicitis and Suzy appendicitis with perforation. IHC showed CK 7-, CK 20 positive and CDX2 positive. MMR proficient. On 03/11/2019 patient underwent colonoscopy which showed adenomatous looking degenerative mass with an ulcerated center in the cecum. Two polyps were also removed. CTA performed 02/21/2019 showed multiple lung nodules bilaterally. Largest in the left lower lobe measuring 1.[address] abdomen performed 02/21/2019 showed dilated and inflamed appendix with surrounding inflammatory changes. Normal liver and spleen. Prominent mesenteric lymph nodes measuring up to 1.4 cm. CEA elevated at 14.6. FNA of the left lower lobe lung nodule performed 03/13/2019 showed adenocarcinoma consistent with known cecal primary. PET scan showed intense uptake around cecum, SUV 14.2, terminal ileum, foci in mesentery in the pelvis and right lower quadrant suspicious for metastatic deposits. No uptake in the lung nodules but malignancy not excluded. Right hemicolectomy performed 04/03/2019, adenocarcinoma moderately differentiated. Tumor invades through visceral peritoneum with macroscopic tumor perforation and direct invasion into adjacent loop of small bowel. Eight of 12 pericolonic lymph nodes positive for adenocarcinoma. Tumor involves mesenteric resection margins. Lymphovascular invasion present. Tumor size 6 x 2.8 cm. Stage [id number]. MMR proficient. BRAF mutation not detected, K-renata mutation detected, NRAS mutation not detected, IHC for verdugo TRK negative. Genetic testing. Patient?s genetic test result indicated that he was negative for a hereditary cancer gene mutation. Started chemotherapy modified FOLFOX 6 with Avastin from 04/23/2019. PET scan performed June 2019 showed complete metabolic response. Because of side effects of neuropathy his chemotherapy changed to maintenance treatment with Xeloda 1000 milligram/meter squared b.i.d. day 1-14 along with Avastin Q 3 weeks in June 2019.He has had elevation of CEA, PET-CT performed at [facility] on 11/04/2019 showed increased FDG activity in right lower quadrant of abdomen/pelvis, SUV 6.4, nodular infiltration measuring 1.3 x 0.9 cm. Right upper lobe subpleural nodule with minimal FDG uptake of 2.6, metastatic nodule probable. Xeloda discontinued in February 2020 because of worsening hand/foot syndrome. Repeat PET[place]CT at [facility] in October 2020 showed multiple subcentimeter pulmonary nodules none of which had FDG avidity. No other sites of metastatic disease. On irinotecan plus bevacizumab every 2 weeks until January 2021. He started FOLFOX regimen from 02/02/2021. Interval History Interval history: Joselito is here in follow-up. He has had several appointments in [place], he has enrolled in clinical trial there. He is a bit overwhelmed with all the information in multiple upcoming visits. He has a lung biopsy tomorrow. He received 1 dose of Neulasta for neutropenia. His blood counts did improve in he had some bone pains that have since resolved. Review of Systems - Constitutional Denies anorexia, Denies chills, Denies fatigue, Denies fever(s), Denies lack of energy, Denies malaise, Denies weight loss PMFSH Medical History: Medical History (Last Reviewed 09/26/21 @ 10:05 by THAIS Irving) Acute appendicitis Asthma Colon adenocarcinoma Diarrhea Hypercholesteremia Family History: Family History (Last Reviewed 09/26/21 @ 10:05 by THAIS Irving) Father History of cancer of unknown primary site Family history of high blood pressure Mother Hx of arteriosclerotic cardiovascular disease Maternal Grandfather Hx of arteriosclerotic cardiovascular disease Aortic aneurysm Brother No problems noted. Sister No problems noted. Brother No problems noted. Brother No problems noted. Brother No problems noted. Sister No problems noted. Surgical History: Surgical History (Last Reviewed 09/26/21 @ 10:05 by THAIS Irving) History of lung biopsy Hx of appendectomy Hx of colonoscopy Hx of right hemicolectomy Social History: Social History (Last Reviewed 09/26/21 @ 10:05 by THAIS Irving) Living Situation History: Household Members: Family Housing: Apartment Tobacco History: Patient Tobacco Use Status: Never used Tobacco e-Cigarette/Vaping Use: Never Used Second Hand Smoke Exposure: No Advance Directives: Advance Directives: No Advance Directives Information Provided: No Occupation Assessmet: Current occupational status: disabled Home Medications and Allergies Home Medications Medication Instructions Recorded Confirmed Type multivitamin 1 cap PO DAILY 03/03/20 10/10/21 History acetaminophen 325 mg tablet 650 mg PO Q6H PRN 08/25/20 10/10/21 History albuterol sulfate 90 mcg/actuation 1 puff INHALATION QID PRN 02/08/21 10/10/21 History aerosol inhaler Probiotic 1 cap DAILY 02/16/21 10/10/21 History Allergies Allergy/AdvReac Type Severity Reaction Status Date / Time seafood Allergy Severe Angioedema Verified 09/26/21 10:05 shrimp [SHRIMP] Allergy Severe ANGIOEDEMA Verified 09/26/21 10:05 sucralfate [From Carafate] AdvReac Intermediate rectal Verified 09/26/21 10:05 bleeding Exam Vital signs: Vital Signs Temp 97.9 F 10/10/21 15:18 Pulse 111 H 10/10/21 15:18 Resp 18 10/10/21 15:18 BP 120/89 10/10/21 15:18 Pulse Ox 95 10/10/21 15:18 Intake & Output 10/09/21 10/10/21 10/10/21 18:59 06:59 18:59 Other: Weight 96.5 kg Weight in Grams 10391 Weight 96.5 kg BMI result Body Mass Index 31.4 - Constitutional Present: no acute distress - Routine HEENT Exam Head: Present: normal inspection - Routine Neck Exam Present: full ROM. Absent: lymphadenopathy - Routine Chest/Breast/Axilla Exam Chest wall: Absent: tenderness, mass - Routine Respiratory Exam Present: CTAB - Routine Cardiovascular Exam Cardiovascular: Present: RRR, S1, S2 - Routine Skin Exam Present: dry, rash, cracked Data - Labs CBC & Chem 7: 09/07/21 09:35 09/07/21 09:35 Assessment and Plan Patient Active problem list reviewed?: Yes (1) Colon carcinoma metastatic to multiple sites Problem details: February 2019 appendectomy invasive adenocarcinoma moderately differentiated cecal mass, left lower lung field lung nodule FNA adeno carcinoma Status: Chronic Assessment and plan: 1. This is a 51-year-old man with metastatic colon cancer, arising from cecum diagnosed in 2018. FNA of lung nodule is consistent with adenocarcinoma. Right hemicolectomy performed 04/03/2019, adenocarcinoma moderately differentiated. Stage [id number]. MMR proficient. BRAF mutation not detected, K-renata mutation detected, NRAS mutation not detected, IHC for verdugo TRK negative. HER2 non reactive and tumor mutational burden 4 Muts/Mb. Started chemotherapy modified FOLFOX 6 with Avastin from 04/23/2019. He had a good response based on PET scan in June but because of side effects of ne uropathy he was switched to maintenance Xeloda with Avastin. On irinotecan plus bevacizumab every 2 weeks until January 2021. Later switched to FOLFIRI/Adelaida regimen until 08/2021. Repeat imaging with CT chest with contrast performed July 2021 shows further progression in his lung nodules. CEA over 120 NG/mL He received 1 cycle of Lonsurf with Avastin. This was discontinued quickly so he could participate in clinical trial. He was encouraged to participate in clinical trial that was open in [place], protocol 19-132 which uses 2 novel immunotherapy drugs. Today I spent some time reassuring Prince that he would receive excellent care in [place]. He can keep me in the loop but he was advised to call research nurse with any side effects or symptoms he is experiencing. I will be happy to see him on a p.r.n. basis for now. - Time Spent With Patient Time Spent with Patient (in minutes): 15
--- NOTE | 2021-10-10 17:06 | MHC.HEMONC ---
Pt seen in f/u by Dr Mims. He has been accepted into a Clinical Trial at [facility]. He is understandably anxious about how things will go but he feels that he has had his questions answered and will continue to stay very involved and committed to the Study. He will be having a lung bx there tomorrow. He will call us as needed. I wished him well.
--- NOTE | 2021-12-21 17:44 | PM.EVENT ---
Received a call from Dr. Pierce from [facility], ([phone], cell phone). patient has been on clinical trial involving CTLA 4 and PD-1 inhibitors. Unfortunately his disease progressed and he developed autoimmune nephritis. He was hospitalized as his serum creatinine had gone up to 6. He has been on high-dose steroids, he has been discharged from the hospital. He has developed cough related to his pulmonary metastasis. He has been advised to resume Lonsurf with bevacizumab.
--- NOTE | 2021-12-22 15:53 | MHC.HEMONC ---
Dr Mims spoke with at [facility] re: Prince. 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 He will be resuming treatment here with oral Lonsurf and IV Avastin. [facility] and Venkat is working on order. haney to review avastin PA. Pt will come in Sunday for labs.
[2021-12-26 10:01] VITALS: BP 142/94; PULSE 102; RESP 18; TEMP 36.9; O2SAT 97; BMI 29.9
[2021-12-26 11:20] LABS: MANUAL DIFF FLAG NO
[2021-12-26 11:34] LABS: Basophils Percent Auto 0.1 % (0-2); Hematocrit 31.4 % (42.0-52.0); Hemoglobin 10.4 g/dl (14.0-18.0); Imm Gran Abs Auto 0.38 X10*3/uL (0.00-0.03); Imm Gran Pct Auto 1.9 % (0.0-0.4); Mean Corpuscular HGB Conc 33.1 g/dl (31.0-36.0); Mean Corpuscular Hemoglobin 29.4 pg (27.0-33.0); Mean Corpuscular Volume 88.7 fL (80.0-98.0); Mean Platelet Volume 9.5 fL (9.4-12.4); Monocytes Percent Auto 4.8 % (2-11); Neutrophils Percent Auto 88.2 % (45-73); Platelet Count 235 X10*3/uL (160-400); Red Blood Count 3.54 X10*6/uL (4.60-5.80); White Blood Count 20.4 X10*3/uL (4.8-10.8)
[2021-12-26 11:49] LABS: Alanine Aminotransferase 31 U/L (0-40); Albumin Level 3.3 g/dL (3.5-5.0); Alkaline Phosphatase 58 U/L (39-117); Anion Gap 13 (12-20); Aspartate Amino Transferase 13 U/L (5-37); Bilirubin Total 0.5 mg/dL (0.0-1.0); Blood Urea Nitrogen 31 mg/dL (9-16); Calcium 8.4 mg/dL (8.4-10.2); Carbon Dioxide 26 mmol/L (22-29); Chloride 105 mmol/L (96-108); Creatinine Clr Calc Pharmacy 59.4; Estimated Glomerular Filt Rate 45; Glucose Random 109 mg/dL (60-115); Potassium 4.2 mmol/L (3.3-5.1); Sodium 140 mmol/L (135-145); Total Protein 5.8 g/dL (6.5-8.0)
--- NOTE | 2021-12-26 12:34 | MHC.HEMONC ---
Pt went for port flush. Call received from Dr Franz, and he reports port flushes well, and is patent. Fibrin sheath is present, ok to use port.
--- NOTE | 2021-12-26 18:21 | MHC.HEMONC ---
Pt was in for f/u lab draw from his implanted R chest port, VSS, reported feeling well. Nurse accessed pt's R port w/ 20g, 3/4 hill needle, flushed w/ NS, but could not achieve blood return, in spite of having pt change his position and flushing IV fluids thru port. Nurse Massiel attempted re-accessing port, but still found no blood return. Pt agreed to having labs drawn peripherally, had CBC, CMP, and CEA collected. Nurse booked pt for Fluoroscopy port study upstairs at Radiology,, Dr. Frnaz's office called to report pt has Fibrin Sheath, and his port should not be expected to provide blood return going forward. Pt returned to Hem/Onc and verbalized understanding that, in the future, this port could not be used for blood specimen draws, but could still be used for administering IV meds, IVF, or blood products. Nurse flushed port w/ NS and Heparin 500 units, then de-accessed pt's port, then provided d/c packet, booking pt for f/u labs next Sun, 01/02 as well as Onc f/u w/ Dr. Mims in the afternoon of 01/02/22.
--- NOTE | 2021-12-27 11:08 | HO.HEMONCPA ---
NO PA REQUIRED FOR Bevacizumab([id number]) PER [employer]ICE REP. GERBER CALL REF#[id number] CALL ON 12/27/21 at 11AM to [facility]
--- NOTE | 2021-12-27 11:53 | MHC.HEMONC ---
Pt left , requesting his lab results from 12/26/21 be faxed to Kiah Adams at [facility]. Nurse faxed to [phone], received confirmation receipt. Nurse called pt on his cell and updated him, pt confirmed all his labs should be sent to [facility] henceforth. Nurse updated pt's tx plan and added comment to next week's lab appt.
[2022-01-02 14:48] VITALS: BP 137/92; PULSE 101; RESP 14; TEMP 36.8; O2SAT 95; BMI 29.7
--- NOTE | 2022-01-02 15:46 | P.PNHO-ONC_ITS ---
Medical Summary - Medical Summary Date of Service: 01/02/22 Chief complaint: Follow-up Medical Summary: Diagnosis: Metastatic colon cancer diagnosed February 2019 Presented with worsening abdominal pain, right lower quadrant ongoing for almost a year. CT imaging showed inflamed appendix, periappendiceal inflammation involving cecum and small bowel. Abscess identified in the pelvis which was drained. Appendectomy performed 02/22/2019, invasive adenocarcinoma, moderately differentiated, tumor present at the resection margin. Acute appendicitis and Suzy appendicitis with perforation. IHC showed CK 7-, CK 20 positive and CDX2 positive. MMR proficient. On 03/11/2019 patient underwent colonoscopy which showed adenomatous looking degenerative mass with an ulcerated center in the cecum. Two polyps were also removed. CTA performed 02/21/2019 showed multiple lung nodules bilaterally. Largest in the left lower lobe measuring 1.[address] abdomen performed 02/21/2019 showed dilated and inflamed appendix with surrounding inflammatory changes. Normal liver and spleen. Prominent mesenteric lymph nodes measuring up to 1.4 cm. CEA elevated at 14.6. FNA of the left lower lobe lung nodule performed 03/13/2019 showed adenocarcinoma consistent with known cecal primary. PET scan showed intense uptake around cecum, SUV 14.2, terminal ileum, foci in mesentery in the pelvis and right lower quadrant suspicious for metastatic deposits. No uptake in the lung nodules but malignancy not excluded. Right hemicolectomy performed 04/03/2019, adenocarcinoma moderately differentiated. Tumor invades through visceral peritoneum with macroscopic tumor perforation and direct invasion into adjacent loop of small bowel. Eight of 12 pericolonic lymph nodes positive for adenocarcinoma. Tumor involves mesenteric resection margins. Lymphovascular invasion present. Tumor size 6 x 2.8 cm. Stage [id number]. MMR proficient. BRAF mutation not detected, K-renata mutation detected, NRAS mutation not detected, IHC for verdugo TRK negative. Genetic testing. Patient?s genetic test result indicated that he was negative for a hereditary cancer gene mutation. Started chemotherapy modified FOLFOX 6 with Avastin from 04/23/2019. PET scan performed June 2019 showed complete metabolic response. Because of side effects of neuropathy his chemotherapy changed to maintenance treatment with Xeloda 1000 milligram/meter squared b.i.d. day 1-14 along with Avastin Q 3 weeks in June 2019.He has had elevation of CEA, PET-CT performed at [facility] on 11/04/2019 showed increased FDG activity in right lower quadrant of abdomen/pelvis, SUV 6.4, nodular infiltration measuring 1.3 x 0.9 cm. Right upper lobe subpleural nodule with minimal FDG uptake of 2.6, metastatic nodule probable. Xeloda discontinued in February 2020 because of worsening hand/foot syndrome. Repeat PET-CT at [facility] in October 2020 showed multiple subcentimeter pulmonary nodules none of which had FDG avidity. No other sites of metastatic disease. On irinotecan plus bevacizumab every 2 weeks until January 2021. He started FOLFOX regimen from 02/02/2021. Interval History Interval history: Joselito is here in follow-up. Unfortunately, he did not respond to the trial medication in [place]. 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 He is on high doses of prednisone but responding to treatment. He feels okay, somewhat tired. He has mild abdominal discomfort. His weight is stable, he denies nausea or emesis. No fever or chills. No cough or shortness of breath. Review of Systems - Constitutional Reports as per HPI, Reports fatigue, Reports malaise [facility] Medical History: Medical History (Last Reviewed 01/02/22 @ 14:51 by Katelin Morse) Acute appendicitis Asthma Colon adenocarcinoma Diarrhea Hypercholesteremia Family History: Family History (Last Reviewed 01/02/22 @ 14:51 by Katelin Morse) Father History of cancer of unknown primary site Family history of high blood pressure Mother Hx of arteriosclerotic cardiovascular disease Maternal Grandfather Hx of arteriosclerotic cardiovascular disease Aortic aneurysm Brother No problems noted. Sister No problems noted. Brother No problems noted. Brother No problems noted. Brother No problems noted. Sister No problems noted. Surgical History: Surgical History (Last Reviewed 01/02/22 @ 14:51 by Katelin Morse) History of lung biopsy Hx of appendectomy Hx of colonoscopy Hx of right hemicolectomy Social History: Social History (Last Updated 01/02/22 @ 14:52 by Katelin Morse) Living Situation History: Household Members: Family Housing: Apartment Alcohol History Details: 1. How often do you have a drink containing alcohol?: a. Never Tobacco History: Patient Tobacco Use Status: Never used Tobacco e-Cigarette/Vaping Use: Never Used Second Hand Smoke Exposure: No Substance Use History: Use of substances other than those prescribed or required for medical reasons : No Advance Directives: Advance Directives: No Advance Directives Information Provided: No Homicidal Assessment: Do you have thoughts of harming others: None Do you have a plan to hurt others: No Plan Do you have the means to hurt others: No Nutrition Assessment: Recently lost weight without trying: No Occupation Assessmet: service: No Current occupational status: disabled Oncology Screenings - ECOG Performance Status ECOG Performance Status: 1 Home Medications and Allergies Home Medications Medication Instructions Recorded Confirmed Type multivitamin 1 cap PO DAILY 03/03/20 01/02/22 History albuterol sulfate 90 mcg/actuation 1 puff inhalation QID PRN 02/08/21 01/02/22 H istory aerosol inhaler Shortness Of Breath Or Wheezing Probiotic 1 cap DAILY 02/16/21 01/02/22 History atovaquone 10 ml PO DAILY 01/02/22 01/02/22 History baclofen 10 mg PO DAILY 01/02/22 01/02/22 History carboxymethylcellulose 0.5 drp PO 4-6XD 01/02/22 01/02/22 History famotidine 20 mg PO DAILY 01/02/22 01/02/22 History ferrous sulfate 324 mg PO DAILY 01/02/22 01/02/22 History metoclopramide HCl 40 mg PO DAILY 01/02/22 01/02/22 History prednisone 90 mg PO DAILY 01/02/22 01/02/22 History sodium bicarbonate 1,300 mg PO BID 01/02/22 01/02/22 History white petrolatum-mineral oil 9 % ophthalmic (eye) TID 01/02/22 01/02/22 History Allergies Allergy/AdvReac Type Severity Reaction Status Date / Time seafood Allergy Severe Angioedema Verified 10/24/21 11:54 shrimp [SHRIMP] Allergy Severe ANGIOEDEMA Verified 10/24/21 11:54 sucralfate [From Carafate] AdvReac Intermediate rectal Verified 10/24/21 11:54 bleeding Exam Vital signs: Vital Signs Temp 98.2 F 01/02/22 14:48 Pulse 101 H 01/02/22 14:48 Resp 14 01/02/22 14:48 BP 137/92 H 01/02/22 14:48 Pulse Ox 95 01/02/22 14:48 O2 Del Method 01/02/22 14:48 Intake & Output 01/01/22 01/02/22 01/02/22 18:59 06:59 18:59 Other: Weight 91.3 kg [place] Weight in Grams 13827 Weight 91.3 kg BMI result Body Mass Index 29.7 - Constitutional Present: no acute distress - Routine HEENT Exam Head: Present: normal inspection - Routine Neck Exam Present: full ROM. Absent: lymphadenopathy - Routine Chest/Breast/Axilla Exam Chest wall: Absent: tenderness, mass - Routine Respiratory Exam Present: CTAB - Routine Cardiovascular Exam Cardiovascular: Present: RRR, S1, S2 - Routine Skin Exam Present: dry, rash, cracked Data - Labs CBC & Chem 7: 01/02/22 15:54 12/26/21 11:18 - Imaging Radiologist's impression: ITS Impressions Guidance Fluoroscopy 12/26/21 12:41 FINDINGS/IMPRESSION: On contrast injection of the port under fluoroscopy, there is contrast exiting the tip of the catheter and directed upwards with eventually the contrast traveling towards the right atrium. There is a thick sheath seen surrounding the distal catheter tip in the SVC which most likely prevents blood withdrawal. The results were called to referring physician's nurse in charge and made aware of the finding. Assessment and Plan Patient Active problem list reviewed?: Yes (1) Colon carcinoma metastatic to multiple sites Problem details: February 2019 appendectomy invasive adenocarcinoma moderately differentiated cecal mass, left lower lung field lung nodule FNA adeno carcinoma Status: Chronic Assessment and plan: 1. This is a 51-year-old man with metastatic colon cancer, arising from cecum diagnosed in 2018. FNA of lung nodule is consistent with adenocarcinoma. Right hemicolectomy performed 04/03/2019, adenocarcinoma moderately differentiated. Stage [id number]. MMR proficient. BRAF mutation not detected, K-renata mutation detected, NRAS mutation not detected, IHC for verdugo TRK negative. HER2 non reactive and tumor mutational burden 4 Muts/Mb. Started chemotherapy modified FOLFOX 6 with Avastin from 04/23/2019. He had a good response based on PET scan in June but because of side effects of neuropathy he was switched to maintenance Xeloda with Avastin. On irinotecan plus bevacizumab every 2 weeks until January 2021. Later switched to FOLFIRI/Adelaida regimen until 08/2021. He had progressive disease, lung nodules in August 2021. He enrolled in clinical trial in [place], protocol 19-132 which used 2 novel immunotherapy drugs. He started this on 10/13/2021. 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 He was eventually discharged on prednisone 90 mg once daily. He is being tapered gradually. His kidney functions are improving. CT abdomen/pelvis on 12/12/2021 in [place] showed increase in size of metastatic retroperitoneal lymphadenopathy. Peritoneal metastasis in right lower quadrant. Hepatic hypodensities, too small to characterize. CT chest same day showed numerous pulmonary nodules consistent with metastatic disease, a few with increasing cavitation. He has been prescribed Lonsurf 20-8.19 mg 4 tabs p.o. b.i.d. on days 1-5 and days 8-12 every 28 day cycle. He will be started on Avastin this week. His creatinine has improved 1.40 mg/dL. I will be happy to see him on a p.r.n. basis for now. - Time Spent With Patient Time Spent with Patient (in minutes): 15
--- NOTE | 2022-01-02 16:06 | MHC.HEMONCMA ---
patient here today for followup and VSS, Labs, set lab draws up for the next 3 weeks, then when treatment can start.
[2022-01-02 16:10] LABS: Basophils Percent Auto 0.1 % (0-2); Eosinophils Percent Auto 0.1 % (0-4); Hematocrit 36.6 % (42.0-52.0); Imm Gran Abs Auto 0.13 X10*3/uL (0.00-0.03); Imm Gran Pct Auto 0.8 % (0.0-0.4); Lymphocytes Absolute Auto 0.6 X10*3/uL (1.2-4.9); Lymphocytes Percent Auto 3.7 % (20-40); MANUAL DIFF FLAG SCAN; Mean Corpuscular HGB Conc 32.8 g/dl (31.0-36.0); Mean Corpuscular Hemoglobin 28.9 pg (27.0-33.0); Mean Corpuscular Volume 88.2 fL (80.0-98.0); Mean Platelet Volume 10.2 fL (9.4-12.4); Monocytes Absolute Auto 0.4 X10*3/uL (0.1-1.2); Monocytes Percent Auto 2.5 % (2-11); Neutrophils Absolute Auto 14.2 x10*3/uL (2.0-8.3); Neutrophils Percent Auto 92.8 % (45-73); Platelet Count 227 X10*3/uL (160-400); Red Blood Count 4.15 X10*6/uL (4.60-5.80); Red Cell Distribution Width 18.1 % (11.0-16.0); SCAN SMEAR FLAG 1; White Blood Count 15.3 X10*3/uL (4.8-10.8)
--- NOTE | 2022-01-02 16:10 | MHC.HEMONC ---
Nurse faxed pt's weekly lab results to Mahogany Adams at [facility] at . Per request of [facility], nurse entered appts for weekly CBC, CMP x10 weeks, including specific comment to fax results to Kiah Adams at .
[2022-01-02 16:32] LABS: SLIDE REVIEW VERIFIED
[2022-01-02 16:44] LABS: Alanine Aminotransferase 30 U/L (0-40); Albumin Level 3.9 g/dL (3.5-5.0); Alkaline Phosphatase 61 U/L (39-117); Anion Gap 17 (12-20); Aspartate Amino Transferase 19 U/L (5-37); Bilirubin Total 0.5 mg/dL (0.0-1.0); Blood Urea Nitrogen 27 mg/dL (9-16); Calcium 9.1 mg/dL (8.4-10.2); Carbon Dioxide 25 mmol/L (22-29); Chloride 102 mmol/L (96-108); Creatinine Clr Calc Pharmacy 68.9; Estimated Glomerular Filt Rate 53; Glucose Random 121 mg/dL (60-115); Phosphorus 2.6 mg/dL (2.7-4.5); Potassium 4.5 mmol/L (3.3-5.1); Sodium 139 mmol/L (135-145); Total Protein 6.8 g/dL (6.5-8.0)
--- NOTE | 2022-01-03 11:10 | MHC.HEMONC ---
I left voicemail on pt phone asking him to call me. Per Dr Mims- after consulting with Dr Melton at [facility] - pt may start Lonsurf but we will hold off on Avastin until his prednisone dose id < or = 10mg per day to reduce risk of bleed. Once he starts the Avastin, we should be sure he's on a PPI.
--- NOTE | 2022-01-03 16:32 | MHC.HEMONC ---
Pt called the clinic to complain that [facility] had told him they did not receive any of the requested lab results from the past 2 weeks as they'd requested. This nurse called [facility], spoke w/ NEGAR Adams, informed her that he had faxed CBC & CMP results on 12/26/21, and received fax confirmation receipt, and also faxed CBC & CMP results on 01/02/22, and received fax confirmation receipt for that as well. Beatrice could not explain why faxes were not received, nurse confirmed that their correct Fax # is [phone], asked for alternative fax #, but they apparently don't have one. NEGAR Barron did ask for pt's Creatinine levels. Nurse replied pt's Creatinine was 1.63 on 12/26 and 1.40 on 01/02. Nurse faxed CBC, CMP results from 12/26 and 01/02 again to [phone] and once again received fax confirmation receipt. Nurse called [facility] later in the day, spoke w/ Amy, requested confirmation that faxes had been received, left CBAmy Garcia passed message to nurses at Beatrice Adams's office.
[2022-01-09 10:04] LABS: MANUAL DIFF FLAG NO
[2022-01-09 10:09] LABS: Basophils Percent Auto 0.2 % (0-2); Eosinophils Absolute Auto 0.3 X10*3/uL (0.0-0.4); Eosinophils Percent Auto 3.1 % (0-4); Hematocrit 34.4 % (42.0-52.0); Hemoglobin 11.4 g/dl (14.0-18.0); Imm Gran Abs Auto 0.26 X10*3/uL (0.00-0.03); Imm Gran Pct Auto 2.5 % (0.0-0.4); Lymphocytes Absolute Auto 2.2 X10*3/uL (1.2-4.9); Lymphocytes Percent Auto 20.9 % (20-40); Mean Corpuscular HGB Conc 33.1 g/dl (31.0-36.0); Mean Corpuscular Hemoglobin 29.5 pg (27.0-33.0); Mean Corpuscular Volume 88.9 fL (80.0-98.0); Monocytes Absolute Auto 0.9 X10*3/uL (0.1-1.2); NRBC Pct Auto 0.2 /100WBC (0.0-0.2); Neutrophils Absolute Auto 6.7 x10*3/uL (2.0-8.3); Neutrophils Percent Auto 64.3 % (45-73); Platelet Count 218 X10*3/uL (160-400); Red Blood Count 3.87 X10*6/uL (4.60-5.80); Red Cell Distribution Width 19.5 % (11.0-16.0); White Blood Count 10.5 X10*3/uL (4.8-10.8)
[2022-01-09 10:35] LABS: Alanine Aminotransferase 138 U/L (0-40); Albumin Level 3.8 g/dL (3.5-5.0); Alkaline Phosphatase 59 U/L (39-117); Anion Gap 14 (12-20); Aspartate Amino Transferase 56 U/L (5-37); Bilirubin Total 0.5 mg/dL (0.0-1.0); Blood Urea Nitrogen 26 mg/dL (9-16); Carbon Dioxide 27 mmol/L (22-29); Chloride 103 mmol/L (96-108); Creatinine Clr Calc Pharmacy 75.3; Estimated Glomerular Filt Rate 59; Glucose Random 95 mg/dL (60-115); Potassium 3.8 mmol/L (3.3-5.1); Sodium 140 mmol/L (135-145); Total Protein 6.3 g/dL (6.5-8.0)
--- NOTE | 2022-01-09 11:27 | MHC.HEMONC ---
Pt here for weekly labs. Reviewed by Dr Mims, some concern over increased LFts. Called pt to confirm that he has not yet taken lonsurf. It should be arriving tomorrow. he will call before taking the first dose. No other new meds per patient. He has been taking the atovaquone for several weeks. Per Dr Mims, labs faxed to [facility] with a note included regarding elevated LFTs and a request to please advise.
--- NOTE | 2022-01-10 16:51 | MHC.HEMONC ---
Pt is aware that he cannot start Lonsurf pills until he is cleared by Dr Mims due to elevated LFT and on Prednisone.
[2022-01-16 10:05] LABS: MANUAL DIFF FLAG NO
[2022-01-16 10:09] LABS: Basophils Percent Auto 0.3 % (0-2); Eosinophils Absolute Auto 0.2 X10*3/uL (0.0-0.4); Eosinophils Percent Auto 2.3 % (0-4); Hematocrit 36.6 % (42.0-52.0); Hemoglobin 12.1 g/dl (14.0-18.0); Imm Gran Abs Auto 0.16 X10*3/uL (0.00-0.03); Imm Gran Pct Auto 1.6 % (0.0-0.4); Lymphocytes Absolute Auto 2.5 X10*3/uL (1.2-4.9); Lymphocytes Percent Auto 24.5 % (20-40); Mean Corpuscular HGB Conc 33.1 g/dl (31.0-36.0); Mean Corpuscular Hemoglobin 28.9 pg (27.0-33.0); Mean Corpuscular Volume 87.6 fL (80.0-98.0); Mean Platelet Volume 9.2 fL (9.4-12.4); Monocytes Absolute Auto 1.1 X10*3/uL (0.1-1.2); Neutrophils Percent Auto 60.3 % (45-73); Platelet Count 201 X10*3/uL (160-400); Red Blood Count 4.18 X10*6/uL (4.60-5.80); Red Cell Distribution Width 20.8 % (11.0-16.0)
[2022-01-16 10:28] LABS: Alanine Aminotransferase 351 U/L (0-40); Albumin Level 3.9 g/dL (3.5-5.0); Alkaline Phosphatase 69 U/L (39-117); Anion Gap 17 (12-20); Aspartate Amino Transferase 114 U/L (5-37); Bilirubin Total 0.7 mg/dL (0.0-1.0); Blood Urea Nitrogen 21 mg/dL (9-16); Carbon Dioxide 25 mmol/L (22-29); Chloride 101 mmol/L (96-108); Creatinine Clr Calc Pharmacy 73.6; Estimated Glomerular Filt Rate 57; Glucose Random 98 mg/dL (60-115); Sodium 139 mmol/L (135-145); Total Protein 6.5 g/dL (6.5-8.0)
[2022-01-16 10:49] LABS: Phosphorus 3.5 mg/dL (2.7-4.5)
--- NOTE | 2022-01-16 15:10 | MHC.HEMONC ---
Addendum entered by Sylvia Fernando RN 01/16/22 15:27: Note LFT'S AST 56, ALT 138. Original Note: Pt was here for Labs CBC, CMP. Results reviewed with Dr Mims and faxed to Kiah Adams at [facility]. .
--- NOTE | 2022-01-17 10:03 | MHC.HEMONC ---
I called pt at Dr Mims's request to tell him to stop his rx Atovaquone following her conversation with Dr Melton's PA at [facility]. They were reviewing labs from yesterday. Dr Mims is also ordering liver u/s due to spike on LFT.
--- NOTE | 2022-01-17 10:39 | MHC.HEMONCMA ---
entered stat u/s abdmen complete in OF and call CS got appt for 01/18/22 at 11:00am and fasting for 8 hrs prior. Spoked to patient and informed him of this and will be arriving at 10:40am .
--- NOTE | 2022-01-20 12:11 | MHC.HEMONC ---
Addendum entered by Nadine Jonas RN 01/20/22 12:16: Dr Méndez is at [address] [place] [address] and telephone number is [phone]. Original Note: Pt called following appointment with Magdy MOREJON. He is set up to see a Doctor Aurea Méndez on Sunday at [facility]. She is a Liver Specialist and is Consulted due to his liver enzyme elevation. Prince will be in Sunday for labs prior to his appointment there.
[2022-01-24 09:25] VITALS: BMI 30.7
[2022-01-24 09:56] LABS: MANUAL DIFF FLAG NO
[2022-01-24 10:01] LABS: Basophils Percent Auto 0.4 % (0-2); Eosinophils Absolute Auto 0.2 X10*3/uL (0.0-0.4); Eosinophils Percent Auto 1.6 % (0-4); Hematocrit 37.4 % (42.0-52.0); Hemoglobin 12.5 g/dl (14.0-18.0); Imm Gran Abs Auto 0.22 X10*3/uL (0.00-0.03); Imm Gran Pct Auto 2.1 % (0.0-0.4); Lymphocytes Absolute Auto 2.4 X10*3/uL (1.2-4.9); Lymphocytes Percent Auto 23.8 % (20-40); Mean Corpuscular HGB Conc 33.4 g/dl (31.0-36.0); Mean Corpuscular Hemoglobin 29.4 pg (27.0-33.0); Mean Platelet Volume 9.4 fL (9.4-12.4); Monocytes Percent Auto 10.1 % (2-11); Neutrophils Absolute Auto 6.4 x10*3/uL (2.0-8.3); Platelet Count 259 X10*3/uL (160-400); Red Blood Count 4.25 X10*6/uL (4.60-5.80); Red Cell Distribution Width 21.2 % (11.0-16.0); White Blood Count 10.3 X10*3/uL (4.8-10.8)
[2022-01-24 10:23] LABS: Alanine Aminotransferase 390 U/L (0-40); Albumin Level 4.1 g/dL (3.5-5.0); Alkaline Phosphatase 154 U/L (39-117); Anion Gap 18 (12-20); Aspartate Amino Transferase 154 U/L (5-37); Bilirubin Total 0.8 mg/dL (0.0-1.0); Blood Urea Nitrogen 19 mg/dL (9-16); Calcium 9.5 mg/dL (8.4-10.2); Carbon Dioxide 25 mmol/L (22-29); Chloride 98 mmol/L (96-108); Creatinine Clr Calc Pharmacy 68.9; Estimated Glomerular Filt Rate 52; Glucose Random 111 mg/dL (60-115); Potassium 4.1 mmol/L (3.3-5.1); Sodium 137 mmol/L (135-145); Total Protein 6.7 g/dL (6.5-8.0)
--- NOTE | 2022-01-24 14:01 | MHC.HEMONC ---
Lab results faxed to Kiah Adams at [facility] at [phone]
--- NOTE | 2022-01-27 10:12 | MHC.HEMONC ---
Labs ordered per Dr Mims/[facility] request to follow LFT closely due to pt recent immune related side effects from immunotherapy trial. Will fax report to Kiah at [facility]. Pt to return Sunday for repeat LFTs.
[2022-01-27 10:21] LABS: MANUAL DIFF FLAG NO
[2022-01-27 10:26] LABS: Basophils Percent Auto 0.4 % (0-2); Eosinophils Absolute Auto 0.1 X10*3/uL (0.0-0.4); Eosinophils Percent Auto 1.4 % (0-4); Hematocrit 37.3 % (42.0-52.0); Hemoglobin 12.3 g/dl (14.0-18.0); Imm Gran Abs Auto 0.26 X10*3/uL (0.00-0.03); Imm Gran Pct Auto 2.7 % (0.0-0.4); Lymphocytes Absolute Auto 2.3 X10*3/uL (1.2-4.9); Lymphocytes Percent Auto 23.8 % (20-40); Mean Corpuscular Hemoglobin 29.4 pg (27.0-33.0); Mean Corpuscular Volume 89.2 fL (80.0-98.0); Mean Platelet Volume 9.1 fL (9.4-12.4); Monocytes Absolute Auto 1.1 X10*3/uL (0.1-1.2); Monocytes Percent Auto 10.9 % (2-11); Neutrophils Absolute Auto 5.9 x10*3/uL (2.0-8.3); Neutrophils Percent Auto 60.8 % (45-73); Platelet Count 269 X10*3/uL (160-400); Red Blood Count 4.18 X10*6/uL (4.60-5.80); Red Cell Distribution Width 21.7 % (11.0-16.0); White Blood Count 9.8 X10*3/uL (4.8-10.8)
[2022-01-27 11:10] LABS: Hepatitis A Antibody IgG Nonreactive (Nonreactive); ~Hepatitis A Antibody IgG 0.29 S/CO (0.00-0.99)
[2022-01-27 11:11] LABS: HBc Num1 0.06 S/CO (0.00-0.79); Hepatitis B Core Antibody Nonreactive (Nonreactive)
[2022-01-27 11:50] LABS: Alanine Aminotransferase 343 U/L (0-40); Albumin Level 3.9 g/dL (3.5-5.0); Alkaline Phosphatase 167 U/L (39-117); Anion Gap 17 (12-20); Aspartate Amino Transferase 132 U/L (5-37); Bilirubin Total 0.7 mg/dL (0.0-1.0); Blood Urea Nitrogen 16 mg/dL (9-16); Calcium 9.1 mg/dL (8.4-10.2); Carbon Dioxide 25 mmol/L (22-29); Chloride 102 mmol/L (96-108); Creatinine Clr Calc Pharmacy 74.7; Estimated Glomerular Filt Rate 57; Glucose Random 103 mg/dL (60-115); Potassium 4.3 mmol/L (3.3-5.1); Sodium 140 mmol/L (135-145); Total Protein 6.6 g/dL (6.5-8.0)
[2022-01-29 13:51] LABS: Hepatitis B Viral DNA Qn - cp <1.00 NOT DETECTED Log IU/mL (NOT DETECTED); Hepatitis B Viral DNA Qn-IU/mL <10 NOT DETECTED IU/mL (NOT DETECTED)
[2022-01-30 09:30] LABS: MANUAL DIFF FLAG NO
[2022-01-30 09:35] LABS: Basophils Absolute Auto 0.1 X10*3/uL (0.0-0.2); Basophils Percent Auto 0.6 % (0-2); Eosinophils Absolute Auto 0.2 X10*3/uL (0.0-0.4); Eosinophils Percent Auto 1.4 % (0-4); Hematocrit 38.3 % (42.0-52.0); Hemoglobin 12.8 g/dl (14.0-18.0); Imm Gran Pct Auto 3.4 % (0.0-0.4); Lymphocytes Absolute Auto 3.7 X10*3/uL (1.2-4.9); Lymphocytes Percent Auto 30.9 % (20-40); Mean Corpuscular HGB Conc 33.4 g/dl (31.0-36.0); Mean Corpuscular Hemoglobin 29.4 pg (27.0-33.0); Mean Platelet Volume 9.5 fL (9.4-12.4); Monocytes Absolute Auto 1.3 X10*3/uL (0.1-1.2); Monocytes Percent Auto 11.2 % (2-11); NRBC Pct Auto 0.2 /100WBC (0.0-0.2); Neutrophils Absolute Auto 6.2 x10*3/uL (2.0-8.3); Neutrophils Percent Auto 52.5 % (45-73); Platelet Count 277 X10*3/uL (160-400); Red Blood Count 4.35 X10*6/uL (4.60-5.80); Red Cell Distribution Width 22.4 % (11.0-16.0); White Blood Count 11.9 X10*3/uL (4.8-10.8)
[2022-01-30 09:55] LABS: Alanine Aminotransferase 393 U/L (0-40); Albumin Level 3.9 g/dL (3.5-5.0); Alkaline Phosphatase 195 U/L (39-117); Anion Gap 15 (12-20); Aspartate Amino Transferase 169 U/L (5-37); Bilirubin Total 0.8 mg/dL (0.0-1.0); Blood Urea Nitrogen 19 mg/dL (9-16); Calcium 9.3 mg/dL (8.4-10.2); Carbon Dioxide 28 mmol/L (22-29); Chloride 101 mmol/L (96-108); Creatinine Clr Calc Pharmacy 77.7; Estimated Glomerular Filt Rate > 60; Glucose Random 100 mg/dL (60-115); Potassium 4.2 mmol/L (3.3-5.1); Sodium 140 mmol/L (135-145); Total Protein 6.6 g/dL (6.5-8.0)
--- NOTE | 2022-01-30 15:59 | MHC.HEMONC ---
Lab results faxed to Kiah Adams at [facility] at [phone]
[2022-02-06 09:36] LABS: Basophils Absolute Auto 0.1 X10*3/uL (0.0-0.2); Basophils Percent Auto 0.5 % (0-2); Eosinophils Absolute Auto 0.1 X10*3/uL (0.0-0.4); Eosinophils Percent Auto 0.8 % (0-4); Hematocrit 39.7 % (42.0-52.0); Hemoglobin 12.9 g/dl (14.0-18.0); Imm Gran Abs Auto 0.58 X10*3/uL (0.00-0.03); Imm Gran Pct Auto 3.8 % (0.0-0.4); Lymphocytes Absolute Auto 4.6 X10*3/uL (1.2-4.9); Lymphocytes Percent Auto 29.9 % (20-40); MANUAL DIFF FLAG SCAN; Mean Corpuscular HGB Conc 32.5 g/dl (31.0-36.0); Mean Corpuscular Hemoglobin 29.1 pg (27.0-33.0); Mean Corpuscular Volume 89.4 fL (80.0-98.0); Mean Platelet Volume 9.3 fL (9.4-12.4); Monocytes Absolute Auto 1.7 X10*3/uL (0.1-1.2); Monocytes Percent Auto 11.2 % (2-11); Neutrophils Absolute Auto 8.3 x10*3/uL (2.0-8.3); Neutrophils Percent Auto 53.8 % (45-73); Platelet Count 344 X10*3/uL (160-400); Red Blood Count 4.44 X10*6/uL (4.60-5.80); Red Cell Distribution Width 22.9 % (11.0-16.0); SCAN SMEAR FLAG 1; White Blood Count 15.3 X10*3/uL (4.8-10.8)
[2022-02-06 10:04] LABS: Alanine Aminotransferase 238 U/L (0-40); Albumin Level 4.1 g/dL (3.5-5.0); Alkaline Phosphatase 218 U/L (39-117); Anion Gap 15 (12-20); Aspartate Amino Transferase 94 U/L (5-37); Bilirubin Total 0.7 mg/dL (0.0-1.0); Blood Urea Nitrogen 19 mg/dL (9-16); Calcium 9.7 mg/dL (8.4-10.2); Carbon Dioxide 28 mmol/L (22-29); Chloride 101 mmol/L (96-108); Creatinine Clr Calc Pharmacy 71.4; Estimated Glomerular Filt Rate 55; Glucose Random 106 mg/dL (60-115); Potassium 4.2 mmol/L (3.3-5.1); Sodium 140 mmol/L (135-145)
[2022-02-06 10:13] LABS: SLIDE REVIEW VERIFIED
--- NOTE | 2022-02-06 13:16 | MHC.HEMONC ---
Lab results faxed to Kiah Adams at [facility] at [phone]
--- NOTE | 2022-02-08 08:37 | MHC.HEMONC ---
I spoke with Joselito this morning as we are awaiting correspondence from Dr Melton and Kiah Adams PA-C re: resuming treatment following his diagnosis of autoimmune nephritis and concerning elevation of LFTs. These conditions followed his participation in Clinical Trial at [facility]. We are doing labs 1-2 times a week and his Providers at [facility] are advising Dr Mims re: plan for treatment. He continues on Prednisone (now at 30mg daily) to improve kidney and liver conditions caused by immunotherapy. Joselito will have Telehealth visit with Magdy MOREJON tomorrow to see what they advise next. Joselito is unable to work in any capacity at this time due to his plan to go back to traditional chemotherapy (both oral and infusional) - hopefully this will be very soon as his liver functions have been trending downward and his kidney function is at baseline. Once starting the chemotherapy he will be at risk for infections, fatigue and nausea. He will require weekly appointments here including bloodwork. Prince will call me tomorrow to let me know how his visit goes and we will await notes from Magdy to confirm plan to treat.
--- NOTE | 2022-02-08 16:01 | MHC.HEMONC ---
Dr Mims ordered CT imaging per request Dr Melton in [place]. I gave orders to Dr Felicita Thomason's MA for processing. Dr Melton to reach out to Dr Mims re: plan. Pt thinks he will be able to restart chemo here once scans are done.
[2022-02-09 13:04] LABS: MANUAL DIFF FLAG NO
[2022-02-09 13:05] LABS: Basophils Absolute Auto 0.1 X10*3/uL (0.0-0.2); Basophils Percent Auto 0.4 % (0-2); Eosinophils Absolute Auto 0.1 X10*3/uL (0.0-0.4); Eosinophils Percent Auto 0.6 % (0-4); Hematocrit 41.3 % (42.0-52.0); Hemoglobin 13.3 g/dl (14.0-18.0); Imm Gran Pct Auto 3.8 % (0.0-0.4); Lymphocytes Absolute Auto 2.2 X10*3/uL (1.2-4.9); Lymphocytes Percent Auto 13.9 % (20-40); Mean Corpuscular HGB Conc 32.2 g/dl (31.0-36.0); Mean Corpuscular Hemoglobin 28.9 pg (27.0-33.0); Mean Corpuscular Volume 89.6 fL (80.0-98.0); Mean Platelet Volume 9.2 fL (9.4-12.4); Monocytes Absolute Auto 1.2 X10*3/uL (0.1-1.2); Monocytes Percent Auto 7.4 % (2-11); Neutrophils Absolute Auto 11.8 x10*3/uL (2.0-8.3); Neutrophils Percent Auto 73.9 % (45-73); Platelet Count 327 X10*3/uL (160-400); Red Blood Count 4.61 X10*6/uL (4.60-5.80); Red Cell Distribution Width 22.6 % (11.0-16.0); White Blood Count 15.9 X10*3/uL (4.8-10.8)
[2022-02-09 13:34] LABS: Alanine Aminotransferase 123 U/L (0-40); Albumin Level 4.1 g/dL (3.5-5.0); Alkaline Phosphatase 166 U/L (39-117); Anion Gap 17 (12-20); Aspartate Amino Transferase 42 U/L (5-37); Bilirubin Total 0.7 mg/dL (0.0-1.0); Blood Urea Nitrogen 22 mg/dL (9-16); Calcium 9.9 mg/dL (8.4-10.2); Carbon Dioxide 26 mmol/L (22-29); Chloride 99 mmol/L (96-108); Creatinine Clr Calc Pharmacy 72.5; Estimated Glomerular Filt Rate 55; Glucose Random 109 mg/dL (60-115); Potassium 4.4 mmol/L (3.3-5.1); Sodium 138 mmol/L (135-145); Total Protein 7.1 g/dL (6.5-8.0)
--- NOTE | 2022-02-09 15:36 | MHC.HEMONC ---
Lab results from today (02/09/22) faxed to Kiah Adams [phone]-confirmation received
--- NOTE | 2022-02-10 09:31 | MHC.HEMONC ---
I left message for Prince to call me back as Dr Mims spoke with Dr Melton and he thinks Prince is ready to restart chemo with Lonsurf and Avastin. I will let [facility] Pharm[facility] jose luis and Halina will let Prince know when he could re-start Avastin.
--- NOTE | 2022-02-10 09:59 | MHC.HEMONC ---
I spoke to pt. Per Dr Mims - we will have Prince start Lonsurf today (we went over dose which is unchanged) and have weekly labs. If he tolerates well we will start Avastin on day #15.
[2022-02-13 10:17] LABS: Basophils Absolute Auto 0.1 X10*3/uL (0.0-0.2); Basophils Percent Auto 0.3 % (0-2); Eosinophils Absolute Auto 0.1 X10*3/uL (0.0-0.4); Eosinophils Percent Auto 0.7 % (0-4); Hematocrit 38.9 % (42.0-52.0); Hemoglobin 12.8 g/dl (14.0-18.0); Imm Gran Abs Auto 0.27 X10*3/uL (0.00-0.03); Imm Gran Pct Auto 1.8 % (0.0-0.4); Lymphocytes Percent Auto 27.3 % (20-40); MANUAL DIFF FLAG SCAN; Mean Corpuscular HGB Conc 32.9 g/dl (31.0-36.0); Mean Corpuscular Hemoglobin 29.9 pg (27.0-33.0); Mean Corpuscular Volume 90.9 fL (80.0-98.0); Mean Platelet Volume 9.6 fL (9.4-12.4); Monocytes Absolute Auto 1.5 X10*3/uL (0.1-1.2); Monocytes Percent Auto 10.3 % (2-11); Neutrophils Absolute Auto 8.7 x10*3/uL (2.0-8.3); Neutrophils Percent Auto 59.6 % (45-73); Platelet Count 334 X10*3/uL (160-400); Red Blood Count 4.28 X10*6/uL (4.60-5.80); Red Cell Distribution Width 21.4 % (11.0-16.0); SCAN SMEAR FLAG 1; White Blood Count 14.6 X10*3/uL (4.8-10.8)
[2022-02-13 11:06] LABS: SLIDE REVIEW VERIFIED
[2022-02-13 11:07] LABS: Alanine Aminotransferase 56 U/L (0-40); Albumin Level 4.1 g/dL (3.5-5.0); Alkaline Phosphatase 124 U/L (39-117); Anion Gap 17 (12-20); Aspartate Amino Transferase 26 U/L (5-37); Bilirubin Total 0.5 mg/dL (0.0-1.0); Blood Urea Nitrogen 20 mg/dL (9-16); Calcium 9.8 mg/dL (8.4-10.2); Carbon Dioxide 26 mmol/L (22-29); Chloride 102 mmol/L (96-108); Creatinine Clr Calc Pharmacy 70.9; Estimated Glomerular Filt Rate 54; Glucose Random 93 mg/dL (60-115); Potassium 4.3 mmol/L (3.3-5.1); Sodium 141 mmol/L (135-145); Total Protein 6.9 g/dL (6.5-8.0)
--- NOTE | 2022-02-13 16:00 | HO.HEMONCPA ---
Addendum entered by Pastora Trujillo 02/22/22 13:29: Called [facility] to verify PA response on 02/13/22. Response from [facility] NO PA REQUIRED FOR BEVACIZUMAB (Avastin) J9035 PER QUAIL FARMER Ricardo ON 02/22/22 at 1:30pm EST. CALL REF # [id number]. Original Note: NO PA REQUIRED FOR BEVACIZUMAB (Avastin) J9035 PER QUAIL FARMER KISHAN ON 02/13/22 at 3:59pmEST. CALL REF # [id number].
--- NOTE | 2022-02-13 17:03 | MHC.HEMONC ---
Pt came in for weekly CBC, CMP, had labs drawn peripherally. Nurse faxed results to Kiah Adams at [facility], received fax confirmation receipt, then called and spoke w/ rep who confirmed fax had been received.
[2022-02-20 09:35] LABS: MANUAL DIFF FLAG NO
[2022-02-20 09:40] LABS: Basophils Percent Auto 0.3 % (0-2); Eosinophils Absolute Auto 0.1 X10*3/uL (0.0-0.4); Eosinophils Percent Auto 0.7 % (0-4); Hematocrit 40.1 % (42.0-52.0); Hemoglobin 13.1 g/dl (14.0-18.0); Imm Gran Abs Auto 0.07 X10*3/uL (0.00-0.03); Imm Gran Pct Auto 0.5 % (0.0-0.4); Lymphocytes Absolute Auto 3.3 X10*3/uL (1.2-4.9); Lymphocytes Percent Auto 24.7 % (20-40); Mean Corpuscular HGB Conc 32.7 g/dl (31.0-36.0); Mean Corpuscular Hemoglobin 29.5 pg (27.0-33.0); Mean Corpuscular Volume 90.3 fL (80.0-98.0); Mean Platelet Volume 9.3 fL (9.4-12.4); Monocytes Absolute Auto 0.8 X10*3/uL (0.1-1.2); Monocytes Percent Auto 5.6 % (2-11); Neutrophils Absolute Auto 9.2 x10*3/uL (2.0-8.3); Neutrophils Percent Auto 68.2 % (45-73); Platelet Count 310 X10*3/uL (160-400); Red Blood Count 4.44 X10*6/uL (4.60-5.80); Red Cell Distribution Width 20.3 % (11.0-16.0); White Blood Count 13.4 X10*3/uL (4.8-10.8)
[2022-02-20 10:08] LABS: Alanine Aminotransferase 24 U/L (0-40); Albumin Level 4.4 g/dL (3.5-5.0); Alkaline Phosphatase 96 U/L (39-117); Anion Gap 16 (12-20); Aspartate Amino Transferase 19 U/L (5-37); Bilirubin Total 0.8 mg/dL (0.0-1.0); Blood Urea Nitrogen 19 mg/dL (9-16); Calcium 9.8 mg/dL (8.4-10.2); Carbon Dioxide 27 mmol/L (22-29); Chloride 98 mmol/L (96-108); Creatinine Clr Calc Pharmacy 68.4; Estimated Glomerular Filt Rate 52; Glucose Random 94 mg/dL (60-115); Potassium 4.1 mmol/L (3.3-5.1); Sodium 137 mmol/L (135-145); Total Protein 7.2 g/dL (6.5-8.0)
--- NOTE | 2022-02-20 10:24 | MHC.HEMONC ---
Lab results faxed to Kiah Adams at [facility]
[2022-02-24 11:17] LABS: MANUAL DIFF FLAG NO
--- NOTE | 2022-02-24 11:26 | PM.HEMONCPN ---
Medical Summary - Medical Summary Date of Service: 02/24/22 Chief complaint: Follow-up and scheduled treatment Medical Summary: Diagnosis: Metastatic colon cancer diagnosed February 2019 Presented with worsening abdominal pain, right lower quadrant ongoing for almost a year. CT imaging showed inflamed appendix, periappendiceal inflammation involving cecum and small bowel. Abscess identified in the pelvis which was drained. Appendectomy performed 02/22/2019, invasive adenocarcinoma, moderately differentiated, tumor present at the resection margin. Acute appendicitis and Suzy appendicitis with perforation. IHC showed CK 7-, CK 20 positive and CDX2 positive. MMR proficient. On 03/11/2019 patient underwent colonoscopy which showed adenomatous looking degenerative mass with an ulcerated center in the cecum. Two polyps were also removed. CTA performed 02/21/2019 showed multiple lung nodules bilaterally. Largest in the left lower lobe measuring 1.[address] abdomen performed 02/21/2019 showed dilated and inflamed appendix with surrounding inflammatory changes. Normal liver and spleen. Prominent mesenteric lymph nodes measuring up to 1.4 cm. CEA elevated at 14.6. FNA of the left lower lobe lung nodule performed 03/13/2019 showed adenocarcinoma consistent with known cecal primary. PET scan showed intense uptake around cecum, SUV 14.2, terminal ileum, foci in mesentery in the pelvis and right lower quadrant suspicious for metastatic deposits. No uptake in the lung nodules but malignancy not excluded. Right hemicolectomy performed 04/03/2019, adenocarcinoma moderately differentiated. Tumor invades through visceral peritoneum with macroscopic tumor perforation and direct invasion into adjacent loop of small bowel. Eight of 12 pericolonic lymph nodes positive for adenocarcinoma. Tumor involves mesenteric resection margins. Lymphovascular invasion present. Tumor size 6 x 2.8 cm. Stage [id number]. MMR proficient. BRAF mutation not detected, K-renata mutation detected, NRAS mutation not detected, IHC for verdugo TRK negative. Genetic testing. Patient?s genetic test result indicated that he was negative for a hereditary cancer gene mutation. Started chemotherapy modified FOLFOX 6 with Avastin from 04/23/2019. PET scan performed June 2019 showed complete metabolic response. Because of side effects of neuropathy his chemotherapy changed to maintenance treatment with Xeloda 1000 milligram/meter squared b.i.d. day 1-14 along with Avastin Q 3 weeks in June 2019.He has had elevation of CEA, PET-CT performed at [facility] on 11/04/2019 showed increased FDG activity in right lower quadrant of abdomen/pelvis, SUV 6.4, nodular infiltration measuring 1.3 x 0.9 cm. Right upper lobe subpleural nodule with minimal FDG uptake of 2.6, metastatic nodule probable. Xeloda discontinued in February 2020 because of worsening hand/foot syndrome. Repeat [place] [facility] [place] 2020 showed multiple subcentimeter pulmonary nodules none of which had FDG avidity. No other sites of metastatic disease. On irinotecan plus bevacizumab every 2 weeks until January 2021. He started FOLFOX regimen from 02/02/2021. Later switched to FOLFIRI/Adelaida regimen until 08/2021. He had progressive disease, lung nodules in August 2021. He enrolled in clinical trial in [place], protocol 19-132 which used 2 novel immunotherapy drugs. He started this on 10/13/2021. 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 He was eventually discharged on prednisone 90 mg once daily. He is being tapered gradually. His kidney functions are improving. CT abdomen/pelvis on 12/12/2021 in [place] showed increase in size of metastatic retroperitoneal lymphadenopathy. Peritoneal metastasis in right lower quadrant. Hepatic hypodensities, too small to characterize. CT chest same day showed numerous pulmonary nodules consistent with metastatic disease, a few with increasing cavitation. Interval History Interval history: Joselito is here in follow-up. He is doing much better now, prednisone dose is 10 mg. He will stop in 2 days. His kidney and liver functions have now normalized. He is finished course of Lonsurf. Today is day 15 of 28 day cycle. He tolerated it well. He denies any nausea or emesis. No fever or chills. Review of Systems - Constitutional Reports as per HPI, Denies fatigue, Denies fever(s), Denies malaise, Denies poor appetite, Denies weight loss - Cardiovascular Reports no additional cardiovascular complaints - Respiratory Reports no additional respiratory complaints, Denies cough, Denies dyspnea PMFSH Medical History: Medical History (Last Reviewed 01/24/22 @ 09:28 by Katelin Morse) Acute appendicitis Asthma Colon adenocarcinoma Diarrhea Hypercholesteremia Family History: Family History (Last Reviewed 01/24/22 @ 09:28 by Katelin Morse) Father History of cancer of unknown primary site Family history of high blood pressure Mother Hx of arteriosclerotic cardiovascular disease Maternal Grandfather Hx of arteriosclerotic cardiovascular disease Aortic aneurysm Brother No problems noted. Sister No problems noted. Brother No problems noted. Brother No problems noted. Brother No problems noted. Sister No problems noted. Surgical History: Surgical History (Last Reviewed 01/24/22 @ 09:28 by Katelin Morse) History of lung biopsy Hx of appendectomy Hx of colonoscopy Hx of right hemicolectomy Social History: Social History (Last Reviewed 01/24/22 @ 09:28 by Katelin Morse) Living Situation History: Household Members: Family Housing: Apartment Alcohol History Details: 1. How often do you have a drink containing alcohol?: a. Never Tobacco History: Patient Tobacco Use Status: Never used Tobacco e-Cigarette/Vaping Use: Never Used Second Hand Smoke Exposure: No Substance Use History: Use of substances other than those prescribed or required for medical reasons: No Advance Directives: Advance Directives: No Advance Directives Information Provided: No Homicidal Assessment: Do you have thoughts of harming others: None Do you have a plan to hurt others: No Plan Do you have the means to hurt others: No Nutrition Assessment: Recently lost weight without trying: No Occupation Assessmet: service: No Current occupational status: disabled Home Medications and Allergies Current Medications: Current Medications Acetaminophen (Acetaminophen 325 Mg Tablet) 650 mg PO ONCE LOLLY Stop: 02/24/22 23:59 Heparin Sodium (Porcine) (Heparin Sodium,Porcine Flush 500 Unit/5 Ml Syringe) 500 unit IVFLUSH ONCE LOLLY Stop: 02/24/22 23:59 Ondansetron HCl (Ondansetron Odt 8 Mg Tab.Rapdis) 8 mg TRANSLINGU ONCE LOLLY Stop: 02/24/22 23:59 Home Medications Medication Instructions Recorded Confirmed Type albuterol sulfate 90 mcg/actuation 1 puff inhalation QID PRN 02/08/21 02/24/22 History aerosol inhaler Shortness Of Breath Or Wheezing Probiotic 1 cap DAILY 02/16/21 02/24/22 History ferrous sulfate 325 mg (65 mg 325 mg PO DAILY 01/10/22 02/24/22 History iron) tablet multivitamin 1 tab PO DAILY 01/10/22 02/24/22 History famotidine 20 mg tablet 10 mg PO DAILY 02/13/22 02/24/22 History prednisone 10 mg tablet 10 mg PO DAILY 02/13/22 02/24/22 History Allergies Allergy/AdvReac Type Severity Reaction Status Date / Time seafood Allergy Severe Angioedema Verified 02/13/22 11:26 shrimp [SHRIMP] Allergy Severe ANGIOEDEMA Verified 02/13/22 11:26 sucralfate [From Carafate] AdvReac Intermediate rectal Verified 02/13/22 11:26 bleeding Exam Vital signs: Vital Signs Temp 98.2 F 01/02/22 14:48 Pulse 101 H 01/02/22 14:48 Resp 14 01/02/22 14:48 BP 137/92 H 01/02/22 14:48 Pulse Ox 95 01/02/22 14:48 O2 Del Method 01/24/22 09:25 Weight 94.3 kg BMI result Body Mass Index 30.7 - Constitutional Present: no acute distress - Routine HEENT Exam Head: Present: normal inspection - Routine Neck Exam Present: full ROM. Absent: lymphadenopathy - Routine Chest/Breast/Axilla Exam Chest wall: Absent: tenderness, mass - Routine Respiratory Exam Present: CTAB - Routine Cardiovascular Exam Cardiovascular: Present: RRR, S1, S2 - Routine Skin Exam Present: dry, rash, cracked Data - Labs CBC & Chem 7: 02/24/22 11:14 02/24/22 11:14 - Imaging Radiologist's impression: ITS Impressions Guidance Fluoroscopy 12/26/21 12:41 FINDINGS/IMPRESSION: On contrast injection of the port under fluoroscopy, there is contrast exiting the tip of the catheter and directed upwards with eventually the contrast traveling towards the right atrium. There is a thick sheath seen surrounding the distal catheter tip in the SVC which most likely prevents blood withdrawal. The results were called to referring physician's nurse in charge and made aware of the finding. Assessment and Plan Patient Active problem list reviewed?: Yes (1) Colon carcinoma metastatic to multiple sites Problem details: February 2019 appendectomy invasive adenocarcinoma moderately differentiated cecal mass, left lower lung field lung nodule FNA adeno carcinoma Status: Chronic Assessment and plan: 1. This is a 51-year-old man with metastatic colon cancer, arising from cecum diagnosed in 2018. FNA of lung nodule is consistent with adenocarcinoma. Right hemicolectomy performed 04/03/2019, adenocarcinoma moderately differentiated. Stage [id number]. MMR proficient. BRAF mutation not detected, K-renata mutation detected, NRAS mutation not detected, IHC for verdugo TRK negative. HER2 non reactive and tumor mutational burden 4 Muts/Mb. Started chemotherapy modified FOLFOX 6 with Avastin from 04/23/2019. He had a good response based on PET scan in June but because of side effects of neuropathy he was switched to maintenance Xeloda with Avastin. On irinotecan plus bevacizumab every 2 weeks until January 2021. Later switched to FOLFIRI/Adelaida regimen until 08/2021. He had progressive disease, lung nodules in August 2021. He enrolled in clinical trial in [place], protocol 19-132 which used 2 novel immunotherapy drugs on 10/13/2021. Unfortunately, he progressed on these medications and he also developed acute immune mediated nephritis as well as hepatitis. He is now being tapered off prednisone, he will stop in 2 days. He has progressive disease in his chest as well as peritoneal disease. He has started Lonsurf 20-8.19 mg 4 tabs p.o. b.i.d. on days 1-5 and days 8-12 every 28 day cycle from 02/07/22. Today is day 15, he is getting Avastin. He will continue on this current regimen for now. He was advised to discontinue famotidine and sodium bicarbonate and prednisone as instructed. Follow-up in 1 month. - Time Spent With Patient Time Spent with Patient (in minutes): 15
[2022-02-24 11:27] LABS: Basophils Percent Auto 0.4 % (0-2); Eosinophils Absolute Auto 0.1 X10*3/uL (0.0-0.4); Eosinophils Percent Auto 1.8 % (0-4); Hematocrit 35.2 % (42.0-52.0); Hemoglobin 11.6 g/dl (14.0-18.0); Imm Gran Abs Auto 0.04 X10*3/uL (0.00-0.03); Imm Gran Pct Auto 0.6 % (0.0-0.4); Lymphocytes Absolute Auto 1.8 X10*3/uL (1.2-4.9); Lymphocytes Percent Auto 24.3 % (20-40); Mean Corpuscular Hemoglobin 30.1 pg (27.0-33.0); Mean Corpuscular Volume 91.4 fL (80.0-98.0); Mean Platelet Volume 9.1 fL (9.4-12.4); Monocytes Absolute Auto 0.4 X10*3/uL (0.1-1.2); Monocytes Percent Auto 5.4 % (2-11); NRBC Pct Auto 0.4 /100WBC (0.0-0.2); Neutrophils Absolute Auto 4.9 x10*3/uL (2.0-8.3); Neutrophils Percent Auto 67.5 % (45-73); Platelet Count 241 X10*3/uL (160-400); Red Blood Count 3.85 X10*6/uL (4.60-5.80); Red Cell Distribution Width 20.2 % (11.0-16.0); White Blood Count 7.2 X10*3/uL (4.8-10.8)
[2022-02-24 11:45] LABS: Appearance Urine Clear; Color Urine Dark Yellow; Glucose Urine UA Negative (Negative); Leukocyte Esterase Urine Negative (Negative); Nitrite Urine Negative (Negative); PH 5.5 (5.0-9.0); Specific Gravity - Urine 1.025 (1.005-1.025); Urine Blood Negative (Negative); Urine Ketones Trace mg/dL (Negative); Urine Protein Trace mg/dL (Neg-Trace)
[2022-02-24 11:45] LABS: Alanine Aminotransferase 14 U/L (0-40); Albumin Level 4.1 g/dL (3.5-5.0); Alkaline Phosphatase 77 U/L (39-117); Anion Gap 16 (12-20); Aspartate Amino Transferase 16 U/L (5-37); Bilirubin Total 0.9 mg/dL (0.0-1.0); Blood Urea Nitrogen 14 mg/dL (9-16); Carbon Dioxide 28 mmol/L (22-29); Chloride 101 mmol/L (96-108); Creatinine Clr Calc Pharmacy 74.7; Estimated Glomerular Filt Rate 57; Glucose Random 110 mg/dL (60-115); Potassium 3.5 mmol/L (3.3-5.1); Sodium 141 mmol/L (135-145); Total Protein 6.5 g/dL (6.5-8.0)
[2022-02-24 12:26] VITALS: BMI 31.2
[2022-02-24 12:32] VITALS: BP 129/91; PULSE 118; RESP 18; TEMP 36.5; O2SAT 96
[2022-02-24] MEDS: Heparin Sodium,Porcine Flush 500 UNIT/5 ML SYRINGE IVFLUSH (12:48)
[2022-02-24] MEDS: Acetaminophen 325 MG TABLET 650 MG PO (12:49)
[2022-02-24] MEDS: Ondansetron ODT 8 MG TAB.RAPDIS TRANSLINGU (12:49)
[2022-02-24 12:54] VITALS: BP 140/73
[2022-02-24] MEDS: BEVACIZUMAB IV (13:05)
[2022-02-24] MEDS: SODIUM CHLORIDE 0.9% IV (13:05)
--- NOTE | 2022-02-24 16:02 | MHC.HEMONC ---
Here for C1 D15 Avastin/Lonsurf. Labs drawn. Port accessed with no blood return noted. Pt had port study done in the past and has documented fibrin sheath. States he is feeling well. Started Lonsurf 2 weeks ago, and so far is tolerating well. Premedicated with zofran and tylenol po. Treatment done and tolerated well. DR Mims in to see pt for follow up. Port flushed with heparin and de-accessed. Next treatment is scheduled for 2 weeks. Departure packet given and pt departed unit.
[2022-03-10 10:57] LABS: MANUAL DIFF FLAG NO
[2022-03-10 11:06] LABS: Basophils Percent Auto 0.8 % (0-2); Eosinophils Absolute Auto 0.1 X10*3/uL (0.0-0.4); Eosinophils Percent Auto 1.6 % (0-4); Hemoglobin 12.2 g/dl (14.0-18.0); Imm Gran Abs Auto 0.01 X10*3/uL (0.00-0.03); Imm Gran Pct Auto 0.2 % (0.0-0.4); Lymphocytes Absolute Auto 2.4 X10*3/uL (1.2-4.9); Lymphocytes Percent Auto 47.1 % (20-40); Mean Corpuscular HGB Conc 32.1 g/dl (31.0-36.0); Mean Corpuscular Hemoglobin 30.7 pg (27.0-33.0); Mean Corpuscular Volume 95.5 fL (80.0-98.0); Mean Platelet Volume 9.1 fL (9.4-12.4); Monocytes Absolute Auto 0.8 X10*3/uL (0.1-1.2); Monocytes Percent Auto 16.7 % (2-11); Neutrophils Absolute Auto 1.7 x10*3/uL (2.0-8.3); Neutrophils Percent Auto 33.6 % (45-73); Platelet Count 379 X10*3/uL (160-400); Red Blood Count 3.98 X10*6/uL (4.60-5.80); Red Cell Distribution Width 19.5 % (11.0-16.0)
[2022-03-10 11:08] LABS: Appearance Urine Clear; Color Urine Yellow; Glucose Urine UA Negative (Negative); Leukocyte Esterase Urine Negative (Negative); Nitrite Urine Negative (Negative); Specific Gravity - Urine 1.015 (1.005-1.025); Urine Blood Negative (Negative); Urine Ketones Trace mg/dL (Negative); Urine Protein Trace mg/dL (Neg-Trace)
[2022-03-10 11:19] LABS: Alanine Aminotransferase 16 U/L (0-40); Albumin Level 4.1 g/dL (3.5-5.0); Alkaline Phosphatase 89 U/L (39-117); Anion Gap 15 (12-20); Aspartate Amino Transferase 20 U/L (5-37); Bilirubin Total 0.5 mg/dL (0.0-1.0); Blood Urea Nitrogen 5 mg/dL (9-16); Calcium 9.5 mg/dL (8.4-10.2); Carbon Dioxide 27 mmol/L (22-29); Chloride 102 mmol/L (96-108); Estimated Glomerular Filt Rate 55; Glucose Random 153 mg/dL (60-115); Potassium 4.1 mmol/L (3.3-5.1); Sodium 140 mmol/L (135-145); Total Protein 6.9 g/dL (6.5-8.0)
[2022-03-10 11:40] VITALS: BP 125/85; PULSE 121; RESP 18; TEMP 36.4; O2SAT 96; BMI 32.3
[2022-03-10] MEDS: Acetaminophen 325 MG TABLET 650 MG PO (12:38)
[2022-03-10] MEDS: Ondansetron ODT 8 MG TAB.RAPDIS TRANSLINGU (12:38)
[2022-03-10] MEDS: SODIUM CHLORIDE 0.9% IV (12:48)
[2022-03-10] MEDS: BEVACIZUMAB IV (12:48)
[2022-03-10] MEDS: Heparin Sodium,Porcine Flush 500 UNIT/5 ML SYRINGE IVFLUSH (12:50)
--- NOTE | 2022-03-10 16:24 | MHC.HEMONC ---
Here for C2 D1 Avastin. Pt states feeling fine and tolerated last treatment well. Started his Lonsurf today. Labs drawn peripherally. Port accessed, and was able to get good blood return. Results reviewed and ok for treatment. Premeds given as ordered. Treatment done and tolerated well. Port flushed with heparin 500units and de-accessed. Next treatment scheduled for 2 weeks. Departure packet given and pt departed unit.
--- NOTE | 2022-03-24 11:21 | PM.HEMONCPN ---
Medical Summary - Medical Summary Date of Service: 03/24/22 Chief complaint: Follow-up Medical Summary: Diagnosis: Metastatic colon cancer diagnosed February 2019 Presented with worsening abdominal pain, right lower quadrant ongoing for almost a year. CT imaging showed inflamed appendix, periappendiceal inflammation involving cecum and small bowel. Abscess identified in the pelvis which was drained. Appendectomy performed 02/22/2019, invasive adenocarcinoma, moderately differentiated, tumor present at the resection margin. Acute appendicitis and Suzy appendicitis with perforation. IHC showed CK 7-, CK 20 positive and CDX2 positive. MMR proficient. On 03/11/2019 patient underwent colonoscopy which showed adenomatous looking degenerative mass with an ulcerated center in the cecum. Two polyps were also removed. CTA performed 02/21/2019 showed multiple lung nodules bilaterally. Largest in the left lower lobe measuring 1.[address] abdomen performed 02/21/2019 showed dilated and inflamed appendix with surrounding inflammatory changes. Normal liver and spleen. Prominent mesenteric lymph nodes measuring up to 1.4 cm. CEA elevated at 14.6. FNA of the left lower lobe lung nodule performed 03/13/2019 showed adenocarcinoma consistent with known cecal primary. PET scan showed intense uptake around cecum, SUV 14.2, terminal ileum, foci in mesentery in the pelvis and right lower quadrant suspicious for metastatic deposits. No uptake in the lung nodules but malignancy not excluded. Right hemicolectomy performed 04/03/2019, adenocarcinoma moderately differentiated. Tumor invades through visceral peritoneum with macroscopic tumor perforation and direct invasion into adjacent loop of small bowel. Eight of 12 pericolonic lymph nodes positive for adenocarcinoma. Tumor involves mesenteric resection margins. Lymphovascular invasion present. Tumor size 6 x 2.8 cm. Stage [id number]. MMR proficient. BRAF mutation not detected, K-renata mutation detected, NRAS mutation not detected, IHC for verdugo TRK negative. Genetic testing. Patient?s genetic test result indicated that he was negative for a hereditary cancer gene mutation. Started chemotherapy modified FOLFOX 6 with Avastin from 04/23/2019. PET scan performed June 2019 showed complete metabolic response. Because of side effects of neuropathy his chemotherapy changed to maintenance treatment with Xeloda 1000 milligram/meter squared b.i.d. day 1-14 along with Avastin Q 3 weeks in June 2019.He has had elevation of CEA, PET-CT performed at [facility] on 11/04/2019 showed increased FDG activity in right lower quadrant of abdomen/pelvis, SUV 6.4, nodular infiltration measuring 1.3 x 0.9 cm. Right upper lobe subpleural nodule with minimal FDG uptake of 2.6, metastatic nodule probable. Xeloda discontinued in February 2020 because of worsening hand/foot syndrome. [place] [facility] [place] showed multiple subcentimeter pulmonary nodules none of which had FDG avidity. No other sites of metastatic disease. On irinotecan plus bevacizumab every 2 weeks until January 2021. He started FOLFOX regimen from 02/02/2021. Later switched to FOLFIRI/Adelaida regimen until 08/2021. He had progressive disease, lung nodules in August 2021. He enrolled in clinical trial in [place], protocol 19-132 which used 2 novel immunotherapy drugs. He started this on 10/13/2021. 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 He was eventually discharged on prednisone 90 mg once daily. He is being tapered gradually. His kidney functions are improving. CT abdomen/pelvis on 12/12/2021 in [place] showed increase in size of metastatic retroperitoneal lymphadenopathy. Peritoneal metastasis in right lower quadrant. Hepatic hypodensities, too small to characterize. CT chest same day showed numerous pulmonary nodules consistent with metastatic disease, a few with increasing cavitation. Interval History Interval history: Joselito is here in follow-up and scheduled treatment. This is his 2nd cycle. He reports mild nausea but no emesis. Nausea subsides with 1 dose of Zofran in the morning. His appetite is down but denies weight loss. No exertional chest pain, cough or shortness of breath. He notices slight amount of blood in his stool. No abdominal pain or cramping. No fever or chills. Review of Systems - Constitutional Reports as per HPI, Reports no additional constitutional complaints - Cardiovascular Reports no additional cardiovascular complaints - Respiratory Reports no additional respiratory complaints - Gastrointestinal Reports no additional gastrointestinal complaints [facility] Medical History: Medical History (Last Reviewed 01/24/22 @ 09:28 by Katelin Morse) Acute appendicitis Asthma Colon adenocarcinoma Diarrhea Hypercholesteremia Family History: Family History (Last Reviewed 01/24/22 @ 09:28 by Katelin Morse) Father History of cancer of unknown primary site Family history of high blood pressure Mother Hx of arteriosclerotic cardiovascular disease Maternal Grandfather Hx of arteriosclerotic cardiovascular disease Aortic aneurysm Brother No problems noted. Sister No problems noted. Brother No problems noted. Brother No problems noted. Brother No problems noted. Sister No problems noted. Surgical History: Surgical History (Last Reviewed 01/24/22 @ 09:28 by Katelin Morse) History of lung biopsy Hx of appendectomy Hx of colonoscopy Hx of right hemicolectomy Social History: Social History (Last Reviewed 01/24/22 @ 09:28 by Katelin Morse) Living Situation History: Household Members: Family Housing: Apartment Alcohol History Details: 1. How often do you have a drink containing alcohol?: a. Never Tobacco History: Patient Tobacco Use Status: Never used Tobacco e-Cigarette/Vaping Use: Never Used Second Hand Smoke Exposure: No Substance Use History: Use of substances other than those prescribed or required for medical reasons: No Advance Directives: Advance Directives: No Advance Directives Information Provided: No Homicidal Assessment: Do you have thoughts of harming others: None Do you have a plan to hurt others: No Plan Do you have the means to hurt others: No Nutrition Assessment: Recently lost weight without trying: No Occupation Assessmet: service: No Current occupational status: disabled Oncology Screenings - ECOG Performance Status ECOG Performance Status: 1 Home Medications and Allergies Current Medications: Current Medications Heparin Sodium (Porcine) (Heparin Sodium,Porcine Flush 500 Unit/5 Ml Syringe) 500 unit IVFLUSH ONCE LOLLY Stop: 03/24/22 23:59 Home Medications Medication Instructions Recorded Confirmed Type albuterol sulfate 90 mcg/actuation 1 puff inhalation QID PRN 02/08/21 02/24/22 History aerosol inhaler Shortness Of Breath Or Wheezing Probiotic 1 cap DAILY 02/16/21 02/24/22 History multivitamin 1 tab PO DAILY 01/10/22 02/24/22 History famotidine 20 mg tablet 10 mg PO DAILY 02/13/22 02/24/22 History prednisone 10 mg tablet 10 mg PO DAILY 02/13/22 02/24/22 History Allergies Allergy/AdvReac Type Severity Reaction Status Date / Time seafood Allergy Severe Angioedema Verified 02/13/22 11:26 shrimp [SHRIMP] Allergy Severe ANGIOEDEMA Verified 02/13/22 11:26 sucralfate [From Carafate] AdvReac Intermediate rectal Verified 02/13/22 11:26 bleeding Exam Vital signs: Vital Signs Temp 97.6 F 03/10/22 11:40 Pulse 121 H 03/10/22 11:40 Resp 18 03/10/22 11:40 BP 125/85 03/10/22 11:40 Pulse Ox 96 03/10/22 11:40 O2 Del Method 03/10/22 11:40 Weight 99.2 kg BMI result Body Mass Index 32.3 - Constitutional Present: no acute distress - Routine HEENT Exam Head: Present: normal inspection - Routine Neck Exam Present: full ROM. Absent: lymphadenopathy - Routine Chest/Breast/Axilla Exam Chest wall: Absent: tenderness, mass - Routine Respiratory Exam Present: CTAB - Routine Cardiovascular Exam Cardiovascular: Present: RRR, S1, S2 - Routine Skin Exam Present: dry, rash, cracked Data - Labs CBC & Chem 7: 03/24/22 11:56 03/24/22 11:56 - Imaging Radiologist's impression: ITS Impressions Guidance Fluoroscopy 12/26/21 12:41 FINDINGS/IMPRESSION: On contrast injection of the port under fluoroscopy, there is contrast exiting the tip of the catheter and directed upwards with eventually the contrast traveling towards the right atrium. There is a thick sheath seen surrounding the distal catheter tip in the SVC which most likely prevents blood withdrawal. The results were called to referring physician's nurse in charge and made aware of the finding. Assessment and Plan Patient Active problem list reviewed?: Yes (1) Colon carcinoma metastatic to multiple sites Problem details: February 2019 appendectomy invasive adenocarcinoma moderately differentiated cecal mass, left lower lung field lung nodule FNA adeno carcinoma Status: Chronic Assessment and plan: 1. This is a 51-year-old man with metastatic colon cancer, arising from cecum diagnosed in 2018. FNA of lung nodule is consistent with adenocarcinoma. Right hemicolectomy performed 04/03/2019, adenocarcinoma moderately differentiated. Stage [id number]. MMR proficient. BRAF mutation not detected, K-renata mutation detected, NRAS mutation not detected, IHC for verdugo TRK negative. HER2 non reactive and tumor mutational burden 4 Muts/Mb. Started chemotherapy modified FOLFOX 6 with Avastin from 04/23/2019. He had a good response based on PET scan in June but because of side effects of neuropathy he was switched to maintenance Xeloda with Avastin. On irinotecan plus bevacizumab every 2 weeks until January 2021. Later switched to FOLFIRI/Adelaida regimen until 08/2021. He had progressive disease, lung nodules in August 2021. He enrolled in clinical trial in [place], protocol 19-132 which used 2 novel immunotherapy drugs on 10/13/2021. Unfortunately, he progressed on these medications and he also developed acute immune mediated nephritis as well as hepatitis. He was tapered off high-dose prednisone over a period of 3 months. He has progressive disease in his chest as well as peritoneal disease. He has started Lonsurf 20-8.19 mg 4 tabs p.o. b.i.d. on days 1-5 and days 8-12 every 28 day cycle from 02/07/22. He is experiencing mild gastrointestinal symptoms. Labs look good, proceed with treatment today. Follow-up in 1 month. - Time Spent With Patient Time Spent with Patient (in minutes): 15
[2022-03-24 11:32] VITALS: BP 129/84; PULSE 102; RESP 19; TEMP 36.4; O2SAT 97; BMI 31.1
[2022-03-24 12:00] LABS: MANUAL DIFF FLAG NO
[2022-03-24 12:09] LABS: Basophils Percent Auto 0.4 % (0-2); Eosinophils Absolute Auto 0.1 X10*3/uL (0.0-0.4); Eosinophils Percent Auto 1.5 % (0-4); Hematocrit 36.6 % (42.0-52.0); Imm Gran Abs Auto 0.02 X10*3/uL (0.00-0.03); Imm Gran Pct Auto 0.4 % (0.0-0.4); Lymphocytes Absolute Auto 1.6 X10*3/uL (1.2-4.9); Lymphocytes Percent Auto 32.6 % (20-40); Mean Corpuscular HGB Conc 32.8 g/dl (31.0-36.0); Mean Corpuscular Hemoglobin 31.1 pg (27.0-33.0); Mean Corpuscular Volume 94.8 fL (80.0-98.0); Mean Platelet Volume 8.9 fL (9.4-12.4); Monocytes Absolute Auto 0.2 X10*3/uL (0.1-1.2); Monocytes Percent Auto 4.6 % (2-11); Neutrophils Absolute Auto 2.9 x10*3/uL (2.0-8.3); Neutrophils Percent Auto 60.5 % (45-73); Platelet Count 194 X10*3/uL (160-400); Red Blood Count 3.86 X10*6/uL (4.60-5.80); Red Cell Distribution Width 16.5 % (11.0-16.0); White Blood Count 4.8 X10*3/uL (4.8-10.8)
[2022-03-24 12:09] LABS: Appearance Urine Clear; Color Urine Dark Yellow; Glucose Urine UA Negative (Negative); Leukocyte Esterase Urine Negative (Negative); Nitrite Urine Negative (Negative); PH 5.5 (5.0-9.0); Specific Gravity - Urine 1.025 (1.005-1.025); UMIC TRIGGER UA YES; Urine Blood Negative (Negative); Urine Ketones Trace mg/dL (Negative); Urine Protein 30 (1+) mg/dL (Neg-Trace)
[2022-03-24 12:21] LABS: Bacteria Urine None Seen (None Seen); RBC Urine 0-2 /HPF (0-2); WBC Urine 0-5 /HPF (0-5)
[2022-03-24 12:25] LABS: Alanine Aminotransferase 15 U/L (0-40); Albumin Level 4.2 g/dL (3.5-5.0); Alkaline Phosphatase 72 U/L (39-117); Anion Gap 17 (12-20); Aspartate Amino Transferase 17 U/L (5-37); Bilirubin Total 0.7 mg/dL (0.0-1.0); Blood Urea Nitrogen 10 mg/dL (9-16); Calcium 9.2 mg/dL (8.4-10.2); Carbon Dioxide 25 mmol/L (22-29); Chloride 101 mmol/L (96-108); Creatinine Clr Calc Pharmacy 74.1; Estimated Glomerular Filt Rate 56; Glucose Random 110 mg/dL (60-115); Potassium 3.9 mmol/L (3.3-5.1); Sodium 139 mmol/L (135-145)
[2022-03-24] MEDS: Acetaminophen 325 MG TABLET 650 MG PO (12:57)
[2022-03-24] MEDS: Ondansetron ODT 8 MG TAB.RAPDIS TRANSLINGU (12:59)
[2022-03-24] MEDS: Alteplase Cath Clear 2 MG VIAL INTRACATH (13:09)
[2022-03-24] MEDS: Heparin Sodium,Porcine Flush 500 UNIT/5 ML SYRINGE IVFLUSH (13:41)
[2022-03-24] MEDS: BEVACIZUMAB IV (14:07)
[2022-03-24] MEDS: SODIUM CHLORIDE 0.9% IV (14:07)
--- NOTE | 2022-03-24 17:55 | MHC.HEMONC ---
Pt was in today for C2D15 Avastin w/ PO Lonsurf, as well as Onc f/u appt, nurse verified pt has PA for Avastin, pt's VSS, had some weight loss, about 4 kg, VSS, pt was a bit tachy w/ HR of 114 when he arrived, but that dropped to about 100 after a few minutes. Pt requested nurse to attempt obtaining labs via port, even though pt previously had port study that showed fibrin sheath, because nurse had noted blood return w/ his previous tx 2 weeks ago. Nurse obtained urine specimen for UA, sent to lab, showed 1+ protein in urine, Dr. Mims was informed and pharmacist Edie was aware. Nurse accessed pt's R chest implanted port, flushed w/ NS, did find blood return after pt manipulated his upper extremities, but insufficient to obtain ordered blood speciments, so pt had his blood labs drawn peripherally, which were reviewed by Dr. Mims. Pt requested to have cath-luciana admin to his port, to see if it could help him achieve better blood return for subsequent tx cycles. Nurse admin cath-luciana, allowed to dwell for full hour, prior to today's tx, w/ good effect. Nurse updated pt's med list. Dr. Mims was in to meet w/ pt. Pt reported continued fatigue, cough w/ associated chest pain, freq monique red blood in stool, reduced appetite, and nausea, said he usually only takes one PRN zofran per day, but provider and this nurse educated pt he may take more than one, especially to consider pre-medicating w/ zofran one hr before meals on days when he takes his PO Lonsurf. Nurse reviewed w/ pt his PO Lonsurf schedule, that he is to take PO Lonsurf 4 tabs BID on D1-5 and D8-12 of each 28 D cycle, and w/ meals. Pt also had this nurse notify Dr. Mims that he remembered, after his prev tx 14 days ago, when he removed his bandages from his arm and his port, the sites were still bleeding hours after the bandages were placed. Nurse admin pt pre-meds: PO Tylenol and PO Zofran, then admin IV Avastin over 30 min, which was well-tolerated. Pt's port was flushed w/ NS, positive blood flow was now present, then flushed w/ heparin 500 units, then port was de-accessed. Pt was given d/c packet w/ C3D1 booked on 04/07/22.
--- NOTE | 2022-04-06 11:30 | HE.ONCSEC ---
CALLED PATIENT FOR ROUTINE REMINDER CALL , PATIENT DID NOT ANSWER , I LEFT A VOICEMAIL INFORMING PATIENT OF APPT .
[2022-04-07 11:54] VITALS: BP 126/86; PULSE 100; RESP 20; TEMP 36.4; O2SAT 97; BMI 32.8
[2022-04-07 11:55] LABS: Appearance Urine Clear; Color Urine Yellow; Glucose Urine UA Negative (Negative); Leukocyte Esterase Urine Negative (Negative); Nitrite Urine Negative (Negative); PH 5.5 (5.0-9.0); Specific Gravity - Urine <= 1.005 (1.005-1.025); Urine Blood Negative (Negative); Urine Ketones Negative (Negative); Urine Protein Negative (Neg-Trace)
[2022-04-07 11:56] LABS: Basophils Percent Auto 0.8 % (0-2); Eosinophils Percent Auto 1.5 % (0-4); Hematocrit 34.6 % (42.0-52.0); Hemoglobin 11.4 g/dl (14.0-18.0); Lymphocytes Absolute Auto 1.5 X10*3/uL (1.2-4.9); MANUAL DIFF FLAG SCAN; Mean Corpuscular HGB Conc 32.9 g/dl (31.0-36.0); Mean Corpuscular Hemoglobin 32.5 pg (27.0-33.0); Mean Corpuscular Volume 98.6 fL (80.0-98.0); Mean Platelet Volume 8.9 fL (9.4-12.4); Monocytes Absolute Auto 0.6 X10*3/uL (0.1-1.2); Monocytes Percent Auto 22.3 % (2-11); Neutrophils Absolute Auto 0.5 x10*3/uL (2.0-8.3); Neutrophils Percent Auto 18.4 % (45-73); Platelet Count 293 X10*3/uL (160-400); Red Blood Count 3.51 X10*6/uL (4.60-5.80); Red Cell Distribution Width 16.8 % (11.0-16.0); SCAN SMEAR FLAG 1; White Blood Count 2.7 X10*3/uL (4.8-10.8)
[2022-04-07 12:20] LABS: SLIDE REVIEW VERIFIED
[2022-04-07 12:32] LABS: Alanine Aminotransferase 12 U/L (0-40); Alkaline Phosphatase 69 U/L (39-117); Anion Gap 15 (12-20); Aspartate Amino Transferase 17 U/L (5-37); Bilirubin Total 0.2 mg/dL (0.0-1.0); Blood Urea Nitrogen 6 mg/dL (9-16); Carbon Dioxide 26 mmol/L (22-29); Chloride 103 mmol/L (96-108); Creatinine Clr Calc Pharmacy 82.9; Estimated Glomerular Filt Rate > 60; Glucose Random 107 mg/dL (60-115); Potassium 3.4 mmol/L (3.3-5.1); Sodium 141 mmol/L (135-145); Total Protein 6.4 g/dL (6.5-8.0)
[2022-04-07 12:56] LABS: Albumin Level 3.8 g/dL (3.5-5.0)
[2022-04-07] MEDS: Heparin Sodium,Porcine Flush 500 UNIT/5 ML SYRINGE IVFLUSH (13:21)
--- NOTE | 2022-04-07 14:34 | MHC.HEMONC ---
Here for C3 D1 Avastin/Lonsurf. States he is feeling good, except for being very fatigued. Port accessed with good blood return noted. Lab draw done. WBC 2.7, ANC 0.5, both reported to Dr Mims. Will not have treatment today. Pt rescheduled for 04/[address] Mims, and pt to stop taking Lonsurf, and will restart on 04/18 as Day 1. Pt aware. Port flushed with heparin and de-accessed. Departure packet given and pt departed unit.
[2022-04-18 11:07] VITALS: BP 132/88; PULSE 120; RESP 20; TEMP 36.6; O2SAT 96; BMI 32.5
[2022-04-18 11:36] LABS: MANUAL DIFF FLAG NO
[2022-04-18 11:39] LABS: Basophils Absolute Auto 0.1 X10*3/uL (0.0-0.2); Basophils Percent Auto 0.6 % (0-2); Eosinophils Absolute Auto 0.1 X10*3/uL (0.0-0.4); Eosinophils Percent Auto 0.8 % (0-4); Hematocrit 40.1 % (42.0-52.0); Imm Gran Abs Auto 0.03 X10*3/uL (0.00-0.03); Imm Gran Pct Auto 0.3 % (0.0-0.4); Lymphocytes Absolute Auto 2.2 X10*3/uL (1.2-4.9); Lymphocytes Percent Auto 23.9 % (20-40); Mean Corpuscular HGB Conc 32.4 g/dl (31.0-36.0); Mean Corpuscular Hemoglobin 31.9 pg (27.0-33.0); Mean Corpuscular Volume 98.3 fL (80.0-98.0); Mean Platelet Volume 9.2 fL (9.4-12.4); Monocytes Absolute Auto 1.3 X10*3/uL (0.1-1.2); Monocytes Percent Auto 14.5 % (2-11); Neutrophils Absolute Auto 5.4 x10*3/uL (2.0-8.3); Neutrophils Percent Auto 59.9 % (45-73); Platelet Count 310 X10*3/uL (160-400); Red Blood Count 4.08 X10*6/uL (4.60-5.80); Red Cell Distribution Width 16.4 % (11.0-16.0)
[2022-04-18 11:41] LABS: Appearance Urine Clear; Color Urine Dark Yellow; Glucose Urine UA Negative (Negative); Leukocyte Esterase Urine Negative (Negative); Nitrite Urine Negative (Negative); UMIC TRIGGER UA YES; Urine Blood Negative (Negative); Urine Ketones Trace mg/dL (Negative); Urine Protein 30 (1+) mg/dL (Neg-Trace)
[2022-04-18 11:48] LABS: Bacteria Urine None Seen (None Seen); Hyaline Casts Urine 0-2 /LPF (0-2); RBC Urine 0-2 /HPF (0-2); Squamous Epithelial Cell Urine 0-2 /HPF (0-2); WBC Urine 0-5 /HPF (0-5)
[2022-04-18 11:58] LABS: Alanine Aminotransferase 11 U/L (0-40); Albumin Level 4.3 g/dL (3.5-5.0); Alkaline Phosphatase 81 U/L (39-117); Anion Gap 15 (12-20); Aspartate Amino Transferase 21 U/L (5-37); Bilirubin Total 0.5 mg/dL (0.0-1.0); Blood Urea Nitrogen 8 mg/dL (9-16); Calcium 9.5 mg/dL (8.4-10.2); Carbon Dioxide 27 mmol/L (22-29); Chloride 101 mmol/L (96-108); Creatinine Clr Calc Pharmacy 82.5; Estimated Glomerular Filt Rate > 60; Glucose Random 111 mg/dL (60-115); Potassium 3.7 mmol/L (3.3-5.1); Sodium 139 mmol/L (135-145); Total Protein 7.3 g/dL (6.5-8.0)
--- NOTE | 2022-04-18 12:45 | P.PNHO-ONC_ITS ---
Medical Summary - Medical Summary Date of Service: 04/18/22 Chief complaint: Follow-up Medical Summary: Diagnosis: Metastatic colon cancer diagnosed February 2019 Presented with worsening abdominal pain, right lower quadrant ongoing for almost a year. CT imaging showed inflamed appendix, periappendiceal inflammation involving cecum and small bowel. Abscess identified in the pelvis which was drained. Appendectomy performed 02/22/2019, invasive adenocarcinoma, moderately differentiated, tumor present at the resection margin. Acute appendicitis and Suzy appendicitis with perforation. IHC showed CK 7-, CK 20 positive and CDX2 positive. MMR proficient. On 03/11/2019 patient underwent colonoscopy which showed adenomatous looking degenerative mass with an ulcerated center in the cecum. Two polyps were also removed. CTA performed 02/21/2019 showed multiple lung nodules bilaterally. Largest in the left lower lobe measuring 1.[address] abdomen performed 02/21/2019 showed dilated and inflamed appendix with surrounding inflammatory changes. Normal liver and spleen. Prominent mesenteric lymph nodes measuring up to 1.4 cm. CEA elevated at 14.6. FNA of the left lower lobe lung nodule performed 03/13/2019 showed adenocarcinoma consistent with known cecal primary. PET scan showed intense uptake around cecum, SUV 14.2, terminal ileum, foci in mesentery in the pelvis and right lower quadrant suspicious for metastatic deposits. No uptake in the lung nodules but malignancy not excluded. Right hemicolectomy performed 04/03/2019, adenocarcinoma moderately differentiated. Tumor invades through visceral peritoneum with macroscopic tumor perforation and direct invasion into adjacent loop of small bowel. Eight of 12 pericolonic lymph nodes positive for adenocarcinoma. Tumor involves mesenteric resection margins. Lymphovascular invasion present. Tumor size 6 x 2.8 cm. Stage [id number]. MMR proficient. BRAF mutation not detected, K-renata mutation detected, NRAS mutation not detected, IHC for verdugo TRK negative. Genetic testing. Patient?s genetic test result indicated that he was negative for a hereditary cancer gene mutation. Started chemotherapy modified FOLFOX 6 with Avastin from 04/23/2019. PET scan performed June 2019 showed complete metabolic response. Because of side effects of neuropathy his chemotherapy changed to maintenance treatment with Xeloda 1000 milligram/meter squared b.i.d. day 1-14 along with Avastin Q 3 weeks in June 2019.He has had elevation of CEA, PET-CT performed at [facility] on 11/04/2019 showed increased FDG activity in right lower quadrant of abdomen/pelvis, SUV 6.4, nodular infiltration measuring 1.3 x 0.9 cm. Right upper lobe subpleural nodule with minimal FDG uptake of 2.6, metastatic nodule probable. Xeloda discontinued in February 2020 because of worsening hand/foot syndrome. Repeat PET-CT at [facility] in October 2020 showed multiple subcentimeter pulmonary nodules none of which had FDG avidity. No other sites of metastatic disease. On irinotecan plus bevacizumab every 2 weeks until January 2021. He started FOLFOX regimen from 02/02/2021. Later switched to FOLFIRI/Adelaida regimen until 08/2021. He had progressive disease, lung nodules in August 2021. He enrolled in clinical trial in [place], protocol 19-132 which used 2 novel immunotherapy drugs. He started this on 10/13/2021. 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 He was eventually discharged on prednisone 90 mg once daily. He is being tapered gradually. His kidney functions are improving. CT abdomen/pelvis on 12/12/2021 in [place] showed increase in size of metastatic retroperitoneal lymphadenopathy. Peritoneal metastasis in right lower quadrant. Hepatic hypodensities, too small to characterize. CT chest same day showed numerous pulmonary nodules consistent with metastatic disease, a few with increasing cavitation. Interval History Interval history: Joselito is here in follow-up and scheduled treatment. This is his 3rd cycle. He reports mild nausea but no emesis. No exertional chest pain, cough or shortness of breath. He notices slight amount of blood in his stool. No abdominal pain or cramping. No fever or chills. [facility] Medical History: Medical History (Last Reviewed 03/24/22 @ 13:39 by David Riley RN) Acute appendicitis Asthma Colon adenocarcinoma Diarrhea Hypercholesteremia Family History: Family History (Last Reviewed 03/24/22 @ 13:39 by David Riley RN) Father History of cancer of unknown primary site Family history of high blood pressure Mother Hx of arteriosclerotic cardiovascular disease Maternal Grandfather Hx of arteriosclerotic cardiovascular disease Aortic aneurysm Brother No problems noted. Sister No problems noted. Brother No problems noted. Brother No problems noted. Brother No problems noted. Sister No problems noted. Surgical History: Surgical History (Last Reviewed 03/24/22 @ 13:39 by David Riley RN) History of lung biopsy Hx of appendectomy Hx of colonoscopy Hx of right hemicolectomy Social History: Social History (Last Reviewed 03/24/22 @ 13:39 by David Riley RN) Living Situation History: Household Members: Family Housing: Apartment Alcohol History Details: 1. How often do you have a drink containing alcohol?: a. Never Tobacco History: Patient Tobacco Use Status: Never used Tobacco e-Cigarette/Vaping Use: Never Used Second Hand Smoke Exposure: No Substance Use History: Use of substances other than those prescribed or required for medical reasons : No Advance Directives: Advance Directives: No Advance Directives Information Provided: No Homicidal Assessment: Do you have thoughts of harming others: None Do you have a plan to hurt others: No Plan Do you have the means to hurt others: No Nutrition Assessment: Recently lost weight without trying: No Occupation Assessmet: service: No Current occupational status: disabled Home Medications and Allergies Current Medications: Current Medications Acetaminophen (Acetaminophen 325 Mg Tablet) 650 mg PO ONCE ONE Stop: 04/18/22 12:42 Heparin Sodium (Porcine) (Heparin Sodium,Porcine Flush 500 Unit/5 Ml Syringe) 500 unit IVFLUSH ONCE LOLLY Stop: 04/18/22 23:59 Bevacizumab 400 mg/Bevacizumab 100 mg/ Sodium Chloride 100 mls @ 200 mls/hr IV ONCE LOLLY Stop: 04/18/22 23:59 Ondansetron HCl (Ondansetron Odt 8 Mg Tab.Rapdis) 8 mg TRANSLINGU ONCE ONE Stop: 04/18/22 12:42 Home Medications Medication Instructions Recorded Confirmed Type Probiotic 1 cap DAILY 02/16/21 03/24/22 History multivitamin 1 tab PO DAILY 01/10/22 03/24/22 History Allergies Allergy/AdvReac Type Severity Reaction Status Date / Time seafood Allergy Severe Angioedema Verified 03/24/22 13:39 shrimp [SHRIMP] Allergy Severe ANGIOEDEMA Verified 03/24/22 13:39 sucralfate [From Carafate] AdvReac Intermediate rectal Verified 03/24/22 13:39 bleeding Exam Vital signs: Vital Signs Temp 98 F 04/18/22 11:07 Pulse 120 H 04/18/22 11:07 Resp 20 04/18/22 11:07 BP 132/88 04/18/22 11:07 Pulse Ox 96 04/18/22 11:07 O2 Del Method 04/18/22 11:07 Intake & Output 04/17/22 04/18/22 04/18/22 18:59 06:59 18:59 Other: Weight 100 kg [place] Weight in Grams [id number] Weight 100 kg BMI result Body Mass Index 32.5 - Constitutional Present: no acute distress - Routine HEENT Exam Head: Present: normal inspection - Routine Neck Exam Present: full ROM. Absent: lymphadenopathy - Routine Chest/Breast/Axilla Exam Chest wall: Absent: tenderness, mass - Routine Respiratory Exam Present: CTAB - Routine Cardiovascular Exam Cardiovascular: Present: RRR, S1, S2 - Routine Skin Exam Present: dry, rash, cracked Data - Labs CBC & Chem 7: 04/18/22 11:26 04/18/22 11:26 - Imaging Radiologist's impression: ITS Impressions Guidance Fluoroscopy 12/26/21 12:41 FINDINGS/IMPRESSION: On contrast injection of the port under fluoroscopy, there is contrast exiting the tip of the catheter and directed upwards with eventually the contrast traveling towards the right atrium. There is a thick sheath seen surrounding the distal catheter tip in the SVC which most likely prevents blood withdrawal. The results were called to referring physician's nurse in charge and made aware of the finding. Assessment and Plan Patient Active problem list reviewed?: Yes (1) Colon carcinoma metastatic to multiple sites Problem details: February 2019 appendectomy invasive adenocarcinoma moderately differentiated cecal mass, left lower lung field lung nodule FNA adeno carcinoma Status: Chronic Assessment and plan: 1. This is a 51-year-old man with metastatic colon cancer, arising from cecum diagnosed in 2019. FNA of lung nodule is consistent with adenocarcinoma. Right hemicolectomy performed 04/03/2019, adenocarcinoma moderately differentiated. Stage [id number]. MMR proficient. BRAF mutation not detected, K-renata mutation detected, NRAS mutation not detected, IHC for verdugo TRK negative. HER2 non reactive and tumor mutational burden 4 Muts/Mb. Started chemotherapy modified FOLFOX 6 with Avastin from 04/23/2019. He had a good response based on PET scan in June but because of side effects of neuropathy he was switched to maintenance Xeloda with Avastin. On irinotecan plus bevacizumab every 2 weeks until January 2021. Later switched to FOLFIRI/Adelaida regimen until 08/2021. He had progressive disease, lung nodules in August 2021. He enrolled in clinical trial in [place], protocol 19-132 which used 2 novel immunotherapy drugs on 10/13/2021. Unfortunately, he progressed on these medications and he also developed acute immune mediated nephritis as well as hepatitis. He was tapered off high-dose prednisone over a period of 3 months. He has progressive disease in his chest as well as peritoneal disease. He has started Lonsurf 20-8.19 mg 4 tabs p.o. b.i.d. on days 1-5 and days 8-12 every 28 day cycle from 02/07/22. Cycle 3 was delayed by a week because of neutropenia. Blood work today is good, proceed with treatment. Repeat scans end of April. Follow-up in 1 month. - Time Spent With Patient Time Spent with Patient (in minutes): 15
[2022-04-18] MEDS: Ondansetron ODT 8 MG TAB.RAPDIS TRANSLINGU (13:09)
[2022-04-18] MEDS: Acetaminophen 325 MG TABLET 650 MG PO (13:10)
[2022-04-18] MEDS: Heparin Sodium,Porcine Flush 500 UNIT/5 ML SYRINGE IVFLUSH (13:11)
[2022-04-18] MEDS: BEVACIZUMAB IV (13:22)
[2022-04-18] MEDS: SODIUM CHLORIDE 0.9% IV (13:22)
--- NOTE | 2022-04-28 09:25 | MHC.HEMONC ---
Halina HUERTA took message from patient today in which he c/o #9/#10 right lower ribs and back pain. It has been progressively getting worse as it started several weeks ago. He had rx for Baclofen and has been using it without relief. I called patient to follow up on message. He stated that his breathing has been shallow as it hurts to move and inhale deeply. I have spoken with Dr Mims and she is going to order a CT angio to rule out PE. She will give order to Katelin LOMBARDO to f/u.
--- NOTE | 2022-04-28 15:10 | HO.HEMONCPA ---
NO PA REQUIRED FOR CPT CODE 84589 CT angio chest PE protocol. Case#[id number]. Patel AGUIRRE ON 04/28/22 at 3pm
--- NOTE | 2022-05-01 09:56 | MHC.HEMONC ---
Telephone call from pt stating he is having abdominal pain on right side, states he has had the pain since last week. He does have chest CT scheduled for 2pm today. He is asking about having a CT scan of his abdomen as well. Katelin Marin spoke with Dr Mims, and CT abd/pelvis added to orders. Pastora Alarcon working on emergency PA. Pt aware.
--- NOTE | 2022-05-01 15:57 | MHC.HEMONC ---
I notified pt that PE was ruled out on scan today per Dr Mims.
[2022-05-02 10:54] VITALS: BP 133/98; PULSE 103; RESP 18; TEMP 36.2; O2SAT 96; BMI 32.2
[2022-05-02 11:22] LABS: MANUAL DIFF FLAG NO
[2022-05-02 11:24] LABS: Basophils Percent Auto 0.6 % (0-2); Eosinophils Absolute Auto 0.2 X10*3/uL (0.0-0.4); Eosinophils Percent Auto 4.8 % (0-4); Hematocrit 37.5 % (42.0-52.0); Hemoglobin 12.2 g/dl (14.0-18.0); Imm Gran Abs Auto 0.02 X10*3/uL (0.00-0.03); Imm Gran Pct Auto 0.4 % (0.0-0.4); Lymphocytes Absolute Auto 1.6 X10*3/uL (1.2-4.9); Lymphocytes Percent Auto 32.5 % (20-40); Mean Corpuscular HGB Conc 32.5 g/dl (31.0-36.0); Mean Corpuscular Hemoglobin 31.6 pg (27.0-33.0); Mean Corpuscular Volume 97.2 fL (80.0-98.0); Mean Platelet Volume 8.8 fL (9.4-12.4); Monocytes Absolute Auto 0.3 X10*3/uL (0.1-1.2); Monocytes Percent Auto 6.2 % (2-11); Neutrophils Absolute Auto 2.8 x10*3/uL (2.0-8.3); Neutrophils Percent Auto 55.5 % (45-73); Platelet Count 222 X10*3/uL (160-400); Red Blood Count 3.86 X10*6/uL (4.60-5.80); Red Cell Distribution Width 15.4 % (11.0-16.0)
[2022-05-02 11:26] LABS: Appearance Urine Clear; Color Urine Yellow; Glucose Urine UA Negative (Negative); Leukocyte Esterase Urine Negative (Negative); Nitrite Urine Negative (Negative); PH 5.5 (5.0-9.0); Specific Gravity - Urine >= 1.030 (1.005-1.025); UMIC TRIGGER UA YES; Urine Blood Negative (Negative); Urine Ketones Negative (Negative); Urine Protein 30 (1+) mg/dL (Neg-Trace)
[2022-05-02 11:28] LABS: Bacteria Urine None Seen (None Seen); RBC Urine 0-2 /HPF (0-2); Squamous Epithelial Cell Urine 0-2 /HPF (0-2); WBC Urine 0-5 /HPF (0-5)
[2022-05-02 11:43] LABS: Alanine Aminotransferase 14 U/L (0-40); Albumin Level 4.3 g/dL (3.5-5.0); Alkaline Phosphatase 69 U/L (39-117); Anion Gap 12 (12-20); Aspartate Amino Transferase 20 U/L (5-37); Bilirubin Total 0.6 mg/dL (0.0-1.0); Blood Urea Nitrogen 13 mg/dL (9-16); Calcium 9.2 mg/dL (8.4-10.2); Carbon Dioxide 26 mmol/L (22-29); Chloride 103 mmol/L (96-108); Creatinine Clr Calc Pharmacy 82.8; Estimated Glomerular Filt Rate > 60; Glucose Random 98 mg/dL (60-115); Potassium 3.6 mmol/L (3.3-5.1); Sodium 137 mmol/L (135-145)
[2022-05-02] MEDS: Acetaminophen 325 MG TABLET 650 MG PO (12:29)
[2022-05-02] MEDS: Ondansetron ODT 8 MG TAB.RAPDIS TRANSLINGU (12:29)
[2022-05-02] MEDS: Heparin Sodium,Porcine Flush 500 UNIT/5 ML SYRINGE IVFLUSH (12:32)
[2022-05-02] MEDS: oxyCODONE HCl Immed Release 5 MG TABLET PO (13:12)
[2022-05-02] MEDS: BEVACIZUMAB IV (13:19)
[2022-05-02] MEDS: SODIUM CHLORIDE 0.9% IV (13:19)
--- NOTE | 2022-05-02 16:26 | MHC.HEMONC ---
Here for C3 D15 Avastin. Port accessed with good blood return noted. Labs obtained. Pt states is still having pain to right side. Taking tylenol at home with no effects. Will speak with Dr Koroma, covering for Dr Mims. Premeds given as ordered. Treatment done and tolerated well. Port flushed with heparin and de-accessed. Pt was medicated with Oxycodone 5mg with some effects. Prescription also sent to pts pharmacy. Next treatment scheduled for 2 weeks.
--- NOTE | 2022-05-05 11:11 | MHC.HEMONC ---
Pt called to report that the oxycodone has not helped his lef tsided pain. It is noticeable in his left buttock. It hurts more when he presses on it. I spoke to Dr Mims and she asked me to call him and ask him to try Advil through the weekend and call on Sunday. I advised him and told him he should eat prior to the NSAID and also that it is OK to still use the oxycodone prn.
--- NOTE | 2022-05-12 11:47 | MHC.HEMONC ---
I faxed request and pt demographics and note to [facility], Office of Dr Alec Melton to see if patient could have Consultation, ? Clinical Trial per Dr Mims.
[2022-05-16 11:12] VITALS: BP 136/84; PULSE 119; RESP 18; TEMP 36.4; O2SAT 95; BMI 32.2
[2022-05-16 11:55] LABS: Basophils Percent Auto 0.7 % (0-2); Eosinophils Absolute Auto 0.2 X10*3/uL (0.0-0.4); Eosinophils Percent Auto 3.7 % (0-4); Hemoglobin 11.6 g/dl (14.0-18.0); Imm Gran Abs Auto 0.02 X10*3/uL (0.00-0.03); Imm Gran Pct Auto 0.5 % (0.0-0.4); Lymphocytes Absolute Auto 1.4 X10*3/uL (1.2-4.9); Lymphocytes Percent Auto 31.8 % (20-40); MANUAL DIFF FLAG SCAN; Mean Corpuscular HGB Conc 33.1 g/dl (31.0-36.0); Mean Corpuscular Hemoglobin 32.3 pg (27.0-33.0); Mean Corpuscular Volume 97.5 fL (80.0-98.0); Mean Platelet Volume 9.6 fL (9.4-12.4); Monocytes Absolute Auto 0.9 X10*3/uL (0.1-1.2); Monocytes Percent Auto 20.7 % (2-11); Neutrophils Absolute Auto 1.9 x10*3/uL (2.0-8.3); Neutrophils Percent Auto 42.6 % (45-73); Platelet Count 303 X10*3/uL (160-400); Red Blood Count 3.59 X10*6/uL (4.60-5.80); Red Cell Distribution Width 15.9 % (11.0-16.0); SCAN SMEAR FLAG 1; White Blood Count 4.3 X10*3/uL (4.8-10.8)
[2022-05-16 12:01] LABS: Appearance Urine Clear; Color Urine Yellow; Glucose Urine UA Negative (Negative); Leukocyte Esterase Urine Negative (Negative); Nitrite Urine Negative (Negative); PH 5.5 (5.0-9.0); Specific Gravity - Urine 1.025 (1.005-1.025); UMIC TRIGGER UA YES; Urine Blood Negative (Negative); Urine Ketones Trace mg/dL (Negative); Urine Protein 30 (1+) mg/dL (Neg-Trace)
[2022-05-16 12:06] LABS: Bacteria Urine None Seen (None Seen); Hyaline Casts Urine 0-2 /LPF (0-2); RBC Urine 0-2 /HPF (0-2); Squamous Epithelial Cell Urine 0-2 /HPF (0-2); WBC Urine 0-5 /HPF (0-5)
[2022-05-16 12:14] LABS: Alanine Aminotransferase 17 U/L (0-40); Albumin Level 3.9 g/dL (3.5-5.0); Alkaline Phosphatase 94 U/L (39-117); Anion Gap 11 (12-20); Aspartate Amino Transferase 20 U/L (5-37); Bilirubin Total 0.5 mg/dL (0.0-1.0); Blood Urea Nitrogen 11 mg/dL (9-16); Calcium 9.1 mg/dL (8.4-10.2); Carbon Dioxide 29 mmol/L (22-29); Chloride 103 mmol/L (96-108); Creatinine Clr Calc Pharmacy 77.7; Estimated Glomerular Filt Rate 58; Glucose Random 98 mg/dL (60-115); Potassium 3.5 mmol/L (3.3-5.1); Sodium 139 mmol/L (135-145); Total Protein 6.7 g/dL (6.5-8.0)
[2022-05-16 12:19] LABS: SLIDE REVIEW VERIFIED
[2022-05-16] MEDS: Ondansetron ODT 8 MG TAB.RAPDIS TRANSLINGU (12:28)
[2022-05-16] MEDS: Acetaminophen 325 MG TABLET 650 MG PO (12:29)
--- NOTE | 2022-05-16 12:36 | PM.HEMONCPN ---
Medical Summary - Medical Summary Date of Service: 05/16/22 Chief complaint: Right-sided flank pain Medical Summary: Diagnosis: Metastatic colon cancer diagnosed February 2019 Presented with worsening abdominal pain, right lower quadrant ongoing for almost a year. CT imaging showed inflamed appendix, periappendiceal inflammation involving cecum and small bowel. Abscess identified in the pelvis which was drained. Appendectomy performed 02/22/2019, invasive adenocarcinoma, moderately differentiated, tumor present at the resection margin. Acute appendicitis and Suzy appendicitis with perforation. IHC showed CK 7-, CK 20 positive and CDX2 positive. MMR proficient. On 03/11/2019 patient underwent colonoscopy which showed adenomatous looking degenerative mass with an ulcerated center in the cecum. Two polyps were also removed. CTA performed 02/21/2019 showed multiple lung nodules bilaterally. Largest in the left lower lobe measuring 1.[address] abdomen performed 02/21/2019 showed dilated and inflamed appendix with surrounding inflammatory changes. Normal liver and spleen. Prominent mesenteric lymph nodes measuring up to 1.4 cm. CEA elevated at 14.6. FNA of the left lower lobe lung nodule performed 03/13/2019 showed adenocarcinoma consistent with known cecal primary. PET scan showed intense uptake around cecum, SUV 14.2, terminal ileum, foci in mesentery in the pelvis and right lower quadrant suspicious for metastatic deposits. No uptake in the lung nodules but malignancy not excluded. Right hemicolectomy performed 04/03/2019, adenocarcinoma moderately differentiated. Tumor invades through visceral peritoneum with macroscopic tumor perforation and direct invasion into adjacent loop of small bowel. Eight of 12 pericolonic lymph nodes positive for adenocarcinoma. Tumor involves mesenteric resection margins. Lymphovascular invasion present. Tumor size 6 x 2.8 cm. Stage [id number]. MMR proficient. BRAF mutation not detected, K-renata mutation detected, NRAS mutation not detected, IHC for verdugo TRK negative. Genetic testing. Patient?s genetic test result indicated that he was negative for a hereditary cancer gene mutation. Started chemotherapy modified FOLFOX 6 with Avastin from 04/23/2019. PET scan performed June 2019 showed complete metabolic response. Because of side effects of neuropathy his chemotherapy changed to maintenance treatment with Xeloda 1000 milligram/meter squared b.i.d. day 1-14 along with Avastin Q 3 weeks in June 2019.He has had elevation of CEA, PET-CT performed at [facility] on 11/04/2019 showed increased FDG activity in right lower quadrant of abdomen/pelvis, SUV 6.4, nodular infiltration measuring 1.3 x 0.9 cm. Right upper lobe subpleural nodule with minimal FDG uptake of 2.6, metastatic nodule probable. Xeloda discontinued in February 2020 because of worsening hand/foot syndrome. Repeat PET-CT at [facility] in October 2020 showed multiple subcentimeter pulmonary nodules none of which had FDG avidity. No other sites of metastatic disease. On irinotecan plus bevacizumab every 2 weeks until January 2021. He started FOLFOX regimen from 02/02/2021. Later switched to FOLFIRI/Adelaida regimen until 08/2021. He had progressive disease, lung nodules in August 2021. He enrolled in clinical trial in [place], protocol 19-132 which used 2 novel immunotherapy drugs. He started this on 10/13/2021. 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 He was eventually discharged on prednisone 90 mg once daily. He is being tapered gradually. His kidney functions are improving. CT abdomen/pelvis on 12/12/2021 in [place] showed increase in size of metastatic retroperitoneal lymphadenopathy. Peritoneal metastasis in right lower quadrant. Hepatic hypodensities, too small to characterize. CT chest same day showed numerous pulmonary nodules consistent with metastatic disease, a few with increasing cavitation. Interval History Interval history: Joselito is here in follow-up and scheduled treatment. since early April he developed pain in his right flank, this is not radiating to the groin or associated with any urinary symptoms. No associated fever, chills, change in bowel habits. He says it is worse in certain positions, he has been taking oxycodone for the pain. He underwent imaging studies which did not show any progression of his cancer. He is trying to decrease oxycodone intake Tylenol or NSAIDs if possible. Review of Systems - Constitutional Reports as per HPI, Denies fatigue, Denies poor appetite, Denies weakness, Denies weight loss [facility] Medical History: Medical History (Last Reviewed 03/24/22 @ 13:39 by David Riley RN) Acute appendicitis Asthma Colon adenocarcinoma Diarrhea Hypercholesteremia Family History: Family History (Last Reviewed 03/24/22 @ 13:39 by David Riley RN) Father History of cancer of unknown primary site Family history of high blood pressure Mother Hx of arteriosclerotic cardiovascular disease Maternal Grandfather Hx of arteriosclerotic cardiovascular disease Aortic aneurysm Brother No problems noted. Sister No problems noted. Brother No problems noted. Brother No problems noted. Brother No problems noted. Sister No problems noted. Surgical History: Surgical History (Last Reviewed 03/24/22 @ 13:39 by David Riley RN) History of lung biopsy Hx of appendectomy Hx of colonoscopy Hx of right hemicolectomy Social History: Social History (Last Reviewed 03/24/22 @ 13:39 by David Riley RN) Living Situation History: Household Members: Family Housing: Apartment Alcohol History Details: 1. How often do you have a drink containing alcohol?: a. Never Tobacco History: Patient Tobacco Use Status: Never used Tobacco e-Cigarette/Vaping Use: Never Used Second Hand Smoke Exposure: No Substance Use History: Use of substances other than those prescribed or required for medical reasons: No Advance Directives: Advance Directives: No Advance Directives Information Provided: No Homicidal Assessment: Do you have thoughts of harming others: None Do you have a plan to hurt others: No Plan Do you have the means to hurt others: No Nutrition Assessment: Recently lost weight without trying: No Occupation Assessmet: service: No Current occupational status: disabled Home Medications and Allergies Current Medications: Current Medications Heparin Sodium (Porcine) (Heparin Sodium,Porcine Flush 500 Unit/5 Ml Syringe) 500 unit IVFLUSH ONCE LOLLY Stop: 05/16/22 23:59 Bevacizumab 400 mg/Bevacizumab 100 mg/ Sodium Chloride 100 mls @ 200 mls/hr IV ONCE LOLLY Stop: 05/16/22 23:59 Home Medications Medication Instructions Recorded Confirmed Type Probiotic 1 cap DAILY 02/16/21 03/24/22 History multivitamin 1 tab PO DAILY 01/10/22 03/24/22 History Allergies Allergy/AdvReac Type Severity Reaction Status Date / Time seafood Allergy Severe Angioedema Verified 03/24/22 13:39 shrimp [SHRIMP] Allergy Severe ANGIOEDEMA Verified 03/24/22 13:39 sucralfate [From Carafate] AdvReac Intermediate rectal Verified 03/24/22 13:39 bleeding Exam Vital signs: Vital Signs Temp 97.6 F 05/16/22 11:12 Pulse 119 H 05/16/22 11:12 Resp 18 05/16/22 11:12 BP 136/84 05/16/22 11:12 Pulse Ox 95 05/16/22 11:12 O2 Del Method 05/16/22 11:12 Intake & Output 05/15/22 05/16/22 05/16/22 18:59 06:59 18:59 Other: Weight 99.1 kg [place] Weight in Grams 47640 Weight 99.1 kg BMI result Body Mass Index 32.2 - Constitutional Present: no acute distress - Routine HEENT Exam Head: Present: normal inspection - Routine Neck Exam Present: full ROM. Absent: lymphadenopathy - Routine Chest/Breast/Axilla Exam Chest wall: Absent: tenderness, mass - Routine Respiratory Exam Present: CTAB - Routine Cardiovascular Exam Cardiovascular: Present: RRR, S1, S2 - Routine Skin Exam Present: dry, rash, cracked Data - Labs CBC & Chem 7: 05/16/22 11:40 05/16/22 11:40 - Imaging Radiologist's impression: ITS Impressions Guidance Fluoroscopy 12/26/21 12:41 FINDINGS/IMPRESSION: On contrast injection of the port under fluoroscopy, there is contrast exiting the tip of the catheter and directed upwards with eventually the contrast traveling towards the right atrium. There is a thick sheath seen surrounding the distal catheter tip in the SVC which most likely prevents blood withdrawal. The results were called to referring physician's nurse in charge and made aware of the finding. Assessment and Plan Patient Active problem list reviewed?: Yes (1) Colon carcinoma metastatic to multiple sites Problem details: February 2019 appendectomy invasive adenocarcinoma moderately differentiated cecal mass, left lower lung field lung nodule FNA adeno carcinoma Status: Chronic Assessment and plan: 1. This is a 51-year-old man with metastatic colon cancer, arising from cecum diagnosed in 2018. FNA of lung nodule is consistent with adenocarcinoma. Right hemicolectomy performed 04/03/2019, adenocarcinoma moderately differentiated. Stage [id number]. MMR proficient. BRAF mutation not detected, K-renata mutation detected, NRAS mutation not detected, IHC for verdugo TRK negative. HER2 non reactive and tumor mutational burden 4 Muts/Mb. Started chemotherapy modified FOLFOX 6 with Avastin from 04/23/2019. He had a good response based on PET scan in June but because of side effects of neuropathy he was switched to maintenance Xeloda with Avastin. On irinotecan plus bevacizumab every 2 weeks until January 2021. Later switched to FOLFIRI/Adelaida regimen until 08/2021. He had progressive disease, lung nodules in August 2021. He enrolled in clinical trial in [place], protocol 19-132 which used 2 novel immunotherapy drugs on 10/13/2021. Unfortunately, he progressed on these medications and he also developed acute immune mediated nephritis as well as hepatitis. He was tapered off high-dose prednisone over a period of 3 months. He has progressive disease in his chest as well as peritoneal disease. He has started Lonsurf 20-8.19 mg 4 tabs p.o. b.i.d. on days 1-5 and days 8-12 every 28 day cycle from 02/07/22. 2. Right flank/ back pain. This has been quite severe, he underwent CT abdomen / pelvis with contrast on 05/01/2022 which showed interval decrease in peritoneal disease. No cause for his pain could be found on imaging. CT angiogram revealed no evidence of PE. Innumerable bilateral pulmonary nodules but slight interval decrease. I discussed with the patient that this could be musculoskeletal in nature. He is applying heating pads and taking pain medications. I am prescribing Flexeril 10 mg every 8 hours as needed. If he has persistent pain, further imaging such as bone scan will be considered. Follow-up in 1 month. - Time Spent With Patient Time Spent with Patient (in minutes): 15
[2022-05-16] MEDS: BEVACIZUMAB IV (13:02)
[2022-05-16] MEDS: SODIUM CHLORIDE 0.9% IV (13:02)
[2022-05-16] MEDS: Heparin Sodium,Porcine Flush 500 UNIT/5 ML SYRINGE IVFLUSH (13:05)
--- NOTE | 2022-05-16 16:57 | MHC.HEMONC ---
Here for C4 D1 Avastin/Lonsurf. Port accessed with good blood return noted. Labs obtained and reviewed. States he is feeling good, except continues to have back pain. States is taking oxycodone with good effects, and pain is now 4-5/10 on pain scale. Premedicated with tylenol and zofran po as ordered. Treatment done and tolerated well. Port flushed with heparin 500units and de-accessed. Dr Mims in to see pt for follow up. Next treatment scheduled for 2 weeks. Departure packet given and pt departed unit.
--- NOTE | 2022-05-29 09:08 | MHC.HEMONC ---
Venkat, pharm rep called, requested new scrip for pt's Lonsurf tablets. Nurse passed request to Dr. Mims, who sent digital scrip to [facility]. Venkat confirmed scrip was received, also that he had spoken w/ pt and he said he has enough Lonsurf to last a week, since pt's next cycle begins tomorrow, 05/30/22.
[2022-05-30 11:56] LABS: MANUAL DIFF FLAG NO
[2022-05-30 12:00] LABS: Basophils Percent Auto 0.2 % (0-2); Eosinophils Percent Auto 0.9 % (0-4); Hematocrit 36.1 % (42.0-52.0); Imm Gran Abs Auto 0.04 X10*3/uL (0.00-0.03); Imm Gran Pct Auto 0.9 % (0.0-0.4); Lymphocytes Absolute Auto 1.5 X10*3/uL (1.2-4.9); Lymphocytes Percent Auto 34.5 % (20-40); Mean Corpuscular HGB Conc 33.2 g/dl (31.0-36.0); Mean Corpuscular Hemoglobin 32.3 pg (27.0-33.0); Mean Corpuscular Volume 97.3 fL (80.0-98.0); Mean Platelet Volume 10.1 fL (9.4-12.4); Monocytes Absolute Auto 0.2 X10*3/uL (0.1-1.2); Monocytes Percent Auto 3.4 % (2-11); Neutrophils Absolute Auto 2.7 x10*3/uL (2.0-8.3); Neutrophils Percent Auto 60.1 % (45-73); Platelet Count 179 X10*3/uL (160-400); Red Blood Count 3.71 X10*6/uL (4.60-5.80); White Blood Count 4.4 X10*3/uL (4.8-10.8)
[2022-05-30 12:07] VITALS: BP 117/90; PULSE 128; RESP 18; TEMP 35.9; O2SAT 97; BMI 31.0
[2022-05-30 12:11] LABS: Appearance Urine Cloudy; Color Urine Dark Yellow; Glucose Urine UA Negative (Negative); Leukocyte Esterase Urine Negative (Negative); Nitrite Urine Negative (Negative); PH 5.5 (5.0-9.0); Specific Gravity - Urine >= 1.030 (1.005-1.025); UMIC TRIGGER UA YES; Urine Blood Negative (Negative); Urine Ketones Trace mg/dL (Negative); Urine Protein 100 (2+) mg/dL (Neg-Trace)
[2022-05-30 12:18] LABS: Alanine Aminotransferase 14 U/L (0-40); Albumin Level 4.3 g/dL (3.5-5.0); Alkaline Phosphatase 100 U/L (39-117); Anion Gap 14 (12-20); Aspartate Amino Transferase 19 U/L (5-37); Bilirubin Total 0.7 mg/dL (0.0-1.0); Blood Urea Nitrogen 13 mg/dL (9-16); Calcium 9.3 mg/dL (8.4-10.2); Carbon Dioxide 25 mmol/L (22-29); Chloride 101 mmol/L (96-108); Creatinine Clr Calc Pharmacy 69.3; Estimated Glomerular Filt Rate 52; Glucose Random 157 mg/dL (60-115); Potassium 3.3 mmol/L (3.3-5.1); Sodium 137 mmol/L (135-145); Total Protein 7.4 g/dL (6.5-8.0)
[2022-05-30 12:21] LABS: Bacteria Urine None Seen (None Seen); RBC Urine 0-2 /HPF (0-2); WBC Urine 0-5 /HPF (0-5)
[2022-05-30] MEDS: Heparin Sodium,Porcine Flush 500 UNIT/5 ML SYRINGE IVFLUSH (13:21)
--- NOTE | 2022-05-30 14:46 | MHC.HEMONC ---
Here for C4 D15 Avastin. Port accessed with good blood return noted. Labs obtained. Urine spec also obtained. Pt states he is still having back pain right side. Has been taking oxycodone and muscle relaxer with some relief. States pain is 2-3/10. Labs reviewed. Has 2+ protein in urine, and creatinine 1.42. Dr Mims is aware. Will not receive treatment today. Pt is aware. Will return in 2 weeks for next treatment and follow up with Dr Mims. Per Dr Mims, pt does not need 24 hour urine at this time, but will need if protein still elevated at next visit.
--- NOTE | 2022-06-13 13:44 | P.PNHO-ONC_ITS ---
Medical Summary - Medical Summary Date of Service: 06/13/22 Chief complaint: Follow up and scheduled treatment Medical Summary: Diagnosis: Metastatic colon cancer diagnosed February 2019 Presented with worsening abdominal pain, right lower quadrant ongoing for almost a year. CT imaging showed inflamed appendix, periappendiceal inflammation involving cecum and small bowel. Abscess identified in the pelvis which was drained. Appendectomy performed 02/22/2019, invasive adenocarcinoma, moderately differentiated, tumor present at the resection margin. Acute appendicitis and Suzy appendicitis with perforation. IHC showed CK 7-, CK 20 positive and CDX2 positive. MMR proficient. On 03/11/2019 patient underwent colonoscopy which showed adenomatous looking degenerative mass with an ulcerated center in the cecum. Two polyps were also removed. CTA performed 02/21/2019 showed multiple lung nodules bilaterally. Largest in the left lower lobe measuring 1.[address] abdomen performed 02/21/2019 showed dilated and inflamed appendix with surrounding inflammatory changes. Normal liver and spleen. Prominent mesenteric lymph nodes measuring up to 1.4 cm. CEA elevated at 14.6. FNA of the left lower lobe lung nodule performed 03/13/2019 showed adenocarcinoma consistent with known cecal primary. PET scan showed intense uptake around cecum, SUV 14.2, terminal ileum, foci in mesentery in the pelvis and right lower quadrant suspicious for metastatic deposits. No uptake in the lung nodules but malignancy not excluded. Right hemicolectomy performed 04/03/2019, adenocarcinoma moderately differentiated. Tumor invades through visceral peritoneum with macroscopic tumor perforation and direct invasion into adjacent loop of small bowel. Eight of 12 pericolonic lymph nodes positive for adenocarcinoma. Tumor involves mesenteric resection margins. Lymphovascular invasion present. Tumor size 6 x 2.8 cm. Stage [id number]. MMR proficient. BRAF mutation not detected, K-renata mutation detected, NRAS mutation not detected, IHC for verdugo TRK negative. Genetic testing. Patient?s genetic test result indicated that he was negative for a hereditary cancer gene mutation. Started chemotherapy modified FOLFOX 6 with Avastin from 04/23/2019. PET scan performed June 2019 showed complete metabolic response. Because of side effects of neuropathy his chemotherapy changed to maintenance treatment with Xeloda 1000 milligram/meter squared b.i.d. day 1-14 along with Avastin Q 3 weeks in June 2019.He has had elevation of CEA, PET-CT performed at [facility] on 11/04/2019 showed increased FDG activity in right lower quadrant of abdomen/pelvis, SUV 6.4, nodular infiltration measuring 1.3 x 0.9 cm. Right upper lobe subpleural nodule with minimal FDG uptake of 2.6, metastatic nodule probable. Xeloda discontinued in February 2020 because of worsening hand/foot syndrome. Repeat PET-CT at [facility] in October 2020 showed multiple subcentimeter pulmonary nodu les none of which had FDG avidity. No other sites of metastatic disease. On irinotecan plus bevacizumab every 2 weeks until January 2021. He started FOLFOX regimen from 02/02/2021. Later switched to FOLFIRI/Adelaida regimen until 08/2021. He had progressive disease, lung nodules in August 2021. He enrolled in clinical trial in [place], protocol 19-132 which used 2 novel immunotherapy drugs. He started this on 10/13/2021. 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 He was eventually discharged on prednisone 90 mg once daily. He is being tapered gradually. His kidney functions are improving. CT abdomen/pelvis on 12/12/2021 in [place] showed increase in size of metastatic retroperitoneal lymphadenopathy. Peritoneal metastasis in right lower quadrant. Hepatic hypodensities, too small to characterize. CT chest same day showed numerous pulmonary nodules consistent with metastatic disease, a few with i ncreasing cavitation. Interval History Interval history: Joselito is here in follow-up and scheduled treatment. He is taking oxycodone and Flexeril very occasionally. He reports some improvement in pain. He is scheduled for x-ray of his ribs. His appetite and weight are stable. No fever or chills. No change in bowel habits. Review of Systems - Constitutional Reports fatigue, Reports malaise, Denies anorexia, Denies fever(s), Denies weakness, Denies weight loss - Neurologic Denies weakness [facility] Medical History: Medical History (Last Reviewed 03/24/22 @ 13:39 by David Riley RN) Acute appendicitis Asthma Colon adenocarcinoma Diarrhea Hypercholesteremia Family History: Family History (Last Reviewed 03/24/22 @ 13:39 by David Riley RN) Father History of cancer of unknown primary site Family history of high blood pressure Mother Hx of arteriosclerotic cardiovascular disease Maternal Grandfather Hx of arteriosclerotic cardiovascular disease Aortic aneurysm Brother No problems noted. Sister No problems noted. Brother No problems noted. Brother No problems noted. Brother No problems noted. Sister No problems noted. Surgical History: Surgical History (Last Reviewed 03/24/22 @ 13:39 by David Riley RN) History of lung biopsy Hx of appendectomy Hx of colonoscopy Hx of right hemicolectomy Social History: Social History (Last Reviewed 03/24/22 @ 13:39 by David Riley RN) Living Situation History: Household Members: Family Housing: Apartment Tobacco History: Patient Tobacco Use Status: Never used Tobacco e-Cigarette/Vaping Use: Never Used Second Hand Smoke Exposure: No Occupation Assessmet: service: No Current occupational status: disabled Home Medications and Allergies Current Medications: Current Medications Heparin Sodium (Porcine) (Heparin Sodium,Porcine Flush 500 Unit/5 Ml Syringe) 500 unit IVFLUSH ONCE LOLLY Stop: 06/13/22 23:59 Home Medications Medication Instructions Recorded Confirmed Type Probiotic 1 cap DAILY 02/16/21 03/24/22 History multivitamin 1 tab PO DAILY 01/10/22 03/24/22 History Allergies Allergy/AdvReac Type Severity Reaction Status Date / Time seafood Allergy Severe Angioedema Verified 06/13/22 10:45 shrimp [SHRIMP] Allergy Severe ANGIOEDEMA Verified 06/13/22 10:45 sucralfate [From Carafate] AdvReac Intermediate rectal Verified 06/13/22 10:45 bleeding Exam Vital signs: Vital Signs Temp 96.7 F L 05/30/22 12:07 Pulse 128 H 05/30/22 12:07 Resp 18 05/30/22 12:07 BP 117/90 H 05/30/22 12:07 Pulse Ox 97 05/30/22 12:07 O2 Del Method 05/30/22 12:07 Weight 95.3 kg BMI result Body Mass Index 31.0 - Constitutional Present: no acute distress - Routine HEENT Exam Head: Present: normal inspection - Routine Neck Exam Present: full ROM. Absent: lymphadenopathy - Routine Chest/Breast/Axilla Exam Chest wall: Absent: tenderness, mass - Routine Respiratory Exam Present: CTAB - Routine Cardiovascular Exam Cardiovascular: Present: RRR, S1, S2 - Routine Skin Exam Present: dry, rash, cracked Data - Labs CBC & Chem 7: 06/13/22 14:00 06/13/22 14:00 - Imaging Radiologist's impression: ITS Impressions Guidance Fluoroscopy 12/26/21 12:41 FINDINGS/IMPRESSION: On contrast injection of the port under fluoroscopy, there is contrast exiting the tip of the catheter and directed upwards with eventually the contrast traveling towards the right atrium. There is a thick sheath seen surrounding the distal catheter tip in the SVC which most likely prevents blood withdrawal. The results were called to referring physician's nurse in charge and made aware of the finding. Assessment and Plan Patient Active problem list reviewed?: Yes (1) Colon carcinoma metastatic to multiple sites Problem details: February 2019 appendectomy invasive adenocarcinoma moderately differentiated cecal mass, left lower lung field lung nodule FNA adeno carcinoma Status: Chronic Assessment and plan: 1. This is a 52-year-old man with metastatic colon cancer, arising from cecum diagnosed in 2018. FNA of lung nodule is consistent with adenocarcinoma. Right hemicolectomy performed 04/03/2019, adenocarcinoma moderately differentiated. Stage [id number]. MMR proficient. BRAF mutation not detected, K-renata mutation detected, NRAS mutation not detected, IHC for verdugo TRK negative. HER2 non reactive and tumor mutational burden 4 Muts/Mb. Started chemotherapy modified FOLFOX 6 with Avastin from 04/23/2019. He had a good response based on PET scan in June but because of side effects of neuropathy he was switched to maintenance Xeloda with Avastin. On irinotecan plus bevacizumab every 2 weeks until January 2021. Later switched to FOLFIRI/Adelaida regimen until 08/2021. He had progressive disease, lung nodules in August 2021. He enrolled in clinical trial in [place], protocol 19-132 which used 2 novel immunotherapy drugs on 10/13/2021. Unfortunately, he progressed on these medications and he also developed acute immune mediated nephritis as well as hepatitis. He was tapered off high-dose prednisone over a period of 3 months. He has progressive disease in his chest as well as peritoneal disease. He has started Lonsurf 20-8.19 mg 4 tabs p.o. b.i.d. on days 1-5 and days 8-12 every 28 day cycle from 02/07/22. 2. Right flank/ back pain. He underwent CT abdomen / pelvis with contrast on 05/01/2022 which showed interval decrease in peritoneal disease. No cause for his pain could be found on imaging. CT angiogram revealed no evidence of PE. Innumerable bilateral pulmonary nodules but slight interval decrease. I discussed with the patient that this could be musculoskeletal in nature. He was prescribed Flexeril which is helping him somewhat. He also has an x-ray of his ribs ordered by his PCP. PET scan in 2 months. Follow-up in 1 month. - Time Spent With Patient Time Spent with Patient (in minutes): 15
[2022-06-13 14:20] VITALS: BP 129/82; PULSE 112; RESP 20; TEMP 37.7; O2SAT 96; BMI 31.4
[2022-06-13 14:28] LABS: Basophils Percent Auto 0.3 % (0-2); Eosinophils Percent Auto 0.3 % (0-4); Hematocrit 32.8 % (42.0-52.0); Hemoglobin 10.8 g/dl (14.0-18.0); Imm Gran Abs Auto 0.01 X10*3/uL (0.00-0.03); Imm Gran Pct Auto 0.3 % (0.0-0.4); Lymphocytes Absolute Auto 1.6 X10*3/uL (1.2-4.9); Lymphocytes Percent Auto 44.2 % (20-40); MANUAL DIFF FLAG SCAN; Mean Corpuscular HGB Conc 32.9 g/dl (31.0-36.0); Mean Corpuscular Hemoglobin 32.7 pg (27.0-33.0); Mean Corpuscular Volume 99.4 fL (80.0-98.0); Mean Platelet Volume 9.5 fL (9.4-12.4); Monocytes Absolute Auto 0.9 X10*3/uL (0.1-1.2); Monocytes Percent Auto 23.8 % (2-11); Neutrophils Absolute Auto 1.1 x10*3/uL (2.0-8.3); Neutrophils Percent Auto 31.1 % (45-73); Platelet Count 364 X10*3/uL (160-400); Red Cell Distribution Width 16.3 % (11.0-16.0); SCAN SMEAR FLAG 1; White Blood Count 3.6 X10*3/uL (4.8-10.8)
[2022-06-13 14:29] LABS: Appearance Urine Clear; Color Urine Yellow; Glucose Urine UA Negative (Negative); Leukocyte Esterase Urine Negative (Negative); Nitrite Urine Negative (Negative); PH 5.5 (5.0-9.0); Specific Gravity - Urine 1.015 (1.005-1.025); Urine Blood Negative (Negative); Urine Ketones Trace mg/dL (Negative); Urine Protein Negative (Neg-Trace)
[2022-06-13 14:52] LABS: Alanine Aminotransferase 12 U/L (0-40); Alkaline Phosphatase 106 U/L (39-117); Anion Gap 16 (12-20); Aspartate Amino Transferase 19 U/L (5-37); Bilirubin Total 0.4 mg/dL (0.0-1.0); Blood Urea Nitrogen 6 mg/dL (9-16); Calcium 9.2 mg/dL (8.4-10.2); Carbon Dioxide 25 mmol/L (22-29); Chloride 101 mmol/L (96-108); Creatinine Clr Calc Pharmacy 74.1; Estimated Glomerular Filt Rate 57; Glucose Random 109 mg/dL (60-115); Potassium 4.1 mmol/L (3.3-5.1); Sodium 138 mmol/L (135-145)
[2022-06-13 14:57] LABS: SLIDE REVIEW VERIFIED
[2022-06-13] MEDS: Ondansetron ODT 8 MG TAB.RAPDIS TRANSLINGU (15:20)
[2022-06-13] MEDS: Acetaminophen 325 MG TABLET 650 MG PO (15:21)
[2022-06-13] MEDS: Heparin Sodium,Porcine Flush 500 UNIT/5 ML SYRINGE IVFLUSH (15:23)
[2022-06-13] MEDS: BEVACIZUMAB IV (15:47)
[2022-06-13] MEDS: SODIUM CHLORIDE 0.9% IV (15:47)
--- NOTE | 2022-06-13 16:27 | MHC.HEMONC ---
Here for C5 D1 Avastin/Lonsurf. Pt states his back pain he has had over the last month is better, but now has pain above left rib area. Dr Mims is aware and will order PET scan. Port accessed with good blood return noted. Labs obtained. Urine obtained. Dr Mims aware of results. UA negative, no protein. ANC 1.1, per Dr Mims pt is ok for treatment. Pre-medicated with tylenol and zofran po as ordered. Treatment done and tolerated well. Pt to go to radiology for xray ordered by Dr Dominique. Dr Mims in to see pt for follow up. Next treatment scheduled for 2 weeks. Departure packet given and pt departed unit.
--- NOTE | 2022-06-23 10:39 | MHC.HEMONC ---
Pt called to report ongoing pain in ribs that have prevented him from sleeping last few nights. 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 I noted coughing as he talked. I advised checking a covid test and taking the oxycodone Dr Mims is refilling and maybe adding advil a couple times a day with food. Dr Mims is ordering a CT scan and Prince is aware.
--- NOTE | 2022-06-23 15:00 | HO.HEMONCPA ---
RECIEVED CT ORDER FROM DIANE . WAS TOLD IT WAS STAT , I CALLED INSURANCE AND PER INSURANCE NO PA IS REQUIRED . REP:Allison Faulkner CASE#[id number]
[2022-06-27 11:22] VITALS: BP 133/89; PULSE 122; RESP 18; TEMP 36.8; O2SAT 96; BMI 30.2
[2022-06-27 11:40] LABS: MANUAL DIFF FLAG NO
--- NOTE | 2022-06-27 11:45 | MHC.HEMONC ---
I booked pt CT for tomorrow at 2:30 pm and informed him at visit today. he will fast for 3 hr and arrive 2 hr early for oral contrast.
[2022-06-27 11:47] LABS: Basophils Percent Auto 0.4 % (0-2); Eosinophils Percent Auto 0.9 % (0-4); Hematocrit 33.9 % (42.0-52.0); Hemoglobin 11.4 g/dl (14.0-18.0); Imm Gran Abs Auto 0.02 X10*3/uL (0.00-0.03); Imm Gran Pct Auto 0.4 % (0.0-0.4); Lymphocytes Absolute Auto 1.8 X10*3/uL (1.2-4.9); Mean Corpuscular HGB Conc 33.6 g/dl (31.0-36.0); Mean Corpuscular Hemoglobin 32.3 pg (27.0-33.0); Monocytes Absolute Auto 0.2 X10*3/uL (0.1-1.2); Monocytes Percent Auto 4.5 % (2-11); Neutrophils Absolute Auto 2.6 x10*3/uL (2.0-8.3); Neutrophils Percent Auto 55.8 % (45-73); Platelet Count 157 X10*3/uL (160-400); Red Blood Count 3.53 X10*6/uL (4.60-5.80); Red Cell Distribution Width 15.5 % (11.0-16.0); White Blood Count 4.7 X10*3/uL (4.8-10.8)
[2022-06-27 11:55] LABS: Appearance Urine Cloudy; Color Urine Dark Yellow; Glucose Urine UA Negative (Negative); Leukocyte Esterase Urine Trace (Negative); Nitrite Urine Negative (Negative); Specific Gravity - Urine >= 1.030 (1.005-1.025); UMIC TRIGGER UA YES; Urine Blood Negative (Negative); Urine Ketones Trace mg/dL (Negative); Urine Protein 100 (2+) mg/dL (Neg-Trace)
[2022-06-27 12:06] LABS: Alanine Aminotransferase 15 U/L (0-40); Albumin Level 4.3 g/dL (3.5-5.0); Alkaline Phosphatase 109 U/L (39-117); Anion Gap 19 (12-20); Aspartate Amino Transferase 20 U/L (5-37); Bilirubin Total 0.6 mg/dL (0.0-1.0); Blood Urea Nitrogen 17 mg/dL (9-16); Calcium 9.4 mg/dL (8.4-10.2); Carbon Dioxide 21 mmol/L (22-29); Chloride 101 mmol/L (96-108); Creatinine Clr Calc Pharmacy 60.7; Estimated Glomerular Filt Rate 46; Glucose Random 115 mg/dL (60-115); Potassium 3.8 mmol/L (3.3-5.1); Sodium 137 mmol/L (135-145); Total Protein 7.6 g/dL (6.5-8.0)
[2022-06-27 12:26] LABS: Bacteria Urine None Seen (None Seen); RBC Urine 0-2 /HPF (0-2); WBC Urine 0-5 /HPF (0-5)
[2022-06-27] MEDS: 0.9 % Sodium Chloride 1,000 ML 999 ML IV (12:34)
[2022-06-27] MEDS: Heparin Sodium,Porcine Flush 500 UNIT/5 ML SYRINGE IVFLUSH (13:45)
--- NOTE | 2022-06-27 14:00 | HO.HEMONCPA ---
Was told by alfa that ct order was changed to no contrast instead of w/ contrast. I Called insurance and no pa is required . Reps name: Nickie Faulkner Case#[id number]
--- NOTE | 2022-06-27 15:27 | MHC.HEMONC ---
Pt here for treatment. Port accessed with good blood return noted. Lab draw done. Urine spec sent to lab. Prince states he is still having pain 11/27 to rib area. Is taking oxycodone with some relief. Does have CT scan booked for 06/28. BUN/Creatinine elevated and 2+protein in urine. Dr Mims aware. Will not receive treatment today. Pharmacy notified. He did receive 1L NS and will return on 06/[address] for repeat labs[address] His CT scan is changed to no contrast, pt aware. Port flushed with heparin 500units and de-accessed. Departure packet given and pt departed unit.
[2022-06-29 11:22] LABS: MANUAL DIFF FLAG NO
[2022-06-29 11:31] LABS: Basophils Percent Auto 0.2 % (0-2); Eosinophils Percent Auto 0.8 % (0-4); Hematocrit 31.6 % (42.0-52.0); Hemoglobin 10.5 g/dl (14.0-18.0); Imm Gran Abs Auto 0.02 X10*3/uL (0.00-0.03); Imm Gran Pct Auto 0.4 % (0.0-0.4); Lymphocytes Absolute Auto 2.1 X10*3/uL (1.2-4.9); Lymphocytes Percent Auto 39.7 % (20-40); Mean Corpuscular HGB Conc 33.2 g/dl (31.0-36.0); Mean Corpuscular Hemoglobin 31.8 pg (27.0-33.0); Mean Corpuscular Volume 95.8 fL (80.0-98.0); Monocytes Absolute Auto 0.2 X10*3/uL (0.1-1.2); Monocytes Percent Auto 4.6 % (2-11); Neutrophils Absolute Auto 2.8 x10*3/uL (2.0-8.3); Neutrophils Percent Auto 54.3 % (45-73); Platelet Count 138 X10*3/uL (160-400); Red Cell Distribution Width 15.4 % (11.0-16.0); White Blood Count 5.2 X10*3/uL (4.8-10.8)
[2022-06-29 11:46] LABS: Alanine Aminotransferase 16 U/L (0-40); Albumin Level 4.3 g/dL (3.5-5.0); Alkaline Phosphatase 104 U/L (39-117); Anion Gap 16 (12-20); Aspartate Amino Transferase 20 U/L (5-37); Bilirubin Total 0.6 mg/dL (0.0-1.0); Blood Urea Nitrogen 9 mg/dL (9-16); Calcium 9.1 mg/dL (8.4-10.2); Carbon Dioxide 22 mmol/L (22-29); Chloride 102 mmol/L (96-108); Creatinine Clr Calc Pharmacy 72.7; Estimated Glomerular Filt Rate 57; Glucose Random 130 mg/dL (60-115); Potassium 3.8 mmol/L (3.3-5.1); Sodium 136 mmol/L (135-145); Total Protein 7.4 g/dL (6.5-8.0)
[2022-06-29 11:53] LABS: Appearance Urine Clear; Color Urine Yellow; Glucose Urine UA Negative (Negative); Leukocyte Esterase Urine Negative (Negative); Nitrite Urine Negative (Negative); PH 5.5 (5.0-9.0); Urine Blood Negative (Negative); Urine Ketones Negative (Negative); Urine Protein Negative (Neg-Trace)
[2022-06-29 11:56] LABS: Bacteria Urine None Seen (None Seen); Hyaline Casts Urine 0-2 /LPF (0-2); RBC Urine 0-2 /HPF (0-2); Squamous Epithelial Cell Urine 0-2 /HPF (0-2); WBC Urine 0-5 /HPF (0-5)
--- NOTE | 2022-06-29 13:01 | MHC.HEMONC ---
Triage call: Refill request for Jackeline to [facility] - given to Dr. Koroma.
--- NOTE | 2022-07-07 12:50 | HE.ONCSEC ---
LVM to confirm Chemo on 07/11.
--- NOTE | 2022-07-11 11:41 | P.PNHO-ONC_ITS ---
Medical Summary - Medical Summary Date of Service: 07/11/22 Chief complaint: Follow-up Medical Summary: Diagnosis: Metastatic colon cancer diagnosed February 2019 Presented with worsening abdominal pain, right lower quadrant ongoing for almost a year. CT imaging showed inflamed appendix, periappendiceal inflammation involving cecum and small bowel. Abscess identified in the pelvis which was drained. Appendectomy performed 02/22/2019, invasive adenocarcinoma, moderately differentiated, tumor present at the resection margin. Acute appendicitis and Suzy appendicitis with perforation. IHC showed CK 7-, CK 20 positive and CDX2 positive. MMR proficient. On 03/11/2019 patient underwent colonoscopy which showed adenomatous looking degenerative mass with an ulcerated center in the cecum. Two polyps were also removed. CTA performed 02/21/2019 showed multiple lung nodules bilaterally. Largest in the left lower lobe measuring 1.[address] abdomen performed 02/21/2019 showed dilated and inflamed appendix with surrounding inflammatory changes. Normal liver and spleen. Prominent mesenteric lymph nodes measuring up to 1.4 cm. CEA elevated at 14.6. FNA of the left lower lobe lung nodule performed 03/13/2019 showed adenocarcinoma consistent with known cecal primary. PET scan showed intense uptake around cecum, SUV 14.2, terminal ileum, foci in mesentery in the pelvis and right lower quadrant suspicious for metastatic deposits. No uptake in the lung nodules but malignancy not excluded. Right hemicolectomy performed 04/03/2019, adenocarcinoma moderately differentiated. Tumor invades through visceral peritoneum with macroscopic tumor perforation and direct invasion into adjacent loop of small bowel. Eight of 12 pericolonic lymph nodes positive for adenocarcinoma. Tumor involves mesenteric resection margins. Lymphovascular invasion present. Tumor size 6 x 2.8 cm. Stage [id number]. MMR proficient. BRAF mutation not detected, K-renata mutation detected, NRAS mutation not detected, IHC for verdugo TRK negative. Genetic testing. Patient?s genetic test result indicated that he was negative for a hereditary cancer gene mutation. Started chemotherapy modified FOLFOX 6 with Avastin from 04/23/2019. PET scan performed June 2019 showed complete metabolic response. Because of side effects of neuropathy his chemotherapy changed to maintenance treatment with Xeloda 1000 milligram/meter squared b.i.d. day 1-14 along with Avastin Q 3 weeks in June 2019.He has had elevation of CEA, PET-CT performed at [facility] on 11/04/2019 showed increased FDG activity in right lower quadrant of abdomen/pelvis, SUV 6.4, nodular infiltration measuring 1.3 x 0.9 cm. Right upper lobe subpleural nodule with minimal FDG uptake of 2.6, metastatic nodule probable. Xeloda discontinued in February 2020 because of worsening hand/foot syndrome. Repeat PET-CT at [facility] in October 2020 showed multiple subcentimeter pulmonary nodules none of which had FDG avidity. No other sites of metastatic disease. On irinotecan plus bevacizumab every 2 weeks until January 2021. He started FOLFOX regimen from 02/02/2021. Later switched to FOLFIRI/Adelaida regimen until 08/2021. He had progressive disease, lung nodules in August 2021. He enrolled in clinical trial in [place], protocol 19-132 which used 2 novel immunotherapy drugs. He started this on 10/13/2021. 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 He was eventually discharged on prednisone 90 mg once daily. He is being tapered gradually. His kidney functions are improving. CT abdomen/pelvis on 12/12/2021 in [place] showed increase in size of metastatic retroperitoneal lymphadenopathy. Peritoneal metastasis in right lower quadrant. Hepatic hypodensities, too small to characterize. CT chest same day showed numerous pulmonary nodules consistent with metastatic disease, a few with increasing cavitation. Interval History Interval history: Joselito is here in follow-up and scheduled treatment. He reports some improvement in pain. His appetite and weight are stable. No fever or chills. No change in bowel habits. He is happy that CT scan did not show any progr ession of disease. He reports some tiredness, he is sleeping more than 8 hours at night. He feels well rested when he wakes up. Review of Systems - Constitutional Reports as per HPI, Denies anorexia, Denies weight loss - Cardiovascular Reports no additional cardiovascular complaints - Respiratory Reports no additional respiratory complaints - Neurologic Denies weakness [facility] Medical History: Medical History (Last Reviewed 03/24/22 @ 13:39 by David Riley RN) Acute appendicitis Asthma Colon adenocarcinoma Diarrhea Hypercholesteremia Family History: Family History (Last Reviewed 03/24/22 @ 13:39 by David Riley RN) Father History of cancer of unknown primary site Family history of high blood pressure Mother Hx of arteriosclerotic cardiovascular disease Maternal Grandfather Hx of arteriosclerotic cardiovascular disease Aortic aneurysm Brother No problems noted. Sister No problems noted. Brother No problems noted. Brother No problems noted. Brother No problems noted. Sister No problems noted. Surgical History: Surgical History (Last Reviewed 03/24/22 @ 13:39 by David Riley RN) History of lung biopsy Hx of appendectomy Hx of colonoscopy Hx of right hemicolectomy Social History: Social History (Last Reviewed 03/24/22 @ 13:39 by David Riley RN) Living Situation History: Household Members: Family Housing: Apartment Alcohol History Details: 1. How often do you have a drink containing alcohol?: a. Never Tobacco History: Patient Tobacco Use Status: Never used Tobacco e-Cigarette/Vaping Use: Never Used Second Hand Smoke Exposure: No Substance Use History: Use of substances other than those prescribed or required for medical reasons : No Advance Directives: Advance Directives: No Advance Directives Information Provided: No Homicidal Assessment: Do you have thoughts of harming others: None Do you have a plan to hurt others: No Plan Do you have the means to hurt others: No Nutrition Assessment: Recently lost weight without trying: No Occupation Assessmet: service: No Current occupational status: disabled Home Medications and Allergies Current Medications: Current Medications Acetaminophen (Acetaminophen 325 Mg Tablet) 650 mg PO ONCE LOLLY Stop: 07/11/22 23:59 Heparin Sodium (Porcine) (Heparin Sodium,Porcine Flush 500 Unit/5 Ml Syringe) 500 unit IVFLUSH ONCE LOLLY Stop: 07/11/22 23:59 Ondansetron HCl (Ondansetron Odt 8 Mg Tab.Rapdis) 8 mg TRANSLINGU ONCE LOLLY Stop: 07/11/22 23:59 Home Medications Medication Instructions Recorded Confirmed Type Probiotic 1 cap DAILY 02/16/21 03/24/22 History multivitamin 1 tab PO DAILY 01/10/22 03/24/22 History Allergies Allergy/AdvReac Type Severity Reaction Status Date / Time seafood Allergy Severe Angioedema Verified 06/13/22 10:45 shrimp [SHRIMP] Allergy Severe ANGIOEDEMA Verified 06/13/22 10:45 sucralfate [From Carafate] AdvReac Intermediate rectal Verified 06/13/22 10:45 bleeding Exam Vital signs: Vital Signs Temp 98.3 F 06/27/22 11:22 Pulse 122 H 06/27/22 11:22 Resp 18 06/27/22 11:22 BP 133/89 06/27/22 11:22 Pulse Ox 96 06/27/22 11:22 O2 Del Method 06/27/22 11:22 Weight 92.7 kg BMI result Body Mass Index 30.2 - Constitutional Present: no acute distress - Routine HEENT Exam Head: Present: normal inspection - Routine Neck Exam Present: full ROM. Absent: lymphadenopathy - Routine Chest/Breast/Axilla Exam Chest wall: Absent: tenderness, mass - Routine Respiratory Exam Present: CTAB - Routine Cardiovascular Exam Cardiovascular: Present: RRR, S1, S2 - Routine Skin Exam Present: dry, rash, cracked Data - Labs CBC & Chem 7: 07/11/22 11:30 07/11/22 11:30 - Imaging Radiologist's impression: ITS Impressions Guidance Fluoroscopy 12/26/21 12:41 FINDINGS/IMPRESSION: On contrast injection of the port under fluoroscopy, there is contrast exiting the tip of the catheter and directed upwards with eventually the contrast traveling towards the right atrium. There is a thick sheath seen surrounding the distal catheter tip in the SVC which most likely prevents blood withdrawal. The results were called to referring physician's nurse in charge and made aware of the finding. Assessment and Plan Patient Active problem list reviewed?: Yes (1) Colon carcinoma metastatic to multiple sites Problem details: February 2019 appendectomy invasive adenocarcinoma moderately differentiated cecal mass, left lower lung field lung nodule FNA adeno carcinoma Status: Chronic Assessment and plan: 1. This is a 52-year-old man with metastatic colon cancer, arising from cecum diagnosed in 2018. FNA of lung nodule is consistent with adenocarcinoma. Right hemicolectomy performed 04/03/2019, adenocarcinoma moderately differentiated. Stage [id number]. MMR proficient. BRAF mutation not detected, K-renata mutation detected, NRAS mutation not detected, IHC for verdugo TRK negative. HER2 non reactive and tumor mutational burden 4 Muts/Mb. Started chemotherapy modified FOLFOX 6 with Avastin from 04/23/2019. He had a good response based on PET scan in June but because of side effects of neuropathy he was switched to maintenance Xeloda with Avastin. On irinotecan plus bevacizumab every 2 weeks until January 2021. Later switched to FOLFIRI/Adelaida regimen until 08/2021. He had progressive disease, lung nodules in August 2021. He enrolled in clinical trial in [place], protocol 19-132 which used 2 novel immunotherapy drugs on 10/13/2021. Unfortunately, he progressed on these medications and he also developed acute immune mediated nephritis as well as hepatitis. He was tapered off high-dose prednisone over a period of 3 months. He has progressive disease in his chest as well as peritoneal disease. He has started Lonsurf 20-8.19 mg 4 tabs p.o. b.i.d. on days 1-5 and days 8-12 every 28 day cycle from 02/07/22. 2. Right flank/ back pain. Probably musculoskeletal. Repeat CT abdomen/pelvis with contrast in June 2022 shows stable disease. PET scan in 2 months. Follow-up in 1 month. - Time Spent With Patient Time Spent with Patient (in minutes): 15
[2022-07-11 11:53] LABS: Basophils Percent Auto 0.2 % (0-2); Eosinophils Absolute Auto 0.1 X10*3/uL (0.0-0.4); Eosinophils Percent Auto 1.2 % (0-4); Hematocrit 31.6 % (42.0-52.0); Hemoglobin 10.3 g/dl (14.0-18.0); Imm Gran Abs Auto 0.01 X10*3/uL (0.00-0.03); Imm Gran Pct Auto 0.2 % (0.0-0.4); Lymphocytes Absolute Auto 2.1 X10*3/uL (1.2-4.9); Lymphocytes Percent Auto 49.5 % (20-40); MANUAL DIFF FLAG SCAN; Mean Corpuscular HGB Conc 32.6 g/dl (31.0-36.0); Mean Corpuscular Hemoglobin 32.4 pg (27.0-33.0); Mean Corpuscular Volume 99.4 fL (80.0-98.0); Mean Platelet Volume 9.7 fL (9.4-12.4); Monocytes Absolute Auto 0.9 X10*3/uL (0.1-1.2); Monocytes Percent Auto 21.6 % (2-11); Neutrophils Absolute Auto 1.2 x10*3/uL (2.0-8.3); Neutrophils Percent Auto 27.3 % (45-73); Platelet Count 320 X10*3/uL (160-400); Red Blood Count 3.18 X10*6/uL (4.60-5.80); Red Cell Distribution Width 17.6 % (11.0-16.0); SCAN SMEAR FLAG 1; White Blood Count 4.3 X10*3/uL (4.8-10.8)
[2022-07-11 11:58] LABS: Appearance Urine Clear; Color Urine Yellow; Glucose Urine UA Negative (Negative); Leukocyte Esterase Urine Negative (Negative); Nitrite Urine Negative (Negative); PH 5.5 (5.0-9.0); Specific Gravity - Urine 1.015 (1.005-1.025); Urine Blood Negative (Negative); Urine Ketones Negative (Negative); Urine Protein Trace mg/dL (Neg-Trace)
[2022-07-11 12:03] LABS: Bacteria Urine None Seen (None Seen); Hyaline Casts Urine 0-2 /LPF (0-2); RBC Urine 0-2 /HPF (0-2); Squamous Epithelial Cell Urine 0-2 /HPF (0-2); WBC Urine 0-5 /HPF (0-5)
[2022-07-11 12:09] LABS: Alanine Aminotransferase 15 U/L (0-40); Albumin Level 3.9 g/dL (3.5-5.0); Alkaline Phosphatase 102 U/L (39-117); Anion Gap 14 (12-20); Aspartate Amino Transferase 18 U/L (5-37); Bilirubin Total 0.4 mg/dL (0.0-1.0); Blood Urea Nitrogen 7 mg/dL (9-16); Calcium 8.9 mg/dL (8.4-10.2); Carbon Dioxide 26 mmol/L (22-29); Chloride 102 mmol/L (96-108); Creatinine Clr Calc Pharmacy 81.4; Estimated Glomerular Filt Rate > 60; Glucose Random 104 mg/dL (60-115); Potassium 3.5 mmol/L (3.3-5.1); Sodium 138 mmol/L (135-145); Total Protein 6.8 g/dL (6.5-8.0)
[2022-07-11 12:12] VITALS: BP 119/90; PULSE 118; RESP 20; TEMP 36.1; O2SAT 95; BMI 30.7
[2022-07-11 12:31] LABS: SLIDE REVIEW VERIFIED
[2022-07-11] MEDS: Acetaminophen 325 MG TABLET 650 MG PO (12:41)
[2022-07-11] MEDS: Ondansetron ODT 8 MG TAB.RAPDIS TRANSLINGU (12:42)
[2022-07-11] MEDS: Heparin Sodium,Porcine Flush 500 UNIT/5 ML SYRINGE IVFLUSH (12:42)
[2022-07-11] MEDS: SODIUM CHLORIDE 0.9% IV (13:52)
[2022-07-11] MEDS: BEVACIZUMAB IV (13:52)
--- NOTE | 2022-07-11 15:00 | MHC.HEMONC ---
Here for C6 D1 Avastin/Lonsurf. Pt states his rib pain is better, 2-4/10. Still taking oxycodone as needed. He states he does have some pain to his right knee, and that he doesn't know what he did, but he thinks he hit the knee on something. Port accessed. Was able to obtain blood return with some repositioning. Lab draw done. Results reviewed and ok for treatment. Premeds given as ordered. Treatment done and tolerated well. Port flushed with heparin 500units and de-accessed. Dr Mims in to see pt for follow up. Next treatment scheduled for 2 weeks. Departure packet given and pt departed unit.
--- NOTE | 2022-07-12 10:31 | MHC.HEMONC ---
Pt advised CT of chest has been ordered.
--- NOTE | 2022-07-12 10:39 | MHC.HEMONCMA ---
entered ct chest wo iv con in [facility]
[2022-07-25 11:25] VITALS: BP 125/84; PULSE 127; TEMP 36.2; O2SAT 95; BMI 29.7
[2022-07-25 11:25] LABS: MANUAL DIFF FLAG NO
[2022-07-25 11:29] LABS: Basophils Percent Auto 0.4 % (0-2); Eosinophils Percent Auto 0.6 % (0-4); Hemoglobin 10.3 g/dl (14.0-18.0); Imm Gran Abs Auto 0.01 X10*3/uL (0.00-0.03); Imm Gran Pct Auto 0.2 % (0.0-0.4); Lymphocytes Absolute Auto 1.8 X10*3/uL (1.2-4.9); Lymphocytes Percent Auto 36.3 % (20-40); Mean Corpuscular HGB Conc 33.2 g/dl (31.0-36.0); Mean Corpuscular Hemoglobin 32.7 pg (27.0-33.0); Mean Corpuscular Volume 98.4 fL (80.0-98.0); Mean Platelet Volume 10.1 fL (9.4-12.4); Monocytes Absolute Auto 0.3 X10*3/uL (0.1-1.2); Monocytes Percent Auto 6.5 % (2-11); Neutrophils Absolute Auto 2.8 x10*3/uL (2.0-8.3); Platelet Count 204 X10*3/uL (160-400); Red Blood Count 3.15 X10*6/uL (4.60-5.80); Red Cell Distribution Width 17.2 % (11.0-16.0); White Blood Count 4.9 X10*3/uL (4.8-10.8)
[2022-07-25 11:31] LABS: Appearance Urine Clear; Color Urine Yellow; Glucose Urine UA Negative (Negative); Leukocyte Esterase Urine Negative (Negative); Nitrite Urine Negative (Negative); PH 5.5 (5.0-9.0); Specific Gravity - Urine 1.015 (1.005-1.025); Urine Blood Negative (Negative); Urine Ketones Negative (Negative); Urine Protein Negative (Neg-Trace)
[2022-07-25 11:46] LABS: Alanine Aminotransferase 21 U/L (0-40); Albumin Level 4.4 g/dL (3.5-5.0); Alkaline Phosphatase 110 U/L (39-117); Anion Gap 15 (12-20); Aspartate Amino Transferase 22 U/L (5-37); Bilirubin Total 0.9 mg/dL (0.0-1.0); Blood Urea Nitrogen 14 mg/dL (9-16); Calcium 9.1 mg/dL (8.4-10.2); Carbon Dioxide 28 mmol/L (22-29); Chloride 98 mmol/L (96-108); Creatinine Clr Calc Pharmacy 69.1; Estimated Glomerular Filt Rate 54; Glucose Random 121 mg/dL (60-115); Potassium 4.1 mmol/L (3.3-5.1); Sodium 137 mmol/L (135-145); Total Protein 7.5 g/dL (6.5-8.0)
[2022-07-25] MEDS: Ondansetron ODT 8 MG TAB.RAPDIS TRANSLINGU (11:59)
[2022-07-25] MEDS: Acetaminophen 325 MG TABLET 650 MG PO (11:59)
[2022-07-25] MEDS: Heparin Sodium,Porcine Flush 500 UNIT/5 ML SYRINGE IVFLUSH (12:01)
[2022-07-25] MEDS: BEVACIZUMAB IV (12:44)
[2022-07-25] MEDS: SODIUM CHLORIDE 0.9% IV (12:44)
--- NOTE | 2022-07-25 13:32 | MHC.HEMONC ---
Here for c6d15 avastin/lonsurf. Labs and urine results reviewed, ok to proceed today. Port accessed with good blood return. He complains of body aches, Dr Mims prescribed prednisone. Avastin tolerated well. Pt aware of next appt, discharge packet provided. Has upcoming CT scan on 07/28.
--- NOTE | 2022-08-01 16:33 | MHC.HEMONC ---
Triage call-refill request for Jackeline requested-given to Dr Mims to refill
[2022-08-08 11:12] VITALS: BP 132/90; PULSE 119; RESP 18; TEMP 36.5; O2SAT 96; BMI 29.9
--- NOTE | 2022-08-08 11:24 | P.PNHO-ONC_ITS ---
Medical Summary - Medical Summary Date of Service: 08/08/22 Chief complaint: Follow-up Primary Care Provider: Toshia Dominique MD Medical Summary: Diagnosis: Metastatic colon cancer diagnosed February 2019 Presented with worsening abdominal pain, right lower quadrant ongoing for almost a year. CT imaging showed inflamed appendix, periappendiceal inflammation involving cecum and small bowel. Abscess identified in the pelvis which was drained. Appendectomy performed 02/22/2019, invasive adenocarcinoma, moderately differentiated, tumor present at the resection margin. Acute appendicitis and Suzy appendicitis with perforation. IHC showed CK 7-, CK 20 positive and CDX2 positive. MMR proficient. On 03/11/2019 patient underwent colonoscopy which showed adenomatous looking degenerative mass with an ulcerated center in the cecum. Two polyps were also removed. CTA performed 02/21/2019 showed multiple lung nodules bilaterally. Largest in the left lower lobe measuring 1.[address] abdomen performed 02/21/2019 showed dilated and inflamed appendix with surrounding inflammatory changes. Normal liver and spleen. Prominent mesenteric lymph nodes measuring up to 1.4 cm. CEA elevated at 14.6. FNA of the left lower lobe lung nodule performed 03/13/2019 showed adenocarcinoma consistent with known cecal primary. PET scan showed intense uptake around cecum, SUV 14.2, terminal ileum, foci in mesentery in the pelvis and right lower quadrant suspicious for metastatic deposits. No uptake in the lung nodules but malignancy not excluded. Right hemicolectomy performed 04/03/2019, adenocarcinoma moderately differentiated. Tumor invades through visceral peritoneum with macroscopic tumor perforation and direct invasion into adjacent loop of small bowel. Eight of 12 pericolonic lymph nodes positive for adenocarcinoma. Tumor involves mesenteric resection margins. Lymphovascular invasion present. Tumor size 6 x 2.8 cm. Stage [id number]. MMR proficient. BRAF mutation not detected, K-renata mutation detected, NRAS mutation not detected, IHC for verdugo TRK negative. Genetic testing. Patient?s genetic test result indicated that he was negative for a hereditary cancer gene mutation. Started chemotherapy modified FOLFOX 6 with Avastin from 04/23/2019. PET scan performed June 2019 showed complete metabolic response. Because of side effects of neuropathy his chemotherapy changed to maintenance treatment with Xeloda 1000 milligram/meter squared b.i.d. day 1-14 along with Avastin Q 3 weeks in June 2019.He has had elevation of CEA, PET-CT performed at [facility] on 11/04/2019 showed increased FDG activity in right lower quadrant of abdomen/pelvis, SUV 6.4, nodular infiltration measuring 1.3 x 0.9 cm. Right upper lobe subpleural nodule with minimal FDG uptake of 2.6, metastatic nodule probable. Xeloda discontinued in February 2020 because of worsening hand/foot syndrome. Repeat PET-CT at [facility] [place] in October 2020 showed multiple subcentimeter pulmonary nodules none of which had FDG avidity. No other sites of metastatic disease. On irinotecan plus bevacizumab every 2 weeks until January 2021. He started FOLFOX regimen from 02/02/2021. Later switched to FOLFIRI/Adelaida regimen until 08/2021. He had progressive disease, lung nodules in August 2021. He enrolled in clinical trial in [place], protocol 19-132 which used 2 novel immunotherapy drugs. He started this on 10/13/2021. 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 He was eventually discharged on prednisone 90 mg once daily. He is being tapered gradually. His kidney functions are improving. CT abdomen/pelvis on 12/12/2021 in [place] showed increase in size of metastatic retroperitoneal lymphadenopathy. Peritoneal metastasis in right lower quadrant. Hepatic hypodensities, too small to characterize. CT chest same day showed numerous pulmonary nodules consistent with metastatic disease, a few with increasing cavitation. Interval History Interval history: Joselito is here in follow-up and scheduled treatment. He reports some improvement in pain. His appetite and weight are stable. No fever or chills. No change in bowel habits. He will be finishing course of steroids in 2 days. This did help his pain in his chest wall. He denies any other complaints such as diarrhea, nausea or emesis, hematochezia melena. Review of Systems - Constitutional Reports as per HPI, Denies weight loss - Cardiovascular Reports no additional cardiovascular complaints - Respiratory Reports no additional respiratory complaints - Gastrointestinal Reports no additional gastrointestinal complaints - Neurologic Denies weakness [facility] Medical History: Medical History (Last Reviewed 03/24/22 @ 13:39 by David Riley RN) Acute appendicitis Asthma Colon adenocarcinoma Diarrhea Hypercholesteremia Family History: Family History (Last Reviewed 03/24/22 @ 13:39 by David Riley RN) Father History of cancer of unknown primary site Family history of high blood pressure Mother Hx of arteriosclerotic cardiovascular disease Maternal Grandfather Hx of arteriosclerotic cardiovascular disease Aortic aneurysm Brother No problems noted. Sister No problems noted. Brother No problems noted. Brother No problems noted. Brother No problems noted. Sister No problems noted. Surgical History: Surgical History (Last Reviewed 03/24/22 @ 13:39 by David Riley RN) History of lung biopsy Hx of appendectomy Hx of colonoscopy Hx of right hemicolectomy Social History: Social History (Last Reviewed 03/24/22 @ 13:39 by David Riley RN) Living Situation History: Household Members: Family Housing: Apartment Alcohol History Details: 1. How often do you have a drink containing alcohol?: a. Never Tobacco History: Patient Tobacco Use Status: Never used Tobacco e-Cigarette/Vaping Use: Never Used Second Hand Smoke Exposure: No Substance Use History: Use of substances other than those prescribed or required for medical reasons : No Advance Directives: Advance Directives: No Advance Directives Information Provided: No Homicidal Assessment: Do you have thoughts of harming others: None Do you have a plan to hurt others: No Plan Do you have the means to hurt others: No Nutrition Assessment: Recently lost weight without trying: No Occupation Assessmet: service: No Current occupational status: disabled Home Medications and Allergies Current Medications: Current Medications Acetaminophen (Acetaminophen 325 Mg Tablet) 650 mg PO ONCE LOLLY Stop: 08/08/22 23:59 Heparin Sodium (Porcine) (Heparin Sodium,Porcine Flush 500 Unit/5 Ml Syringe) 500 unit IVFLUSH ONCE LOLLY Stop: 08/08/22 23:59 Ondansetron HCl (Ondansetron Odt 8 Mg Tab.Rapdis) 8 mg TRANSLINGU ONCE LOLLY Stop: 08/08/22 23:59 Home Medications Medication Instructions Recorded Confirmed Type Probiotic 1 cap DAILY 02/16/21 08/08/22 History multivitamin 1 tab PO DAILY 01/10/22 08/08/22 History Allergies Allergy/AdvReac Type Severity Reaction Status Date / Time seafood Allergy Severe Angioedema Verified 08/08/22 11:54 shrimp [SHRIMP] Allergy Severe ANGIOEDEMA Verified 08/08/22 11:54 sucralfate [From Carafate] AdvReac Intermediate rectal Verified 08/08/22 11:54 bleeding Exam Vital signs: Vital Signs Temp 97.7 F 08/08/22 11:12 Pulse 119 H 08/08/22 11:12 Resp 18 08/08/22 11:12 BP 132/90 H 08/08/22 11:12 Pulse Ox 96 08/08/22 11:12 O2 Del Method 08/08/22 11:12 Intake & Output 08/07/22 08/08/22 08/08/22 18:59 06:59 18:59 Other: Weight 91.8 kg [place] Weight in Grams [id number] Weight 91.8 kg BMI result Body Mass Index 29.9 - Constitutional Present: no acute distress - Routine HEENT Exam Head: Present: normal inspection - Routine Neck Exam Present: full ROM. Absent: lymphadenopathy - Routine Chest/Breast/Axilla Exam Chest wall: Absent: tenderness, mass - Routine Respiratory Exam Present: CTAB - Routine Cardiovascular Exam Cardiovascular: Present: RRR, S1, S2 - Routine Skin Exam Present: dry, rash, cracked Data - Labs CBC & Chem 7: 08/08/22 12:18 08/08/22 12:18 - Imaging Radiologist's impression: ITS Impressions Guidance Fluoroscopy 12/26/21 12:41 FINDINGS/IMPRESSION: On contrast injection of the port under fluoroscopy, there is contrast exiting the tip of the catheter and directed upwards with eventually the contrast traveling towards the right atrium. There is a thick sheath seen surrounding the distal catheter tip in the SVC which most likely prevents blood withdrawal. The results were called to referring physician's nurse in charge and made aware of the finding. Assessment and Plan Patient Active problem list reviewed?: Yes (1) Colon carcinoma metastatic to multiple sites Problem details: February 2019 appendectomy invasive adenocarcinoma moderately differentiated cecal mass, left lower lung field lung nodule FNA adeno carcinoma Status: Chronic Assessment and plan: 1. This is a 52-year-old man with metastatic colon cancer, arising from cecum diagnosed in 2018. FNA of lung nodule is consistent with adenocarcinoma. Right hemicolectomy performed 04/03/2019, adenocarcinoma moderately differentiated. Stage [id number]. MMR proficient. BRAF mutation not detected, K-renata mutation detected (G13D), NRAS mutation not detected, IHC for verdugo TRK negative. HER2 non reactive and tumor mutational burden 4 Muts/Mb. Started chemotherapy modified FOLFOX 6 with Avastin from 04/23/2019. He had a good response based on PET scan in June but because of side effects of neuropathy he was switched to maintenance Xeloda with Avastin. On irinotecan plus bevacizumab every 2 weeks until January 2021. Later switched to FOLFIRI/Adelaida regimen until 08/2021. He had progressive disease, lung nodules in August 2021. He enrolled in clinical trial in [place], protocol 19-132 which used 2 novel immunotherapy drugs on 10/13/2021. Unfortunately, he progressed on these medications and he also developed acute immune mediated nephritis as well as hepatitis. He was tapered off high-dose prednisone over a period of 3 months. He has progressive disease in his chest as well as peritoneal disease. He has started Lonsurf 20-8.19 mg 4 tabs p.o. b.i.d. on days 1-5 and days 8-12 every 28 day cycle from 02/07/22. Repeat CT abdomen/pelvis with contrast in June [address] chest with contrast performed at July 2022 also shows stable disease. However he has fracture of both left and right 7th ribs concerning for metastatic disease. His tumor marker has also been rising. Bone scan has been ordered. If he does have bone metastasis, he will be started on denosumab 120 mg subQ monthly. Proceed with chemotherapy as ordered today. Follow-up in 1 month. - Time Spent With Patient Time Spent with Patient (in minutes): 20
[2022-08-08 11:55] LABS: Appearance Urine Clear; Color Urine Yellow; Glucose Urine UA Negative (Negative); Leukocyte Esterase Urine Negative (Negative); Nitrite Urine Negative (Negative); PH 5.5 (5.0-9.0); Specific Gravity - Urine 1.025 (1.005-1.025); Urine Blood Negative (Negative); Urine Ketones Negative (Negative); Urine Protein Negative (Neg-Trace)
[2022-08-08 12:19] LABS: MANUAL DIFF FLAG NO
[2022-08-08 12:23] LABS: Basophils Percent Auto 0.5 % (0-2); Eosinophils Percent Auto 0.2 % (0-4); Hematocrit 33.2 % (42.0-52.0); Hemoglobin 10.6 g/dl (14.0-18.0); Imm Gran Abs Auto 0.02 X10*3/uL (0.00-0.03); Imm Gran Pct Auto 0.5 % (0.0-0.4); Lymphocytes Absolute Auto 1.6 X10*3/uL (1.2-4.9); Lymphocytes Percent Auto 37.3 % (20-40); Mean Corpuscular HGB Conc 31.9 g/dl (31.0-36.0); Mean Corpuscular Hemoglobin 33.5 pg (27.0-33.0); Mean Corpuscular Volume 105.1 fL (80.0-98.0); Mean Platelet Volume 9.2 fL (9.4-12.4); Monocytes Absolute Auto 0.8 X10*3/uL (0.1-1.2); Monocytes Percent Auto 18.5 % (2-11); NRBC Pct Auto 0.5 /100WBC (0.0-0.2); Neutrophils Absolute Auto 1.8 x10*3/uL (2.0-8.3); Platelet Count 310 X10*3/uL (160-400); Red Blood Count 3.16 X10*6/uL (4.60-5.80); Red Cell Distribution Width 20.6 % (11.0-16.0); White Blood Count 4.3 X10*3/uL (4.8-10.8)
[2022-08-08 12:45] LABS: Alanine Aminotransferase 22 U/L (0-40); Albumin Level 3.9 g/dL (3.5-5.0); Alkaline Phosphatase 98 U/L (39-117); Anion Gap 13 (12-20); Aspartate Amino Transferase 18 U/L (5-37); Bilirubin Total 0.4 mg/dL (0.0-1.0); Blood Urea Nitrogen 13 mg/dL (9-16); Calcium 9.1 mg/dL (8.4-10.2); Carbon Dioxide 28 mmol/L (22-29); Chloride 106 mmol/L (96-108); Creatinine Clr Calc Pharmacy 76.5; Estimated Glomerular Filt Rate > 60; Glucose Random 121 mg/dL (60-115); Potassium 4.2 mmol/L (3.3-5.1); Sodium 143 mmol/L (135-145); Total Protein 6.6 g/dL (6.5-8.0)
[2022-08-08] MEDS: Alteplase Cath Clear 2 MG/2 ML VIAL INTRACATH (12:50)
[2022-08-08] MEDS: Ondansetron ODT 8 MG TAB.RAPDIS TRANSLINGU (13:59)
[2022-08-08] MEDS: Acetaminophen 325 MG TABLET 650 MG PO (13:59)
[2022-08-08] MEDS: Heparin Sodium,Porcine Flush 500 UNIT/5 ML SYRINGE IVFLUSH (14:00)
[2022-08-08] MEDS: BEVACIZUMAB IV (14:06)
[2022-08-08] MEDS: SODIUM CHLORIDE 0.9% IV (14:06)
--- NOTE | 2022-08-08 15:55 | MHC.HEMONC ---
Pt here for C7D1 Avastin. Urine specimen obtained sent to lab. Labs drawn peripherally by linseed oil boiler-specimen to lab. Pt states he feels well overall -however had an episode of feeling extremely weak all over for 5 days during time between treatments. Port accessed with no blood return noted. Flushed with 0.9% NS frequently,repositioned frequently, 0.9% NS IV infusing with difficulty. Dr Mims notified.Plan for Ateplase IV-pt agreeable. Ateplase given as ordered-clamped for 60 minutes. Blood return noted after 60 minutes from port. Port flushed with 0.9% NS-patent. Pre medicated with tylenol and zofran. Avastin given as ordered-tolerated well. Port flushed with heparin and de accessed. Next appointment scheduled. Discharge packet given with next appointment scheduled. Dr Mims into see pt.
--- NOTE | 2022-08-09 07:52 | MHC.HEMONCMA ---
Bone scan entered in [facility] for this patient.
--- NOTE | 2022-08-16 10:13 | MHC.HEMONC ---
I called patient at request of Dr Mims to review bone scan and plan. Pt had seen report on portal. He continues to have rib and thigh pain (which does correspond to bony mets). He is not taking oxycodone as much as he could so I advised regular dosing. He is in need of a refill and I have requested it from Dr Mims. I also discussed adding Advil to his pain regimen ( 2 tabs with meals) and start a stool softener. He will call me with update on pain levels and I have asked him to keep a diary. He will be continuing on Avastin and Lonsurf and will see Dr Mims when she returns from vacation.
--- NOTE | 2022-08-16 15:04 | HO.HEMONCPA ---
NO PA REQUIRED FOR DENOSUMAB. DRUG COVERED BECAUSE SERVICING PROVIDER IS NETWORK. CALL REF#[id number]. REP. CHILO.B. ON 08/16/22 1:59pm DIRECTOR [employer]
[2022-08-22 11:19] VITALS: BP 126/81; PULSE 132; TEMP 36.1; O2SAT 94
[2022-08-22 11:19] LABS: MANUAL DIFF FLAG NO
[2022-08-22 11:20] LABS: Basophils Percent Auto 0.2 % (0-2); Eosinophils Percent Auto 0.8 % (0-4); Hematocrit 32.3 % (42.0-52.0); Hemoglobin 10.6 g/dl (14.0-18.0); Imm Gran Abs Auto 0.02 X10*3/uL (0.00-0.03); Imm Gran Pct Auto 0.4 % (0.0-0.4); Lymphocytes Absolute Auto 1.3 X10*3/uL (1.2-4.9); Lymphocytes Percent Auto 26.6 % (20-40); Mean Corpuscular HGB Conc 32.8 g/dl (31.0-36.0); Mean Corpuscular Hemoglobin 33.7 pg (27.0-33.0); Mean Corpuscular Volume 102.5 fL (80.0-98.0); Mean Platelet Volume 9.9 fL (9.4-12.4); Monocytes Absolute Auto 0.2 X10*3/uL (0.1-1.2); Monocytes Percent Auto 4.5 % (2-11); Neutrophils Absolute Auto 3.3 x10*3/uL (2.0-8.3); Neutrophils Percent Auto 67.5 % (45-73); Platelet Count 222 X10*3/uL (160-400); Red Blood Count 3.15 X10*6/uL (4.60-5.80); Red Cell Distribution Width 18.3 % (11.0-16.0); White Blood Count 4.9 X10*3/uL (4.8-10.8)
[2022-08-22 11:21] VITALS: BMI 29.2
[2022-08-22 11:24] LABS: Appearance Urine Cloudy; Color Urine Dark Yellow; Glucose Urine UA Negative (Negative); Leukocyte Esterase Urine Negative (Negative); Nitrite Urine Negative (Negative); PH 5.5 (5.0-9.0); Specific Gravity - Urine >= 1.030 (1.005-1.025); Urine Blood Negative (Negative); Urine Ketones Negative (Negative); Urine Protein Trace mg/dL (Neg-Trace)
[2022-08-22 11:41] LABS: Alanine Aminotransferase 17 U/L (0-40); Albumin Level 4.2 g/dL (3.5-5.0); Alkaline Phosphatase 103 U/L (39-117); Anion Gap 17 (12-20); Aspartate Amino Transferase 21 U/L (5-37); Blood Urea Nitrogen 16 mg/dL (9-16); Calcium 9.4 mg/dL (8.4-10.2); Carbon Dioxide 26 mmol/L (22-29); Chloride 100 mmol/L (96-108); Creatinine Clr Calc Pharmacy 70.1; Estimated Glomerular Filt Rate 55; Glucose Random 119 mg/dL (60-115); Potassium 3.9 mmol/L (3.3-5.1); Sodium 139 mmol/L (135-145); Total Protein 7.1 g/dL (6.5-8.0)
[2022-08-22] MEDS: Ondansetron ODT 8 MG TAB.RAPDIS TRANSLINGU (11:58)
[2022-08-22] MEDS: Heparin Sodium,Porcine Flush 500 UNIT/5 ML SYRINGE IVFLUSH (11:58)
[2022-08-22] MEDS: Acetaminophen 325 MG TABLET 650 MG PO (11:58)
--- NOTE | 2022-08-22 12:49 | MHC.HEMONC ---
Addendum entered by Noemi Rios RN 08/22/22 13:04: Zofran prescription requested from Dr Koroma at Joselito's request. He has occasional nausea. Original Note: Here for c7d15 avastin and denosumab. Port accessed with good blood return. Labs drawn and reviewed, ok to proceed today. Avastin, denosumab and premeds tolerated well. Milena has questions regarding whether LDH and alk phos would be useful to follow and if there is a repeat bone scan in [address] months[address] Will discuss with Dr Mims on her return. Pt aware of next appt, discharge packet provided.
--- NOTE | 2022-09-05 11:13 | PM.HEMONCPN ---
Medical Summary - Medical Summary Primary Care Provider: Toshia Dominique MD Medical Summary: Diagnosis: Metastatic colon cancer diagnosed February 2019 Presented with worsening abdominal pain, right lower quadrant ongoing for almost a year. CT imaging showed inflamed appendix, periappendiceal inflammation involving cecum and small bowel. Abscess identified in the pelvis which was drained. Appendectomy performed 02/22/2019, invasive adenocarcinoma, moderately differentiated, tumor present at the resection margin. Acute appendicitis and Suzy appendicitis with perforation. IHC showed CK 7-, CK 20 positive and CDX2 positive. MMR proficient. On 03/11/2019 patient underwent colonoscopy which showed adenomatous looking degenerative mass with an ulcerated center in the cecum. Two polyps were also removed. CTA performed 02/21/2019 showed multiple lung nodules bilaterally. Largest in the left lower lobe measuring 1.[address] abdomen performed 02/21/2019 showed dilated and inflamed appendix with surrounding inflammatory changes. Normal liver and spleen. Prominent mesenteric lymph nodes measuring up to 1.4 cm. CEA elevated at 14.6. FNA of the left lower lobe lung nodule performed 03/13/2019 showed adenocarcinoma consistent with known cecal primary. PET scan showed intense uptake around cecum, SUV 14.2, terminal ileum, foci in mesentery in the pelvis and right lower quadrant suspicious for metastatic deposits. No uptake in the lung nodules but malignancy not excluded. Right hemicolectomy performed 04/03/2019, adenocarcinoma moderately differentiated. Tumor invades through visceral peritoneum with macroscopic tumor perforation and direct invasion into adjacent loop of small bowel. Eight of 12 pericolonic lymph nodes positive for adenocarcinoma. Tumor involves mesenteric resection margins. Lymphovascular invasion present. Tumor size 6 x 2.8 cm. Stage [id number]. MMR proficient. BRAF mutation not detected, K-renata mutation detected, NRAS mutation not detected, IHC for verdugo TRK negative. Genetic testing. Patient?s genetic test result indicated that he was negative for a hereditary cancer gene mutation. Started chemotherapy modified FOLFOX 6 with Avastin from 04/23/2019. PET scan performed June 2019 showed complete metabolic response. Because of side effects of neuropathy his chemotherapy changed to maintenance treatment with Xeloda 1000 milligram/meter squared b.i.d. day 1-14 along with Avastin Q 3 weeks in June 2019.He has had elevation of CEA, PET-CT performed at [facility] on 11/04/2019 showed increased FDG activity in right lower quadrant of abdomen/pelvis, SUV 6.4, nodular infiltration measuring 1.3 x 0.9 cm. Right upper lobe subpleural nodule with minimal FDG uptake of 2.6, metastatic nodule probable. Xeloda discontinued in February 2020 because of worsening hand/foot syndrome. Repeat PET-CT at [facility] [place] in October 2020 showed multiple subcentimeter pulmonary nodules none of which had FDG avidity. No other sites of metastatic disease. On irinotecan plus bevacizumab every 2 weeks until January 2021. He started FOLFOX regimen from 02/02/2021. Later switched to FOLFIRI/Adelaida regimen until 08/2021. He had progressive disease, lung nodules in August 2021. He enrolled in clinical trial in [place], protocol 19-132 which used 2 novel immunotherapy drugs. He started this on 10/13/2021. 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 He was eventually discharged on prednisone 90 mg once daily. He is being tapered gradually. His kidney functions are improving. CT abdomen/pelvis on 12/12/2021 in [place] showed increase in size of metastatic retroperitoneal lymphadenopathy. Peritoneal metastasis in right lower quadrant. Hepatic hypodensities, too small to characterize. CT chest same day showed numerous pulmonary nodules consistent with metastatic disease, a few with increasing cavitation. Interval History Interval history: Joselito is here in follow-up and scheduled treatment. He is requesting refill on oxycodone. He is trying to walk little more, his appetite is stable. He has had some weight loss. He is trying to avoid sugars in eat healthy. He denies nausea or emesis. No fever or chills. Review of Systems - Constitutional Reports as per HPI, Reports fatigue, Reports lack of energy, Reports malaise - Cardiovascular Reports no additional cardiovascular complaints - Respiratory Reports no additional respiratory complaints - Neurologic Denies weakness [facility] Medical History: Medical History (Last Reviewed 03/24/22 @ 13:39 by David Riley RN) Acute appendicitis Asthma Colon adenocarcinoma Diarrhea Hypercholesteremia Family History: Family History (Last Reviewed 03/24/22 @ 13:39 by David Riley RN) Father History of cancer of unknown primary site Family history of high blood pressure Mother Hx of arteriosclerotic cardiovascular disease Maternal Grandfather Hx of arteriosclerotic cardiovascular disease Aortic aneurysm Brother No problems noted. Sister No problems noted. Brother No problems noted. Brother No problems noted. Brother No problems noted. Sister No problems noted. Surgical History: Surgical History (Last Reviewed 03/24/22 @ 13:39 by David Riley RN) History of lung biopsy Hx of appendectomy Hx of colonoscopy Hx of right hemicolectomy Social History: Social History (Last Reviewed 03/24/22 @ 13:39 by David Riley RN) Living Situation History: Household Members: Family Housing: Apartment Alcohol History Details: 1. How often do you have a drink containing alcohol?: a. Never Tobacco History: Patient Tobacco Use Status: Never used Tobacco e-Cigarette/Vaping Use: Never Used Second Hand Smoke Exposure: No Substance Use History: Use of substances other than those prescribed or required for medical reasons: No Advance Directives: Advance Directives: No Advance Directives Information Provided: No Homicidal Assessment: Do you have thoughts of harming others: None Do you have a plan to hurt others: No Plan Do you have the means to hurt others: No Nutrition Assessment: Recently lost weight without trying: No Occupation Assessmet: service: No Current occupational status: disabled Oncology Screenings - ECOG Performance Status ECOG Performance Status: 2 Home Medications and Allergies Current Medications: Current Medications Acetaminophen (Acetaminophen 325 Mg Tablet) 650 mg PO ONCE LOLLY Stop: 09/05/22 23:59 Heparin Sodium (Porcine) (Heparin Sodium,Porcine Flush 500 Unit/5 Ml Syringe) 500 unit IVFLUSH ONCE LOLLY Stop: 09/05/22 23:59 Ondansetron HCl (Ondansetron Odt 8 Mg Tab.Rapdis) 8 mg TRANSLINGU ONCE LOLLY Stop: 09/05/22 23:59 Home Medications Medication Instructions Recorded Confirmed Type multivitamin 1 tab PO DAILY 01/10/22 08/08/22 History Allergies Allergy/AdvReac Type Severity Reaction Status Date / Time seafood Allergy Severe Angioedema Verified 08/08/22 11:54 shrimp [SHRIMP] Allergy Severe ANGIOEDEMA Verified 08/08/22 11:54 sucralfate [From Carafate] AdvReac Intermediate rectal Verified 08/08/22 11:54 bleeding Exam Vital signs: Vital Signs Temp 96.9 F 08/22/22 11:19 Pulse 132 H 08/22/22 11:19 Resp 18 08/08/22 11:12 BP 126/81 08/22/22 11:19 Pulse Ox 94 08/22/22 11:19 O2 Del Method Room Air 08/22/22 11:19 Weight 89.9 kg BMI result Body Mass Index 29.2 - Constitutional Present: no acute distress - Routine HEENT Exam Head: Present: normal inspection - Routine Neck Exam Present: full ROM. Absent: lymphadenopathy - Routine Chest/Breast/Axilla Exam Chest wall: Absent: tenderness, mass - Routine Respiratory Exam Present: CTAB - Routine Cardiovascular Exam Cardiovascular: Present: RRR, S1, S2 - Routine Skin Exam Present: dry, rash, cracked Data - Labs CBC & Chem 7: 09/05/22 11:20 09/05/22 11:20 - Imaging Radiologist's impression: ITS Impressions Guidance Fluoroscopy 12/26/21 12:41 FINDINGS/IMPRESSION: On contrast injection of the port under fluoroscopy, there is contrast exiting the tip of the catheter and directed upwards with eventually the contrast traveling towards the right atrium. There is a thick sheath seen surrounding the distal catheter tip in the SVC which most likely prevents blood withdrawal. The results were called to referring physician's nurse in charge and made aware of the finding. Assessment and Plan Patient Active problem list reviewed?: Yes (1) Colon carcinoma metastatic to multiple sites Problem details: February 2019 appendectomy invasive adenocarcinoma moderately differentiated cecal mass, left lower lung field lung nodule FNA adeno carcinoma Status: Chronic Assessment and plan: 1. This is a 52-year-old man with metastatic colon cancer, arising from cecum diagnosed in 2018. FNA of lung nodule is consistent with adenocarcinoma. Right hemicolectomy performed 04/03/2019, adenocarcinoma moderately differentiated. Stage [id number]. MMR proficient. BRAF mutation not detected, K-renata mutation detected (G13D), NRAS mutation not detected, IHC for verdugo TRK negative. HER2 non reactive and tumor mutational burden 4 Muts/Mb. Started chemotherapy modified FOLFOX 6 with Avastin from 04/23/2019. He had a good response based on PET scan in June but because of side effects of neuropathy he was switched to maintenance Xeloda with Avastin. On irinotecan plus bevacizumab every 2 weeks until January 2021. Later switched to FOLFIRI/Adelaida regimen until 08/2021. He had progressive disease, lung nodules in August 2021. He enrolled in clinical trial in [place], protocol 19-132 which used 2 novel immunotherapy drugs on 10/13/2021. Unfortunately, he progressed on these medications and he also developed acute immune mediated nephritis as well as hepatitis. He was tapered off high-dose prednisone over a period of 3 months. He has progressive disease in his chest as well as peritoneal disease. He has started Lonsurf 20-8.19 mg 4 tabs p.o. b.i.d. on days 1-5 and days 8-12 every 28 day cycle from 02/07/22. Repeat CT abdomen/pelvis with contrast in June [address] chest with contrast performed at July 2022 also shows stable disease. Bone scan performed in July 2022 showed multifocal new rashes disease throughout the entire skeleton suspicious for metastatic disease. He continues to have progressive increase in CEA levels. At this time I have discussed changing his treatment. A PET-CT has been ordered at this time. Regorafenib is orally active VEGF and EGFR inhibitor approved in metastatic colorectal cancer have progressed on fluoropyrimidine, oxaliplatin he denied taken another targeted agents in those that eligible. He will be started on regorafenib 80 mg with weekly dose escalation to 160 mg Q 21 days of 28 day cycle. Possible side effects such as hepatotoxicity, dermatological toxicity, hypertension and risk of infection will be discussed. Because of leukopenia, his treatment is being delayed. Follow-up in 1 month. - Time Spent With Patient Time Spent with Patient (in minutes): 20
[2022-09-05 11:15] VITALS: BP 120/80; PULSE 104; TEMP 36.3; O2SAT 96
[2022-09-05 11:28] VITALS: BMI 28.8
[2022-09-05 11:35] LABS: Appearance Urine Clear; Color Urine Yellow; Glucose Urine UA Negative (Negative); Leukocyte Esterase Urine Negative (Negative); Nitrite Urine Negative (Negative); Urine Blood Negative (Negative); Urine Ketones Negative (Negative); Urine Protein Negative (Neg-Trace)
[2022-09-05 11:43] LABS: White Blood Count 2.8 X10*3/uL (4.8-10.8)
[2022-09-05 11:44] LABS: Basophils Percent Auto 0.4 % (0-2); Eosinophils Percent Auto 1.5 % (0-4); Hematocrit 30.8 % (42.0-52.0); Imm Gran Abs Auto 0.01 X10*3/uL (0.00-0.03); Imm Gran Pct Auto 0.4 % (0.0-0.4); Lymphocytes Absolute Auto 1.5 X10*3/uL (1.2-4.9); Lymphocytes Percent Auto 55.6 % (20-40); MANUAL DIFF FLAG SCAN; Mean Corpuscular HGB Conc 32.5 g/dl (31.0-36.0); Mean Corpuscular Hemoglobin 34.1 pg (27.0-33.0); Mean Corpuscular Volume 105.1 fL (80.0-98.0); Mean Platelet Volume 9.9 fL (9.4-12.4); Monocytes Absolute Auto 0.6 X10*3/uL (0.1-1.2); Monocytes Percent Auto 20.4 % (2-11); Neutrophils Absolute Auto 0.6 x10*3/uL (2.0-8.3); Neutrophils Percent Auto 21.7 % (45-73); Platelet Count 275 X10*3/uL (160-400); Red Blood Count 2.93 X10*6/uL (4.60-5.80); Red Cell Distribution Width 18.1 % (11.0-16.0); SCAN SMEAR FLAG 1
[2022-09-05 12:02] LABS: Alanine Aminotransferase 16 U/L (0-40); Albumin Level 4.1 g/dL (3.5-5.0); Alkaline Phosphatase 134 U/L (39-117); Anion Gap 14 (12-20); Aspartate Amino Transferase 23 U/L (5-37); Bilirubin Total 0.3 mg/dL (0.0-1.0); Blood Urea Nitrogen 9 mg/dL (9-16); Calcium 8.6 mg/dL (8.4-10.2); Carbon Dioxide 26 mmol/L (22-29); Chloride 103 mmol/L (96-108); Creatinine Clr Calc Pharmacy 82.4; Estimated Glomerular Filt Rate > 60; Glucose Random 105 mg/dL (60-115); Potassium 3.5 mmol/L (3.3-5.1); Sodium 139 mmol/L (135-145)
[2022-09-05 12:07] LABS: SLIDE REVIEW VERIFIED
[2022-09-05] MEDS: Heparin Sodium,Porcine Flush 500 UNIT/5 ML SYRINGE IVFLUSH (13:08)
--- NOTE | 2022-09-05 14:05 | MHC.HEMONC ---
c8d1 Avastin and lonsurf held today for low ANC per Dr Mims. Rescheduled to next week. Complains of all over body aches and difficulty with movement. Dr Mims has prescribed MS contin, oxycodone and flexeril. Discharge packet provided. He is aware of the plan.
--- NOTE | 2022-09-06 18:00 | HO.HEMONCPA ---
PA for PET/CT SCAN REQUESTED. AWAITING DECISION
--- NOTE | 2022-09-08 09:51 | HO.HEMONCSCH ---
PET/CT SCAN ORDER FAXED TO [facility]. AWAITING APPT DATE & TIME
--- NOTE | 2022-09-11 11:40 | HO.HEMONCSCH ---
PET/CT SCAN APPT. BOOKED W/[facility] FOR 09/12/22 AT 12:15PM
--- NOTE | 2022-09-11 12:37 | MHC.HEMONC ---
Pt informed clinic that he should not have chemo sched for tomorrow, as he will be starting a new oral chemo, Regorafenib. Nurse confirmed this is true w/ Dr. Mims, cancelled pt's upcoming IV chemo appts, confirmed Nurse Stephen Mccoy is working on PA for the drug and assured pt he'll be contacted to schedule delivery. Nurse confirmed w/ pt he has booked his PET scan to occur tomorrow around mid-day, Dr. Mims would like pt to come in later in the week for f/u to discuss results of scan. Pt said he has [facility] appt on Sun, 09/15 at 11:45, so nurse booked him Onc f/u for 09:50, as well as chemo teach appt. Pt said Dr. Mims had already told him all about the drug and dosing freq, but nurse said he'll need to sign consent anyway when he is here. Pt asked about having f/u labs tomorrow, 09/12, instead of waiting until f/u appt, since he is concerned about the neutropenia he had last week that cancelled his tx. Nurse checked w/ Dr. Mims, entered lab draw appt for pt to occur when he finishes w/ his PET scan, to have CBC, CMP collected, no need to check CEA as it was checked a week ago.
[2022-09-12 14:26] LABS: MANUAL DIFF FLAG NO
[2022-09-12 14:30] LABS: Basophils Absolute Auto 0.1 X10*3/uL (0.0-0.2); Basophils Percent Auto 0.6 % (0-2); Eosinophils Percent Auto 0.4 % (0-4); Hematocrit 31.7 % (42.0-52.0); Hemoglobin 10.4 g/dl (14.0-18.0); Imm Gran Abs Auto 0.03 X10*3/uL (0.00-0.03); Imm Gran Pct Auto 0.4 % (0.0-0.4); Lymphocytes Absolute Auto 1.8 X10*3/uL (1.2-4.9); Lymphocytes Percent Auto 22.1 % (20-40); Mean Corpuscular HGB Conc 32.8 g/dl (31.0-36.0); Mean Corpuscular Hemoglobin 34.2 pg (27.0-33.0); Mean Corpuscular Volume 104.3 fL (80.0-98.0); Mean Platelet Volume 9.6 fL (9.4-12.4); Monocytes Absolute Auto 1.4 X10*3/uL (0.1-1.2); Neutrophils Absolute Auto 4.7 x10*3/uL (2.0-8.3); Neutrophils Percent Auto 58.5 % (45-73); Platelet Count 327 X10*3/uL (160-400); Red Blood Count 3.04 X10*6/uL (4.60-5.80); Red Cell Distribution Width 18.3 % (11.0-16.0)
[2022-09-12 14:46] LABS: Alanine Aminotransferase 16 U/L (0-40); Alkaline Phosphatase 129 U/L (39-117); Anion Gap 13 (12-20); Aspartate Amino Transferase 22 U/L (5-37); Bilirubin Total 0.6 mg/dL (0.0-1.0); Blood Urea Nitrogen 7 mg/dL (9-16); Calcium 8.9 mg/dL (8.4-10.2); Carbon Dioxide 29 mmol/L (22-29); Chloride 102 mmol/L (96-108); Creatinine Clr Calc Pharmacy 81.7; Estimated Glomerular Filt Rate > 60; Glucose Random 108 mg/dL (60-115); Potassium 4.3 mmol/L (3.3-5.1); Sodium 140 mmol/L (135-145); Total Protein 6.9 g/dL (6.5-8.0)
--- NOTE | 2022-09-12 16:07 | HO.HEMONCPA ---
Pt called to report that his insurance company called to inform him that his new drug Regorafenib has been authorized, and to please inform Dr. Mims and Nurse Stephen Mccoy. Nurse updated tx team, Dr. Mims has already ordered the med, pt has yet to be contacted by mail-order pharmacy to schedule delivery.
--- NOTE | 2022-09-12 16:20 | MHC.HEMONC ---
Pt here for lab draw. Blood drawn peripherally by spool winder-specimen to lab. Pt signed oral chemotherapy consent.
--- NOTE | 2022-09-12 16:22 | P.EN_ITS ---
Patient called complaining of worsening left leg pain. Bone scan did reveal metastasis in the left hemipelvis and left femur. He is being referred to [facility] for palliative radiation therapy.
--- NOTE | 2022-09-12 16:38 | MHC.HEMONC ---
Referral sent to [facility] for palliative left femur RT
--- NOTE | 2022-09-13 13:32 | MHC.HEMONC ---
[facility] does not take his insurance. They will reach out to patient with first available appointment.
--- NOTE | 2022-09-14 14:19 | MHC.HEMONC ---
Pt has appt with Dr Gonzales at [facility] on Monday September 19, 2022 at 10:15 for palliative RT Consult.
[2022-09-15 09:51] VITALS: BP 102/72; PULSE 103; TEMP 36.6; O2SAT 95; BMI 28.6
--- NOTE | 2022-09-15 10:04 | P.PNHO-ONC_ITS ---
Medical Summary - Medical Summary Date of Service: 09/15/22 Chief complaint: Follow-up Primary Care Provider: Toshia Dominique MD Medical Summary: Diagnosis: Metastatic colon cancer diagnosed February 2019 Presented with worsening abdominal pain, right lower quadrant ongoing for almost a year. CT imaging showed inflamed appendix, periappendiceal inflammation involving cecum and small bowel. Abscess identified in the pelvis which was drained. Appendectomy performed 02/22/2019, invasive adenocarcinoma, moderately differentiated, tumor present at the resection margin. Acute appendicitis and Suzy appendicitis with perforation. IHC showed CK 7-, CK 20 positive and CDX2 positive. MMR proficient. On 03/11/2019 patient underwent colonoscopy which showed adenomatous looking degenerative mass with an ulcerated center in the cecum. Two polyps were also removed. CTA performed 02/21/2019 showed multiple lung nodules bilaterally. Largest in the left lower lobe measuring 1.[address] abdomen performed 02/21/2019 showed dilated and inflamed appendix with surrounding inflammatory changes. Normal liver and spleen. Prominent mesenteric lymph nodes measuring up to 1.4 cm. CEA elevated at 14.6. FNA of the left lower lobe lung nodule performed 03/13/2019 showed adenocarcinoma consistent with known cecal primary. PET scan showed intense uptake around cecum, SUV 14.2, terminal ileum, foci in mesentery in the pelvis and right lower quadrant suspicious for metastatic deposits. No uptake in the lung nodules but malignancy not excluded. Right hemicolectomy performed 04/03/2019, adenocarcinoma moderately differentiated. Tumor invades through visceral peritoneum with macroscopic tumor perforation and direct invasion into adjacent loop of small bowel. Eight of 12 pericolonic lymph nodes positive for adenocarcinoma. Tumor involves mesenteric resection margins. Lymphovascular invasion present. Tumor size 6 x 2.8 cm. Stage [id number]. MMR proficient. BRAF mutation not detected, K-renata mutation detected, NRAS mutation not detected, IHC for verdugo TRK negative. Genetic testing. Patient?s genetic test result indicated that he was negative for a hereditary cancer gene mutation. Started chemotherapy modified FOLFOX 6 with Avastin from 04/23/2019. PET scan performed June 2019 showed complete metabolic response. Because of side effects of neuropathy his chemotherapy changed to maintenance treatment with Xeloda 1000 milligram/meter squared b.i.d. day 1-14 along with Avastin Q 3 weeks in June 2019.He has had elevation of CEA, PET-CT performed at [facility] on 11/04/2019 showed increased FDG activity in right lower quadrant of abdomen/pelvis, SUV 6.4, nodular infiltration measuring 1.3 x 0.9 cm. Right upper lobe subpleural nodule with minimal FDG uptake of 2.6, metastatic nodule probable. Xeloda discontinued in February 2020 because of worsening hand/foot syndrome. [place] [facility] showed multiple subcentimeter pulmonary nodules none of which had FDG avidity. No other sites of metastatic disease. On irinotecan plus bevacizumab every 2 weeks until January 2021. He started FOLFOX regimen from 02/02/2021. Later switched to FOLFIRI/Adelaida regimen until 08/2021. He had progressive disease, lung nodules in August 2021. He enrolled in clinical trial in [place], protocol 19-132 which used 2 novel immunotherapy drugs. He started this on 10/13/2021. 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 He was eventually discharged on prednisone 90 mg once daily. He is being tapered gradually. His kidney functions are improving. CT abdomen/pelvis on 12/12/2021 in [place] showed increase in size of metastatic retroperitoneal lymphadenopathy. Peritoneal metastasis in right lower quadrant. Hepatic hypodensities, too small to characterize. CT chest same day showed numerous pulmonary nodules consistent with metastatic disease, a few with increasing cavitation. He was treated with Lonsurf/bevacizumab from January 2022 to August 2022. Repeat CT abdomen/pelvis with contrast in June [address] chest with contrast performed at July 2022 also shows stable disease. Bone scan performed in July 2022 showed multifocal new rashes disease throughout the entire skeleton suspicious for metastatic disease. Interval History Interval history: Joselito is here in follow-up. He reports worsening pain, or concentrated on the left side of his body. He feels it is in his left shoulder, left flank region, hip as well as leg. His appetite has been diminished, he has had some weight loss. Denies any acute complaints such as chest pain, shortness of breath nausea, change in bowel or bladder habits. No fever or chills. Review of Systems - Constitutional Reports as per HPI, Reports fatigue, Denies fever(s), Reports malaise, Denies night sweats, Reports weakness - Cardiovascular Reports no additional cardiovascular complaints - Respiratory Reports no additional respiratory complaints - Gastrointestinal Reports no additional gastrointestinal complaints - Neurologic Denies weakness [facility] Medical History: Medical History (Last Reviewed 09/15/22 @ 09:54 by Bacilio Tompkins [facility]) Acute appendicitis Asthma Colon adenocarcinoma Diarrhea Hypercholesteremia Family History: Family History (Last Updated 09/15/22 @ 11:23 by Luz Maria Holbrook [facility]) Father History of cancer of unknown primary site Family history of high blood pressure Mother Hx of arteriosclerotic cardiovascular disease Maternal Grandfather Hx of arteriosclerotic cardiovascular disease Aortic aneurysm Brother No problems noted. Sister No problems noted. Brother No problems noted. Brother No problems noted. Brother No problems noted. Sister No problems noted. Surgical History: Surgical History (Last Reviewed 09/15/22 @ 09:54 by Bacilio Tompkins [employer]) History of lung biopsy Hx of appendectomy Hx of colonoscopy Hx of right hemicolectomy Social History: Social History (Last Reviewed 09/15/22 @ 09:54 by Bacilio Tompkins [facility]) Living Situation History: Household Members: Family Housing: Apartment Alcohol History Details: 1. How often do you have a drink containing alcohol?: a. Never 3. How often do you have six or more drinks on one occasion?: a. Never AUDIT-C Alcohol total score: 0 Tobacco History: Patient Tobacco Use Status: Never used Tobacco e-Cigarette/Vaping Use: Never Used Second Hand Smoke Exposure: No Occupation Assessmet: service: No Current occupational status: disabled Home Medications and Allergies Home Medications Medication Instructions Recorded Confirmed Type multivitamin 1 tab PO DAILY 01/10/22 09/15/22 History Advil PM PO TID 09/15/22 History Senna Lax 09/15/22 09/15/22 History Allergies Allergy/AdvReac Type Severity Reaction Status Date / Time seafood Allergy Severe Angioedema Verified 09/15/22 11:22 shrimp [SHRIMP] Allergy Severe ANGIOEDEMA Verified 09/15/22 11:22 sucralfate [From Carafate] AdvReac Intermediate rectal Verified 09/15/22 11:22 bleeding Exam Vital signs: Vital Signs Temp 97.8 F 09/15/22 09:51 Pulse 103 H 09/15/22 09:51 Resp 18 08/08/22 11:12 BP 102/72 09/15/22 09:51 Pulse Ox 95 09/15/22 09:51 O2 Del Method Room Air 09/15/22 09:51 Intake & Output 09/14/22 09/15/22 09/15/22 18:59 06:59 18:59 Other: Weight 87.997 kg [place] Weight in Grams 78414.919 Weight 87.997 kg BMI result Body Mass Index 28.6 - Constitutional Present: no acute distress - Routine HEENT Exam Head: Present: normal inspection - Routine Neck Exam Present: full ROM. Absent: lymphadenopathy - Routine Chest/Breast/Axilla Exam Chest wall: Absent: tenderness, mass - Routine Respiratory Exam Present: CTAB - Routine Cardiovascular Exam Cardiovascular: Present: RRR, S1, S2 - Routine Skin Exam Present: dry, rash, cracked Data - Labs CBC & Chem 7: 09/12/22 14:17 09/12/22 14:17 - Imaging Radiologist's impression: ITS Impressions Guidance Fluoroscopy 12/26/21 12:41 FINDINGS/IMPRESSION: On contrast injection of the port under fluoroscopy, there is contrast exiting the tip of the catheter and directed upwards with eventually the contrast traveling towards the right atrium. There is a thick sheath seen surrounding the distal catheter tip in the SVC which most likely prevents blood withdrawal. The results were called to referring physician's nurse in charge and made aware of the finding. Assessment and Plan Patient Active problem list reviewed?: Yes (1) Colon carcinoma metastatic to multiple sites Problem details: February 2019 appendectomy invasive adenocarcinoma moderately differentiated cecal mass, left lower lung field lung nodule FNA adeno carcinoma Status: Chronic Assessment and plan: 1. This is a 52-year-old man with metastatic colon cancer, arising from cecum diagnosed in 2018. FNA of lung nodule is consistent with adenocarcinoma. Right hemicolectomy performed 04/03/2019, adenocarcinoma moderately differentiated. Stage [id number]. MMR proficient. BRAF mutation not detected, K-renata mutation detected (G13D), NRAS mutation not detected, IHC for verdugo TRK negative. HER2 non reactive and tumor mutational burden 4 Muts/Mb. Started chemotherapy modified FOLFOX 6 with Avastin from 04/23/2019. He had a good response based on PET scan in June but because of side effects of neuropathy he was switched to maintenance Xeloda with Avastin. On irinotecan plus bevacizumab every 2 weeks until January 2021. Later switched to FOLFIRI/Adelaida regimen until 08/2021. He had progressive disease, lung nodules in August 2021. He enrolled in clinical trial in [place], protocol 19-132 which used 2 novel immunotherapy drugs on 10/13/2021. Unfortunately, he progressed on these medications and he also developed acute immune mediated nephritis as well as hepatitis. He was tapered off high-dose prednisone over a period of 3 months. He has progressive disease in his chest as well as peritoneal disease. He has started Lonsurf 20-8.19 mg 4 tabs p.o. b.i.d. on days 1-5 and days 8-12 every 28 day cycle from 02/07/22 until 08/2022. He continues to have progressive increase in CEA levels. At this time I have discussed changing his treatment. PET-CT showed progressive disease with now extensive bone metastasis. He will be started on regorafenib 80 mg with weekly dose escalation to 160 mg Q 21 days of 28 day cycle. Possible side effects such as hepatotoxicity, dermatological toxicity, hypertension and risk of infection were discussed. Follow-up in 1 month. - Time Spent With Patient Time Spent with Patient (in minutes): 25
--- NOTE | 2022-09-15 11:23 | MHC.HEMONCMA ---
patient was seen in office today for appendiceal cancer, VSS, patient will follow up in 1 month
[2022-09-19 11:33] LABS: Alanine Aminotransferase 9 U/L (0-40); Albumin Level 4.2 g/dL (3.5-5.0); Alkaline Phosphatase 102 U/L (39-117); Anion Gap 14 (12-20); Aspartate Amino Transferase 22 U/L (5-37); Bilirubin Total 0.5 mg/dL (0.0-1.0); Blood Urea Nitrogen 9 mg/dL (9-16); Calcium 8.9 mg/dL (8.4-10.2); Carbon Dioxide 27 mmol/L (22-29); Chloride 102 mmol/L (96-108); Estimated Glomerular Filt Rate > 60; Glucose Random 108 mg/dL (60-115); Potassium 4.1 mmol/L (3.3-5.1); Sodium 139 mmol/L (135-145); Total Protein 7.6 g/dL (6.5-8.0)
--- NOTE | 2022-09-20 12:02 | MHC.HEMONC ---
Pt had RadOnc Sim today at [facility]. He will be having at least 5 RT treatments beginning next Sunday. They will be doing pelvis and femur on right. Patient received Stivarga today. Per Dr Mims - he is to start on 40mg a day and stop on days for RT. He will call next week to schedule labs here. He has antiemetic if needed.
--- NOTE | 2022-09-25 11:31 | MHC.HEMONC ---
Patient called to see if his pain medication could be increased as he was speaking with radOnc and he is having a lot of difficulty with mobility and laying for radiation. He is due to get 1st treatment today. Per - Dr Mims - she will reorder the MS Contin to be taken every 8 hrs and increase interval of oxycodone to every 4 hr for breakthrough pain. I did advise pt regarding this and he understands. He has lab draw next Sunday before restarting Stivarga.
[2022-10-02 11:15] LABS: MANUAL DIFF FLAG NO
[2022-10-02 11:19] LABS: Basophils Percent Auto 0.5 % (0-2); Eosinophils Absolute Auto 0.4 X10*3/uL (0.0-0.4); Eosinophils Percent Auto 4.3 % (0-4); Hematocrit 38.4 % (42.0-52.0); Hemoglobin 12.5 g/dl (14.0-18.0); Imm Gran Abs Auto 0.07 X10*3/uL (0.00-0.03); Imm Gran Pct Auto 0.9 % (0.0-0.4); Lymphocytes Absolute Auto 0.8 X10*3/uL (1.2-4.9); Lymphocytes Percent Auto 9.3 % (20-40); Mean Corpuscular HGB Conc 32.6 g/dl (31.0-36.0); Mean Corpuscular Hemoglobin 32.1 pg (27.0-33.0); Mean Corpuscular Volume 98.7 fL (80.0-98.0); Mean Platelet Volume 9.7 fL (9.4-12.4); Monocytes Percent Auto 12.5 % (2-11); Neutrophils Absolute Auto 5.8 x10*3/uL (2.0-8.3); Neutrophils Percent Auto 72.5 % (45-73); Platelet Count 331 X10*3/uL (160-400); Red Blood Count 3.89 X10*6/uL (4.60-5.80); Red Cell Distribution Width 16.6 % (11.0-16.0); White Blood Count 8.1 X10*3/uL (4.8-10.8)
[2022-10-02] MEDS: 0.9 % Sodium Chloride 1,000 ML 500 ML IV (11:30)
[2022-10-02 11:39] LABS: Alanine Aminotransferase 12 U/L (0-40); Albumin Level 4.5 g/dL (3.5-5.0); Alkaline Phosphatase 115 U/L (39-117); Anion Gap 15 (12-20); Aspartate Amino Transferase 32 U/L (5-37); Bilirubin Total 0.6 mg/dL (0.0-1.0); Blood Urea Nitrogen 12 mg/dL (9-16); Calcium 9.4 mg/dL (8.4-10.2); Carbon Dioxide 29 mmol/L (22-29); Chloride 98 mmol/L (96-108); Creatinine Clr Calc Pharmacy 57.5; Estimated Glomerular Filt Rate 44; Glucose Random 128 mg/dL (60-115); Potassium 4.1 mmol/L (3.3-5.1); Sodium 138 mmol/L (135-145)
[2022-10-02 12:00] VITALS: BP 107/80; PULSE 112; TEMP 35.8; O2SAT 92; BMI 26.3
[2022-10-02 12:12] LABS: Appearance Urine Clear; Color Urine Yellow; Glucose Urine UA Negative (Negative); Leukocyte Esterase Urine Negative (Negative); Nitrite Urine Negative (Negative); PH 5.5 (5.0-9.0); Urine Blood Negative (Negative); Urine Ketones Negative (Negative); Urine Protein Negative (Neg-Trace)
--- NOTE | 2022-10-02 14:24 | MHC.HEMONC ---
Here for labs. Looking and feeling poorly. Complains of loss of appetite, weight loss (approx 16 pounds in 1 month), fatigue, pain in leg and hip. finished radiation to pelvis spine and femur on Sunday. Took Stivarga for 5 days then was taken off Stivarga during radiation and waiting for lab review today to restart. Labs reviewed by Dr Mims. 1 L NS given over 2 hours and pt to return for lab check again and follow up with Dr Mims. He is not to take any Stivarga til after recheck on . He was given ensure testers and will try to drink 3 a day. He is aware of the plan.
--- NOTE | 2022-10-04 11:18 | MHC.HEMONC ---
Triage call: Refill request for Regorafenib to be sent to [facility]- Dr. Mims notified.
--- NOTE | 2022-10-05 11:09 | P.PNHO-ONC_ITS ---
Medical Summary - Medical Summary Date of Service: 10/05/22 Chief complaint: Nausea/loss of appetite Primary Care Provider: Toshia Dominique MD Medical Summary: Diagnosis: Metastatic colon cancer diagnosed February 2019 Presented with worsening abdominal pain, right lower quadrant ongoing for almost a year. CT imaging showed inflamed appendix, periappendiceal inflammation involving cecum and small bowel. Abscess identified in the pelvis which was drained. Appendectomy performed 02/22/2019, invasive adenocarcinoma, moderately differentiated, tumor present at the resection margin. Acute appendicitis and Suzy appendicitis with perforation. IHC showed CK 7-, CK 20 positive and CDX2 positive. MMR proficient. On 03/11/2019 patient underwent colonoscopy which showed adenomatous looking degenerative mass with an ulcerated center in the cecum. Two polyps were also removed. CTA performed 02/21/2019 showed multiple lung nodules bilaterally. Largest in the left lower lobe measuring 1.[address] abdomen performed 02/21/2019 showed dilated and inflamed appendix with surrounding inflammatory changes. Normal liver and spleen. Prominent mesenteric lymph nodes measuring up to 1.4 cm. CEA elevated at 14.6. FNA of the left lower lobe lung nodule performed 03/13/2019 showed adenocarcinoma consistent with known cecal primary. PET scan showed intense uptake around cecum, SUV 14.2, terminal ileum, foci in mesentery in the pelvis and right lower quadrant suspicious for metastatic deposits. No uptake in the lung nodules but malignancy not excluded. Right hemicolectomy performed 04/03/2019, adenocarcinoma moderately differentiated. Tumor invades through visceral peritoneum with macroscopic tumor perforation and direct invasion into adjacent loop of small bowel. Eight of 12 pericolonic lymph nodes positive for adenocarcinoma. Tumor involves mesenteric resection margins. Lymphovascular invasion present. Tumor size 6 x 2.8 cm. Stage [id number]. MMR proficient. BRAF mutation not detected, K-renata mutation detected, NRAS mutation not detected, IHC for verdugo TRK negative. Genetic testing. Patient?s genetic test result indicated that he was negative for a hereditary cancer gene mutation. Started chemotherapy modified FOLFOX 6 with Avastin from 04/23/2019. PET scan performed June 2019 showed complete metabolic response. Because of side effects of neuropathy his chemotherapy changed to maintenance treatment with Xeloda 1000 milligram/meter squared b.i.d. day 1-14 along with Avastin Q 3 weeks in June 2019.He has had elevation of CEA, PET-CT performed at [facility] on 11/04/2019 showed increased FDG activity in right lower quadrant of abdomen/pelvis, SUV 6.4, nodular infiltration measuring 1.3 x 0.9 cm. Right upper lobe subpleural nodule with minimal FDG uptake of 2.6, metastatic nodule probable. Xeloda discontinued in February 2020 because of worsening hand/foot syndrome. Repeat PET-CT at [facility] [place] in October 2020 showed multiple subcentimeter pulmonary nodules none of which had FDG avidity. No other sites of metastatic disease. On irinotecan plus bevacizumab every 2 weeks until January 2021. He started FOLFOX regimen from 02/02/2021. Later switched to FOLFIRI/Adelaida regimen until 08/2021. He had progressive disease, lung nodules in August 2021. He enrolled in clinical trial in [place], protocol 19-132 which used 2 novel immunotherapy drugs. He started this on 10/13/2021. 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 He was eventually discharged on prednisone 90 mg once daily. He is being tapered gradually. His kidney functions are improving. CT abdomen/pelvis on 12/12/2021 in [place] showed increase in size of metastatic retroperitoneal lymphadenopathy. Peritoneal metastasis in right lower quadrant. Hepatic hypodensities, too small to characterize. CT chest same day showed numerous pulmonary nodules consistent with metastatic disease, a few with increasing cavitation. He was treated with Lonsurf/bevacizumab from January 2022 to August 2022. Repeat CT abdomen/pelvis with contrast in June [address] chest with contrast performed at July 2022 also shows stable disease. Bone scan performed in July 2022 showed multifocal new rashes disease throughout the entire skeleton suspicious for metastatic disease. Interval History Interval history: Joselito is here in follow-up. He is accompanied by his mother today. He co mpleted 5 radiation treatments to left hip/femur. He reports slight improvement in his leg pain. He however continues to have pain in other parts of his body like his left shoulder as well as right posterior back. His main concern is complete lack of appetite, he has had nearly 7-8 lb weight loss in the last 2 weeks. He is taking Zofran but is not helping that much. He does not feel that he needs to increase any of his pain meds at this time. He is now willing for VNA services. Review of Systems - Constitutional Reports as per HPI, Reports malaise, Reports poor appetite, Reports weight loss - Cardiovascular Denies chest pain - Respiratory Denies cough - Gastrointestinal Reports no additional gastrointestinal complaints, Denies black, tarry stools, Denies bright, red blood in stools - Neurologic Reports weakness PMFSH Medical History: Medical History (Last Reviewed 09/15/22 @ 09:54 by Bacilio Tompkins [facility]) Acute appendicitis Asthma Colon adenocarcinoma Diarrhea Hypercholesteremia Family History: Family History (Last Updated 09/15/22 @ 11:23 by Luz Maria Holbrook [facility]) Father History of cancer of unknown primary site Family history of high blood pressure Mother Hx of arteriosclerotic cardiovascular disease Maternal Grandfather Hx of arteriosclerotic cardiovascular disease Aortic aneurysm Brother No problems noted. Sister No problems noted. Brother No problems noted. Brother No problems noted. Brother No problems noted. Sister No problems noted. Surgical History: Surgical History (Last Reviewed 09/15/22 @ 09:54 by Bacilio Tompkins [employer]) History of lung biopsy Hx of appendectomy Hx of colonoscopy Hx of right hemicolectomy Social History: Social History (Last Reviewed 09/15/22 @ 09:54 by Bacilio Tompkins [facility]) Living Situation History: Household Members: Family Housing: Apartment Alcohol History Details: 1. How often do you have a drink containing alcohol?: a. Never Tobacco History: Patient Tobacco Use Status: Never used Tobacco e-Cigarette/Vaping Use: Never Used Second Hand Smoke Exposure: No Substance Use History: Use of substances other than those prescribed or required for medical reasons : No Advance Directives: Advance Directives: No Advance Directives Information Provided: No Homicidal Assessment: Do you have thoughts of harming others: None Do you have a plan to hurt others: No Plan Do you have the means to hurt others: No Nutrition Assessment: Recently lost weight without trying: No Occupation Assessmet: service: No Current occupational status: disabled Home Medications and Allergies Home Medications Medication Instructions Recorded Confirmed Type multivitamin 1 tab PO DAILY 01/10/22 09/15/22 History Advil PM PO TID 09/15/22 History Senna Lax 09/15/22 09/15/22 History Allergies Allergy/AdvReac Type Severity Reaction Status Date / Time seafood Allergy Severe Angioedema Verified 04/28/23 11:22 shrimp [SHRIMP] Allergy Severe ANGIOEDEMA Verified 09/15/22 11:22 sucralfate [From Carafate] AdvReac Intermediate rectal Verified 09/15/22 11:22 bleeding Exam Vital signs: Vital Signs Temp 96.4 F L 10/02/22 12:00 Pulse 112 H 10/02/22 12:00 Resp 18 08/08/22 11:12 BP 107/80 10/02/22 12:00 Pulse Ox 92 10/02/22 12:00 O2 Del Method Room Air 10/02/22 12:00 Weight 80.9 kg BMI result Body Mass Index 26.3 - Constitutional Present: no acute distress, chronically ill appearing - Routine HEENT Exam Head: Present: normal inspection - Routine Neck Exam Present: full ROM. Absent: lymphadenopathy - Routine Chest/Breast/Axilla Exam Chest wall: Absent: tenderness, mass - Routine Respiratory Exam Present: CTAB - Routine Cardiovascular Exam Cardiovascular: Present: RRR, S1, S2 - Routine Skin Exam Present: dry, rash, cracked Data - Labs CBC & Chem 7: 10/02/22 11:14 10/05/22 11:25 - Imaging Radiologist's impression: ITS Impressions Guidance Fluoroscopy 12/26/21 12:41 FINDINGS/IMPRESSION: On contrast injection of the port under fluoroscopy, there is contrast exiting the tip of the catheter and directed upwards with eventually the contrast traveling towards the right atrium. There is a thick sheath seen surrounding the distal catheter tip in the SVC which most likely prevents blood withdrawal. The results were called to referring physician's nurse in charge and made aware of the finding. Assessment and Plan Patient Active problem list reviewed?: Yes (1) Colon carcinoma metastatic to multiple sites Problem details: February 2019 appendectomy invasive adenocarcinoma moderately differentiated cecal mass, left lower lung field lung nodule FNA adeno carcinoma Status: Chronic Assessment and plan: 1. This is a 52-year-old man with metastatic colon cancer, arising from cecum diagnosed in 2018. FNA of lung nodule is consistent with adenocarcinoma. Right hemicolectomy performed 04/03/2019, adenocarcinoma moderately differentiated. Stage [id number]. MMR proficient. BRAF mutation not detected, K-renata mutation detected (G13D), NRAS mutation not detected, IHC for verdugo TRK negative. HER2 non reactive and tumor mutational burden 4 Muts/Mb. Started chemotherapy modified FOLFOX 6 with Avastin from 04/23/2019. He had a good response based on PET scan in June but because of side effects of neuropathy he was switched to maintenance Xeloda with Avastin. On irinotecan plus bevacizumab every 2 weeks until January 2021. Later switched to FOLFIRI/Adelaida regimen until 08/2021. He had progressive disease, lung nodules in August 2021. He enrolled in clinical trial in [place], protocol 19-132 which used 2 novel immunotherapy drugs on 10/13/2021. Unfortunately, he progressed on these medications and he also developed acute immune mediated nephritis as well as hepatitis. He was tapered off high-dose prednisone over a period of 3 months. He has progressive disease in his chest as well as peritoneal disease. He has started Lonsurf 20-8.19 mg 4 tabs p.o. b.i.d. on days 1-5 and days 8-12 every 28 day cycle from 02/07/22 until 08/2022. PET-CT 08/2022 showed progressive disease with now extensive bone metastasis. He was started on regorafenib 80 mg with weekly dose escalation to 160 mg Q 21 days of 28 day cycle. He was started on 40 mg regorafenib once daily which he took for about 5 days. He took a break as he was undergoing palliative radiation therapy to left lower extremity. He has completed treatment last week. I have asked him to resume regorafenib 40 mg starting today. He developed mild renal insufficiency which is now improving. IV fluids to be administered. 2. Cancer cachexia and weight loss. I am starting him on Marinol 5 mg b.i.d.. I have also discussed with Prince and his mother that lot of his symptoms and clinical deterioration is secondary to his terminal cancer. I have asked him to consider VNA/hospice services for end of life care. Referral to VNA has been made. Follow-up in 1 month. - Time Spent With Patient Time Spent with Patient (in minutes): 35
[2022-10-05 11:33] VITALS: BP 114/79; PULSE 105; RESP 18; TEMP 36; O2SAT 96; BMI 26.5
[2022-10-05 11:53] LABS: Anion Gap 15 (12-20); Blood Urea Nitrogen 14 mg/dL (9-16); Calcium 9.2 mg/dL (8.4-10.2); Carbon Dioxide 28 mmol/L (22-29); Chloride 99 mmol/L (96-108); Estimated Glomerular Filt Rate 53; Glucose Random 120 mg/dL (60-115); Potassium 3.7 mmol/L (3.3-5.1); Sodium 138 mmol/L (135-145)
[2022-10-05] MEDS: 0.9 % Sodium Chloride 1,000 ML 500 ML IV (12:08)
--- NOTE | 2022-10-05 16:59 | MHC.HEMONC ---
Pt here for labs, follow up, and IV hydration. He is here with his mother. He is done with RT, and states it did help somewhat for his leg pain. He is taking morphine as ordered. He does state he has not been able to eat, and has lost weight over the last month. Port accessed with good blood return noted. Labs obtained. Dr Mims in to see pt for follow up. Labs reviewed. Creatinine better today at 1.4. Marinol discussed and prescription sent. Did receive 1 liter NS at 500cc/hr. Port flushed with heparin 500units and de-accessed. He did agree to [facility] referral. JANEY called, spoke with Akila. They will reach out to [facility] to set up informational meeting. He will restart Stavarga 40mg daily starting today. Scheduled for labs and follow up on 10/11. Departure packet given and pt departed unit.
--- NOTE | 2022-10-06 09:42 | MHC.HEMONC ---
Damien approved by insurance. [facility] called and notified.
[2022-10-11 13:01] LABS: MANUAL DIFF FLAG NO
[2022-10-11 13:03] VITALS: BP 107/75; PULSE 113; RESP 14; TEMP 36.4; O2SAT 95; BMI 25.8
[2022-10-11 13:12] LABS: Basophils Percent Auto 0.4 % (0-2); Eosinophils Absolute Auto 0.5 X10*3/uL (0.0-0.4); Hematocrit 37.3 % (42.0-52.0); Hemoglobin 12.2 g/dl (14.0-18.0); Imm Gran Abs Auto 0.02 X10*3/uL (0.00-0.03); Imm Gran Pct Auto 0.3 % (0.0-0.4); Lymphocytes Absolute Auto 1.1 X10*3/uL (1.2-4.9); Lymphocytes Percent Auto 14.2 % (20-40); Mean Corpuscular HGB Conc 32.7 g/dl (31.0-36.0); Mean Corpuscular Hemoglobin 31.6 pg (27.0-33.0); Mean Corpuscular Volume 96.6 fL (80.0-98.0); Mean Platelet Volume 9.7 fL (9.4-12.4); Monocytes Absolute Auto 0.9 X10*3/uL (0.1-1.2); Monocytes Percent Auto 12.1 % (2-11); Neutrophils Absolute Auto 4.9 x10*3/uL (2.0-8.3); Platelet Count 223 X10*3/uL (160-400); Red Blood Count 3.86 X10*6/uL (4.60-5.80); Red Cell Distribution Width 16.4 % (11.0-16.0); White Blood Count 7.4 X10*3/uL (4.8-10.8)
[2022-10-11 13:26] LABS: Alanine Aminotransferase 8 U/L (0-40); Albumin Level 4.1 g/dL (3.5-5.0); Alkaline Phosphatase 115 U/L (39-117); Anion Gap 15 (12-20); Aspartate Amino Transferase 22 U/L (5-37); Bilirubin Total 0.5 mg/dL (0.0-1.0); Blood Urea Nitrogen 14 mg/dL (9-16); Calcium 8.9 mg/dL (8.4-10.2); Carbon Dioxide 24 mmol/L (22-29); Chloride 103 mmol/L (96-108); Estimated Glomerular Filt Rate > 60; Glucose Random 113 mg/dL (60-115); Potassium 4.2 mmol/L (3.3-5.1); Sodium 138 mmol/L (135-145); Total Protein 7.7 g/dL (6.5-8.0)
--- NOTE | 2022-10-11 13:45 | MHC.HEMONCMA ---
Patient seen today for followup after vna, VSS, labs, followup TBD.
--- NOTE | 2022-10-11 14:11 | P.PNHO-ONC_ITS ---
Medical Summary - Medical Summary Date of Service: 10/11/22 Chief complaint: Follow-up Primary Care Provider: Toshia Dominique MD Medical Summary: Diagnosis: Metastatic colon cancer diagnosed February 2019 Presented with worsening abdominal pain, right lower quadrant ongoing for almost a year. CT imaging showed inflamed appendix, periappendiceal inflammation involving cecum and small bowel. Abscess identified in the pelvis which was drained. Appendectomy performed 02/22/2019, invasive adenocarcinoma, moderately differentiated, tumor present at the resection margin. Acute appendicitis and Suzy appendicitis with perforation. IHC showed CK 7-, CK 20 positive and CDX2 positive. MMR proficient. On 03/11/2019 patient underwent colonoscopy which showed adenomatous looking degenerative mass with an ulcerated center in the cecum. Two polyps were also removed. CTA performed 02/21/2019 showed multiple lung nodules bilaterally. Largest in the left lower lobe measuring 1.[address] abdomen performed 02/21/2019 showed dilated and inflamed appendix with surrounding inflammatory changes. Normal liver and spleen. Prominent mesenteric lymph nodes measuring up to 1.4 cm. CEA elevated at 14.6. FNA of the left lower lobe lung nodule performed 03/13/2019 showed adenocarcinoma consistent with known cecal primary. PET scan showed intense uptake around cecum, SUV 14.2, terminal ileum, foci in mesentery in the pelvis and right lower quadrant suspicious for metastatic deposits. No uptake in the lung nodules but malignancy not excluded. Right hemicolectomy performed 04/03/2019, adenocarcinoma moderately differentiated. Tumor invades through visceral peritoneum with macroscopic tumor perforation and direct invasion into adjacent loop of small bowel. Eight of 12 pericolonic lymph nodes positive for adenocarcinoma. Tumor involves mesenteric resection margins. Lymphovascular invasion present. Tumor size 6 x 2.8 cm. Stage [id number]. MMR proficient. BRAF mutation not detected, K-renata mutation detected, NRAS mutation not detected, IHC for verdugo TRK negative. Genetic testing. Patient?s genetic test result indicated that he was negative for a hereditary cancer gene mutation. Started chemotherapy modified FOLFOX 6 with Avastin from 04/23/2019. PET scan performed June 2019 showed complete metabolic response. Because of side effects of neuropathy his chemotherapy changed to maintenance treatment with Xeloda 1000 milligram/meter squared b.i.d. day 1-14 along with Avastin Q 3 weeks in June 2019.He has had elevation of CEA, PET-CT performed at [facility] on 11/04/2019 showed increased FDG activity in right lower quadrant of abdomen/pelvis, SUV 6.4, nodular infiltration measuring 1.3 x 0.9 cm. Right upper lobe subpleural nodule with minimal FDG uptake of 2.6, metastatic nodule probable. Xeloda discontinued in February 2020 because of worsening hand/foot syndrome. [place] [facility] [place] showed multiple subcentimeter pulmonary nodules none of which had FDG avidity. No other sites of metastatic disease. On irinotecan plus bevacizumab every 2 weeks until January 2021. He started FOLFOX regimen from 02/02/2021. Later switched to FOLFIRI/Adelaida regimen until 08/2021. He had progressive disease, lung nodules in August 2021. He enrolled in clinical trial in [place], protocol 19-132 which used 2 novel immunotherapy drugs. He started this on 10/13/2021. 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 He was eventually discharged on prednisone 90 mg once daily. He is being tapered gradually. His kidney functions are improving. CT abdomen/pelvis on 12/12/2021 in [place] showed increase in size of metastatic retroperitoneal lymphadenopathy. Peritoneal metastasis in right lower quadrant. Hepatic hypodensities, too small to characterize. CT chest same day showed numerous pulmonary nodules consistent with metastatic disease, a few with increasing cavitation. He was treated with Lonsurf/bevacizumab from January 2022 to August 2022. Repeat CT abdomen/pelvis with contrast in June [address] chest with contrast performed at July 2022 also shows stable disease. Bone scan performed in July 2022 showed multifocal new rashes disease throughout the entire skeleton suspicious for metastatic disease. Interval History Interval history: Joselito is here in follow-up. He was seen sooner today because of ongoing complaints of back, shoulder and hip pains. He is taking long-acting morphine sulfate as well as oxycodone as prescribed. It is not giving him much relief. He did get relief in his left thigh after radiation. He wants to know if he can receive radiation for his left shoulder. He was started back on regorafenib. He is only taking 1 tablet today. He gets occasional nausea. Review of Systems - Constitutional Reports as per HPI, Denies fatigue, Denies malaise, Denies night sweats, Denies poor appetite, Denies weight loss - Cardiovascular Reports no additional cardiovascular complaints - Respiratory Reports no additional respiratory complaints - Gastrointestinal Reports no additional gastrointestinal complaints - Neurologic Reports weakness PMFSH Medical History: Medical History (Last Reviewed 10/11/22 @ 13:06 by Katelin Morse) Acute appendicitis Asthma Colon adenocarcinoma Diarrhea Hypercholesteremia Family History: Family History (Last Reviewed 10/11/22 @ 13:06 by Katelin Morse) Father History of cancer of unknown primary site Family history of high blood pressure Mother Hx of arteriosclerotic cardiovascular disease Maternal Grandfather Hx of arteriosclerotic cardiovascular disease Aortic aneurysm Brother No problems noted. Sister No problems noted. Brother No problems noted. Brother No problems noted. Brother No problems noted. Sister No problems noted. Surgical History: Surgical History (Last Reviewed 10/11/22 @ 13:06 by Katelin Morse) History of lung biopsy Hx of appendectomy Hx of colonoscopy Hx of right hemicolectomy Social History: Social History (Last Reviewed 10/11/22 @ 13:06 by Katelin Morse) Living Situation History: Household Members: Family Housing: Apartment Tobacco History: Patient Tobacco Use Status: Never used Tobacco e-Cigarette/Vaping Use: Never Used Second Hand Smoke Exposure: No Occupation Assessmet: service: No Current occupational status: disabled Home Medications and Allergies Home Medications Medication Instructions Recorded Confirmed Type multivitamin 1 tab PO DAILY 01/10/22 10/11/22 History Advil PM 200 mg PO TID 09/15/22 10/11/22 History Senna Lax 09/15/22 09/15/22 History Allergies Allergy/AdvReac Type Severity Reaction Status Date / Time seafood Allergy Severe Angioedema Verified 09/15/22 11:22 shrimp [SHRIMP] Allergy Severe ANGIOEDEMA Verified 09/15/22 11:22 sucralfate [From Carafate] AdvReac Intermediate rectal Verified 09/15/22 11:22 bleeding Exam Vital signs: Vital Signs Temp 97.6 F 10/11/22 13:03 Pulse 113 H 10/11/22 13:03 Resp 14 10/11/22 13:03 BP 107/75 10/11/22 13:03 Pulse Ox 95 10/11/22 13:03 O2 Del Method Room Air 10/11/22 13:03 Intake & Output 10/10/22 10/11/22 10/11/22 18:59 06:59 18:59 Other: Weight 79.3 kg Melvin Weight in Grams 91173 Weight 79.3 kg BMI result Body Mass Index 25.8 - Constitutional Present: no acute distress, chronically ill appearing - Routine HEENT Exam Head: Present: normal inspection - Routine Neck Exam Present: full ROM. Absent: lymphadenopathy - Routine Chest/Breast/Axilla Exam Chest wall: Absent: tenderness, mass - Routine Respiratory Exam Present: CTAB - Routine Cardiovascular Exam Cardiovascular: Present: RRR, S1, S2 - Routine Skin Exam Present: dry, rash, cracked Data - Labs CBC & Chem 7: 10/11/22 13:00 10/11/22 13:00 - Imaging Radiologist's impression: ITS Impressions Guidance Fluoroscopy 12/26/21 12:41 FINDINGS/IMPRESSION: On contrast injection of the port under fluoroscopy, there is contrast exiting the tip of the catheter and directed upwards with eventually the contrast traveling towards the right atrium. There is a thick sheath seen surrounding the distal catheter tip in the SVC which most likely prevents blood withdrawal. The results were called to referring physician's nurse in charge and made aware of the finding. Assessment and Plan Patient Active problem list reviewed?: Yes (1) Colon carcinoma metastatic to multiple sites Problem details: February 2019 appendectomy invasive adenocarcinoma moderately differentiated cecal mass, left lower lung field lung nodule FNA adeno carcinoma Status: Chronic Assessment and plan: 1. This is a 52-year-old man with metastatic colon cancer, arising from cecum diagnosed in 2018. FNA of lung nodule is consistent with adenocarcinoma. Right hemicolectomy performed 04/03/2019, adenocarcinoma moderately differentiated. Stage [id number]. MMR proficient. BRAF mutation not detected, K-renata mutation detected (G13D), NRAS mutation not detected, IHC for verdugo TRK negative. HER2 non reactive and tumor mutational burden 4 Muts/Mb. Started chemotherapy modified FOLFOX 6 with Avastin from 04/23/2019. He had a good response based on PET scan in June but because of side effects of neuropathy he was switched to maintenance Xeloda with Avastin. On irinotecan plus bevacizumab every 2 weeks until January 2021. Later switched to FOLFIRI/Adelaida regimen until 08/2021. He had progressive disease, lung nodules in August 2021. He enrolled in clinical trial in [place], protocol 19-132 which used 2 novel immunotherapy drugs on 10/13/2021. Unfortunately, he progressed on these medications and he also developed acute immune mediated nephritis as well as hepatitis. He was tapered off high-dose prednisone over a period of 3 months. He has progressive disease in his chest as well as peritoneal disease. He has started Lonsurf 20-8.19 mg 4 tabs p.o. b.i.d. on days 1-5 and days 8-12 every 28 day cycle from 02/07/22 until 08/2022. PET-CT 08/2022 showed progressive disease with now extensive bone metastasis. He was started on regorafenib 80 mg with weekly dose escalation to 160 mg Q 21 days of 28 day cycle. He was started on 40 mg regorafenib once daily which he t ook for about 5 days. He took a break as he was undergoing palliative radiation therapy to left lower extremity. He has completed treatment last week. I have asked him to increase regorafenib to 80 mg a day from 10/11/22. LFTs are normal. 2. Cancer cachexia and weight loss. He is on Marinol 5 mg b.i.d.. He says this is helping. 3. Severe pain secondary to extensive bone metastasis. He was on morphine sulfate long-acting as well as oxycodone every 4 hours. It has not helped him. I am discontinuing the morphine sulfate and starting him on fentanyl patch 50 mcg every 72 hours along with oxycodone 10 mg every 4 hours. Oxycodone dose has been increased. Follow-up in 2 weeks. - Time Spent With Patient Time Spent with Patient (in minutes): 25
--- NOTE | 2022-10-11 15:16 | MHC.HEMONC ---
I sat with pt during his f/u with Dr Mims. He is losing weight and has had periodic vomiting. He had radiation to pelvis with some fairly good relief but now he has back pain and left shoulder pain that is preventing movement and sleeping comfortably. He has been seen by [facility] and he appreciates the home visits. Dr Mims ordered omeprazole, Fentanyl Patch (vs MS Contin) and increased oxycodone to 10mg every 4 hrs as needed. I discussed these changes with [facility] RN, Holly. Pt will take chemo pill Stivarga at 80mg daily for one week and then take a week break before starting next cycle. He will be in next week for labs and denosumab.
--- NOTE | 2022-10-11 16:20 | MHC.HEMONCMA ---
Patient seen today for followup appendiceal cancer, VSS, labs, xrays ordered, 1 week followup.
--- NOTE | 2022-10-13 10:02 | MHC.HEMONC ---
Pt Pharmacy does not have oxycodone 10mg tablets so Dr Mims ordered 2 of the 5mg tablets. Pt notified and will package pick up at [facility]. He will call with any problems.
[2022-10-17 11:30] VITALS: BP 100/68; PULSE 98; RESP 18; TEMP 36.9; O2SAT 95; BMI 25.3
[2022-10-17 11:33] LABS: MANUAL DIFF FLAG NO
[2022-10-17 11:34] LABS: Basophils Absolute Auto 0.1 X10*3/uL (0.0-0.2); Basophils Percent Auto 0.6 % (0-2); Eosinophils Percent Auto 12.5 % (0-4); Hematocrit 35.1 % (42.0-52.0); Hemoglobin 11.3 g/dl (14.0-18.0); Imm Gran Abs Auto 0.02 X10*3/uL (0.00-0.03); Imm Gran Pct Auto 0.3 % (0.0-0.4); Lymphocytes Absolute Auto 0.8 X10*3/uL (1.2-4.9); Lymphocytes Percent Auto 10.2 % (20-40); Mean Corpuscular HGB Conc 32.2 g/dl (31.0-36.0); Mean Corpuscular Hemoglobin 31.4 pg (27.0-33.0); Mean Corpuscular Volume 97.5 fL (80.0-98.0); Mean Platelet Volume 10.4 fL (9.4-12.4); Monocytes Absolute Auto 0.9 X10*3/uL (0.1-1.2); Monocytes Percent Auto 11.5 % (2-11); Neutrophils Absolute Auto 5.1 x10*3/uL (2.0-8.3); Neutrophils Percent Auto 64.9 % (45-73); Platelet Count 186 X10*3/uL (160-400); Red Cell Distribution Width 16.4 % (11.0-16.0); White Blood Count 7.8 X10*3/uL (4.8-10.8)
[2022-10-17 11:48] LABS: Alanine Aminotransferase 10 U/L (0-40); Alkaline Phosphatase 128 U/L (39-117); Anion Gap 12 (12-20); Aspartate Amino Transferase 26 U/L (5-37); Bilirubin Total 0.7 mg/dL (0.0-1.0); Blood Urea Nitrogen 11 mg/dL (9-16); Calcium 8.1 mg/dL (8.4-10.2); Carbon Dioxide 26 mmol/L (22-29); Chloride 102 mmol/L (96-108); Creatinine Clr Calc Pharmacy 76.2; Estimated Glomerular Filt Rate > 60; Glucose Random 104 mg/dL (60-115); Potassium 3.7 mmol/L (3.3-5.1); Sodium 136 mmol/L (135-145); Total Protein 7.4 g/dL (6.5-8.0)
--- NOTE | 2022-10-17 12:26 | MHC.HEMONC ---
Here for Denosumab. Port accessed with good blood return noted. Labs drawn. Pt does state he started with some back pain about 1 week ago. States it is his lower back on left side, dull, constant pain, sometimes throbbing. He does state his fentanyl patch is helping. Denies numbness, tingling, or difficulty walking. He states it does not radiate. Dr Mims is aware, and discussed with pt that he could try RT, but he states he has an appointment coming up with the radiation doctor, so he will wait. He is encouraged to call if the pain worsens. Lab results reviewed, and bun, creatinine are wnl, calcium is low at 8.1. Will hold denosumab today, and will start on calcium supplements. Prescription sent. Port flushed with heparin 500units and de-accessed. Follow up scheduled for 11/03, and labs to be rechecked then, and possible denosumab if calcium better. [facility] to also start Stavarga 120mg next week with day 1 of cycle. Departure packet given and pt departed unit.
--- NOTE | 2022-10-23 15:21 | MHC.HEMONC ---
Pt was in ER over weekend with adverse reaction to Fentanyl Patch. SOB and CP. He was told to stop Fentanyl and take only oxycodone over weekend. RX for OxyContin sent by ER MD but was not fillaable to be filled until today. Per [facility] - pt insurance doesn't cover. 3 times a day dosing. Dr Koroma wrote for 40mg OxyContin every 12 hr and I did PA through Cover my Meds. Prince is aware. Dr Koroma said he could take his old rx of MS Contin until we hear PA determination. I spoke with Prince and he is aware of plan. He will be in for labs Sunday prior to start of next cycle Stivarga.
[2022-10-25 11:49] LABS: MANUAL DIFF FLAG NO
[2022-10-25 11:51] LABS: Basophils Percent Auto 0.4 % (0-2); Eosinophils Absolute Auto 1.2 X10*3/uL (0.0-0.4); Eosinophils Percent Auto 14.8 % (0-4); Hematocrit 33.1 % (42.0-52.0); Hemoglobin 10.8 g/dl (14.0-18.0); Imm Gran Abs Auto 0.02 X10*3/uL (0.00-0.03); Imm Gran Pct Auto 0.2 % (0.0-0.4); Lymphocytes Percent Auto 11.7 % (20-40); Mean Corpuscular HGB Conc 32.6 g/dl (31.0-36.0); Mean Corpuscular Hemoglobin 31.4 pg (27.0-33.0); Mean Corpuscular Volume 96.2 fL (80.0-98.0); Mean Platelet Volume 10.7 fL (9.4-12.4); Monocytes Absolute Auto 0.9 X10*3/uL (0.1-1.2); Monocytes Percent Auto 11.2 % (2-11); Neutrophils Absolute Auto 5.2 x10*3/uL (2.0-8.3); Neutrophils Percent Auto 61.7 % (45-73); Platelet Count 244 X10*3/uL (160-400); Red Blood Count 3.44 X10*6/uL (4.60-5.80); Red Cell Distribution Width 16.9 % (11.0-16.0); White Blood Count 8.4 X10*3/uL (4.8-10.8)
[2022-10-25 12:05] LABS: Alanine Aminotransferase 19 U/L (0-40); Albumin Level 3.7 g/dL (3.5-5.0); Alkaline Phosphatase 175 U/L (39-117); Anion Gap 15 (12-20); Aspartate Amino Transferase 42 U/L (5-37); Bilirubin Total 0.6 mg/dL (0.0-1.0); Blood Urea Nitrogen 13 mg/dL (9-16); Calcium 8.6 mg/dL (8.4-10.2); Carbon Dioxide 26 mmol/L (22-29); Chloride 100 mmol/L (96-108); Creatinine Clr Calc Pharmacy 68.8; Estimated Glomerular Filt Rate > 60; Glucose Random 119 mg/dL (60-115); Potassium 3.5 mmol/L (3.3-5.1); Sodium 137 mmol/L (135-145); Total Protein 7.2 g/dL (6.5-8.0)
[2022-10-25 12:12] VITALS: BP 104/68; PULSE 104; RESP 18; TEMP 36.7; O2SAT 95; BMI 25.0
--- NOTE | 2022-10-25 13:57 | MHC.HEMONC ---
pt recieved banana bag and denosumab ca 8.6. alkaline phosphatase increasing to [address] rangel keep stevarga at 80mg
[2022-10-25] MEDS: Ondansetron ODT 8 MG TAB.RAPDIS TRANSLINGU (14:30)
--- NOTE | 2022-10-25 15:04 | MHC.HEMONC ---
Met with patient and his mother who attended with him. Labs were done via port. Results WNL. He sat for IVF and MVI as his intake has been poor. He will begin cycle of Stivarga. He has intermittent nausea and pain is in fairly good control. Xtampza ER now available at Pharmacy and he was advised. He will stop MS ER that he restarted on Sunday while awaiting PA for new rx and begin new one tonight which is to be taken only twice daily. He signed MOLST with me. He will be DNR/DNI.
--- NOTE | 2022-10-25 16:11 | MHC.HEMONC ---
Denosumab 120mg sc given and tolerated well. Port flushed with heparin 500units and de-accessed. Has follow up scheduled for next week. Departure packet given and pt departed unit.
--- NOTE | 2022-10-26 15:16 | MHC.HEMONCMA ---
[facility] called to notify us that patient refused a visit today and would like to have only 1 visit per week instead and they were notifying us of change per patient.
--- NOTE | 2022-11-02 10:12 | HE.ONCSEC ---
Called pt to confirm appt, lvm.
--- NOTE | 2022-11-02 11:58 | MHC.HEMONC ---
Addendum entered by David Riley RN 11/03/22 09:24: Nurse confirmed Dr. Mims had sent new scrip for Stivarga to [facility]. Original Note: Nurse listened to VM on refill line from Venkat at [facility], asking for new scrip for pt's Stivarga 40 mg tabs to be sent. Nurse sent Dr. Mims message to send new scrip.
--- NOTE | 2022-11-02 15:55 | MHC.HEMONC ---
Triage call from pt. He states he took his Oxycodone Myristate 36mg at 10:30 AM. He was then on the phone with a nurse from [facility] for an hour. His alarm went off at 1:30pm to take his Stavarga, and he stated he was distracted and accidentally took another oxycodone myristate. Discussed with Dr Koroma. Prince was told to drink lots of fluids, and that he may be more tired. He asked about taking his oxycodone, and was told he could take it if needed. He was instructed to not take any more oxycodone myristate today, as the maximum dose is 72mg/24hr. He states understanding. David Roman RN also spoke with Jovita from [facility] about her concerns for Prince. Prince is coming in for follow up with Dr Mims on 11/03, and David will speak to her about Jovita's concerns.
--- NOTE | ~2022-11-03 | FL_ITS ---
PROCEDURE: XR FL PORT INJECTION WITH RADIOLOGICAL SUPERVISION AND INTERPRETATION CLINICAL INFORMATION: Unable to withdraw through the port. COMPARISON: None TECHNIQUE/PROCEDURE: Patient was placed on fluoroscopy table and the access was cleaned in antiseptic matter. The line was flushed with saline. Subsequently, nonionic contrast was injected and fluoroscopy-guided images were obtained. Postprocedure, the line was flushed with heparinized saline. FLUOROSCOPY TIME: 0.8 minutes. DOSE: 13.142 mGy. DOSE AREA PRODUCT: 2.453 Gycm2. FL/FL cva device check w fluoro FINDINGS/IMPRESSION: On contrast injection of the port under fluoroscopy, there is contrast exiting the tip of the catheter and directed upwards with eventually the contrast traveling towards the right atrium. There is a thick sheath seen surrounding the distal catheter tip in the SVC which most likely prevents blood withdrawal. The results were called to referring physician's nurse in charge and made aware of the finding.
--- NOTE | 2022-11-03 12:50 | PM.HEMONCPN ---
Medical Summary - Medical Summary Date of Service: 11/03/22 Chief complaint: Weakness Primary Care Provider: Toshia Dominique MD Medical Summary: Diagnosis: Metastatic colon cancer diagnosed February 2019 Presented with worsening abdominal pain, right lower quadrant ongoing for almost a year. CT imaging showed inflamed appendix, periappendiceal inflammation involving cecum and small bowel. Abscess identified in the pelvis which was drained. Appendectomy performed 02/22/2019, invasive adenocarcinoma, moderately differentiated, tumor present at the resection margin. Acute appendicitis and Suzy appendicitis with perforation. IHC showed CK 7-, CK 20 positive and CDX2 positive. MMR proficient. On 03/11/2019 patient underwent colonoscopy which showed adenomatous looking degenerative mass with an ulcerated center in the cecum. Two polyps were also removed. CTA performed 02/21/2019 showed multiple lung nodules bilaterally. Largest in the left lower lobe measuring 1.[address] abdomen performed 02/21/2019 showed dilated and inflamed appendix with surrounding inflammatory changes. Normal liver and spleen. Prominent mesenteric lymph nodes measuring up to 1.4 cm. CEA elevated at 14.6. FNA of the left lower lobe lung nodule performed 03/13/2019 showed adenocarcinoma consistent with known cecal primary. PET scan showed intense uptake around cecum, SUV 14.2, terminal ileum, foci in mesentery in the pelvis and right lower quadrant suspicious for metastatic deposits. No uptake in the lung nodules but malignancy not excluded. Right hemicolectomy performed 04/03/2019, adenocarcinoma moderately differentiated. Tumor invades through visceral peritoneum with macroscopic tumor perforation and direct invasion into adjacent loop of small bowel. Eight of 12 pericolonic lymph nodes positive for adenocarcinoma. Tumor involves mesenteric resection margins. Lymphovascular invasion present. Tumor size 6 x 2.8 cm. Stage [id number]. MMR proficient. BRAF mutation not detected, K-renata mutation detected, NRAS mutation not detected, IHC for verdugo TRK negative. Genetic testing. Patient?s genetic test result indicated that he was negative for a hereditary cancer gene mutation. Started chemotherapy modified FOLFOX 6 with Avastin from 04/23/2019. PET scan performed June 2019 showed complete metabolic response. Because of side effects of neuropathy his chemotherapy changed to maintenance treatment with Xeloda 1000 milligram/meter squared b.i.d. day 1-14 along with Avastin Q 3 weeks in June 2019.He has had elevation of CEA, PET-CT performed at [facility] on 11/04/2019 showed increased FDG activity in right lower quadrant of abdomen/pelvis, SUV 6.4, nodular infiltration measuring 1.3 x 0.9 cm. Right upper lobe subpleural nodule with minimal FDG uptake of 2.6, metastatic nodule probable. Xeloda discontinued in February 2020 because of worsening hand/foot syndrome. [place] [facility] [place] showed multiple subcentimeter pulmonary nodules none of which had FDG avidity. No other sites of metastatic disease. On irinotecan plus bevacizumab every 2 weeks until January 2021. He started FOLFOX regimen from 02/02/2021. Later switched to FOLFIRI/Adelaida regimen until 08/2021. He had progressive disease, lung nodules in August 2021. He enrolled in clinical trial in [place], protocol 19-132 which used 2 novel immunotherapy drugs. He started this on 10/13/2021. 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 He was eventually discharged on prednisone 90 mg once daily. He is being tapered gradually. His kidney functions are improving. CT abdomen/pelvis on 12/12/2021 in [place] showed increase in size of metastatic retroperitoneal lymphadenopathy. Peritoneal metastasis in right lower quadrant. Hepatic hypodensities, too small to characterize. CT chest same day showed numerous pulmonary nodules consistent with metastatic disease, a few with increasing cavitation. He was treated with Lonsurf/bevacizumab from January 2022 to August 2022. Repeat CT abdomen/pelvis with contrast in June [address] chest with contrast performed at July 2022 also shows stable disease. Bone scan performed in July 2022 showed multifocal new rashes disease throughout the entire skeleton suspicious for metastatic disease. Interval History Interval history: Joselito is here in follow-up. Unfortunately, he continues to be in moderately severe pain and has hard time sleeping. He thinks some of his symptoms could be because of his chemo pill. His appetite is very poor and in spite of being on Marinol he is not eating and losing weight rapidly. He would now like to be on hospice. He does realize that the chemo pill has not helped him much. He wants to live the rest of his days at least in some comfort. Review of Systems - Constitutional Reports as per HPI - Neurologic Reports weakness [facility] Medical History: Medical History (Last Reviewed 10/20/22 @ 20:39 by Su Polk MD) Acute appendicitis Asthma Colon adenocarcinoma Diarrhea Hypercholesteremia Family History: Family History (Last Reviewed 10/11/22 @ 13:06 by Katelin Morse) Father History of cancer of unknown primary site Family history of high blood pressure Mother Hx of arteriosclerotic cardiovascular disease Maternal Grandfather Hx of arteriosclerotic cardiovascular disease Aortic aneurysm Brother No problems noted. Sister No problems noted. Brother No problems noted. Brother No problems noted. Brother No problems noted. Sister No problems noted. Surgical History: Surgical History (Last Reviewed 10/20/22 @ 20:39 by Su Polk MD) History of lung biopsy Hx of appendectomy Hx of colonoscopy Hx of right hemicolectomy Social History: Social History (Last Reviewed 10/11/22 @ 13:06 by Katelin Morse) Living Situation History: Household Members: Family Housing: Apartment Tobacco History: Patient Tobacco Use Status: Never used Tobacco e-Cigarette/Vaping Use: Never Used Second Hand Smoke Exposure: No Occupation Assessmet: service: No Current occupational status: disabled Oncology Screenings - ECOG Performance Status ECOG Performance Status: 3 Home Medications and Allergies Home Medications Medication Instructions Recorded Confirmed Type multivitamin 1 tab PO DAILY 01/10/22 10/11/22 History Advil PM 200 mg PO TID 09/15/22 10/11/22 History Senna Lax 09/15/22 09/15/22 History Allergies Allergy/AdvReac Type Severity Reaction Status Date / Time seafood Allergy Severe Angioedema Verified 09/15/22 11:22 shrimp [SHRIMP] Allergy Severe ANGIOEDEMA Verified 09/15/22 11:22 sucralfate [From Carafate] AdvReac Intermediate rectal Verified 09/15/22 11:22 bleeding Exam Vital signs: Vital Signs Temp 98.1 F 10/25/22 12:12 Pulse 104 H 10/25/22 12:12 Resp 18 10/25/22 12:12 BP 104/68 10/25/22 12:12 Pulse Ox 95 10/25/22 12:12 O2 Del Method Room Air 10/25/22 12:12 Weight 76.7 kg BMI result Body Mass Index 25.0 - Constitutional Present: no acute distress, chronically ill appearing - Routine HEENT Exam Head: Present: normal inspection - Routine Neck Exam Present: full ROM. Absent: lymphadenopathy - Routine Chest/Breast/Axilla Exam Chest wall: Absent: tenderness, mass - Routine Respiratory Exam Present: CTAB - Routine Cardiovascular Exam Cardiovascular: Present: RRR, S1, S2 - Routine Skin Exam Present: dry, rash, cracked Data - Labs CBC & Chem 7: 10/25/22 11:46 10/25/22 11:46 - Imaging Radiologist's impression: ITS Impressions Guidance Fluoroscopy 12/26/21 12:41 FINDINGS/IMPRESSION: On contrast injection of the port under fluoroscopy, there is contrast exiting the tip of the catheter and directed upwards with eventually the contrast traveling towards the right atrium. There is a thick sheath seen surrounding the distal catheter tip in the SVC which most likely prevents blood withdrawal. The results were called to referring physician's nurse in charge and made aware of the finding. Assessment and Plan Patient Active problem list reviewed?: Yes (1) Colon carcinoma metastatic to multiple sites Problem details: February 2019 appendectomy invasive adenocarcinoma moderately differentiated cecal mass, left lower lung field lung nodule FNA adeno carcinoma Status: Chronic Assessment and plan: 1. This is a 52-year-old man with metastatic colon cancer, arising from cecum diagnosed in 2018. FNA of lung nodule is consistent with adenocarcinoma. Right hemicolectomy performed 04/03/2019, adenocarcinoma moderately differentiated. Stage [id number]. MMR proficient. BRAF mutation not detected, K-renata mutation detected (G13D), NRAS mutation not detected, IHC for verdugo TRK negative. HER2 non reactive and tumor mutational burden 4 Muts/Mb. Started chemotherapy modified FOLFOX 6 with Avastin from 04/23/2019. He had a good response based on PET scan in June but because of side effects of neuropathy he was switched to maintenance Xeloda with Avastin. On irinotecan plus bevacizumab every 2 weeks until January 2021. Later switched to FOLFIRI/Adelaida regimen until 08/2021. He had progressive disease, lung nodules in August 2021. He enrolled in clinical trial in [place], protocol 19-132 which used 2 novel immunotherapy drugs on 10/13/2021. Unfortunately, he progressed on these medications and he also developed acute immune mediated nephritis as well as hepatitis. He was tapered off high-dose prednisone over a period of 3 months. He has progressive disease in his chest as well as peritoneal disease. He was on Lonsurf 20-8.19 mg 4 tabs p.o. b.i.d. on days 1-5 and days 8-12 every 28 day cycle from 02/07/22 until 08/2022. PET-CT 08/2022 showed progressive disease with now extensive bone metastasis. He was started on regorafenib 80 mg with weekly dose escalation to 160 mg Q 21 days of 28 day cycle. He has been on this for about a month. 2. Cancer cachexia and weight loss. He is on Marinol 5 mg b.i.d.. 3. Severe pain secondary to extensive bone metastasis. He was on morphine sulfate long-acting as well as oxycodone every 4 hours. It has not helped him. I am discontinuing the morphine sulfate and starting him on fentanyl patch 50 mcg every 72 hours along with oxycodone 10 mg every 4 hours. Oxycodone dose has been increased. 4. Disposition. Patient has declined significantly in the last 2 weeks. He has significant pain, anorexia and ongoing weight loss. He would now like to defer chemotherapy and go on hospice care. He has problems with bowel and bladder control lately, he lives with his older mother who has her own medical problems. He would like inpatient hospice if possible. He wishes to be a DNR/DNI. Referral to hospice care will be made. - Time Spent With Patient Time Spent with Patient (in minutes): 35
[2022-11-03 13:04] VITALS: BP 131/75; PULSE 125; RESP 16; TEMP 35.1; O2SAT 94
[2022-11-03 14:04] VITALS: BMI 23.8
--- NOTE | 2022-11-03 15:05 | MHC.HEMONC ---
I met with patient and his mother during and following f/u with Dr Mims. Pt has had more weight loss with minimal intake, pain continues to be an issue and he is weaker. He has decided to take Hospice care and stop [facility] rx. He was very open and asked questions about how much time he has left and what if he doesn't want to at home . He feels his mother is too frail with her health to care for him. Dr Mims agreed that he is appropriate and would benefit from Hospice at this point. She can offer no further treatment and Prince has been aware of that. I spoke with Akila at [facility] and she has arranged for a visit antoninacindy (pt already known to [facility]). I specifically told her they will need to address his concerns over placement for final days. Prince was assured that he can call us if we can help with anything. I also left message for Vanessa from [facility] ([phone]) to discuss Prince's visit here today.
== END 2023-02-17 | disposition home or self-care (01) ==
LOC: HO.ONC 12:45
PROVIDERS: Internal Medicine; PCP Internal Medicine; Visit Provider Internal Medicine
DX: C18.0 Malignant neoplasm of cecum (principal); C78.02 Secondary malignant neoplasm of left lung; C79.51 Secondary malignant neoplasm of bone; R64 Cachexia; G62.9 Polyneuropathy, unspecified; D72.819 Decreased white blood cell count, unspecified; N28.9 Disorder of kidney and ureter, unspecified; G89.3 Neoplasm related pain (acute) (chronic); Z79.891 Long term (current) use of opiate analgesic
CPT/HCPCS: 36415; 36591; 36593; 36598; 80048; 80053; 80061; 81001; 81003; 82378; 83615; 83735; 84100; 85025; 86704; 86708; 87517; 88360; 93005; 96360; 96361; 96366; 96367; 96368; 96372; 96375; 96411; 96413; 96415; 96416; 96417; 96523; 99213; 99214; J0461; J0640; J0897; J1100; J1200; J1453; J1642; J2405; J2997; J9035; J9190; J9206; J9263; Q0163; Q5107

== ENCOUNTER 2023-02-16 12:56 | Inpatient (IN) | payer OTHER, SELFPAY ==
[2023-02-16 13:07] VITALS: BP 103/65; BP 88/63; PULSE 130; PULSE 138; RESP 15; O2SAT 90; O2SAT 96; BMI 19.4
--- NOTE | 2023-02-16 13:31 | MHC.CM.ED ---
Received notification from [facility] that patient is from home with their agency due to Colon cancer. Patient will need GIP admission because pain can't be managed at home. Rylee BILLS, Elisabet RN and Crystal HUERTA aware. Continue to monitor for d/c needs.
--- NOTE | 2023-02-16 13:35 | ED.GENADULT ---
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 He is currently on morphine 90 mg of extended release morphine every 8 hours for pain along with morphine immediate release 15 mg 2 tablets every 4 hours although this is not significant for his pain. He presents hypotensive, hypoxic and tachycardic with nasal cannula oxygen. Patient admits to being short of breath and unable to breathe. 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 MD complaint: Pain control on hospice due to colon cancer with Mets Related Data Home Medications Medication Instructions Recorded Confirmed multivitamin 1 tab PO DAILY 01/10/22 10/11/22 Advil PM 200 mg PO TID 09/15/22 10/11/22 Senna Lax 09/15/22 09/15/22 Previous Rx's Medication Instructions Recorded lidocaine HCl 2 % mucosal jelly 1 appl topical BID PRN Pain #100 mL 03/18/21 ferrous sulfate 325 mg (65 mg 325 mg PO DAILY #90 tabs 03/17/22 iron) tablet cyanocobalamin (vitamin B-12) 1,000 mcg PO DAILY #90 tabs 08/15/22 1,000 mcg tablet ondansetron 8 mg disintegrating 8 mg PO Q8H PRN Nausea And 08/22/22 tablet Vomiting #60 tabs loperamide 2 mg capsule 2 mg PO Q4H PRN Diarrhea #60 caps 08/31/22 cyclobenzaprine 10 mg tablet 10 mg PO TID PRN Pain #30 tabs 09/05/22 polyethylene glycol 3350 17 gram 17 g PO DAILY #30 ea 09/15/22 oral powder packet (Miralax) fentanyl 50 mcg/hr transdermal 1 patch transdermal Q72H #6 ea 05/24/23 patch calcium carbonate 600 mg calcium 600 mg PO BID #90 tabs 10/17/22 (1,500 mg) tablet (Calcium) oxycodone 30 mg tablet,crush 30 mg PO TID #10 tabs 10/20/22 resistant,extended release 12 hr (OxyContin) oxycodone 10 mg tablet 10 mg PO Q4H PRN Breakthrough 10/23/22 Pain, Severe #60 tabs oxycodone 40 mg tablet,crush 40 mg PO Q12H #60 tabs 10/23/22 resistant,extended release 12 hr (OxyContin) oxycodone myristate 36 mg capsule 36 mg PO Q12H #60 caps 10/24/22 sprinkle extended release 12hr(DON'T CRUSH) (Xtampza ER) dronabinol 2.5 mg capsule (Marinol) 5 mg (2 x 2.5 mg) PO BID #60 caps 11/03/22 lorazepam 0.5 mg tablet 0.5 mg PO TID PRN Anxiety #60 tabs 11/03/22 oxycodone 5 mg tablet 10 mg (2 x 5 mg) PO Q4H PRN Pain 11/03/22 #100 tabs regorafenib 40 mg tablet 80 mg (2 x 40 mg) PO DAILY #42 tabs 11/03/22 albuterol sulfate 90 mcg/actuation 2 puff inhalation Q6H PRN 12/13/22 aerosol inhaler (Ventolin HFA) shortness of breath or wheezing #8.5 grams omeprazole 20 mg capsule,delayed 20 mg PO DAILY #30 caps 01/05/23 release Allergies Allergy/AdvReac Type Severity Reaction Status Date / Time seafood Allergy Severe Angioedema Verified 09/15/22 11:22 shrimp [SHRIMP] Allergy Severe ANGIOEDEMA Verified 09/15/22 11:22 sucralfate [From Carafate] AdvReac Intermediate rectal Verified 09/15/22 11:22 bleeding Review of Systems Review of Systems: Patient denies fevers, chills, nausea, vomiting, chest pain. [facility] Past Medical History Attestation statement: The following information was validated with the patient. Source: old records reviewed, obtained from family and nursing notes reviewed Medical History Diarrhea Hypercholesteremia Asthma Acute appendicitis Colon adenocarcinoma Surgical History Hx of right hemicolectomy Hx of appendectomy History of lung biopsy Hx of colonoscopy Family History Family History Father History of cancer of unknown primary site Family history of high blood pressure Mother Hx of arteriosclerotic cardiovascular disease Maternal Grandfather Hx of arteriosclerotic cardiovascular disease Aortic aneurysm Brother No problems noted. Sister No problems noted. Brother No problems noted. Brother No problems noted. Brother No problems noted. Sister No problems noted. Social History Social History Household Members: Family Housing: Apartment Alcohol intake: never Patient Tobacco Use Status: Never used Tobacco e-Cigarette/Vaping Use: Never Used Second Hand Smoke Exposure: No Advance Directives Date on File: 07/21/20 service: No Current occupational status: disabled Cognitive needs: No Hearing needs: No Vision needs: No Physical Exam ED Vital Signs: Vital Signs - 24 hr 02/16/23 13:07 Pulse Rate 138 H Respiratory Rate 15 Blood Pressure 88/63 L Pulse Oximetry 90 L Oxygen Delivery Method Nasal Cannula BMI result Body Mass Index 19.4 Vitals reviewed patient hypotensive, tachycardic and hypoxic on 10 L of nasal cannula oxygen at this time Appearance: Somnolent although easily arousable.. Oriented. In acute respiratory distress and in pain. Head: Normal external exam. Normocephalic. Atraumatic. Eyes: PERRLA. EOMI. Conjunctiva and sclera normal. Eyelids normal. ENT: Pharynx normal. Uvula midline. Dry mucous membranes. Neck: Normal inspection. Neck supple. FROM. CVS: Patient tachycardic. Respiratory: + respiratory distress with accessory muscle usage. Skin: Skin warm and dry. Normal skin color. Poor skin turgor. No rashes noted. Extremities: No lower extremity edema. No joint edema or erythema. Neuro: Oriented. No focal neuro deficits noted. Vascular: + radial pulses/+ 2 distal pedal pulses/+2 dorsalis pedis b/l. Normal cap refill. No cyanosis noted to upper extremity nails and lower extremity toes nails. Course Course Course Narrative: This is a 52-year-old male being followed by Dr. Mims currently on hospice on p.o. morphine 90 mg extended release and 30 mg immediate release presenting for pain control and hospice inpatient admission due to family and hospice at home unable to control pain. Patient arrive hypoxic, tachycardic and hypotensive on nasal cannula oxygen. Reports that he will allow nasal cannula oxygen and pain control otherwise does not want any further treatment. He denies any other symptoms other than pain and shortness of breath. Therefore at this time patient will be placed on nasal cannula oxygen or face mask along with IV morphine and he would be admitted for Hospice inpatient care. I discussed this case with Luz Maria Bates the hospitalist. Medical Decision Making Medical Decision Making MDM Narrative: Patient on hospice will provide care for pain control as patient request/family requested hospice. DEANNA [place] manager confirm this with hospice. Admission/Observation Consideration of admission/observation: Escalation of care including admission/observation considered Consult Healthcare Provider Management of the patient was discussed with: Hospitalist (Luz Maria Bates the hospitalist) DEANNA [place] manager here in the ER Independent Historian Clinical information obtained from an independent historian. History obtained from or confirmed by: EMS and Other (Hospice over the phone, case mgr) External Record Review External record reviewed: Inpatient record, Office record, Outpatient record, Prior outpatient labs, Prior outpatient radiology, Primary care record and Outside ED record All prior labs/imaging/EKG and notes that are accessible in our system reviewed by myself Prescription Management I considered prescription management with: Pain Medication Chronic Conditions Patient?s care impacted by: Cancer Social Determinants Patient?s care significantly limited by Social Determinants of Health including: Other Social Determinant of Health Critical Care Time Critical Care Time Critical Care Time: Yes Total Critical Care Time: 60 Attestation: I personally attest to this time spent taking care of the patient Discharge Plan Discharge Clinical Impression: Inadequate pain control, Hospice care, Colon cancer Patient Disposition: Admitted As Inpatient Prescriptions: No Action lidocaine HCl 2 % Jelly 1 appl TOPICAL BID PRN (Reason: Pain) Qty: 100 0RF multivitamin Tablet 1 tab PO DAILY ferrous sulfate 325 mg (65 mg iron) Tablet 325 mg PO DAILY Qty: 90 4RF cyanocobalamin (vitamin B-12) 1,000 mcg Tablet 1,000 mcg PO DAILY Qty: 90 1RF ondansetron 8 mg Tablet,Disintegrating 8 mg PO Q8H PRN (Reason: Nausea And Vomiting) Qty: 60 5RF loperamide 2 mg capsule 2 mg PO Q4H PRN (Reason: Diarrhea) Qty: 60 0RF cyclobenzaprine 10 mg Tablet 10 mg PO TID PRN (Reason: Pain) Qty: 30 3RF Advil PM 200 mg gel 200 mg PO TID Senna Lax fentanyl 50 mcg/hr Patch 72 Hour 1 patch TRANSDERMAL Q72H Qty: 6 0RF Rx Instructions: Partial Fill upon patient request. calcium carbonate [Calcium 600] 600 mg calcium (1,500 mg) Tablet 600 mg PO BID Qty: 90 3RF oxycodone [OxyContin] 40 mg Tablet,Oral Only,Ext.Rel.12 Hr 40 mg PO Q12H Qty: 60 0RF Rx Instructions: Partial Fill upon patient request. oxycodone 10 mg Tablet 10 mg PO Q4H PRN (Reason: Breakthrough Pain, Severe) Qty: 60 0RF Rx Instructions: Partial Fill upon patient request. Xtampza ER 36 mg Cap,Sprinkl,Er12hr(Dont Crush) 36 mg PO Q12H Qty: 60 0RF Rx Instructions: must administer with a meal/food; Partial Fill upon patient request. regorafenib 40 mg Tablet 80 mg PO DAILY Qty: 42 0RF dronabinol [Marinol] 2.5 mg Capsule 5 mg PO BID Qty: 60 0RF Rx Instructions: administer before lunch and evening meal/dinner lorazepam 0.5 mg Tablet 0.5 mg PO TID PRN (Reason: Anxiety) Qty: 60 0RF oxycodone 5 mg Tablet 10 mg PO Q4H PRN (Reason: Pain) Qty: 100 0RF Rx Instructions: Partial Fill upon patient request. albuterol sulfate [Ventolin HFA] 90 mcg/actuation HFA aerosol inhaler 2 puff inhalation Q6H PRN (Reason: shortness of breath or wheezing) Qty: 8.5 5RF omeprazole 20 mg Capsule,Delayed Release(Dr/Ec) 20 mg PO DAILY Qty: 30 1RF oxycodone [OxyContin] 30 mg tablet,oral only,ext.rel.12 hr 30 mg PO TID Qty: 10 0RF Rx Instructions: Partial Fill upon patient request. Stop using the fentanyl patch today, 10/20/2022. You may start using OxyContin on October 23 polyethylene glycol 3350 [Miralax] 17 gram powder in packet 17 g PO DAILY Qty: 30 0RF
[2023-02-16] MEDS: Morphine Sulfate 4 MG/ML CARTRIDGE IVPUSH ×2 (13:41→15:53)
--- NOTE | 2023-02-16 13:44 | PC.NURSE ---
pt medicated per MAR for increased pain.
--- NOTE | 2023-02-16 14:45 | MHC.EDTECH ---
Patient found to be incontinent of stool. T/w and alarm service technician Manisha cleaned Pt, placed him into hospital gown, repositioned him and blankets given.
--- NOTE | 2023-02-16 14:53 | P.HPHOSP_ITS ---
History of Present Illness Date of Service: 02/16/23 Chief Complaint: Uncontrolled pain on hospice 52 yoM with a PMHx of colon cancer with Mets to lymph nodes, lung and bone who is currently hospice at home for the last 3 months. He is brought to the ED on advise by hospice service for better pain control. He takesn morphine 90 mg of extended release morphine every 8 hours, and morphine immediate release 15 mg 2 tablets every 4 hours with insuficient pain control. Patient is very gaunt, hypotensive, hypoxic and tachycardic with and having difficulty breahing. He has confirmed he doesn't want treatment other than pain control and oxygen for comfort. Review of Systems Review of Systems: Pain all over and shortness of breath, he not able to participate more PMFSH Medical History Diarrhea Hypercholesteremia Asthma Acute appendicitis Colon adenocarcinoma Family History Father History of cancer of unknown primary site Family history of high blood pressure Mother Hx of arteriosclerotic cardiovascular disease Maternal Grandfather Hx of arteriosclerotic cardiovascular disease Aortic aneurysm Brother No problems noted. Sister No problems noted. Brother No problems noted. Brother No problems noted. Brother No problems noted. Sister No problems noted. Surgical History Hx of right hemicolectomy Hx of appendectomy History of lung biopsy Hx of colonoscopy Social History Household Members: Family Housing: Apartment Alcohol intake: never Patient Tobacco Use Status: Never used Tobacco e-Cigarette/Vaping Use: Never Used Second Hand Smoke Exposure: No Advance Directives: Yes Advance Directives on File: Yes Advance Directives Date on File: 07/21/20 service: No Current occupational status: disabled Cognitive needs: No Hearing needs: No Vision needs: No Meds Allergies Allergy/AdvReac Type Severity Reaction Status Date / Time seafood Allergy Severe Angioedema Verified 09/15/22 11:22 shrimp [SHRIMP] Allergy Severe ANGIOEDEMA Verified 09/15/22 11:22 sucralfate [From Carafate] AdvReac Intermediate rectal Verified 09/15/22 11:22 bleeding Active Medications: Current Medications Morphine Sulfate (Morphine Sulfate 4 Mg/Ml Cartridge) 4 mg IVPUSH Q2H LOLLY; Protocol Last Admin: 02/16/23 14:06 Dose: Not Given Home Medications Medication Instructions Recorded Confirmed Last Taken Type dexamethasone 2 mg tablet 2 mg PO DAILY BONE PAIN 02/16/23 02/16/23 Unknown History dextromethorphan-guaifenesin 5 10 ml PO Q12H PRN Congestion 02/16/23 02/16/23 Unknown History mg-100 mg/5 mL oral liquid (Mucinex Fast-Max DM Max) morphine 15 mg immediate release 30 mg PO Q4H PRN Pain 02/16/23 02/16/23 Unknown History tablet morphine concentrate 100 mg/5 mL 10 mg PO Q4-6H PRN MOD TO SEVERE 02/16/23 02/16/23 Unknown History (20 mg/mL) oral solution BREAKTHROUGH PAIN OR SOB oxycodone 60 mg tablet,crush 60 mg PO TID 02/16/23 02/16/23 Unknown History resistant,extended release 12 hr (OxyContin) trazodone 50 mg tablet 50 mg PO BEDTIME 02/16/23 02/16/23 Unknown History Physical Exam Vital Signs and Narrative: Vital Signs: Last Vital Signs Pulse 138 H 02/16/23 13:07 Resp 15 02/16/23 13:07 BP 88/63 L 02/16/23 13:07 Pulse Ox 90 L 02/16/23 13:07 O2 Del Method Nasal Cannula 02/16/23 13:07 Oxygen Flow Rate 6 02/16/23 13:07 BMI result Body Mass Index 19.4 Const: Other: Constitutional: Alert, in alot of pain, very imaciated Mental Status: not able to assess Eyes: Pupils are equal, round and reactive to light. Ear, Nose and Throat: Oropharynx clear, mucous membranes moist. Respiratory: Clear to auscultation. No wheezing, rales or rhonchi. Cardiovascular: S1 S2 regular. No murmurs, rubs or gallops. tachycardia Gastrointestinal: pain to palapation Neurologic: not able to assess due to excruciating pain Skin: No rashes or lesions.? large decub ulcer Musculoskeletal: No cyanosis or clubbing. Psychiatric:flat Assessment and Plan (1) Colon cancer: Status: Acute (2) Hospice care: Status: Acute (3) Cancer related pain: Status: Acute Plan 52 yoM with a PMHx of colon cancer with Mets to lymph nodes, lung and bone who is currently hospice at home for the last 3 months. He is brought to the ED on advise by hospice service for better pain control. Plan: Admit to [facility] hospice/comfort care, pain control with IV dilaudid push or by OIL PIT ATTENDANT per comfort care order, Ativan for anxiety, scopolamine patch for secretions.. Discussed with HCP at bedside Time Spent With Patient Time: Total time managing care of this patient today ____ minutes. Quality Stroke Does the patient have a stroke diagnosis?: No VTE Prior VTE?: No VTE Risk Level:: Medical - moderate - high VTE Device Contraindication: Treatment Not Indicated VTE Drug Contraindication: Treatment Not Indicated
[2023-02-16] MEDS: Scopolamine 1.5 MG PATCH.TD.3 TRANSDERMA (15:53)
--- NOTE | 2023-02-16 16:59 | PHA.MEDREC ---
Pharmacy Consult ? Medication Reconciliation Pharmacy has completed the medication reconciliation. Received medication list from [facility]. Maria C Mcintyre, [employer]
[2023-02-16] MEDS: LORazepam 2 MG/ML VIAL 1 MG IVPUSH ×2 (17:58→23:41)
[2023-02-16] MEDS: HYDROmorphone HCl/NS 10 MG/50 ML PIGGYBACK 2 MG IV (17:59)
[2023-02-17] VITALS: RESP 20
--- NOTE | 2023-02-17 03:10 | PC.NURSE ---
0259 witnessed industrial custodian dilaudid rate increased to 0.6mg/hr
--- NOTE | 2023-02-17 03:11 | PC.NURSE ---
3 am dilaudid tire mold tester increased to 0.6 mg/h for pt. comfort
[2023-02-17] MEDS: LORazepam 2 MG/ML VIAL 1 MG IVPUSH ×2 (05:52→08:48)
[2023-02-17] MEDS: Acetaminophen Supp 650 MG SUPP.RECT PR (08:26)
--- NOTE | 2023-02-17 08:36 | P.PNIM_ITS ---
Subjective Subjective Date of Service: 02/17/23 Interval History: Appear comfortable, no distress Physical Exam Vital Signs: Vital Signs: Last Vital Signs Pulse 138 H 02/16/23 13:07 Resp 20 02/17/23 00:00 BP 88/63 L 02/16/23 13:07 Pulse Ox 90 L 02/16/23 13:07 O2 Del Method Nasal Cannula 02/16/23 13:07 Oxygen Flow Rate 6 02/16/23 13:07 BMI result Body Mass Index 19.4 Const: Other: Breathing easy, no distress Objective Data Active Medications Acetaminophen (Acetaminophen Supp 650 Mg Supp.Rect) 650 mg OK Q6H PRN PRN Reason: Fever Last Admin: 02/17/23 08:26 Dose: 650 mg Documented By: KASSIDY Acetaminophen (Acetaminophen Supp 650 Mg Supp.Rect) 650 mg OK Q6H PRN PRN Reason: Fever >100.4 Albuterol Sulfate (Albuterol Sulfate 90 Mcg 8 Gm Inhaler) 2 puff INHALE Q6H PRN PRN Reason: shortness of breath or wheezing Hydromorphone HCl (Hydromorphone Hcl 1 Mg/Ml Syringe) 1 mg IVPUSH Q4H PRN; Protocol PRN Reason: Pain, Severe (Pain Scale 7-10) Hydromorphone HCl (Dilaudid) 10 mg in 50 mls @ 0 mls/hr IV .Q0M LOLLY; Protocol Last Infusion: 02/17/23 02:59 Dose: 0.6 mg/hr, 3 mls/hr Documented By: GABRIEL Lorazepam (Lorazepam 2 Mg/Ml Vial) 1 mg IVPUSH Q4H PRN PRN Reason: anxiety/restlessness Ondansetron HCl (Ondansetron Hcl 4 Mg/2 Ml Vial) 4 mg IVPUSH Q8H PRN PRN Reason: Nausea and Vomiting Polyethylene Glycol (Polyethylene Glycol 3350 17 Gm Powd.Pack) 17 gm PO DAILY [facility] Last Admin: 02/17/23 07:52 Dose: Not Given Documented By: KASSIDY Non-Admin Reason: somnolent Scopolamine (Scopolamine 1.5 Mg Patch.Td.3) 1.5 mg TRANSDERMA Q72H [facility] Last Admin: 02/16/23 15:53 Dose: 1.5 mg Documented By: LEAH Trazodone HCl (Trazodone Hcl 50 Mg Tablet) 50 mg PO BEDTIME LOLLY Last Admin: 02/16/23 23:44 Dose: Not Given Documented By: GABRIEL Non-Admin Reason: too sleepy Assessment and Plan (1) Cancer related pain: Status: Acute (2) Hospice care: Status: Acute (3) Colon cancer: Status: Acute Plan 52 yoM with a PMHx of colon cancer with Mets to lymph nodes, lung and bone who is currently hospice at home for the last 3 months. He is brought to the ED on advise by hospice service for better pain control. Plan: Continue hospice/comfort care, pain control with IV dilaudid push or by BEET FLUMER per comfort care order and IVP PRN, Ativan for anxiety, scopolamine patch for secretions, Tylenol for fever. Time Spent With Patient Time: Total time managing care of this patient today ____ minutes. Quality Stroke Does the patient have a stroke diagnosis?: No VTE Prior VTE?: No VTE Risk Level:: Medical - moderate - high VTE Device Contraindication: Treatment Not Indicated VTE Drug Contraindication: Treatment Not Indicated
[2023-02-17] MEDS: HYDROmorphone HCl 1 MG/ML SYRINGE IVPUSH (09:11)
--- NOTE | 2023-02-17 09:40 | PC.NURSE ---
HEAD BONE GRINDER Pump increased to 0.8 from 0.6
--- NOTE | 2023-02-17 10:24 | PC.NURSE ---
increased to 1mg from 0.8mg, RR 40, down from 48RR/min
--- NOTE | 2023-02-17 10:55 | PC.NURSE ---
PLANISHER increased from 1mg/hr to 1.2mg/hr.
[2023-02-17] MEDS: HYDROmorphone HCl/NS 10 MG/50 ML PIGGYBACK 6 MG IV (11:53)
--- NOTE | 2023-02-17 12:07 | PC.NURSE ---
Home [facility], [address] [place] [address], [phone] per HCP.
--- NOTE | 2023-02-17 12:29 | PM.EVENT ---
Event Note Date of Service: 02/17/23 Event Note: Pt pronounced at 12:15 pm. Final exam: no heart sounds, no lungs sounds, pupils dilated and fixed. No response to painful stimuli. Family at bedside Time Spent With Patient Time: Total time managing care of this patient today ____ minutes.
--- NOTE | 2023-02-17 12:33 | PM.DDS ---
Discharge Sum: Prov Provider Primary care physician: Toshia Dominique MD Attending physician on admission: Sebastien Jordan Discharge Sum: Diag Contributing Factors (1) Cancer related pain: (2) Hospice care: (3) Colon cancer: (4) Severe protein-calorie malnutrition: (5) Stage II decubitus ulcer: Discharge Sum: Summary Date and Time Date of admission: 02/16/23 14:07 Date of : 02/17/23 Time of : 12:15 Summary Details: 52 yoM with a PMHx of colon cancer with Mets to lymph nodes, lung and bone who is currently hospice at home for the last 3 months. He is brought to the ED on advise by hospice service for better pain control. He takesn morphine 90 mg of extended release morphine every 8 hours, and morphine immediate release 15 mg 2 tablets every 4 hours with insuficient pain control. Patient is very gaunt, hypotensive, hypoxic and tachycardic with and having difficulty breahing. He has confirmed he doesn't want treatment other than pain control and oxygen for comfort. Hospital course: Patient was admitted to hospice [facility] due to inadequate pain control at home hospice for metastatic colon cancer. In hospital was given IV dilaudid via DIRECTOR MEDICARE SALES to achieve comfort, along with ativan for anxiety. Patient on 02/17/23 at 12: 15 pm Final diagnoses: Metastatic colon cancer Cancer related pain Severe protein calory malnutrition Stage 2 decub ulcer Additional Data Attending physician: Sebastien Jordan MD
== END 2023-02-17 13:19 | disposition expired | DRG 951 ==
LOC: HO.ED 13:54 → HO.EDOVER 14:19 → HO.S3 14:40
PROVIDERS: Admitting Provider Physician Assistant Medical; Emergency Provider Emergency Medicine Emergency Medical Services; PCP Internal Medicine; Visit Provider Internal Medicine
DX: Z51.5 Encounter for palliative care (principal); E43 Unspecified severe protein-calorie malnutrition; C18.9 Malignant neoplasm of colon, unspecified; C78.00 Secondary malignant neoplasm of unspecified lung; C77.9 Secondary and unspecified malignant neoplasm of lymph node, unspecified; C79.51 Secondary malignant neoplasm of bone; Z68.1 Body mass index [BMI] 19.9 or less, adult; G89.3 Neoplasm related pain (acute) (chronic); L89.92 Pressure ulcer of unspecified site, stage 2; Z79.899 Other long term (current) drug therapy
CPT/HCPCS: 99285; C1758; J1170; J2060; J2270

== ENCOUNTER → 2023-02-16 14:07 | Outpatient (BNV) | payer MEDICARE, SELFPAY | PROVIDERS: Admitting Provider Physician Assistant Medical; Emergency Provider Emergency Medicine Emergency Medical Services; PCP Internal Medicine; Visit Provider Internal Medicine | DX: G89.3 Neoplasm related pain (acute) (chronic) (principal); Z51.5 Encounter for palliative care; C18.9 Malignant neoplasm of colon, unspecified; E43 Unspecified severe protein-calorie malnutrition; L89.92 Pressure ulcer of unspecified site, stage 2 | CPT/HCPCS: 99223; 99238 ==